=== PATIENT | female | born 1945 | race African-American/Black ===

== ENCOUNTER 2018-10-08 14:31 | Inpatient (IN) | payer MEDICARE, MEDICAID ==
[2018-10-08] VITALS (7 sets, daily range): BP systolic 147–159; BP diastolic 54–64; BMI 22.3
[~2018-10-08] VITALS: Ht 152.4 cm; Wt 52.7 kg
[2018-10-08 18:54] LABS: BASOPHILS 0.1 % (0-2); EOSINOPHILS 0.1 % (0-7); HEMATOCRIT 28.3 % (36.0-48.0); HEMOGLOBIN 9.1 g/dL (12-16); IMMATURE GRANULOCYTES 0.4 % (0-5); LYMPHOCYTES 10.8 % (15-50); MCH 29.3 pg (26.0-34.0); MCHC 32.2 g/dL (31.0-37.0); MEAN PLATELET VOLUME 9.9 fL (7.4-10.4); MONOCYTES 10.7 % (2-11); NEUTROPHILS 77.9 % (40-80); PLATELET COUNT 135 10x3/uL (130-400); RBC 3.11 10x6/uL (4.00-5.40); RDW 17.2 % (11.5-14.5); WBC 11.4 10x3/uL (4.8-10.8)
--- NOTE | 2018-10-08 19:25 | NUR ---
RECEIVED CARE OF PT, ASSESSMENT PER FLOWSHEET. PT ALERT AND ORIENTED X 4, HR SR ON CM, DENIES PAIN OR ANY NEEDS AT THIS TIME. BED LOW, CALL LIGHT IN REACH.
[2018-10-08 19:32] LABS: ALBUMIN 2.3 g/dL (3.4-5.0); ANION GAP 13.1 mmol/L (8-16); BILIRUBIN - TOTAL 0.5 mg/dL (0.2-1.3); CALCIUM 7.9 mg/dL (8.5-10.1); CARBON DIOXIDE 19.2 mmol/L (21.0-32.0); CREATININE - SERUM 3.5 mg/dL (0.6-1.3); POTASSIUM - SERUM 4.3 mmol/L (3.5-5.1); PROTEIN - SERUM 4.8 g/dL (6.4-8.2)
[2018-10-08 20:30] LABS: HEMATOCRIT 27.4 % (36.0-48.0); HEMOGLOBIN 9.1 g/dL (12-16)
--- NOTE | 2018-10-08 20:30 | NUR ---
DR YBARRA NOTIFIED OF CONSULT, UPDATE GIVEN, NO ORDERS RECEIVED AT THIS TIME.
[2018-10-08 20:33] LABS: APTT 26.9 SECONDS (22.8-39.4); INR 1.24 (0.85-1.17); PROTIME 15.1 SECONDS (11.6-15.0)
[2018-10-08 20:42] LABS: % SATURATION 9 % (15-55); IRON 24 ug/dl (35-150); TOTAL IRON BIND CAPACITY 244 ug/dl (260-445); UNSAT IRON BIND CAPACITY 220 ug/dl (150-375)
[2018-10-09] VITALS (10 sets, daily range): BP systolic 129–158; BP diastolic 49–70
[2018-10-09 04:06] LABS: BASOPHILS 0.2 % (0-2); EOSINOPHILS 0.2 % (0-7); HEMATOCRIT 25.7 % (36.0-48.0); HEMOGLOBIN 8.5 g/dL (12-16); IMMATURE GRANULOCYTES 0.5 % (0-5); LYMPHOCYTES 9.8 % (15-50); MCH 29.5 pg (26.0-34.0); MCHC 33.1 g/dL (31.0-37.0); MCV 89.2 fL (80.0-100.0); MEAN PLATELET VOLUME 9.6 fL (7.4-10.4); MONOCYTES 8.4 % (2-11); NEUTROPHILS 80.9 % (40-80); PLATELET COUNT 133 10x3/uL (130-400); RBC 2.88 10x6/uL (4.00-5.40); RDW 17.4 % (11.5-14.5); WBC 11.9 10x3/uL (4.8-10.8)
[2018-10-09 04:19] LABS: ANION GAP 17.2 mmol/L (8-16); CALCIUM 7.9 mg/dL (8.5-10.1); CARBON DIOXIDE 19.5 mmol/L (21.0-32.0); CREATININE - SERUM 3.5 mg/dL (0.6-1.3); POTASSIUM - SERUM 4.7 mmol/L (3.5-5.1)
--- NOTE | 2018-10-09 04:40 | NUR ---
AM LABS REVIEWED, NOTHING TO TREAT PER ELECTROLYTE PROTOCOL.
--- NOTE | 2018-10-09 07:00 | NUR ---
REPORT RECIEVED, SHIFT ASSESSMENT COMPLETE, PT IS ALERT AND ORIENTED, ON 2L NC, ALL PPP, VSS, CALL LIGHT IN REACH
--- NOTE | 2018-10-09 07:15 | NUR ---
REPORT RECIEVED, SHIFT ASSESSMENT COMPLETE, PT C/O OF HIP PAIN, ORDERED PAIN MED GIVEN, ALL VSS, CALL LIGHT IN REACH
[2018-10-09 07:50] LABS: HEMATOCRIT 26.2 % (36.0-48.0); HEMOGLOBIN 8.5 g/dL (12-16)
[2018-10-09] MEDS ORDERED: GLUCOTROL 5 MG T5 MG PO (09:17)
[2018-10-09] MEDS ORDERED: PROTONIX40 MG PO (09:17)
[2018-10-09] MEDS ORDERED: FERROUS SULFAT325 MG PO (09:19)
[2018-10-09] MEDS ORDERED: COREG6.25 MG PO (09:19)
[2018-10-09] MEDS ORDERED: BUMEX2 MG PO (09:20)
[2018-10-09] MEDS ORDERED: HYDROCODON-ACE1 EA10 PO (09:20)
[2018-10-09] MEDS ORDERED: HYDRALAZINE HC100 MG PO (09:21)
[2018-10-09] MEDS ORDERED: RANEXA500 MG PO (09:21)
--- NOTE | 2018-10-09 09:25 | NUR ---
FAMILY AT BEDSIDE, UPDATE GIVEN
--- NOTE | 2018-10-09 11:00 | NUR ---
REASSESSMENT COMPLETE, NO CHANGES NOTED, PT RESTING COMFORTABLY, WILL CON'T TO MONITOR
--- NOTE | 2018-10-09 13:24 | NUR ---
FAMILY AT BEDSIDE, UPDATE GIVEN
--- NOTE | 2018-10-09 13:39 | NUR ---
LG DARK BM AT THIS TIME, 200CC OF DARK URINE NOTED
[2018-10-09 14:35] LABS: HEMATOCRIT 28.3 % (36.0-48.0); HEMOGLOBIN 9.1 g/dL (12-16)
--- NOTE | 2018-10-09 15:20 | NUR ---
PT ARRIVED TO UNIT FROM ICU VIA HOSTPIAL STAFF VIA FAMILY MEMBER, ORIENTED TO ROOM, CL IN REACH REQUSTING SOME WATER GAVE TO PT AT THIS TIME, PT IS TO BE NPO AFTER MIDNIGHT TONIGHT FOR PROCEDURE TOMORROW, NO OTHER NEEDS EXPRESSED AT THIS TIME
--- NOTE | 2018-10-09 18:34 | NUR ---
PT AAOX4 RESP EVEN AND NONLABORED, FAMILY AT BEDSIDE NO SIGNS OF DISTRESS NOTED, CL IN REACH
[2018-10-09 20:00] LABS: HEMATOCRIT 29.4 % (36.0-48.0); HEMOGLOBIN 9.5 g/dL (12-16)
--- NOTE | 2018-10-09 21:05 | NUR ---
PT HARD STICK, IV PROTONIX/NS DRIP UNABLE GIVEN AT THIS TIME, CALL MEDICAL DATA ENTRY CLERK ABOUT PT'S CONDITION, MEDICAL DATA ENTRY CLERK STATE: ICU NURSE WILL COME TO START PT'S IV LATER.
--- NOTE | 2018-10-09 21:45 | NUR ---
ASSISTED PT WITH BEDPAN.
--- NOTE | 2018-10-09 23:56 | NUR ---
REST QUIETLY IN BED, CALL LIGHT IN REACH.
--- NOTE | 2018-10-10 00:32 | NUR ---
ASSISTED PT WITH BEDPAN, PT HAS STOOL WITH MIDIUM AMOUNT OF BLOOD. CONTINUE MONITOR CLOSELY.
--- NOTE | 2018-10-10 01:57 | NUR ---
NURSES HAD TRY 4 ATTEMPTS FOR PT'S IV ACCESS AND UNABLE TO GET IV START, SPOKE TO PROGRAM CONTROL ANALYST, PROGRAM CONTROL ANALYST STATE:" VASCULAR NURSE WILL START THE IV SOON POSSIBLE."
--- NOTE | 2018-10-10 02:17 | NUR ---
PATIENT RESTING IN BED WITH EYES CLOSED AND NO S/S OF DISTRESS. BED IN LOWEST POSITION AND CALL LIGHT WITHIN REACH. WILL CONTINUE TO MONITOR.
[2018-10-10 07:26] LABS: BASOPHILS 0.2 % (0-2); EOSINOPHILS 2.2 % (0-7); HEMATOCRIT 27.3 % (36.0-48.0); HEMOGLOBIN 8.8 g/dL (12-16); IMMATURE GRANULOCYTES 0.6 % (0-5); LYMPHOCYTES 5.3 % (15-50); MCH 29.2 pg (26.0-34.0); MCHC 32.2 g/dL (31.0-37.0); MCV 90.7 fL (80.0-100.0); MONOCYTES 7.2 % (2-11); NEUTROPHILS 84.5 % (40-80); PLATELET COUNT 143 10x3/uL (130-400); RBC 3.01 10x6/uL (4.00-5.40); RDW 17.5 % (11.5-14.5); WBC 12.2 10x3/uL (4.8-10.8)
[2018-10-10 07:32] LABS: ANION GAP 15.1 mmol/L (8-16); CALCIUM 7.6 mg/dL (8.5-10.1); CARBON DIOXIDE 19.8 mmol/L (21.0-32.0); CREATININE - SERUM 2.9 mg/dL (0.6-1.3)
[2018-10-10 07:36] LABS: POTASSIUM - SERUM 3.9 mmol/L (3.5-5.1)
--- NOTE | 2018-10-10 08:00 | NUR ---
ABDOMINAL ULTRASOUND DONE AT BEDSIDE. NO VOICED NEEDS AT THIS TIME.
[2018-10-10 08:38] VITALS: BP 156/51
[2018-10-10 11:00] VITALS: Ht 152.4 cm; Wt 52.7 kg
[2018-10-10 12:30] VITALS: BP 164/49
--- NOTE | 2018-10-10 16:39 | MORECARE ---
CASE MANAGEMENT DISCHARGE SUMMARY PATIENT: ERROL FARAH UNIT: [id number] ADM DATE: 10/08/18 AGE: 73 : 45 SEX: F ROOM/BED: D.1210 AUTHOR: AHSAN GARCIA PHYSICIAN: REFERRING PHYSICIAN: VALENTIN SOL MD DATE OF SERVICE: 10/10/18 Discharge Plan Patient Name: ERROL FARAH Facility: [facility]:[place] : 1945 Planned Disposition: Anticipated Discharge Date: Discharge Date: Expected LOS: Initial Reviewer: [email or web address] Initial Review Date: 10/10/2018 Generated: 10/10/18 5:39 pm Patient Name: ERROL FARAH Page [id number] at 1639 All edits/amendments must be made on the electronic document DICTATION DATE: 10/10/18 1638 PARATRANSIT DRIVER: CLEM 10/10/18 1638 RPT#: [id number] DC DATE: STATUS: ADM IN [facility] [address] [place] [address] END OF REPORT
[2018-10-10 17:03] VITALS: BP 149/44
[2018-10-10 18:21] LABS: HEMATOCRIT 30.7 % (36.0-48.0); HEMOGLOBIN 9.8 g/dL (12-16)
--- NOTE | 2018-10-10 20:18 | NUR ---
ASSISTED PT TO BATHROOM, PT HAS MEDIUM AMOUNT OF BLOOD STOOL.
[2018-10-10 22:01] VITALS: BP 155/54
[2018-10-11] VITALS (7 sets, daily range): BP systolic 144–195; BP diastolic 59–86
--- NOTE | 2018-10-11 00:45 | NUR ---
UA COLLECTED AND SENT IT TO THE LAB.
[2018-10-11 01:04] LABS: APPEARANCE CLOUDY (CLEAR); BILIRUBIN NEGATIVE (NEGATIVE); COLOR YELLOW (YELLOW); GLUCOSE 50 mg/dL (NEGATIVE); KETONE NEGATIVE (NEGATIVE); NITRITE NEGATIVE (NEGATIVE); PROTEIN 3+ mg/dL (NEGATIVE); SPECIFIC GRAVITY 1.015 (1.005-1.020); UROBILINOGEN NORMAL (NORMAL)
[2018-10-11 01:19] LABS: BACTERIA MANY /hpf (NONE SEEN); EPITHELIAL CELLS 0-5 /hpf (0-5); RED CELLS - URINE 0-5 /hpf (0-5)
--- NOTE | 2018-10-11 01:50 | NUR ---
LYING IN BED WITH EYES CLOSED. RESP EVEN AND NONLABORED. O2 @ 2L/NC. NO DISTRESS. IV INFUSING WITHOUT DIFF. SR ELEVATED X2. CL IN REACH.
--- NOTE | 2018-10-11 02:08 | NUR ---
REST IN BED, RESP EVEN, NO DISTRESS NOTED, CALL LIGHT IN REACH.
--- NOTE | 2018-10-11 05:56 | NUR ---
ASSISTED PT TO BATHROOM.
[2018-10-11 07:03] LABS: BASOPHILS 0.2 % (0-2); EOSINOPHILS 2.2 % (0-7); HEMATOCRIT 25.9 % (36.0-48.0); HEMOGLOBIN 8.3 g/dL (12-16); IMMATURE GRANULOCYTES 0.4 % (0-5); LYMPHOCYTES 5.4 % (15-50); MCH 29.2 pg (26.0-34.0); MCV 91.2 fL (80.0-100.0); MEAN PLATELET VOLUME 9.8 fL (7.4-10.4); NEUTROPHILS 84.8 % (40-80); PLATELET COUNT 145 10x3/uL (130-400); RBC 2.84 10x6/uL (4.00-5.40); WBC 10.3 10x3/uL (4.8-10.8)
[2018-10-11 07:19] LABS: ANION GAP 16.1 mmol/L (8-16); CALCIUM 7.6 mg/dL (8.5-10.1); CARBON DIOXIDE 18.8 mmol/L (21.0-32.0); CREATININE - SERUM 2.9 mg/dL (0.6-1.3); POTASSIUM - SERUM 3.9 mmol/L (3.5-5.1)
[2018-10-11 12:17] LABS: FOLATE (FOLIC ACID) - SERUM >20.0 ng/mL (>3.0)
--- NOTE | 2018-10-11 19:50 | NUR ---
LYING IN BED. ALERT AND ORIENTED X4. FAMILY MEMBER AT BEDSIDE HAS BEEN ASSISTING PT UP TO BSC. REPORTS MULTIPLE STOOLS WITH BLOOD. DRINKING GOLYTELY. EXPLAINED NPO AFTER MIDNIGHT AND SHE VERBALIZED UNDERSTANDING. RESP EVEN AND NONLABORED. NO WEARING O2. ABD IS DISTENDED AND FIRM WITH HYPERACTIVE BS X4 QUADS. NO EDEMA NOTED. WEAKNESS NOTED. NS @ 50 ML/HR INFUSING IN LT HAND WITHOUT DIFF. SR ELEVATED X2. CL IN REACH. DENIES PAIN.
--- NOTE | 2018-10-11 21:29 | NUR ---
SPOKE WITH KNOCKER OFF TO SEE IF PRBC WAS READY. STATES ORDER WAS PUT IN ROUTINE AND HASNT BEEN DRAWN YET BUT THEY WILL COME DOWN JELANI.
--- NOTE | 2018-10-11 23:03 | NUR ---
SPOKE WITH SENIOR CLINICAL CONSULTANT. PRBCS NOT READY YET.
--- NOTE | 2018-10-11 23:40 | NUR ---
STARTED UNIT OF PRBCS. VERIFIED PER STAFF X2. PT HAS BEEN HAVING BLOODY BMS ALL NIGHT. NO STOOL SEEN NOW, JUST BLOOD TINGED FLUID. WILL MONITOR FOR S/S OF ADVERSE REACTION. FAMILY AT BEDSIDE. CL IN REACH.
--- NOTE | 2018-10-11 23:55 | NUR ---
NO S/S OF ADVERSE REACTION TO PRBC TRANSFUSION. WILL CONT TO MONITOR CLOSELY. CL IN REACH.
[2018-10-12] VITALS (8 sets, daily range): BP systolic 141–185; BP diastolic 40–81
--- NOTE | 2018-10-12 02:00 | NUR ---
PRBCS FINISHED TRANSFUSING. PT ANAIS WELL. STILL HAVING BLOOD TINGED LIQUID BMS BUT NO FECAL MATTER NOTED. FAMILY AT BEDSIDE. NO DISTRESS. CL IN REACH.
[2018-10-12 06:59] LABS: BASOPHILS 0.2 % (0-2); EOSINOPHILS 0.5 % (0-7); HEMATOCRIT 30.5 % (36.0-48.0); IMMATURE GRANULOCYTES 0.4 % (0-5); LYMPHOCYTES 6.7 % (15-50); MCH 29.5 pg (26.0-34.0); MCHC 32.5 g/dL (31.0-37.0); MCV 90.8 fL (80.0-100.0); MEAN PLATELET VOLUME 9.8 fL (7.4-10.4); MONOCYTES 5.7 % (2-11); NEUTROPHILS 86.5 % (40-80); PLATELET COUNT 150 10x3/uL (130-400); RBC 3.36 10x6/uL (4.00-5.40); RDW 16.6 % (11.5-14.5); WBC 9.9 10x3/uL (4.8-10.8)
[2018-10-12 07:05] LABS: ANION GAP 19.1 mmol/L (8-16); CALCIUM 7.5 mg/dL (8.5-10.1); CARBON DIOXIDE 17.2 mmol/L (21.0-32.0); CREATININE - SERUM 2.5 mg/dL (0.6-1.3)
[2018-10-12 07:09] LABS: HEMOGLOBIN 9.9 g/dL (12-16); POTASSIUM - SERUM 3.3 mmol/L (3.5-5.1)
--- NOTE | 2018-10-12 07:37 | NUR ---
CALLED AND SPOKE TO OBI IN THE PHARMACY, REQUESTING 4 K+ RIDERS TO TREAT LOW K+ PER PROTOCOL
--- NOTE | 2018-10-12 13:12 | NUR ---
CALLED AND SPOKE TO DR DYSON, REPORTING THE PATIENTS ELEVATED BLOOD PRESSURE, NEW ORDER TO START METOPORLOL 12.5 MG BID, FIRST DOSE NOW.
--- NOTE | 2018-10-12 13:17 | NUR ---
CALLED AND SPOKE TO PARADISE AT THIS TIME, REQUESTING THE LOPRESSOR TO BE GIVEN NOW.
--- NOTE | 2018-10-12 14:45 | NUR ---
Pt is now on a regular diet. Pt is eating well. Pt reports appetite is good and she is tolerating meals well. Pt reports eating better now than she does at home Encouraged good po intake and assisted pt with menu selection Pt to try supplement-drinks Boost at home RD following
--- NOTE | 2018-10-12 19:28 | NUR ---
PT RESTING IN BED. AROUSES TO NURSE IN ROOM. NAME AND DATE PLACED ON BOARD. PT ON 2L O2 NC, NS INFUSING AT 50 TO LEFT WRIST/HAND IV. FLUSHED IV, PIV IS PATENT,DRSG CDI. DENIES TENDERNESS. PT FAMILY AT BEDSIDE. PT HAS NO S/S OF DISTRESS. REPOSITIONED TO CENTER OF BED WITH MINIMAL ASSIST. PT WILL CALL FOR ASSIST WHEN NEEDED. WILL CPOC
--- NOTE | 2018-10-12 19:54 | NUR ---
PULLED PT UP IN BED AND REPOSISTIONED. O2 IS 99% 2L PT HAS NO S/S OF DISTRESS, FAMILY AT BEDSIDE. NS INFUSING AT 50 TO LEFT WRIST IV. PT WILL CALL FOR ASSIST BEDLOW AND CALL LIGHT IN REACH. WILL CPOC
--- NOTE | 2018-10-13 | NUR ---
PT HAD A SMALL BM, SOFT LOOSE STOOL WITH SCANT AMOUNT OF REDNESS.
[2018-10-13 00:25] VITALS: BP 172/60
--- NOTE | 2018-10-13 03:47 | NUR ---
PT RESTLESS THROUGH OUT NIGHT, CALMER NOW COMPAIRED TO START OF SHIFT. PT HAS 2L O2 NC. LEFT HAND IV FLUSHED AGAIN DUE TO IV PUMP BEEPING. NS INFUSING AT 50. FAMILY AT BEDSIDE ASSISTING WITH CARE. PT DENIES ANY NEEDS. NO S/S OF DISTRESS. BEDLOW AND CALL LIGHT IN REACH. WILL CPOC
[2018-10-13 04:00] VITALS: BP 163/64
--- NOTE | 2018-10-13 06:12 | NUR ---
CHANGED IV TUBING AND FLUSHED IV. IV IS PATENT. DRSG CDI. SINCE CHANGING TUBING IV PUMP SILENCE. PT SNORING ON RIGHT SIDE. FINALLY GETTING SLEEP. AROUSES TO VERBAL STIMULI. PT HAS NO S/S OF DISTRESS. DENIES ANY NEEDS. MORNING MEDS GIVEN. PT FAMILY AT BEDSIDE. WILL CPOC
[2018-10-13 07:05] LABS: BASOPHILS 0.1 % (0-2); EOSINOPHILS 0 % (0-7); HEMOGLOBIN 9.5 g/dL (12-16); IMMATURE GRANULOCYTES 0.4 % (0-5); LYMPHOCYTES 5.1 % (15-50); MCH 29.4 pg (26.0-34.0); MCHC 32.8 g/dL (31.0-37.0); MCV 89.8 fL (80.0-100.0); MEAN PLATELET VOLUME 9.9 fL (7.4-10.4); MONOCYTES 4.6 % (2-11); NEUTROPHILS 89.8 % (40-80); PLATELET COUNT 137 10x3/uL (130-400); RBC 3.23 10x6/uL (4.00-5.40); RDW 16.5 % (11.5-14.5)
[2018-10-13 07:08] LABS: WBC 14.8 10x3/uL (4.8-10.8)
[2018-10-13 07:15] LABS: CALCIUM 7.5 mg/dL (8.5-10.1); CARBON DIOXIDE 14.3 mmol/L (21.0-32.0); CREATININE - SERUM 2.7 mg/dL (0.6-1.3); POTASSIUM - SERUM 4.3 mmol/L (3.5-5.1)
[2018-10-13 08:14] VITALS: BP 136/67
[2018-10-13 11:52] VITALS: BP 129/64
--- NOTE | 2018-10-13 15:18 | MORECARE ---
CASE MANAGEMENT DISCHARGE SUMMARY PATIENT: ERROL TATE UNIT: [id number] ADM DATE: 10/08/18 AGE: 73 : 45 SEX: F ROOM/BED: D.1210 AUTHOR: AHSAN GARCIA PHYSICIAN: REFERRING PHYSICIAN: VALENTIN SOL MD DATE OF SERVICE: 10/13/18 Discharge Plan Patient Name: ERROL TATE Facility: [facility]:[place] : 1945 Planned Disposition: Home Anticipated Discharge Date: 10/13/18 Discharge Date: Expected LOS: 5 Initial Reviewer: [email or web address] Initial Review Date: 10/13/2018 Generated: 10/13/18 4:18 pm DCPIA - Discharge Planning Initial Assessment Updated by [email or web address]: Rafaela Kolb on 10/13/18 3:18 pm * Is the patient Alert and Oriented? Yes * How many steps to enter\exit or inside your home? * PCP [place] * Pharmacy [facility] [place] * Preadmission Environment Home with Family * ADLs Independent * Equipment Cane Glucometer Oxygen Rolling Walker * List name and contact numbers for known caregivers / representatives who currently or will assist patient after discharge: Jarod Tate, Son, Miya Robbins, Sister, * Please name any agencies selected above. [facility], * Additional services required to return to the preadmission environment? No * Can the patient safely return to the preadmission environment? Yes * Has this patient been hospitalized within the prior 30 days at any hospital? No Last DP export: 10/10/18 3:39 pm Patient Name: ERROL TATE Page [id number] at 151 All edits/amendments must be made on the electronic document DICTATION DATE: 10/13/181517 FISH HATCHERY WORKER: CLEM 10/13/18 151 RPT#: [id number] DC DATE: STATUS: ADM IN [facility] [address] [place] [address] END OF REPORT
--- NOTE | 2018-10-13 15:26 | MORECARE ---
CASE MANAGEMENT DISCHARGE SUMMARY PATIENT: ERROL TATE UNIT: [id number] ADM DATE: 10/08/18 AGE: 73 : 45 SEX: F ROOM/BED: D.1210 AUTHOR: AHSAN GARCIA PHYSICIAN: REFERRING PHYSICIAN: VALENTIN SOL MD DATE OF SERVICE: 10/13/18 Discharge Plan Patient Name: ERROL TATE Facility: [facility]:[place] : 1945 Planned Disposition: Home Anticipated Discharge Date: 10/13/18 Discharge Date: Expected LOS: 5 Initial Reviewer: [email or web address] Initial Review Date: 10/13/2018 Generated: 10/13/18 4:26 pm Comments DCP- Discharge Planning Updated by [email or web address]: Rafaela Kolb on 10/13/18 2:[address] Patient Name: ERROL TATE Admission Status: Elective Accout number: [id number] Admission Date: 10-08-2018 : 1945 Admission Diagnosis:GASTROINTESTINAL HEMORRHAGE, UNSPECIFIED Attending: VALENTIN SOL Current LOS: 5 Anticipated DC Date: 10-13-2018 Planned Disposition: Home Primary Insurance: [facility] MEDICARE SOLUTIONS Discharge Planning Comments: After obtaining verbal consent, CM met with patient and sister, Miya Robbins ([phone]) about discharge planning / needs. Patient states her plan is to discharge back to home where she lives with her adult son, Jarod Tate ([phone]). States her home environment is safe. Denies any discharge planning needs at this time. Patient refuses rehab or home health services at this time. CM had patient sign Patient Choice Form stating she is refusing Rehab and Home Health. CM explained and served DC IMM. Patient's sister states they will need to call patient's son to come get them upon hospital DC as they do not have a car here. CM notified patient's nurse, Aracely. CM will continue to follow and assist as needed with discharge planning / needs. Liner Checker: Rafaela Kolb DCPIA - Discharge Planning Initial Assessment Updated by [email or web address]: Rafaela Kolb on 10/13/18 3:19 pm * Is the patient Alert and Oriented? Yes * How many steps to enter\exit or inside your home? * PCP [place] * Pharmacy [facility], [place] * Preadmission Environment Home with Family * ADLs Independent * Equipment Cane Glucometer Oxygen Rolling Walker * List name and contact numbers for known caregivers / representatives who currently or will assist patient after discharge: Jarod Tate, Son, Miya Robbins, Sister, * Verbal permission to speak to the caregivers and representatives has been obtained from the patient. Yes * Please name any agencies selected above. [facility], * Additional services required to return to the preadmission environment? No * Can the patient safely return to the preadmission environment? Yes * Has this patient been hospitalized within the prior 30 days at any hospital? No Last DP export: 10/13/18 2:18 pm Patient Name: ERROL TATE Page 63614 at 1526 All edits/amendments must be made on the electronic document DICTATION DATE: 10/13/18 152 DIALYSIS EQUIPMENT TECHNICIAN: CLEM 10/13/181525 RPT#: [id number] DC DATE: STATUS: ADM IN [facility] [address] [place] [address] END OF REPORT
[2018-10-13 16:07] VITALS: BP 126/74
[2018-10-13] MEDS ORDERED: LOPRESSOR25 MG PO (16:24)
--- NOTE | 2018-10-13 19:50 | NUR ---
DISCHARGE INSTRUCTIONS SIGNED, VERBALIZED UNDERSTANDING, PT AND FAMILY DENIES ANY QUESTIONS OR CONCERNS. FLU SHOT GIVEN IN LEFT DELTOID. LEFT 22G FOREARM/WRIST IV REMOVED WITH CATH INTACT. LOPRESSOR GIVEN, PT VERBALIZED UNDERSTANDING OF MEDICATION, VERBALIZED WHAT PHARMACY MED WAS SENT TO. PT GETTING DRESSED AND WAITING FOR RIDE. WILL CPOC
--- NOTE | 2018-10-13 20:29 | NUR ---
PT RIDE IS HERE. PT DENIES ANY QUESTIONS OR CONCERNS. PT TAKEN TO VEHICLE VIA WHEEL CHAIR.
--- NOTE | 2018-10-14 08:46 | MORECARE ---
CASE MANAGEMENT DISCHARGE SUMMARY PATIENT: ERROL TATE UNIT: [id number] ADM DATE: 10/08/18 AGE: 73 : 45 SEX: F ROOM/BED: D.1210 AUTHOR: AHSAN GARCIA PHYSICIAN: REFERRING PHYSICIAN: VALENTIN SOL MD DATE OF SERVICE: 10/14/18 Discharge Plan Patient Name: ERROL TATE Facility: [facility]:[place] : 1945 Planned Disposition: Home Anticipated Discharge Date: 10/13/18 Discharge Date: 10/13/2018 Expected LOS: 5 Initial Reviewer: [email or web address] Initial Review Date: 10/13/2018 Generated: 10/14/18 9:46 am Comments DCP- Discharge Planning Updated by [email or web address]: Rafaela Kolb on 10/13/18 2:[address] Patient Name: ERROL TATE Admission Status: Elective Accout number: [id number] Admission Date: 10-08-2018 : 1945 Admission Diagnosis:GASTROINTESTINAL HEMORRHAGE, UNSPECIFIED Attending: VALENTIN SOL Current LOS: 5 Anticipated DC Date: 10-13-2018 Planned Disposition: Home Primary Insurance: [facility] MEDICARE SOLUTIONS Discharge Planning Comments: After obtaining verbal consent, CM met with patient and sister, Miya Robbins ([phone]) about discharge planning / needs. Patient states her plan is to discharge back to home where she lives with her adult son, Jarod Tate ([phone]). States her home environment is safe. Denies any discharge planning needs at this time. Patient refuses rehab or home health services at this time. CM had patient sign Patient Choice Form stating she is refusing Rehab and Home Health. CM explained and served DC IMM. Patient's sister states they will need to call patient's son to come get them upon hospital DC as they do not have a car here. CM notified patient's nurse, Aracely. CM will continue to follow and assist as needed with discharge planning / needs. Laboratory Tech: Rafaela Kolb DCPIA - Discharge Planning Initial Assessment Updated by [id number]: Rafaela Kolb on 10/13/18 3:19 pm * Is the patient Alert and Oriented? Yes * How many steps to enter\exit or inside your home? * PCP [place] * [facility] * Preadmission Environment Home with Family * ADLs Independent * Equipment Cane Glucometer Oxygen Rolling Walker * List name and contact numbers for known caregivers / representatives who currently or will assist patient after discharge: Jarod Tate, Son, Miya Robbins, Sister, * Verbal permission to speak to the caregivers and representatives has been obtained from the patient. Yes * Please name any agencies selected above. [facility] [place], * Additional services required to return to the preadmission environment? No * Can the patient safely return to the preadmission environment? Yes * Has this patient been hospitalized within the prior 30 days at any hospital? No Coverage Notice Reviewer: YONATHAN Kolb Notice Issued Date-Time: 10/13/2018 15:02 Notice Type: IM Discharge Notice Notice Delivered To: Patient Relationship to Patient: Self Application Infrastructure Engineer Name: Delivery Method: HAND - Hand Delivered Bridget Days: Prior Verbal Notification: Recipient Understood Notice: Yes Recipient Signature: Yes Med Rec Note Co-signed by Attending: Coverage Notice Comment: Reviewer: YONATHAN Kolb Notice Issued Date-Time: 10/13/2018 15:02 Notice Type: Patient Choice Letter Notice Delivered To: Patient Relationship to Patient: Self Application Infrastructure Engineer Name: Delivery Method: HAND - Hand Delivered Bridget Days: Prior Verbal Notification: Recipient Understood Notice: Yes Recipient Signature: Yes Med Rec Note Co-signed by Attending: Coverage Notice Comment: Refused Rehab and Home Health Last DP export: 10/13/18 2:26 pm Patient Name: ERROL TATE Page 40933 at 0846 All edits/amendments must be made on the electronic document DICTATION DATE: 10/14/1846 BAR MACHINE OPERATOR MULTIPLE SPINDLE: CLEM 10/14/1846 RPT#: [id number] DC DATE:10/13/18 STATUS: DIS IN [place] [id number] [place] [address] END OF REPORT
--- NOTE | 2018-10-17 13:36 | MORECARE ---
CASE MANAGEMENT DISCHARGE SUMMARY PATIENT: ERROL TATE UNIT: [id number] ADM DATE: 10/08/18 AGE: 73 : 45 SEX: F ROOM/BED: D.1210 AUTHOR: AHSAN GARCIA PHYSICIAN: REFERRING PHYSICIAN: VALENTIN SOL MD DATE OF SERVICE: 10/17/18 Discharge Plan Patient Name: ERROL TATE Facility: [facility]:[place] : 1945 Planned Disposition: Home Anticipated Discharge Date: 10/13/18 Discharge Date: 10/13/2018 Expected LOS: 5 Initial Reviewer: [email or web address] Initial Review Date: 10/13/2018 Generated: 10/17/18 2:35 pm Comments DCP- Discharge Planning Updated by [email or web address]: Rafaela Kolb on 10/13/18 2:[address] Patient Name: ERROL TATE Admission Status: Elective Accout number: [id number] Admission Date: 10-08-2018 : 1945 Admission Diagnosis:GASTROINTESTINAL HEMORRHAGE, UNSPECIFIED Attending: VALENTIN SOL Current LOS: 5 Anticipated DC Date: 10-13-2018 Planned Disposition: Home Primary Insurance: [facility] MEDICARE SOLUTIONS Discharge Planning Comments: After obtaining verbal consent, CM met with patient and sister, Miya Robbins ([phone]) about discharge planning / needs. Patient states her plan is to discharge back to home where she lives with her adult son, Jarod Tate ([phone]). States her home environment is safe. Denies any discharge planning needs at this time. Patient refuses rehab or home health services at this time. CM had patient sign Patient Choice Form stating she is refusing Rehab and Home Health. CM explained and served DC IMM. Patient's sister states they will need to call patient's son to come get them upon hospital DC as they do not have a car here. CM notified patient's nurse, Aracely. CM will continue to follow and assist as needed with discharge planning / needs. Asphalt Layer: Rafaela Kolb DCPIA - Discharge Planning Initial Assessment Updated by [email or web address]: Rafaela Kolb on 10/13/18 3:19 pm * Is the patient Alert and Oriented? Yes * How many steps to enter\exit or inside your home? * PCP [place] * [facility] * Preadmission Environment Home with Family * ADLs Independent * Equipment Cane Glucometer Oxygen Rolling Walker * List name and contact numbers for known caregivers / representatives who currently or will assist patient after discharge: Jarod Tate, Son, Miya Robbins, Sister, * Verbal permission to speak to the caregivers and representatives has been obtained from the patient. Yes * Please name any agencies selected above. [facility] [place], * Additional services required to return to the preadmission environment? No * Can the patient safely return to the preadmission environment? Yes * Has this patient been hospitalized within the prior 30 days at any hospital? No External Providers External Provider: OTHER-OTHER Next Contact Date: Service Request Date: Service Type: Resolution: Reviewer: Comments: Coverage Notice Reviewer: YONATHAN Kolb Notice Issued Date-Time: 10/13/2018 15:02 Notice Type: IM Discharge Notice Notice Delivered To: Patient Relationship to Patient: Self Full Stack Web Developer Name: Delivery Method: HAND - Hand Delivered Bridget Days: Prior Verbal Notification: Recipient Understood Notice: Yes Recipient Signature: Yes Med Rec Note Co-signed by Attending: Coverage Notice Comment: Reviewer: YONATHAN Kolb Notice Issued Date-Time: 10/13/2018 15:02 Notice Type: Patient Choice Letter Notice Delivered To: Patient Relationship to Patient: Self Full Stack Web Developer Name: Delivery Method: HAND - Hand Delivered Bridget Days: Prior Verbal Notification: Recipient Understood Notice: Yes Recipient Signature: Yes Med Rec Note Co-signed by Attending: Coverage Notice Comment: Refused Rehab and Home Health Last DP export: 10/14/18 7:46 am Patient Name: ERROL TATE Page 13868 at 133 All edits/amendments must be made on the electronic document DICTATION DATE: 10/17/18 1332 LAUNDRY PRESS OPERATOR: CLEM 10/17/18 1336 RPT#: [id number] DC DATE:10/13/18 STATUS: DIS IN [facility] [address] [place] [address] END OF REPORT
--- NOTE | 2018-10-17 15:49 | MORECARE ---
CASE MANAGEMENT DISCHARGE SUMMARY PATIENT: ERROL TATE UNIT: [id number] ADM DATE: 10/08/18 AGE: 73 : 45 SEX: F ROOM/BED: D.1210 AUTHOR: AHSAN GARCIA PHYSICIAN: REFERRING PHYSICIAN: VALENTIN SOL MD DATE OF SERVICE: 10/17/18 Discharge Plan Patient Name: ERROL TATE Facility: [facility]:[place] : 1945 Planned Disposition: Home Anticipated Discharge Date: 10/13/18 Discharge Date: 10/13/2018 Expected LOS: 5 Initial Reviewer: [email or web address] Initial Review Date: 10/13/2018 Generated: 10/17/18 4:49 pm Comments DCP- Discharge Planning Updated by [email or web address]: Rafaela Kolb on 10/13/18 2:[address] Patient Name: ERROL TATE Admission Status: Elective Accout number: [id number] Admission Date: 10-08-2018 : 1945 Admission Diagnosis:GASTROINTESTINAL HEMORRHAGE, UNSPECIFIED Attending: VALENTIN SOL Current LOS: 5 Anticipated DC Date: 10-13-2018 Planned Disposition: Home Primary Insurance: [facility] MEDICARE SOLUTIONS Discharge Planning Comments: After obtaining verbal consent, CM met with patient and sister, Miya Robbins ([phone]) about discharge planning / needs. Patient states her plan is to discharge back to home where she lives with her adult son, Jarod Tate ([phone]). States her home environment is safe. Denies any discharge planning needs at this time. Patient refuses rehab or home health services at this time. CM had patient sign Patient Choice Form stating she is refusing Rehab and Home Health. CM explained and served DC IMM. Patient's sister states they will need to call patient's son to come get them upon hospital DC as they do not have a car here. CM notified patient's nurse, Aracely. CM will continue to follow and assist as needed with discharge planning / needs. Nurse Discharge Planner: Rafaela Kolb DCPIA - Discharge Planning Initial Assessment Updated by [email or web address]: Rafaela Kolb on 10/13/18 3:19 pm * Is the patient Alert and Oriented? Yes * How many steps to enter\exit or inside your home? * PCP [place] [place] * [facility] * Preadmission Environment Home with Family * ADLs Independent * Equipment Cane Glucometer Oxygen Rolling Walker * List name and contact numbers for known caregivers / representatives who currently or will assist patient after discharge: Jarod Tate, Son, iMya Robbins, Sister, * Verbal permission to speak to the caregivers and representatives has been obtained from the patient. Yes * Please name any agencies selected above. [facility], * Additional services required to return to the preadmission environment? No * Can the patient safely return to the preadmission environment? Yes * Has this patient been hospitalized within the prior 30 days at any hospital? No External Providers External Provider: [facility] Next Contact Date: Service Request Date: Service Type: Resolution: Reviewer: Comments: Coverage Notice Reviewer: [email or web address] Kolb Notice Issued Date-Time: 10/13/2018 15:02 Notice Type: IM Discharge Notice Notice Delivered To: Patient Relationship to Patient: Self Electrogalvanizing Machine Operator Name: Delivery Method: HAND - Hand Delivered Bridget Days: Prior Verbal Notification: Recipient Understood Notice: Yes Recipient Signature: Yes Med Rec Note Co-signed by Attending: Coverage Notice Comment: Reviewer: YONATHAN Kolb Notice Issued Date-Time: 10/13/2018 15:02 Notice Type: Patient Choice Letter Notice Delivered To: Patient Relationship to Patient: Self Electrogalvanizing Machine Operator Name: Delivery Method: HAND - Hand Delivered Bridget Days: Prior Verbal Notification: Recipient Understood Notice: Yes Recipient Signature: Yes Med Rec Note Co-signed by Attending: Coverage Notice Comment: Refused Rehab and Home Health Last DP export: 10/17/18 12:35 p Patient Name: ERROL TATE Page 03428 at 1353 All edits/amendments must be made on the electronic document DICTATION DATE: 10/17/185 LATIN TEACHER: CLEM 10/17/183 RPT#: [id number] DC DATE:10/13/18 STATUS: DIS IN [facility] [address] [place] [address] END OF REPORT
== END 2018-10-13 20:30 | disposition home or self-care (01) | DRG 394 ==
LOC: D.ICU 14:31 → D.M3 17:31
PROVIDERS: Family Medicine; Internal Medicine Gastroenterology; ADMIT Internal Medicine Nephrology
PROC: 0DB68ZX Excision of Stomach, Via Natural or Artificial Opening Endoscopic, Diagnostic (ICD-10-PCS; principal; 2018-10-10 11:45)
PROC: 0D5L8ZZ Destruction of Transverse Colon, Via Natural or Artificial Opening Endoscopic (ICD-10-PCS; 2018-10-12)
DX: K63.81 Dieulafoy lesion of intestine (principal); D62 Acute posthemorrhagic anemia; N17.9 Acute kidney failure, unspecified; E44.0 Moderate protein-calorie malnutrition; I85.00 Esophageal varices without bleeding; K21.0 Gastro-esophageal reflux disease with esophagitis; K44.9 Diaphragmatic hernia without obstruction or gangrene; D17.5 Benign lipomatous neoplasm of intra-abdominal organs; Z68.22 Body mass index [BMI] 22.0-22.9, adult; I25.10 Atherosclerotic heart disease of native coronary artery without angina pectoris

== ENCOUNTER 2018-11-29 17:18 | Inpatient (IN) | payer MEDICARE, MEDICAID ==
[~2018-11-29 17:18] MED LIST: BUMEX2 MG PO; COREG6.25 MG PO; FERROUS SULFAT325 MG PO; GLUCOTROL 5 MG T5 MG PO; HYDRALAZINE HC100 MG PO; HYDROCODON-ACE1 EA10 PO; LOPRESSOR25 MG PO; PROTONIX40 MG PO; RANEXA500 MG PO
--- NOTE | 2018-11-29 18:10 | MORECARE ---
CASE MANAGEMENT DISCHARGE SUMMARY PATIENT: ERROL FARAH UNIT: [id number] ADM DATE: 11/29/18 AGE: 73 : 45 SEX: F ROOM/BED: D.T02 AUTHOR: AHSAN GARCIA PHYSICIAN: REFERRING PHYSICIAN: AVLENTIN SOL MD DATE OF SERVICE: 11/29/18 Discharge Plan Patient Name: ERROL FARAH Facility: [facility]:[place] : 1945 Planned Disposition: Fpc Facility Anticipated Discharge Date: 12/01/18 Discharge Date: Expected LOS: 2 Initial Reviewer: [email or web address] Initial Review Date: 11/29/2018 Generated: 11/29/18 7:10 pm Patient Name: ERROL FARAH Page 20909 at 1810 All edits/amendments must be made on the electronic document DICTATION DATE: 11/29/181809 COOK JELLY: CLEM 11/29/181809 RPT#: [id number] DC DATE: STATUS: ADM IN [facility] [address] [place] [address] END OF REPORT
--- NOTE | 2018-11-29 18:18 | MORECARE ---
CASE MANAGEMENT DISCHARGE SUMMARY PATIENT: ERROL TATE UNIT: [id number] ADM DATE: 11/29/18 AGE: 73 : 45 SEX: F ROOM/BED: D.T02 AUTHOR: JOSEDOC PHYSICIAN: REFERRING PHYSICIAN: VALENTIN SOL MD DATE OF SERVICE: 11/29/18 Discharge Plan Patient Name: ERROL TATE Facility: [facility]:[place] : 1945 Planned Disposition: Usp Facility Anticipated Discharge Date: 12/01/18 Discharge Date: Expected LOS: 2 Initial Reviewer: [email or web address] Initial Review Date: 11/29/2018 Generated: 11/29/18 7:18 pm DCP- Discharge Planning Updated by [email or web address]: Rosa Hull on 11/29/18 5:[address] Patient Name: ERROL TATE Admission Status: ER Accout number: [id number] Admission Date: 11-29-2018 : 1945 Admission Diagnosis: Attending: VALENTIN SOL Current LOS: 1 Anticipated DC Date: 12-01-2018 Planned Disposition: Usp Facility - [facility] Primary Insurance: [facility] MEDICARE SOLUTIONS Discharge Planning Comments: CM met with patient to complete initial dc planning assessment. Patient asleep at this time. CM called her son Jarod Tate, , and educated him on the CM role and verbal consent given by him to complete assessment. Patient is currently in rehab at [facility], . Her son reports she will return there when she is discharged to complete her rehab. He denied further known dc needs at this time. CM will continue to follow and will assist as needed with dc plans/needs. Email Production Specialist: Rosa Hull RN, [facility] DCPIA - Discharge Planning Initial Assessment Updated by [email or web address]: Rosa Hull on 11/29/18 6:11 pm * How many steps to enter\exit or inside your home? None * PCP Dr. Kevin Gold, [place] * Pharmacy [facility] * Preadmission Environment Usp Facility * Facility Name [facility] [phone] * ADLs Partial Dependent * Partial ADLs (Assistance needed) Ambulation Bathing Medication Management Transfers * Equipment Cane Oxygen Rolling Walker Wheelchair * Other Equipment Wears Oxygen qhs * List name and contact numbers for known caregivers / representatives who currently or will assist patient after discharge: Miya Robbins - sister - [phone] Jarod Tate - son - [phone] * Community resources currently utilized Other * Please name any agencies selected above. Rehab * Additional services required to return to the preadmission environment? No * Can the patient safely return to the preadmission environment? Yes * Has this patient been hospitalized within the prior 30 days at any hospital? Yes Last DP export: 11/29/18 5:10 p Patient Name: ERROL TATE Page 60692 at 1818 All edits/amendments must be made on the electronic document DICTATION DATE: 11/29/181816 KILN FURNITURE CASTER: CLEM 11/29/181816 RPT#: [id number] DC DATE: STATUS: ADM IN [facility] [address] [place] [address] END OF REPORT
--- NOTE | 2018-11-29 18:50 | NUR ---
PT ARRIVED TO UNIT VIA STRETCHER ACCOMPANIED BY ER STAFF. CONFUSED AND LETHARGIC. POOR HISTORIAN. ORIENTED TO ROOM, NURSE, AND CALL LIGHT SYSTEM. NO BELONGINGS NOTED. SAFETY MEASURES IN PLACE. CBIR
--- NOTE | 2018-11-29 19:15 | NUR ---
GONE TO IR
[2018-11-29 20:00] VITALS: BP 187/62
[2018-11-29 20:45] VITALS: BP 187/62; BMI 22.1
[2018-11-29 21:00] VITALS: BP 180/58
[2018-11-29 21:13] LABS: BASOPHILS 0.1 % (0-2); EOSINOPHILS 0.1 % (0-7); HEMATOCRIT 25.1 % (36.0-48.0); IMMATURE GRANULOCYTES 0.2 % (0-5); LYMPHOCYTES 10.6 % (15-50); MCH 28.5 pg (26.0-34.0); MCHC 31.9 g/dL (31.0-37.0); MCV 89.3 fL (80.0-100.0); MEAN PLATELET VOLUME 10.3 fL (7.4-10.4); MONOCYTES 8.6 % (2-11); NEUTROPHILS 80.4 % (40-80); PLATELET COUNT 181 10x3/uL (130-400); RBC 2.81 10x6/uL (4.00-5.40); RDW 16.6 % (11.5-14.5); WBC 9.8 10x3/uL (4.8-10.8)
[2018-11-29 21:21] LABS: INR 1.19 (0.85-1.17); PROTIME 14.6 SECONDS (11.6-15.0)
[2018-11-29 21:30] LABS: ANION GAP 11.1 mmol/L (8-16); BILIRUBIN - TOTAL 0.78 mg/dL (0.2-1.3); CALCIUM 8.3 mg/dL (8.5-10.1); CARBON DIOXIDE 33.9 mmol/L (21.0-32.0); CREATININE - SERUM 2.5 mg/dL (0.6-1.3)
--- NOTE | 2018-11-29 21:37 | NUR ---
SPOKE WITH DR. CALDERÓN AND UPDATED HER ON RESULTS OF RBC SCAN, NEW ORDERS RECEIVED.
[2018-11-29 22:00] VITALS: BP 171/59
[2018-11-29 23:00] VITALS: BP 187/59
[2018-11-30] VITALS (23 sets, daily range): BP systolic 161–209; BP diastolic 58–106; BMI 22.0
[2018-11-30 02:39] LABS: ALBUMIN 1.9 g/dL (3.4-5.0); ANION GAP 12.2 mmol/L (8-16); BILIRUBIN - DIRECT 0.38 mg/dL (0.00-0.30); BILIRUBIN - INDIRECT 0.41 mg/dL (0.00-1.00); BILIRUBIN - TOTAL 0.79 mg/dL (0.2-1.3); CALCIUM 7.9 mg/dL (8.5-10.1); CARBON DIOXIDE 30.7 mmol/L (21.0-32.0); CREATININE - SERUM 2.3 mg/dL (0.6-1.3); PROTEIN - SERUM 5.5 g/dL (6.4-8.2)
[2018-11-30] MEDS ORDERED: BUMEX2 MG PO (02:47)
[2018-11-30 02:48] LABS: POTASSIUM - SERUM 2.9 mmol/L (3.5-5.1)
--- NOTE | 2018-11-30 02:53 | NUR ---
ANAND RANDLE FOR DR. SOL NOTIFIED OF PT k+ being 2.9, new orders received.
[2018-11-30] MEDS ORDERED: CYMBALTA30 MG PO (02:55)
--- NOTE | 2018-11-30 03:00 | NUR ---
REASSESSMENT COMPLETE WITH NO CHANGES FROM PREVIOUS ASSESSMENT.
[2018-11-30 03:20] LABS: BASOPHILS 0 % (0-2); EOSINOPHILS 0.1 % (0-7); HEMATOCRIT 27.1 % (36.0-48.0); HEMOGLOBIN 8.7 g/dL (12-16); IMMATURE GRANULOCYTES 0.3 % (0-5); LYMPHOCYTES 9.2 % (15-50); MCH 28.3 pg (26.0-34.0); MCHC 32.1 g/dL (31.0-37.0); MCV 88.3 fL (80.0-100.0); MEAN PLATELET VOLUME 9.8 fL (7.4-10.4); MONOCYTES 8.5 % (2-11); NEUTROPHILS 81.9 % (40-80); PLATELET COUNT 159 10x3/uL (130-400); RBC 3.07 10x6/uL (4.00-5.40); RDW 16.5 % (11.5-14.5); WBC 9.1 10x3/uL (4.8-10.8)
[2018-11-30 03:25] LABS: INR 1.19 (0.85-1.17); PROTIME 14.6 SECONDS (11.6-15.0)
--- NOTE | 2018-11-30 03:55 | NUR ---
SECOND IV STARTED IN R FA WITH 20G CATH X2 STICKS, GOOD BLOOD RETURN NOTED AND FLUSHED EASILY.
--- NOTE | 2018-11-30 04:03 | NUR ---
1ST POTASSIUM RIDER STARTED PER ELECTROLYTE PROTOCOL PER MD ORDER.
--- NOTE | 2018-11-30 04:05 | NUR ---
SECOND IV STARTED IN R FA WITH 20G CATH X 2 STICKS, GOOD BLOOD RETURN NOTED AND FLUSHED EASILY.
[2018-11-30 14:52] LABS: BASOPHILS 0.1 % (0-2); EOSINOPHILS 0 % (0-7); HEMATOCRIT 30.9 % (36.0-48.0); IMMATURE GRANULOCYTES 0.3 % (0-5); LYMPHOCYTES 6.7 % (15-50); MCH 28.2 pg (26.0-34.0); MCHC 32.4 g/dL (31.0-37.0); MCV 87.3 fL (80.0-100.0); MEAN PLATELET VOLUME 10.4 fL (7.4-10.4); NEUTROPHILS 86.9 % (40-80); PLATELET COUNT 159 10x3/uL (130-400); RBC 3.54 10x6/uL (4.00-5.40); WBC 10.6 10x3/uL (4.8-10.8)
--- NOTE | 2018-11-30 15:14 | NUR ---
Pt admitted last night with both lower legs wrapped with kerlix and VERONIQUE. After removing wrapping noted that the left lateral ankle has an open wound measuring 5cm x 4.5cm x 0.1cm. The wound bed is pink and has a small serous drainage without odor. The left medial lower leg has a 2cm x 1cm open wound that appears dry. A healed wound is noted on the right lateral lower leg. Recommendations: -Daily dressing changes to wounds on left leg. (adaptic/4x4s/kerlix) -keep heels bridged to decrease risk of breakdown Wound care will monitor.
--- NOTE | 2018-11-30 19:25 | NUR ---
8 OZ. GOLYTELY GIVEN PER ORDER VIA NGT. PT TOLERATED WELL. ASSESSMENT COMPLETE.CALL LIGHT WITHIN REACH, BED IN LOW POSITION.
[2018-11-30 19:35] LABS: BASOPHILS 0.1 % (0-2); EOSINOPHILS 0 % (0-7); HEMATOCRIT 30.5 % (36.0-48.0); HEMOGLOBIN 9.9 g/dL (12-16); IMMATURE GRANULOCYTES 0.2 % (0-5); MCH 28.4 pg (26.0-34.0); MCHC 32.5 g/dL (31.0-37.0); MCV 87.4 fL (80.0-100.0); MEAN PLATELET VOLUME 9.9 fL (7.4-10.4); MONOCYTES 10.4 % (2-11); NEUTROPHILS 83.3 % (40-80); PLATELET COUNT 162 10x3/uL (130-400); RBC 3.49 10x6/uL (4.00-5.40); RDW 17.8 % (11.5-14.5); WBC 9.4 10x3/uL (4.8-10.8)
[2018-12-01] VITALS (23 sets, daily range): BP systolic 142–198; BP diastolic 49–109
[2018-12-01 02:18] LABS: BASOPHILS 0.1 % (0-2); EOSINOPHILS 0 % (0-7); HEMATOCRIT 31.9 % (36.0-48.0); HEMOGLOBIN 10.3 g/dL (12-16); IMMATURE GRANULOCYTES 0.1 % (0-5); LYMPHOCYTES 5.1 % (15-50); MCH 28.4 pg (26.0-34.0); MCHC 32.3 g/dL (31.0-37.0); MCV 87.9 fL (80.0-100.0); MEAN PLATELET VOLUME 9.6 fL (7.4-10.4); MONOCYTES 9.2 % (2-11); NEUTROPHILS 85.5 % (40-80); PLATELET COUNT 150 10x3/uL (130-400); RBC 3.63 10x6/uL (4.00-5.40); WBC 10.5 10x3/uL (4.8-10.8)
[2018-12-01 08:22] LABS: HEMATOCRIT 31.2 % (36.0-48.0); HEMOGLOBIN 10.2 g/dL (12-16); LYMPHOCYTES 6.3 % (15-50); MCH 29.3 pg (26.0-34.0); MCHC 32.7 g/dL (31.0-37.0); MCV 89.7 fL (80.0-100.0); MEAN PLATELET VOLUME 10.2 fL (7.4-10.4); NEUTROPHILS 85.8 % (40-80); PLATELET COUNT 171 10x3/uL (130-400); RBC 3.48 10x6/uL (4.00-5.40); RDW 19.3 % (11.5-14.5); WBC 9.7 10x3/uL (4.8-10.8)
--- NOTE | 2018-12-01 09:19 | NUR ---
BP 190/90,HR 91. CALLED DR SOL AND REPORTED. REC'D NEW ORDERS.
--- NOTE | 2018-12-01 11:04 | NUR ---
PT RESTING QUIETLY, VSS, NO GIB. CONTINUE NPO FOR COLONOSCOPY TODAY.
--- NOTE | 2018-12-01 13:27 | NUR ---
BP 180/80. NORVASC GIVEN.
[2018-12-01 14:29] LABS: BASOPHILS 0.1 % (0-2); EOSINOPHILS 0.1 % (0-7); HEMATOCRIT 29.1 % (36.0-48.0); HEMOGLOBIN 9.2 g/dL (12-16); IMMATURE GRANULOCYTES 0.3 % (0-5); LYMPHOCYTES 4.1 % (15-50); MCH 28.3 pg (26.0-34.0); MCHC 31.6 g/dL (31.0-37.0); MCV 89.5 fL (80.0-100.0); MEAN PLATELET VOLUME 9.6 fL (7.4-10.4); MONOCYTES 9.2 % (2-11); NEUTROPHILS 86.2 % (40-80); PLATELET COUNT 146 10x3/uL (130-400); RBC 3.25 10x6/uL (4.00-5.40); RDW 18.1 % (11.5-14.5); WBC 10.3 10x3/uL (4.8-10.8)
--- NOTE | 2018-12-01 16:42 | NUR ---
FRANNY [facility] IN ROOM PREPAIRING FOR PROCEDURE. FAMILY AT BS.
--- NOTE | 2018-12-01 18:06 | NUR ---
COLONOSCOPY COMPLETE, PT AWAKENS EASILY. VSS.
[2018-12-01 18:50] LABS: CREATININE - URINE 57.2 mg/dL (30-125)
[2018-12-01 18:51] LABS: PROTEIN - URINE 390.8 mg/dL (0.0-11.9)
[2018-12-01 18:55] LABS: APPEARANCE CLEAR (CLEAR); COLOR YELLOW (YELLOW); SPECIFIC GRAVITY 1.015 (1.005-1.020)
[2018-12-01 18:56] LABS: BILIRUBIN NEGATIVE (NEGATIVE); GLUCOSE 250 mg/dL (NEGATIVE); KETONE NEGATIVE (NEGATIVE); NITRITE NEGATIVE (NEGATIVE); PROTEIN 2+ mg/dL (NEGATIVE); UROBILINOGEN NORMAL (NORMAL)
[2018-12-01 18:57] LABS: BACTERIA MODERATE /hpf (NONE SEEN); RED CELLS - URINE 0-5 /hpf (0-5)
--- NOTE | 2018-12-01 19:00 | NUR ---
REPORT RECEIVED ASSESSMENT COMPLETED. SEE FLOWSHEET FOR FULL DETAILS.
[2018-12-01 20:04] LABS: BASOPHILS 0 % (0-2); EOSINOPHILS 0 % (0-7); HEMATOCRIT 28.5 % (36.0-48.0); HEMOGLOBIN 9.2 g/dL (12-16); IMMATURE GRANULOCYTES 0.5 % (0-5); LYMPHOCYTES 6.7 % (15-50); MCH 28.6 pg (26.0-34.0); MCHC 32.3 g/dL (31.0-37.0); MCV 88.5 fL (80.0-100.0); MEAN PLATELET VOLUME 9.5 fL (7.4-10.4); MONOCYTES 8.5 % (2-11); NEUTROPHILS 84.3 % (40-80); PLATELET COUNT 140 10x3/uL (130-400); RBC 3.22 10x6/uL (4.00-5.40); RDW 18.1 % (11.5-14.5); WBC 8.5 10x3/uL (4.8-10.8)
--- NOTE | 2018-12-01 21:00 | NUR ---
2100 MEDS GIVEN. FULL LINEN CHANGE AT THIS TIME
--- NOTE | 2018-12-01 23:00 | NUR ---
REASSESSMENT COMPLETED. SEE FLOWSHEET FOR FULL DETAILS. VSS
[2018-12-02] VITALS (15 sets, daily range): BP systolic 149–181; BP diastolic 47–75
[2018-12-02 06:47] LABS: BASOPHILS 0 % (0-2); EOSINOPHILS 0.2 % (0-7); HEMATOCRIT 32.1 % (36.0-48.0); HEMOGLOBIN 10.1 g/dL (12-16); IMMATURE GRANULOCYTES 0.2 % (0-5); LYMPHOCYTES 6.5 % (15-50); MCH 28.2 pg (26.0-34.0); MCHC 31.5 g/dL (31.0-37.0); MCV 89.7 fL (80.0-100.0); MONOCYTES 8.1 % (2-11); PLATELET COUNT 148 10x3/uL (130-400); RBC 3.58 10x6/uL (4.00-5.40); RDW 18.2 % (11.5-14.5)
[2018-12-02 07:03] LABS: ANION GAP 12.7 mmol/L (8-16); CALCIUM 8.3 mg/dL (8.5-10.1); CREATININE - SERUM 2.4 mg/dL (0.6-1.3)
[2018-12-02 07:06] LABS: WBC 12.1 10x3/uL (4.8-10.8)
[2018-12-02 07:14] LABS: POTASSIUM - SERUM 2.7 mmol/L (3.5-5.1)
--- NOTE | 2018-12-02 08:32 | NUR ---
BREAKFAST TRAY SERVED AND PT FEEDS SELF WITH MEAL TRAY SET UP.
--- NOTE | 2018-12-02 09:34 | NUR ---
PO MEDS GIVEN. PT TOIL WELL. FAMILY AT BS. REPOSITIONED FOR COMFORT. CALL LIGHT IN REACH.
--- NOTE | 2018-12-02 11:09 | NUR ---
PT C/O DISCOMFORT. STATES GENERALIZED "PAIN ALL OVER." BUPERNIX GIVEN
--- NOTE | 2018-12-02 11:12 | NUR ---
Nutrition Follow up: Diet advanced to full liquid Pt reports tolerating liquid diet this morning Pt is able to feed self Pt reports she will drink Glucerna-added to trays Reviewed labs Pt has NGT RD following
--- NOTE | 2018-12-02 13:30 | NUR ---
LUNCH TRAY SERVED. PT TOLERATED FL DIET. NGT DCD.
--- NOTE | 2018-12-02 14:01 | NUR ---
REPORT CALLED TO NURSING STAFF ON FLOOR. WILL TRANSFER ORDERED.
--- NOTE | 2018-12-02 14:35 | NUR ---
ALERT AND ORIENTED X 3. LUNGS CLEAR BILATERALLY IN ALL BERNABE. HEART SOUNDS HEARD AT S1 AND S2 IN ALL BENRABE. BOWEL SOUNDS HEARD X4. HAS NOT HAD BM SINCE 11/30. SKIN INTACT WITHOUT REDNESS EXCEPT FOR STAGE 1 PRESSURE ULCER TO COCCYX COVERED WITH MEPILEX. WOUND TO LEFT LEG WRAPPED WITH STERILE GAUZE. WOUND DRESSING ORDERS TO BE RECEIVED FROM WOUND CARE NURSE. IV TO RIGHT WRIST PATENT WITHOUT REDNESS. LEI DRAINING MIGUEL URINE. WILL CONTINUE TO MONITOR.
--- NOTE | 2018-12-02 15:57 | NUR ---
PATIENT STATED DOESN'T FEEL LIKE SHE CAN BREATHE WELL. OXYGEN TURNED UP TO 3L PER REQUEST. STATES FEELS BETTER. WILL CONTINUE TO MONITOR.
--- NOTE | 2018-12-02 17:38 | NUR ---
DINNER AT BEDSIDE.
--- NOTE | 2018-12-02 18:48 | NUR ---
RESTING IN BED. DENIES PAIN. DENIES NEEDS AT THIS TIME. WILL CONTINUE TO MONITOR.
--- NOTE | 2018-12-02 22:18 | NUR ---
PT ALERT & ORIENTED. GAVE SCHEDULED MEDS. COMPLETE ASSESSMENT PER FLOW-SHEET. NO NEEDS AT THIS TIME. WILL CONTINUE TO MONITOR.
[2018-12-03] VITALS: BP 158/69
[2018-12-03 03:00] VITALS: BP 141/66
[2018-12-03 08:03] VITALS: BP 173/50
--- NOTE | 2018-12-03 09:20 | NUR ---
ALERT AND ORIENTED X3. IVF INFUSING AT PRESCRIBED RATE. ABDOMENN SOFT WITH BS NOTED. NO BLOOD NOTED IN STOOL AT THIS TIME. ABDOMEN NON TENDER ON PALPATION. FAMILY RPESENT WITH NO COMPLAINT AT THIS TIME. ENCOURAGED TO USE CALL LIGHT FOR ASSIST.
[2018-12-03 14:59] LABS: BASOPHILS 0.1 % (0-2); EOSINOPHILS 1.7 % (0-7); HEMOGLOBIN 9.4 g/dL (12-16); IMMATURE GRANULOCYTES 0.2 % (0-5); LYMPHOCYTES 5.8 % (15-50); MCH 28.5 pg (26.0-34.0); MCHC 31.3 g/dL (31.0-37.0); MCV 90.9 fL (80.0-100.0); MEAN PLATELET VOLUME 9.8 fL (7.4-10.4); MONOCYTES 8.1 % (2-11); NEUTROPHILS 84.1 % (40-80); PLATELET COUNT 137 10x3/uL (130-400); RDW 17.7 % (11.5-14.5)
[2018-12-03 15:05] LABS: WBC 8.8 10x3/uL (4.8-10.8)
[2018-12-03 15:12] LABS: ANION GAP 9.9 mmol/L (8-16); CALCIUM 7.8 mg/dL (8.5-10.1); CARBON DIOXIDE 29.8 mmol/L (21.0-32.0); CREATININE - SERUM 2.6 mg/dL (0.6-1.3); POTASSIUM - SERUM 3.7 mmol/L (3.5-5.1)
--- NOTE | 2018-12-03 16:00 | NUR ---
IV INFILTRATED AND RESITED TO RT. ARM. WITH 22GAUGE.WITH IVF INFUSING AT PRESRIBED RATE.
[2018-12-03 16:23] VITALS: BP 138/52
--- NOTE | 2018-12-03 19:40 | NUR ---
PT ALERT & ORIENTED. ASSESSMENT COMPLETE PER FLOW-SHEET. PULLED PT UP IN BED. GAVE SCHEDULED MEDS. NO OTHER NEEDS. WILL CONTINUE TO MONITOR.
[2018-12-03 20:00] VITALS: BP 154/57
[2018-12-04] VITALS: BP 149/56; BP 153/55
[2018-12-04 03:00] VITALS: BP 154/44
[2018-12-04 05:41] LABS: ANION GAP 16.4 mmol/L (8-16); CALCIUM 7.6 mg/dL (8.5-10.1); CREATININE - SERUM 2.5 mg/dL (0.6-1.3)
[2018-12-04 05:43] LABS: CARBON DIOXIDE 21.6 mmol/L (21.0-32.0)
[2018-12-04 05:56] LABS: BASOPHILS 0.1 % (0-2); EOSINOPHILS 2.8 % (0-7); HEMATOCRIT 34.7 % (36.0-48.0); HEMOGLOBIN 10.8 g/dL (12-16); IMMATURE GRANULOCYTES 0.4 % (0-5); LYMPHOCYTES 7.8 % (15-50); MCHC 31.1 g/dL (31.0-37.0); MCV 93.3 fL (80.0-100.0); MEAN PLATELET VOLUME 10.1 fL (7.4-10.4); MONOCYTES 8.2 % (2-11); NEUTROPHILS 80.7 % (40-80); PLATELET COUNT 127 10x3/uL (130-400); RBC 3.72 10x6/uL (4.00-5.40); RDW 17.8 % (11.5-14.5); WBC 8.2 10x3/uL (4.8-10.8)
--- NOTE | 2018-12-04 07:48 | NUR ---
PT DISORIENTED TO PLACE AND TIME. IV TO RIGHT FOREARM, PATENT, DRESSING CLEAN DRY AND INTACT. DRESSING TO LEFT ANKLE AREA CLEAN DRY AND INTACT. REPORTING NO PAIN AT THIS TIME. FAMILY AT BEDSIDE. BED LOW, CALL LIGHT IN REACH. NO OTHER NEEDS AT THIS TIME.
[2018-12-04 08:35] VITALS: BP 134/93
[2018-12-04 13:21] VITALS: BP 151/51
[2018-12-04 17:30] VITALS: BP 132/45
[2018-12-04 20:00] VITALS: BP 156/47
--- NOTE | 2018-12-04 23:22 | NUR ---
PT ANXIOUS AND MOANING. C/O BEING "HOT" AND NAUSEOUS. SET UP BOX FAN FOR PT'S ROOM AND GAVE ZOFRAN. PT STATES SHE IS FEELING A LITTLE BETTER. NO OTHER NEEDS. WILL CONTINUE TO MONITOR.
[2018-12-05 03:00] VITALS: BP 158/69
[2018-12-05 05:10] LABS: BASOPHILS 0.1 % (0-2); EOSINOPHILS 1.2 % (0-7); HEMATOCRIT 31.7 % (36.0-48.0); IMMATURE GRANULOCYTES 0.2 % (0-5); LYMPHOCYTES 5.4 % (15-50); MCH 28.2 pg (26.0-34.0); MCHC 31.5 g/dL (31.0-37.0); MEAN PLATELET VOLUME 10.4 fL (7.4-10.4); MONOCYTES 6.3 % (2-11); NEUTROPHILS 86.8 % (40-80); RBC 3.55 10x6/uL (4.00-5.40); RDW 16.7 % (11.5-14.5); WBC 9.7 10x3/uL (4.8-10.8)
[2018-12-05 05:25] LABS: ANION GAP 11.4 mmol/L (8-16); CALCIUM 7.6 mg/dL (8.5-10.1); CARBON DIOXIDE 25.6 mmol/L (21.0-32.0); CREATININE - SERUM 2.8 mg/dL (0.6-1.3)
[2018-12-05 05:31] LABS: MCV 89.3 fL (80.0-100.0); PLATELET COUNT 190 10x3/uL (130-400)
--- NOTE | 2018-12-05 08:00 | NUR ---
AWAKE AND ALERT. ORIENTED X3. NO C/O AT THIS TIME. LUNGS ARE CLEAR BILATERALLY, NO COUGH NOTED. SKIN IS INTACT WITHOUT REDNESS EXCEPT TO LEFT LEG WHICH HAS 2 STASIS ULCERS WITH DRY INTACT DRESSING IN PLACE. IV TO RIGHT FOREARM IS PATENT WTIHOUT REDNESS AT INSERTIONS SITE. LEI PATENT WITH CLEAR YELLOW URINE. DENIES NEEDS. VISITIOR AT BEDSIDE.
[2018-12-05 08:44] VITALS: BP 149/57
--- NOTE | 2018-12-05 09:38 | NUR ---
ATE MOST OF BREAKFAST. DENIES NEEDS.
--- NOTE | 2018-12-05 11:23 | MORECARE ---
CASE MANAGEMENT DISCHARGE SUMMARY PATIENT: ERROL TATE UNIT: [id number] ADM DATE: 11/29/18 AGE: 73 : 45 SEX: F ROOM/BED: D.2207 AUTHOR: JOSEDOC PHYSICIAN: REFERRING PHYSICIAN: VALENTIN SOL MD DATE OF SERVICE: 12/05/18 Discharge Plan Patient Name: ERROL TATE Facility: [facility]:[place] : 1945 Planned Disposition: Halfway Facility Anticipated Discharge Date: 12/01/18 Discharge Date: Expected LOS: 2 Initial Reviewer: [email or web address] Initial Review Date: 11/29/2018 Generated: 12/05/18 12:23 pm Comments DCP- Discharge Planning Updated by [email or web address]: Dulce Maria Stubbs on 12/05/18 10:[address] SPOKE WITH JAYDA AT [facility] ([facility] IN [place]) SHE STATED THAT THE PATIENT WILL NEED TO BE PREAUTH BEFORE SHE CAN RETURN SENT CLINICALS TO [phone]. I TOLD HER THAT I ANTICIPATE HER TO BE DISCHARGED SOON DCP- Discharge Planning Updated by [email or web address]: Rosa Hull on 11/29/18 5:[address] Patient Name: ERROL TATE Admission Status: ER Accout number: [id number] Admission Date: 11-29-2018 : 1945 Admission Diagnosis: Attending: VALENTIN SOL Current LOS: 1 Anticipated DC Date: 12-01-2018 Planned Disposition: Halfway Facility - [facility] Primary Insurance: [facility] MEDICARE SOLUTIONS Discharge Planning Comments: CM met with patient to complete initial dc planning assessment. Patient asleep at this time. CM called her son Jarod Tate, , and educated him on the CM role and verbal consent given by him to complete assessment. Patient is currently in rehab at [facility], . Her son reports she will return there when she is discharged to complete her rehab. He denied further known dc needs at this time. CM will continue to follow and will assist as needed with dc plans/needs. Info Specialist: Rosa Hull RN, [facility] DCPIA - Discharge Planning Initial Assessment Updated by [email or web address]: Rosa Hull on 11/29/18 6:11 pm * How many steps to enter\exit or inside your home? None * PCP Dr. Kevin Gold, [place] * Pharmacy [facility] * Preadmission Environment Halfway Facility * Facility Name [facility] [phone] * ADLs Partial Dependent * Partial ADLs (Assistance needed) Ambulation Bathing Medication Management Transfers * Equipment Cane Oxygen Rolling Walker Wheelchair * Other Equipment Wears Oxygen qhs * List name and contact numbers for known caregivers / representatives who currently or will assist patient after discharge: Miya [place] - sister - [phone] Jarod Tate - son - [phone] * Community resources currently utilized Other * Please name any agencies selected above. Rehab * Additional services required to return to the preadmission environment? No * Can the patient safely return to the preadmission environment? Yes * Has this patient been hospitalized within the prior 30 days at any hospital? Yes Last DP export: 11/29/18 5:18 p Patient Name: ERROL TATE Page 80447 at 1123 All edits/amendments must be made on the electronic document DICTATION DATE: 12/05/181122 ADAPTIVE PHYSICAL EDUCATION SPECIALIST: CLEM 12/05/181122 RPT#: [id number] DC DATE: STATUS: ADM IN [facility] [address] [place] [address] END OF REPORT
--- NOTE | 2018-12-05 12:30 | NUR ---
SITTING UP IN CHAIR AT BEDSIDE EATING SUPPER. DENIES NEEDS.
[2018-12-05 13:15] VITALS: BP 147/48
--- NOTE | 2018-12-05 15:00 | NUR ---
CONTINUES UP IN CHAIR AT THIS TIME. DENIES NEEDS.
[2018-12-05 16:30] VITALS: BP 134/52
--- NOTE | 2018-12-05 17:52 | NUR ---
UP IN CHAIR AT BEDSIDE EATING SUPPER. DENIES NEEDS.
[2018-12-05 18:34] LABS: CREATININE - URINE 69.1 mg/dL (30-125)
--- NOTE | 2018-12-05 19:03 | NUR ---
ASSISTED BACK TO BED WITH MIN ASSIST OF ONE. NO CHANGES NOTED. DENIES NEEDS.
[2018-12-05 21:35] VITALS: BP 159/50
[2018-12-06 00:39] VITALS: BP 173/53
--- NOTE | 2018-12-06 04:02 | NUR ---
PATIENT C/O HAVING DIFULTY BREATHING B/P 154/50, P 48-54, 20, RLL CRACALES, LLL DIMNISED, CALL TO ANAND PETERSON APRN NEW ORDERS TO HOLD LOPRESSOR 50 MG TONIGHT AND REASESS IN AM . DUONEB QID AND Q 2HR PRN. RESTING WITH NO STATED OR NOTED NEEDS AT THIS TIME.
[2018-12-06 04:44] VITALS: BP 165/49
--- NOTE | 2018-12-06 08:04 | NUR ---
AWAKE AND ALERT. ORIENTED X3. NO C/O AT THIS TIME. LUNGS ARE CLEAR BUT DIMINISHED THROUGHOUT, OCCASSIONAL DRY COUGH NOTED. SKIN IS INTACT WITHOUT REDNESS EXCEPT STASIS ULCERS TO LEFT LE WHICH HAVE A DRY INTACT DRESSING IN PLACE. 1-2 PLUS EDEMA NOTED TO UPPER EXTREMETIES. IV TO RIGHT FOREARM IS PATENT WITHOUT REDNESS AT INSERTION SITE. SL TO SAME PATENT WITHOUT REDNESS. LEI PATENT WITH CLEAR YELLOW URINE. FAMILY AT BEDSIDE. DENIES NEEDS.
[2018-12-06 08:13] LABS: BASOPHILS 0.1 % (0-2); EOSINOPHILS 1.6 % (0-7); HEMATOCRIT 27.6 % (36.0-48.0); HEMOGLOBIN 8.8 g/dL (12-16); IMMATURE GRANULOCYTES 0.2 % (0-5); LYMPHOCYTES 6.9 % (15-50); MCH 27.8 pg (26.0-34.0); MCHC 31.9 g/dL (31.0-37.0); MEAN PLATELET VOLUME 9.5 fL (7.4-10.4); MONOCYTES 8.9 % (2-11); NEUTROPHILS 82.3 % (40-80); PLATELET COUNT 154 10x3/uL (130-400); RBC 3.16 10x6/uL (4.00-5.40); RDW 16.1 % (11.5-14.5); WBC 8.9 10x3/uL (4.8-10.8)
[2018-12-06 08:15] LABS: MCV 87.3 fL (80.0-100.0)
[2018-12-06 08:17] VITALS: BP 156/55
[2018-12-06 08:31] LABS: ANION GAP 9.3 mmol/L (8-16); CALCIUM 7.3 mg/dL (8.5-10.1); CARBON DIOXIDE 24.9 mmol/L (21.0-32.0); POTASSIUM - SERUM 4.2 mmol/L (3.5-5.1)
--- NOTE | 2018-12-06 10:14 | NUR ---
ATE ALL OF BREAKFAST. DENIES NEEDS.
--- NOTE | 2018-12-06 12:35 | NUR ---
NUTRITION F/U PT TOLERATING FULL LIQUID DIET. 100% INTAKE RECENT MEALS. ASKING FOR DIET TO BE ADVANCED. ENCOURAGED PT TO SPEAK WITH MD ~ DIET. RD FOLLOWING
[2018-12-06 12:48] VITALS: BP 146/47
--- NOTE | 2018-12-06 14:20 | NUR ---
DRESSING TO LEFT FOOT CHANGED FOR C/O BEING TO TIGHT. ALSO GIVEN 0.1MG BUPRENEX SLOW IVP FOR C/O PAIN LEVEL 8 TO LEFT FOOT. WILL MONITOR.
[2018-12-06 16:34] VITALS: BP 158/63
--- NOTE | 2018-12-06 17:30 | NUR ---
ASSISTED UP TO CHAIR AT BEDSIDE MOD X 2. DENIES NEEDS. NO CHANGES NOTED.
--- NOTE | 2018-12-06 18:47 | NUR ---
REMAINS UP IN CHIAR AT BEDSIDE. REPORTS FEELS BETTER UP. DENIES NEEDS. FAMILY AT BEDSIDE.
[2018-12-06 21:12] VITALS: BP 198/62
[2018-12-07 05:09] VITALS: BP 184/70
[2018-12-07 06:44] LABS: ANION GAP 13.4 mmol/L (8-16); CALCIUM 7.5 mg/dL (8.5-10.1); CARBON DIOXIDE 23.9 mmol/L (21.0-32.0); POTASSIUM - SERUM 4.3 mmol/L (3.5-5.1)
[2018-12-07 06:46] LABS: BASOPHILS 0.1 % (0-2); EOSINOPHILS 2.5 % (0-7); HEMATOCRIT 27.7 % (36.0-48.0); HEMOGLOBIN 8.9 g/dL (12-16); IMMATURE GRANULOCYTES 0.7 % (0-5); LYMPHOCYTES 6.3 % (15-50); MCH 28.2 pg (26.0-34.0); MCHC 32.1 g/dL (31.0-37.0); MCV 87.7 fL (80.0-100.0); MEAN PLATELET VOLUME 9.3 fL (7.4-10.4); MONOCYTES 10.6 % (2-11); NEUTROPHILS 79.8 % (40-80); PLATELET COUNT 155 10x3/uL (130-400); RBC 3.16 10x6/uL (4.00-5.40); RDW 16.4 % (11.5-14.5); WBC 9.1 10x3/uL (4.8-10.8)
[2018-12-07 09:35] VITALS: BP 164/58
--- NOTE | 2018-12-07 10:50 | NUR ---
PATIENT LLE DRESSING CHANGED. VENOUS STATIS ULCER X 2 NOTED. LEFT ALLEN WITH SMALL OVAL DIME SIZE ULCER, DRY WITH NO DRAINAGE, AND RIGHT SIDE ANKLE WITH WITH PINK WOUND BED, HALF DOLLAR SIZED WITH RED, PINK, AND YELLOW THICK DRAINAGE. BOTH CLEANED WITH WOULD CIRCUIT BREAKER ASSEMBLER BY STUDENT, MAXORB, ADAPTIC, 4X4S AND KERLIX APPLIED ORDERED. PATIENT TOLERATED WITH SMALL AMOUNT OF PAIN. CALL LIGHT WITHIN REACH.
[2018-12-07 13:58] VITALS: BP 185/83
[2018-12-07 18:01] VITALS: BP 177/79
[2018-12-07 21:11] VITALS: BP 186/48
[2018-12-08 01:32] VITALS: BP 174/54
[2018-12-08 05:18] VITALS: BP 168/55
[2018-12-08 06:45] LABS: BASOPHILS 0.2 % (0-2); EOSINOPHILS 1.4 % (0-7); HEMATOCRIT 26.8 % (36.0-48.0); HEMOGLOBIN 8.8 g/dL (12-16); IMMATURE GRANULOCYTES 0.4 % (0-5); LYMPHOCYTES 8.3 % (15-50); MCH 28.2 pg (26.0-34.0); MCHC 32.8 g/dL (31.0-37.0); MCV 85.9 fL (80.0-100.0); MEAN PLATELET VOLUME 8.9 fL (7.4-10.4); MONOCYTES 9.4 % (2-11); NEUTROPHILS 80.3 % (40-80); PLATELET COUNT 184 10x3/uL (130-400); RBC 3.12 10x6/uL (4.00-5.40); RDW 16.6 % (11.5-14.5); WBC 9.1 10x3/uL (4.8-10.8)
[2018-12-08 07:04] LABS: ALBUMIN 1.8 g/dL (3.4-5.0); ANION GAP 11.8 mmol/L (8-16); BILIRUBIN - TOTAL 0.57 mg/dL (0.2-1.3); CARBON DIOXIDE 24.7 mmol/L (21.0-32.0); POTASSIUM - SERUM 4.5 mmol/L (3.5-5.1); PROTEIN - SERUM 5.8 g/dL (6.4-8.2)
--- NOTE | 2018-12-08 08:17 | NUR ---
AWAKE AND ALERT. ORIENTED X3. NO C/O AT THIS TIME. LUNGS HAVE WHEEZES IN UPPER LOBES, NON PRODUCTIVE COUGH NOTED. SKIN IS INTACT WITHOUT REDNESS EXCEPT VENOUS STASIS ULCERS TO LEFT LOWER EXTREMETY WHICH HAVE A DRY INTACT DRESSING IN PLACE. IV TO RIGHT FOREARM IS PATENT WITHOUT REDNESS AT INSERTION SITE. EDEMA NOTED TO BILATERAL UPPER EXTREMETIES. SOB AT THIS TIME. O2 SAT 98% ON 2L. REPOSITIONED IN BED FOR COMFORT. WILL MONITOR. LEI PATENT WITH CLEAR YELLOW URINE. DENIES NEEDS.
[2018-12-08 08:45] VITALS: BP 182/62
--- NOTE | 2018-12-08 10:13 | NUR ---
ATE MOST OF BREAKFAST. DRESSING CHANGED TO LEFT LOWERR EXTREMETY PER NURSING STUDENTS.
--- NOTE | 2018-12-08 16:49 | MORECARE ---
CASE MANAGEMENT DISCHARGE SUMMARY PATIENT: ERROL TATE UNIT: [id number] ADM DATE: 11/29/18 AGE: 73 : 45 SEX: F ROOM/BED: D.2207 AUTHOR: JOSE,DOC PHYSICIAN: REFERRING PHYSICIAN: VALENTIN SOL MD DATE OF SERVICE: 12/08/18 Discharge Plan Patient Name: ERROL TATE Facility: [facility]:[place] : 1945 Planned Disposition: Fdc Facility Anticipated Discharge Date: 12/01/18 Discharge Date: Expected LOS: 2 Initial Reviewer: [email or web address] Initial Review Date: 11/29/2018 Generated: 12/08/18 5:49 pm Comments DCP- Discharge Planning Updated by [email or web address]: Dulce Maria Stubbs on 12/08/18 3:[address] JAYDA WITH AT [facility] STATED THAT THEY HAVE AUTH FOR SKILLED. WILL DC TO SKILLED WHEN SHE IS STABLE FOR DISCHARGE DCP- Discharge Planning Updated by [email or web address]: Dulce Maria Stubbs on 12/05/18 10:[address] SPOKE WITH JAYDA AT [facility] (SKILLED FACILITY IN [place]) SHE STATED THAT THE PATIENT WILL NEED TO BE PREAUTH BEFORE SHE CAN RETURN SENT CLINICALS TO [phone]. I TOLD HER THAT I ANTICIPATE HER TO BE DISCHARGED SOON DCP- Discharge Planning Updated by [email or web address]: Rosa Hull on 11/29/18 5:[address] Patient Name: ERROL TATE Admission Status: ER Accout number: [id number] Admission Date: 11-29-2018 : 1945 Admission Diagnosis: Attending: VALNETIN SOL Current LOS: 1 Anticipated DC Date: 12-01-2018 Planned Disposition: Fdc Facility - [facility] Primary Insurance: [facility] MEDICARE SOLUTIONS Discharge Planning Comments: CM met with patient to complete initial dc planning assessment. Patient asleep at this time. CM called her son Jarod Tate, , and educated him on the CM role and verbal consent given by him to complete assessment. Patient is currently in rehab at [facility], . Her son reports she will return there when she is discharged to complete her rehab. He denied further known dc needs at this time. CM will continue to follow and will assist as needed with dc plans/needs. Lift Supervisor: Rosa Hull RN, [facility] DCPIA - Discharge Planning Initial Assessment Updated by [email or web address]: Rosa Hull on 11/29/18 6:11 pm * How many steps to enter\exit or inside your home? None * PCP Dr. Kevin Gold, [place] * Pharmacy [facility] * Preadmission Environment Fdc Facility * Facility Name [facility] [phone] * ADLs Partial Dependent * Partial ADLs (Assistance needed) Ambulation Bathing Medication Management Transfers * Equipment Cane Oxygen Rolling Walker Wheelchair * Other Equipment Wears Oxygen qhs * List name and contact numbers for known caregivers / representatives who currently or will assist patient after discharge: Miya Robbins - sister - [phone] Jarod Tate - son - [phone] * Community resources currently utilized Other * Please name any agencies selected above. Rehab * Additional services required to return to the preadmission environment? No * Can the patient safely return to the preadmission environment? Yes * Has this patient been hospitalized within the prior 30 days at any hospital? Yes Last DP export: 12/05/18 10:23 am Patient Name: ERROL TATE Page 26908 at 1649 All edits/amendments must be made on the electronic document DICTATION DATE: 12/08/181648 TRANSCRIBING OPERATOR HEAD: CLEM 12/08/181648 RPT#: [id number] DC DATE: STATUS: ADM IN [facility] [address] [place] [address] END OF REPORT
--- NOTE | 2018-12-08 18:26 | NUR ---
ATE ABOUT HALF OF SUPPER TRAY. DENIES NEEDS. NO CHANGES NOTED.
[2018-12-08 18:28] VITALS: BP 136/52
[2018-12-08 21:00] VITALS: BP 169/49
[2018-12-09 04:36] VITALS: BP 190/56
[2018-12-09 06:16] LABS: HEPATITIS C ANTIBODY <0.1 (0.0-0.9)
[2018-12-09 06:19] LABS: BASOPHILS 0.2 % (0-2); EOSINOPHILS 1.5 % (0-7); HEMOGLOBIN 8.5 g/dL (12-16); IMMATURE GRANULOCYTES 0.4 % (0-5); LYMPHOCYTES 8.9 % (15-50); MCH 28.1 pg (26.0-34.0); MCHC 32.7 g/dL (31.0-37.0); MCV 86.1 fL (80.0-100.0); MEAN PLATELET VOLUME 9.1 fL (7.4-10.4); MONOCYTES 9.3 % (2-11); NEUTROPHILS 79.7 % (40-80); PLATELET COUNT 195 10x3/uL (130-400); RBC 3.02 10x6/uL (4.00-5.40); RDW 16.7 % (11.5-14.5); WBC 8.1 10x3/uL (4.8-10.8)
[2018-12-09 06:38] LABS: ALBUMIN 1.9 g/dL (3.4-5.0); BILIRUBIN - TOTAL 0.32 mg/dL (0.2-1.3); CALCIUM 8.3 mg/dL (8.5-10.1); CARBON DIOXIDE 24.8 mmol/L (21.0-32.0); POTASSIUM - SERUM 4.8 mmol/L (3.5-5.1); PROTEIN - SERUM 5.8 g/dL (6.4-8.2)
[2018-12-09 09:15] VITALS: BP 168/51
--- NOTE | 2018-12-09 09:43 | NUR ---
ALERT AND ORIENTED WITH FAMILY PRESENT. SLIGHT SOB NOTED W/O EXERTION. DIMINISHED BREATH SOUNDS TO BLQ ANTERIOR. cAP REFILL <3 SEC. EDEMA 2+NOTED TO BLE AND TO FLANK AREA. EVF INFUSING AT PRESCRIBED RATED. BS NOTED WITH SLIGHT DISTENTION. DENIES ANY PAIN OR DISCOMFORT AT THIS TIME AND ENCOURAGED TO USE CALL LIGHT FOR ASSSIT. wILL NOTIFY CARE PROVIDER ON CONDITION.
[2018-12-09 13:11] VITALS: BP 165/52
[2018-12-09 15:14] LABS: ANA REFLEX - ANTICHROMATIN ABS <0.2 AI (0.0-0.9); ANA REFLEX - CENTROMERE B ABS <0.2 AI (0.0-0.9); ANA REFLEX - DBL STRANDED DNA <1 IU/mL (0-9); ANA REFLEX - DIRECT Positive (Negative); ANA REFLEX - JO-1 AB <0.2 AI (0.0-0.9); ANA REFLEX - RNP ANTIBODIES <0.2 AI (0.0-0.9); ANA REFLEX - SCL-70 2.5 AI (0.0-0.9); ANA REFLEX - SJOGRENS AB SSA <0.2 AI (0.0-0.9); ANA REFLEX - SJOGRENS AB SSB 0.3 AI (0.0-0.9); ANA REFLEX - SMITH AB <0.2 AI (0.0-0.9)
[2018-12-09 15:45] VITALS: BP 164/51
[2018-12-09 17:09] LABS: SPE - A/G RATIO 0.8 (0.7-1.7); SPE - ALBUMIN 2.3 g/dL (2.9-4.4); SPE - ALPHA-1 GLOBULIN 0.3 g/dL (0.0-0.4); SPE - ALPHA-2 GLOBULIN 0.7 g/dL (0.4-1.0); SPE - BETA GLOBULIN 0.9 g/dL (0.7-1.3); SPE - M-SPIKE Not Observed g/dL (Not Observed); SPE - TOTAL PROTEIN 5.1 g/dL (6.0-8.5)
--- NOTE | 2018-12-09 19:45 | NUR ---
PT RESTING IN BED. ALERT AND ORIENTED. NO SIGNS OF DISTRESS. BREATHING EVEN AND UNLABORED. PT STATES NO PROBLEMS AT THIS TIME. IV SITE LT FA DRESSING CLEAN DRY AND INTACT. NO SIGNS OF INFECTION. BOWEL SOUNDS ACTIVE. SWELLING PRESENT. IN UPPER AND LOWER EXTRIMITIES. LEI IN PLACE. CLEAN DRY AND ITNACT. WILL CONTINUE PLAN OF CARE. CALL LIGHT IN REACH. BED LOWERED AND LOCKED. BED RAILS UP X3.
[2018-12-09 20:00] VITALS: BP 175/56
--- NOTE | 2018-12-09 20:00 | NUR ---
I NOTICED LOOKING IN PT LABS THAT HGB WAS 8.5 AND HCT WAS 26.0 AT 0500 THIS AM. I ALSO NOTICE DR SOL HAD PUT IN A ORDER 12/02 TO TRANSFUSE AT HCT 27. BUT THE DAYTIME NURSE TOLD ME THERE WAS NO ORDERS IN TO TRANSFUSE SO I CALL THE [facility]WS FACULTY ASSISTANT WHICH WAS DR. NATARAJAN TO VERIFY TO TRANSFUSE PRBC IF IS SHOULD STILL FALLOW THE ORDER THAT WAS PUT IN ON THE BY DR SOL. DR. NATARAJAN STATED TO NOT TRANSFUSE BLOOD AT THIS TIME. FALLOWING DR. MARIE ORDER. WILL FALLOW UP.
--- NOTE | 2018-12-09 21:00 | NUR ---
FSBS 324 8 UNITS OF INSULIN GIVEN PER SS.
[2018-12-10] VITALS: BP 169/48
--- NOTE | 2018-12-10 02:18 | NUR ---
I have reviewed this patient and I concur with the Shift Assessment completed by the Licensed Practical Nurse today this shift.
[2018-12-10 04:00] VITALS: BP 157/54
--- NOTE | 2018-12-10 08:00 | NUR ---
ALERT AND COMPLAINING OF LEG PAIN PEDAL PULSES NOTED AND ABLE TO MOVE DIGITS OF EXTREMITIES. DRESSING INTACT TO LLE WITH MEDICATION GIVEN FOR PAIN. DECREASED EDEMA NOTED TO BLE. EDEMA NOTED TO FLANK AREA AND BUE. LUNGS CTA ON AUSCULTATION WITH ARMS ELEVATED ON PILLOWS. NO S/S OF HYPOGLYCEMIA AT THIS TIME WITH DAUGHTER PRESENT
[2018-12-10 08:14] LABS: BASOPHILS 0.2 % (0-2); EOSINOPHILS 1.8 % (0-7); HEMATOCRIT 26.1 % (36.0-48.0); HEMOGLOBIN 8.5 g/dL (12-16); IMMATURE GRANULOCYTES 0.3 % (0-5); LYMPHOCYTES 11.4 % (15-50); MCH 28.3 pg (26.0-34.0); MCHC 32.6 g/dL (31.0-37.0); MEAN PLATELET VOLUME 8.8 fL (7.4-10.4); MONOCYTES 8.5 % (2-11); NEUTROPHILS 77.8 % (40-80); PLATELET COUNT 185 10x3/uL (130-400); RDW 16.8 % (11.5-14.5)
[2018-12-10 08:29] LABS: WBC 10.5 10x3/uL (4.8-10.8)
[2018-12-10 08:36] LABS: ALBUMIN 1.8 g/dL (3.4-5.0); BILIRUBIN - TOTAL 0.33 mg/dL (0.2-1.3); CALCIUM 8.3 mg/dL (8.5-10.1); CARBON DIOXIDE 25.4 mmol/L (21.0-32.0); CREATININE - SERUM 2.9 mg/dL (0.6-1.3); POTASSIUM - SERUM 4.4 mmol/L (3.5-5.1)
[2018-12-10 09:50] VITALS: BP 184/53
--- NOTE | 2018-12-10 11:00 | NUR ---
HRL PALOMA NOTIFIED OF CONTINUED PAIN AND FLUID RETENTION WITH EDEMA WELL DECREASED BLOOD SUGARS WITH NOEW ORDERS NOTED.
--- NOTE | 2018-12-10 11:02 | NUR ---
PTS WOB HAS INCREASED ASCULATION OF LUNGG SOUNDS WHEEZE AND COARSE CRACKLES PITTING EDEMA HAS NOT IMPROVED. CONTACTED AND ADVISED OF CONCERNS
[2018-12-10 14:16] VITALS: BP 160/60
--- NOTE | 2018-12-10 16:00 | NUR ---
PT GIVEN PAIN MEDICATION WITH MODERTE EFFECTIVENESS. DRESSING CHANGED TO LLE PER ORDER. BS 36 WITH 1/2 AMP D50 GIVEN PER ORDER. WILL OCNTINUE TO MONITOR. ASYMPTOMATIC AT THIS TIME.
--- NOTE | 2018-12-10 17:15 | NUR ---
BS 53 AFTER 1/2 AMP D50 AND 240CC ORANGE JUICE. B. GREG RANDLE NOTIFIED OF CONDITION WITH ORDER FOR 1 AMP D50 AND RE CHECK IN 15 MIN. PT RESTING WITHOUT DISTRESS AT THIS TIME WITH DAUGHTER CARLEEN.
[2018-12-10 17:19] VITALS: BP 143/72
--- NOTE | 2018-12-10 17:36 | NUR ---
BLOOD SUGAR UP TO 153 AND FEELING BETTER. CONTINUED POOR APPETITE AT THIS TIME. ENCOURGED TO USE CALL LIGHT FOR ASSIST
--- NOTE | 2018-12-10 19:32 | NUR ---
RECEIVED REPORT AND WENT TO CHECK ON PATIENT. CHECKED FSBS DUE TO SPORADIC GLUCOSE READINGS. FSBS WAS 67. WAS TOLD IN REPORT THAT IF SUGAR CONTINUALLY DROPS TO CALL DR. HULL TO SEE WHAT CAN BE DONE.
--- NOTE | 2018-12-10 19:35 | NUR ---
DR. KURTIS ROJAS.
--- NOTE | 2018-12-10 20:01 | NUR ---
BERT RANDLE FOR DR. HULL RETURNED THIS NURSES PAGE. RECEIVED ORDERS TO START PT ON D 10 @ 30 ML/HR. HUNG D 10. ADMINISTERED PAIN MEDICINE PER ORDER WELL. PT DAUGHTER SEEMED UPSET THAT THIS NURSE DID NOT PROVIDE PAIN MEDICINE WHEN ASKED AT 1927. EXPLAINED TO PT DAUGHTER THAT THIS NURSE WAS UNSURE OF HOW PT REACTS TO PAIN MEDICINE AND DID NOT WANT TO ADMINISTER UNTIL SPEAKING WITH DR. HULL AND RECEIVING NEW ORDERS PAIN MEDICINE EFFECTS CAN PRESENT THE SAME LOW SUGAR, TIRED, ETC. PT DAUGHTER UNDERSTOOD AND THANKED THIS NURSE. WILL REASSESS SUGAR. PT DRINKING ORANGE JUICE WHEN LEAVING THE ROOM.
[2018-12-10 20:32] VITALS: BP 165/82
--- NOTE | 2018-12-10 21:21 | NUR ---
FSBS 43. PROVIDED INSTAGLUCOSE AND CRACKERS.
--- NOTE | 2018-12-10 21:35 | NUR ---
PROVIDED PATIENT WITH FAVIO CRACKERS. CHOCOLATE PUDDING. ORANGE JUICE.
--- NOTE | 2018-12-10 21:50 | NUR ---
PT FSBS NOW 70. APPLESAUCE, ORANGE JUICE, CRACKERS, ALL IN ROOM. ASKED PT IF SHE PREFERS CERTAIN FOODS. DENIES EVERYTHING THAT THIS NURSE OFFERS. HAD LONG DISCUSSION WITH PATIENT ABOUT EATING. INSTRUCTED PATIENT AND SISTER TO CONTINUE TO EAT CRACKERS AND ORANGE JUICE AND APPLESAUCE OVER NEXT HOUR.
--- NOTE | 2018-12-11 04:06 | NUR ---
I have reviewed this patient and I concur with the Shift Assessment completed by the Licensed Practical Nurse today this shift.
--- NOTE | 2018-12-11 09:00 | NUR ---
ALERT AND ORIENTED AND FEELING BETTER TODAY. NO PERIPHERAL EDEMA WITH TRACE TO LUE AND 1+ TO RUE. CONTINUED EDEMA TO FLANK AREA. LUNGS SLIGHTLY DIMINISHED TO BLQ ANTERIOR. NO PAIN NOTED AT THIS TIME. LEI CATH INTACT WITH IVF INFUSING AT PRESCRIBED RATE.eNCOURAGED TO USE CALL LIGHT FOR ASSIST.
[2018-12-11 10:12] VITALS: BP 165/75
--- NOTE | 2018-12-11 10:45 | NUR ---
FLEETS ENEMA GIVEN WITH PAIN MEDICATION EFFECTIVE FOR BACK PAIN. INSTRUCTED TO USE CALL LIGHT FOR ASSIST.
[2018-12-11 13:03] LABS: BASOPHILS 0.2 % (0-2); EOSINOPHILS 0.6 % (0-7); HEMATOCRIT 26.4 % (36.0-48.0); HEMOGLOBIN 8.5 g/dL (12-16); IMMATURE GRANULOCYTES 0.4 % (0-5); LYMPHOCYTES 6.5 % (15-50); MCH 27.8 pg (26.0-34.0); MCHC 32.2 g/dL (31.0-37.0); MCV 86.3 fL (80.0-100.0); MEAN PLATELET VOLUME 9.1 fL (7.4-10.4); NEUTROPHILS 83.3 % (40-80); PLATELET COUNT 189 10x3/uL (130-400); RBC 3.06 10x6/uL (4.00-5.40); RDW 16.9 % (11.5-14.5); WBC 10.9 10x3/uL (4.8-10.8)
[2018-12-11 13:18] LABS: ALBUMIN 1.9 g/dL (3.4-5.0); ANION GAP 11.2 mmol/L (8-16); BILIRUBIN - TOTAL 0.3 mg/dL (0.2-1.3); CALCIUM 7.9 mg/dL (8.5-10.1); CARBON DIOXIDE 28.3 mmol/L (21.0-32.0); CREATININE - SERUM 2.9 mg/dL (0.6-1.3); POTASSIUM - SERUM 4.5 mmol/L (3.5-5.1); PROTEIN - SERUM 5.9 g/dL (6.4-8.2)
[2018-12-11 14:37] VITALS: BP 200/78
[2018-12-11 18:17] VITALS: BP 106/64
[2018-12-11 20:00] VITALS: BP 143/74
[2018-12-12] VITALS: BP 161/65
--- NOTE | 2018-12-12 | NUR ---
FSBS 107. REPORTS PAIN 10/10 ALL OVER.
--- NOTE | 2018-12-12 03:00 | NUR ---
REPORTS SOB/DYSPNEA. SPO2 95% ON 2L. O2 RAISED TO 3L, SAT PT UP IN BED AND ADJUSTED PILLOWS BEHIND PTs BACK. PT REPORTS RELIEF, DENIES NEED TO RESPIRATORY TREATMENT. WILL CONTINUE TO MONITOR.
--- NOTE | 2018-12-12 03:33 | NUR ---
FSBS 107. REPORTS PAIN ALL OVER 10/10.
--- NOTE | 2018-12-12 03:44 | NUR ---
I have reviewed this patient and I concur with the Shift Assessment completed by the Licensed Practical Nurse today this shift.
[2018-12-12 04:00] VITALS: BP 159/66
--- NOTE | 2018-12-12 04:15 | NUR ---
REPORTS SOB, SPO2 100% ON 3L. REQUESTS BREATHING TX. RT NOTIFIED.
[2018-12-12 08:00] VITALS: BP 163/54
[2018-12-12 08:46] VITALS: BMI 22.0
--- NOTE | 2018-12-12 09:29 | NUR ---
PT SIGNED CONSENT FOR TRIALYSIS PLACEMENT. SIGNED CONSENT PLACED IN PT CAHRT.
--- NOTE | 2018-12-12 13:08 | NUR ---
PIV REMOVED FROM RIGHT FOREARM WITH CATHETER TIP INTACT. IV INSERTION SITE WITH REDNESS AND PAIN. DRESSING APPLIED. AWAITING FOR TRIALYSIS X RAY TO INFUSE ABX. BED IS IN THE LOWEST POSITION. CALL LIGHT AND BEDSIDE TABLE ARE WITHIN REACH. WILL CONT TO MONITOR.
--- NOTE | 2018-12-12 13:27 | NUR ---
NUTRITION F/U PT TOLERATING SOFT BLAND DIET, NOTE PT TO START HD. WILL CONTINUE TO PROVIDE DIET, MONITOR INTAKE. RD FOLLOWING
[2018-12-12 14:00] VITALS: BP 164/57
[2018-12-12 14:46] LABS: BASOPHILS 0.1 % (0-2); EOSINOPHILS 1.1 % (0-7); HEMATOCRIT 23.5 % (36.0-48.0); HEMOGLOBIN 7.7 g/dL (12-16); IMMATURE GRANULOCYTES 0.5 % (0-5); LYMPHOCYTES 5.2 % (15-50); MCH 27.9 pg (26.0-34.0); MCHC 32.8 g/dL (31.0-37.0); MCV 85.1 fL (80.0-100.0); MEAN PLATELET VOLUME 8.7 fL (7.4-10.4); NEUTROPHILS 83.1 % (40-80); PLATELET COUNT 179 10x3/uL (130-400); RBC 2.76 10x6/uL (4.00-5.40); RDW 16.6 % (11.5-14.5); WBC 10.1 10x3/uL (4.8-10.8)
[2018-12-12 15:04] LABS: ALBUMIN 1.6 g/dL (3.4-5.0); ANION GAP 4.6 mmol/L (8-16); BILIRUBIN - TOTAL 0.27 mg/dL (0.2-1.3); CALCIUM 7.8 mg/dL (8.5-10.1); CARBON DIOXIDE 28.4 mmol/L (21.0-32.0); PROTEIN - SERUM 5.7 g/dL (6.4-8.2)
[2018-12-12 19:55] VITALS: BP 175/60
[2018-12-12 23:55] VITALS: BP 143/48
[2018-12-13 03:39] VITALS: BP 147/67
--- NOTE | 2018-12-13 05:50 | NUR ---
CHANGED DRESSING TO LEFT ANKLE. 2 SITES WHERE FAMILY SAYS PT HAD BLISTERS THAT BUSTED OPEN AND BECAME OPEN WOUNDS. APPLIED NONADHERENT DRESSING AND SECURED WITH KERLIX. REPOSITIONED PT TO OPPOSITE SIDE. PROVIDED PAIN PILL AT PT REQUEST. FAMILY X 1 AT BEDSIDE. MONITOR AND CPOC.
[2018-12-13 07:30] LABS: ALBUMIN 1.4 g/dL (3.4-5.0); ANION GAP 8.8 mmol/L (8-16); BILIRUBIN - TOTAL 0.39 mg/dL (0.2-1.3); CALCIUM 7.7 mg/dL (8.5-10.1); CARBON DIOXIDE 30.6 mmol/L (21.0-32.0); POTASSIUM - SERUM 3.4 mmol/L (3.5-5.1); PROTEIN - SERUM 5.7 g/dL (6.4-8.2)
[2018-12-13 07:56] LABS: BASOPHILS 0.2 % (0-2); EOSINOPHILS 1.8 % (0-7); HEMATOCRIT 23.2 % (36.0-48.0); IMMATURE GRANULOCYTES 0.5 % (0-5); LYMPHOCYTES 7.4 % (15-50); MCH 27.8 pg (26.0-34.0); MCHC 32.3 g/dL (31.0-37.0); MCV 85.9 fL (80.0-100.0); MEAN PLATELET VOLUME 8.8 fL (7.4-10.4); MONOCYTES 8.7 % (2-11); NEUTROPHILS 81.4 % (40-80); PLATELET COUNT 187 10x3/uL (130-400); RDW 16.4 % (11.5-14.5); WBC 9.7 10x3/uL (4.8-10.8)
[2018-12-13 08:06] LABS: HEMOGLOBIN 7.5 g/dL (12-16)
[2018-12-13 08:54] VITALS: BP 206/64
--- NOTE | 2018-12-13 10:12 | NUR ---
[facility] CALLED TO Sh[facility] WELCH APN NO ORDERS.
[2018-12-13 11:33] VITALS: BP 155/55
--- NOTE | 2018-12-13 11:41 | NUR ---
NORCO GIVEN FOR ABDOMINAL PAIN 04/15. SISTER IS AT BEDSIDE.
--- NOTE | 2018-12-13 15:12 | NUR ---
DIALYSIS AND DIET EDUCATION IS PRINTED OFF FOR DESIRAE INSTRUCTIONS AND GIVEN TO PATIENT AND SISTER.
[2018-12-13 17:10] LABS: ANCA - ANTIMYELOPEROXIDASE <9.0 U/mL (0.0-9.0); ANCA - ANTIPROTEINASE 3 <3.5 U/mL (0.0-3.5); ANCA - ATYPICAL <1:20 titer (Neg:<1:20); ANCA - CYTOPLASMIC <1:20 titer (Neg:<1:20); ANCA - PERINUCLEAR <1:20 titer (Neg:<1:20)
[2018-12-13 17:16] VITALS: BP 158/50
--- NOTE | 2018-12-13 18:48 | NUR ---
RE-DRAW OF POTASSIUM WITH 4.5
--- NOTE | 2018-12-13 19:30 | NUR ---
RESUMING PATIENT CARE. PATIENT IS ALERT AND ORIENTED. RESTING COMFORTABLY IN BED. RESPIRATIONS ARE EVEN AND UNLABORED. NO S/S OF DISTRESS. NO C/O PAIN. CALL LIGHT WITHIN REACH. WILL CPOC.
[2018-12-13 20:00] VITALS: BP 155/57
[2018-12-13 23:55] VITALS: BP 140/71
[2018-12-14 04:31] VITALS: BP 143/60
[2018-12-14 06:43] LABS: ALBUMIN 1.5 g/dL (3.4-5.0); ANION GAP 8.2 mmol/L (8-16); BILIRUBIN - TOTAL 0.34 mg/dL (0.2-1.3); CALCIUM 8.1 mg/dL (8.5-10.1); CREATININE - SERUM 2.4 mg/dL (0.6-1.3); POTASSIUM - SERUM 4.2 mmol/L (3.5-5.1); PROTEIN - SERUM 5.7 g/dL (6.4-8.2)
[2018-12-14 07:25] LABS: BASOPHILS 0.2 % (0-2); EOSINOPHILS 2.6 % (0-7); HEMATOCRIT 22.9 % (36.0-48.0); IMMATURE GRANULOCYTES 0.6 % (0-5); LYMPHOCYTES 7.2 % (15-50); MCH 27.9 pg (26.0-34.0); MCHC 32.3 g/dL (31.0-37.0); MCV 86.4 fL (80.0-100.0); MEAN PLATELET VOLUME 8.9 fL (7.4-10.4); MONOCYTES 8.4 % (2-11); PLATELET COUNT 190 10x3/uL (130-400); RBC 2.65 10x6/uL (4.00-5.40); RDW 16.8 % (11.5-14.5); WBC 9.7 10x3/uL (4.8-10.8)
[2018-12-14 07:44] LABS: HEMOGLOBIN 7.4 g/dL (12-16)
--- NOTE | 2018-12-14 08:00 | NUR ---
CR. ELIAS CALLED TO [facility]
--- NOTE | 2018-12-14 10:07 | NUR ---
LEAVING FOR DIALYSIS BY BED. WILL CONT. PLAN OF CARE.
--- NOTE | 2018-12-14 10:48 | NUR ---
1 UNIT PRBC TAKEN TO DIALYSIS ORDERED.
--- NOTE | 2018-12-14 14:35 | NUR ---
BACK FROM DIALYSIS. DIET AND MEDS RESUMED.
[2018-12-14 17:26] VITALS: BP 127/58
--- NOTE | 2018-12-14 19:35 | NUR ---
RESUMING PATIENT CARE. PATIENT IS ALERT AND ORIENTED. RESPIRATIONS ARE EVEN AND UNLABORED. DENIES NEED AT THIS TIME. NO S/S OF DISTRESS. NO C/O PAIN. CALL LIGHT WITHIN REACH. WILL CPOC.
[2018-12-14 20:00] VITALS: BP 159/55
--- NOTE | 2018-12-14 22:57 | NUR ---
PATIENT RESTING COMFORTABLY IN BED. PATIENT IS A&O X4 RESPIRATIONS ARE EVEN AND UNLABORED. NO S/S OF DISTRESS. NO C/O PAIN. CALL LIGHT WITHIN REACH. WILL CPOC.
[2018-12-15 00:30] VITALS: BP 163/58
--- NOTE | 2018-12-15 03:33 | NUR ---
PATIENT RESTING COMFORTABLY IN BED. RESPIRATIONS ARE EVEN AND UNLABORED. NO S/S OF DISTRESS. CALL LIGHT WITHIN REACH. WILL CPOC.
[2018-12-15 04:22] LABS: BASOPHILS 0.5 % (0-2); EOSINOPHILS 2.1 % (0-7); LYMPHOCYTES 8.6 % (15-50); MCH 27.4 pg (26.0-34.0); MCHC 32.6 g/dL (31.0-37.0); MEAN PLATELET VOLUME 8.4 fL (7.4-10.4); MONOCYTES 9.4 % (2-11); NEUTROPHILS 78.4 % (40-80); PLATELET COUNT 161 10x3/uL (130-400); RDW 16.6 % (11.5-14.5); WBC 10.3 10x3/uL (4.8-10.8)
[2018-12-15 04:24] LABS: HEMATOCRIT 27.6 % (36.0-48.0); MCV 83.9 fL (80.0-100.0); RBC 3.29 10x6/uL (4.00-5.40)
[2018-12-15 04:35] LABS: ALBUMIN 1.5 g/dL (3.4-5.0); ANION GAP 10.9 mmol/L (8-16); BILIRUBIN - TOTAL 0.28 mg/dL (0.2-1.3); CALCIUM 8.1 mg/dL (8.5-10.1); CARBON DIOXIDE 29.5 mmol/L (21.0-32.0); CREATININE - SERUM 2.1 mg/dL (0.6-1.3); POTASSIUM - SERUM 4.4 mmol/L (3.5-5.1)
[2018-12-15 05:00] VITALS: BP 149/62
--- NOTE | 2018-12-15 07:34 | NUR ---
REPORT RECIEVED AND MORNING ROUNDING COMPLETE. PT LAYING IN BED ASKING FOR SOME WATER. PT HAS FAMILY AT BEDSIDE. PT HAS NO NEEDS AT THIS TIME CALL LIGHT WITHIN REACH. ASSESMENT COMPLETE.
--- NOTE | 2018-12-15 10:06 | NUR ---
Rehab Note- Acute Inpatient Rehab prescreen order received. The patient has [facility] insurance and will require a PreAuth prior to an acute inpatient rehab stay. Need an OT Eval ordered for the PreAuth process. Thank you for this referral! Mony Rivas RN Clinical Liaison, [facility], [place] Rehab
--- NOTE | 2018-12-15 11:42 | MORECARE ---
CASE MANAGEMENT DISCHARGE SUMMARY PATIENT: ERROL TATE UNIT: [id number] ADM DATE: 11/29/18 AGE: 73 : 45 SEX: F ROOM/BED: D.5223 AUTHOR: JOSEDOC PHYSICIAN: REFERRING PHYSICIAN: VALENTIN SOL MD DATE OF SERVICE: 12/15/18 Discharge Plan Patient Name: ERROL TATE Facility: [facility]:[place] : 1945 Planned Disposition: Shelter Facility Anticipated Discharge Date: 12/01/18 Discharge Date: Expected LOS: 2 Initial Reviewer: [id number] Initial Review Date: 11/29/2018 Generated: 12/15/18 12:42 pm DCP- Discharge Planning Updated by [id number]: Dulce Maria Stubbs on 12/08/18 3:[address] JAYDA WITH AT [facility] STATED THAT THEY HAVE AUTH FOR SKILLED. WILL DC TO SKILLED WHEN SHE IS STABLE FOR DISCHARGE DCP- Discharge Planning Updated by [id number]: Dulce Maria Stubbs on 12/05/18 10:[address] SPOKE WITH JAYDA AT [facility] (SKILLED FACILITY IN [place]) SHE STATED THAT THE PATIENT WILL NEED TO BE PREAUTH BEFORE SHE CAN RETURN SENT CLINICALS TO [phone]. I TOLD HER THAT I ANTICIPATE HER TO BE DISCHARGED SOON DCP- Discharge Planning Updated by [id number]: Rosa Hull on 11/29/18 5:[address] Patient Name: ERROL TATE Admission Status: ER Accout number: [id number] Admission Date: 11-29-2018 : 1945 Admission Diagnosis: Attending: VALENTIN SOL Current LOS: 1 Anticipated DC Date: 12-01-2018 Planned Disposition: Shelter Facility - [facility] Primary Insurance: [facility] MEDICARE SOLUTIONS Discharge Planning Comments: CM met with patient to complete initial dc planning assessment. Patient asleep at this time. CM called her son Jarod Tate, , and educated him on the CM role and verbal consent given by him to complete assessment. Patient is currently in rehab at [facility], . Her son reports she will return there when she is discharged to complete her rehab. He denied further known dc needs at this time. CM will continue to follow and will assist as needed with dc plans/needs. Neon Tube Pumper: Rosa Hull RN, [facility] DCPIA - Discharge Planning Initial Assessment Updated by [email or web address]: Rosa Hull on 11/29/18 6:11 pm * How many steps to enter\exit or inside your home? None * PCP Dr. Kevin Gold, [place] * Pharmacy [facility] * Preadmission Environment Shelter Facility * Facility Name [facility] [phone] * ADLs Partial Dependent * Partial ADLs (Assistance needed) Ambulation Bathing Medication Management Transfers * Equipment Cane Oxygen Rolling Walker Wheelchair * Other Equipment Wears Oxygen qhs * List name and contact numbers for known caregivers / representatives who currently or will assist patient after discharge: Miya Robbins - sister - [phone] Jarod Tate - son - [phone] * Community resources currently utilized Other * Please name any agencies selected above. Rehab * Additional services required to return to the preadmission environment? No * Can the patient safely return to the preadmission environment? Yes * Has this patient been hospitalized within the prior 30 days at any hospital? Yes Last DP export: 12/08/18 3:49 pm Patient Name: ERROL TATE Page 30096 at 1142 All edits/amendments must be made on the electronic document DICTATION DATE: 12/15/18 1142 SEED YEAST OPERATOR: CLEM 12/15/18 1142 RPT#: [id number] DC DATE: STATUS: ADM IN [facility] [address] [place] [address] END OF REPORT
--- NOTE | 2018-12-15 15:07 | NUR ---
Nutrition follow-up: Pt has been NPO for hemosplit placement today PO intake of renal diet has been ~75% average of meals Labs reviewed Wt: 143# RDN following.
--- NOTE | 2018-12-15 18:02 | NUR ---
I have reviewed this patient and I concur with the Shift Assessment completed by the Licensed Practical Nurse today this shift.
[2018-12-15 20:00] VITALS: BP 137/90
--- NOTE | 2018-12-15 21:44 | NUR ---
PT LAYING IN BED ALERT AND ORIENTED RR-21. PT SOB. PULLED PT UP IN BED AND ELEVATED HEAD TO 40 DEGREE. INSTRUCTED PT TO TAKE DEEP BREAYHS IN THROUGH NOSE AND OUT OF MOUTH. PT REQUESTED PAIN PILL. PRN GIVEN FOR 9/10 PAIN IN CHEST. PT ON 3L NC O2 SAT RUNNING 100% . BED LOW CALL LIGHT WITHIN REACH. WILL CONTINUE TO MONITOR.
[2018-12-16] VITALS (7 sets, daily range): BP systolic 15–163; BP diastolic 50–69
--- NOTE | 2018-12-16 01:45 | NUR ---
PT RESTING COMFORTABLY IN BED RR EVEN AND UNLABORED. NO S/S OF DISTRESS. BED LOW CALL LIGHT WITHIN REACH. WILL CONTINUE TO MONIOR.
[2018-12-16 04:00] LABS: BASOPHILS 0.2 % (0-2); EOSINOPHILS 3.1 % (0-7); HEMATOCRIT 26.7 % (36.0-48.0); HEMOGLOBIN 8.7 g/dL (12-16); LYMPHOCYTES 9.9 % (15-50); MCH 27.5 pg (26.0-34.0); MCHC 32.6 g/dL (31.0-37.0); MCV 84.5 fL (80.0-100.0); MEAN PLATELET VOLUME 8.5 fL (7.4-10.4); MONOCYTES 7.2 % (2-11); NEUTROPHILS 78.6 % (40-80); PLATELET COUNT 145 10x3/uL (130-400); RBC 3.16 10x6/uL (4.00-5.40); RDW 16.9 % (11.5-14.5); WBC 8.1 10x3/uL (4.8-10.8)
[2018-12-16 04:15] LABS: ALBUMIN 1.5 g/dL (3.4-5.0); ANION GAP 8.4 mmol/L (8-16); BILIRUBIN - TOTAL 0.28 mg/dL (0.2-1.3); CALCIUM 8.3 mg/dL (8.5-10.1); CREATININE - SERUM 2.5 mg/dL (0.6-1.3); POTASSIUM - SERUM 4.4 mmol/L (3.5-5.1); PROTEIN - SERUM 5.8 g/dL (6.4-8.2)
--- NOTE | 2018-12-16 04:40 | NUR ---
I have reviewed this patient and I concur with the Shift Assessment completed by the Licensed Practical Nurse today this shift.
--- NOTE | 2018-12-16 07:30 | NUR ---
PT LYING IN BED, FAMILY AT BEDSIDE. PT ASLEEP, DID NOT WAKE I ENTERED. DI DNOT FURTHER DSITURB AT THIS TIME. CL IN REACH. SRX2.
--- NOTE | 2018-12-16 08:12 | MORECARE ---
CASE MANAGEMENT DISCHARGE SUMMARY PATIENT: ERROL TATE UNIT: [id number] ADM DATE: 11/29/18 AGE: 73 : 45 SEX: F ROOM/BED: D.2133 AUTHOR: JOSE,DOC PHYSICIAN: REFERRING PHYSICIAN: VALENTIN SOL MD DATE OF SERVICE: 12/16/18 Discharge Plan Patient Name: ERROL TATE [facility] [facility] 1945 Planned Disposition: Halfway Facility Anticipated Discharge Date: 12/01/18 Discharge Date: Expected LOS: 2 Initial Reviewer: [email or web address] Initial Review Date: 11/29/2018 Generated: 12/16/18 9:11 am Comments DCP- Discharge Planning Updated by [id number]: Jd Ahuja on 12/16/18 7:[address] Patient Name: ERROL TATE Encounter No: [id number] : 1945 Primary Insurance: [facility] MEDICARE SOLUTIONS Anticipated DC Date: 12-01-2018 Planned Disposition: INPATIENT REHAB External Planned Provider: [facility] INPATIENT REHAB DCP follow-up note: CM SPOKE TO PT IN ROOM, DISCUSSED [facility] NOT ACCEPTING DUE TO NO DIALYSIS UNIT AVAILABLE IN SERVICE AREA. PT WOULD LIKE TO BE CONSIDERED AT [facility] IN [place], [place]. CHOICE SIGNED. CM SPOKE TO MALCOLM OF [facility] WHO INFORMED CM THAT THERE ARE NO OPENINGS FOR OUTPATIENT DIALYSIS AT THE [place] UNIT. CM SPOKE TO PT AND FAMILY IN ROOM, DISCUSSED [facility] IN [place] WHERE THE NEXT CLOSEST OUTPATIENT DIALYSIS UNIT TO PT'S HOME. CM PROVIDED LISTING OF [facility] FACILITIES WITHIN 50 MILES OF PT'S HOME FROM MEDICARE WEBSITE. PT AND FAMILY WOULD LIKE TO BE CONSIDERED FOR INPATIENT REHAB AT [place] WITH PLAN TO RETURN HOME AT DISCHARGE FROM REHAB. PT NOW DOES NOT WANT TO GO TO [facility] FOR REHAB. ORDER FOR INPATIENT REHAB PRESCREEN OBTAINED. [facility] OF INPATIENT REHAB NOTIFIED. CM WAITING ON OCCUPATIONAL THERAPY EVALUATION, INPATIENT REHAB PRESCREEN AND INSURANCE DETERMINATION FOR INPATIENT REHAB SERVICES. Jd Ahuja, CASE MANAGEMENT DCP- Discharge Planning Updated by [email or web address]: Dulce Maria Stubbs on 12/08/18 3:[address] JAYDA WITH AT [facility] STATED THAT THEY HAVE AUTH FOR SKILLED. WILL DC TO SKILLED WHEN SHE IS STABLE FOR DISCHARGE DCP- Discharge Planning Updated by [email or web address]: Dulce Maria Stubbs on 12/05/18 10:[address] SPOKE WITH JAYDA AT [facility] (SKILLED FACILITY IN [place]) SHE STATED THAT THE PATIENT WILL NEED TO BE PREAUTH BEFORE SHE CAN RETURN SENT CLINICALS TO [phone]. I TOLD HER THAT I ANTICIPATE HER TO BE DISCHARGED SOON DCP- Discharge Planning Updated by [id number]: Rosa Hull on 11/29/18 5:[address] Patient Name: ERROL TATE Admission Status: ER Accout number: [id number] Admission Date: 11-29-2018 : 1945 Admission Diagnosis: Attending: VALENTIN SOL Current LOS: 1 Anticipated DC Date: 12-01-2018 Planned Disposition: Halfway Facility - [facility] Primary Insurance: [facility] MEDICARE SOLUTIONS Discharge Planning Comments: CM met with patient to complete initial dc planning assessment. Patient asleep at this time. CM called her son Jarod Tate, , and educated him on the CM role and verbal consent given by him to complete assessment. Patient is currently in rehab at [facility], . Her son reports she will return there when she is discharged to complete her rehab. He denied further known dc needs at this time. CM will continue to follow and will assist as needed with dc plans/needs. Therapist: Rosa Hull RN, [facility] DCPIA - Discharge Planning Initial Assessment Updated by [email or web address]: Rosa Hull on 11/29/18 6:11 pm * How many steps to enter\exit or inside your home? None * PCP Dr. Kevin Gold, [place] * Pharmacy [facility] * Preadmission Environment Halfway Facility * Facility Name [place] [phone] * ADLs Partial Dependent * Partial ADLs (Assistance needed) Ambulation Bathing Medication Management Transfers * Equipment Cane Oxygen Rolling Walker Wheelchair * Other Equipment Wears Oxygen qhs * List name and contact numbers for known caregivers / representatives who currently or will assist patient after discharge: Miya Robbins - sister - [phone] Jarod Tate - son - [phone] * Community resources currently utilized Other * Please name any agencies selected above. Rehab * Additional services required to return to the preadmission environment? No * Can the patient safely return to the preadmission environment? Yes * Has this patient been hospitalized within the prior 30 days at any hospital? Yes Last DP export: 12/15/18 10:42 a Patient Name: ERROL TATE Page 09543 at 0812 All edits/amendments must be made on the electronic document DICTATION DATE: 12/16/18810 CROTCH BREAKER: DM 12/16/18810 RPT#: [id number] DC DATE: STATUS: ADM IN [facility] [address] [place] [address] END OF REPORT
--- NOTE | 2018-12-16 08:18 | MORECARE ---
CASE MANAGEMENT DISCHARGE SUMMARY PATIENT: ERROL TATE UNIT: [id number] ADM DATE: 11/29/18 AGE: 73 : 45 SEX: F ROOM/BED: D.2133 AUTHOR: JOSE,DOC PHYSICIAN: REFERRING PHYSICIAN: VALENTIN SOL MD DATE OF SERVICE: 12/16/18 Discharge Plan Patient Name: ERROL TATE [facility] [facility] 1945 Planned Disposition: [facility] Facility Anticipated Discharge Date: 12/01/18 Discharge Date: Expected LOS: 2 Initial Reviewer: [email or web address] Initial Review Date: 11/29/2018 Generated: 12/16/18 9:18 am Comments DCP- Discharge Planning Updated by [id number]: Jd Ahuja on 12/16/18 7:[address] Patient Name: ERROL TATE Encounter No: [id number] : 1945 Primary Insurance: [facility] MEDICARE SOLUTIONS Anticipated DC Date: 12-01-2018 Planned Disposition: INPATIENT REHAB External Planned Provider: [facility] INPATIENT REHAB DCP follow-up note: CM SPOKE TO PT IN ROOM, DISCUSSED [facility] NOT ACCEPTING DUE TO NO DIALYSIS UNIT AVAILABLE IN SERVICE AREA. PT WOULD LIKE TO BE CONSIDERED AT [facility] IN [place], [place]. CHOICE SIGNED. CM SPOKE TO MALCOLM OF [facility] WHO INFORMED CM THAT THERE ARE NO OPENINGS FOR OUTPATIENT DIALYSIS AT THE [place] UNIT. CM SPOKE TO PT AND FAMILY IN ROOM, DISCUSSED [facility] IN [place] WHERE THE NEXT CLOSEST OUTPATIENT DIALYSIS UNIT TO PT'S HOME. CM PROVIDED LISTING OF [facility] FACILITIES WITHIN 50 MILES OF PT'S HOME FROM MEDICARE WEBSITE. PT AND FAMILY WOULD LIKE TO BE CONSIDERED FOR INPATIENT REHAB AT [place] WITH PLAN TO RETURN HOME AT DISCHARGE FROM REHAB. PT NOW DOES NOT WANT TO GO TO [facility] FOR REHAB. ORDER FOR INPATIENT REHAB PRESCREEN OBTAINED. [facility] OF INPATIENT REHAB NOTIFIED. IMPORTANT MESSAGE FROM MEDICARE PROVIDED AND EXPLAINED. CM WAITING ON OCCUPATIONAL THERAPY EVALUATION, INPATIENT REHAB PRESCREEN AND INSURANCE DETERMINATION FOR INPATIENT REHAB SERVICES. Jd Ahuja, CASE MANAGEMENT DCP- Discharge Planning Updated by [id number]: Dulce Maria Stubbs on 12/08/18 3:[address] JAYDA WITH AT [facility] STATED THAT THEY HAVE AUTH FOR SKILLED. WILL DC TO SKILLED WHEN SHE IS STABLE FOR DISCHARGE DCP- Discharge Planning Updated by [id number]: Dulce Maria Evelyne on 12/05/18 10:[address] SPOKE WITH JAYDA AT [facility] (SKILLED FACILITY IN [place]) SHE STATED THAT THE PATIENT WILL NEED TO BE PREAUTH BEFORE SHE CAN RETURN SENT CLINICALS TO [phone]. I TOLD HER THAT I ANTICIPATE HER TO BE DISCHARGED SOON DCP- Discharge Planning Updated by [id number]: Rosa Hull on 11/29/18 5:[address] Patient Name: ERROL TATE Admission Status: ER Accout number: [id number] Admission Date: 11-29-2018 : 1945 Admission Diagnosis: Attending: VALENTIN SOL Current LOS: 1 Anticipated DC Date: 12-01-2018 Planned Disposition: [facility]sp Facility - [facility] Primary Insurance: [facility] MEDICARE SOLUTIONS Discharge Planning Comments: CM met with patient to complete initial dc planning assessment. Patient asleep at this time. CM called her son Jarod Tate, , and educated him on the CM role and verbal consent given by him to complete assessment. Patient is currently in rehab at [facility], . Her son reports she will return there when she is discharged to complete her rehab. He denied further known dc needs at this time. CM will continue to follow and will assist as needed with dc plans/needs. Patient Transition Specialist: Rosa Hull RN, [facility] DCPIA - Discharge Planning Initial Assessment Updated by [id number]: Rosa Hull on 11/29/18 6:11 pm * How many steps to enter\exit or inside your home? None * PCP Dr. Kevin Godl, [place] * Pharmacy [facility] * Preadmission Environment Usp Facility * Facility Name [facility] [phone] * ADLs Partial Dependent * Partial ADLs (Assistance needed) Ambulation Bathing Medication Management Transfers * Equipment Cane Oxygen Rolling Walker Wheelchair * Other Equipment Wears Oxygen qhs * List name and contact numbers for known caregivers / representatives who currently or will assist patient after discharge: Miya Robbins - [facility] - [phone] Jarod Tate [facility] - [phone] * Community resources currently utilized Other * Please name any agencies selected above. Rehab * Additional services required to return to the preadmission environment? No * Can the patient safely return to the preadmission environment? Yes * Has this patient been hospitalized within the prior 30 days at any hospital? Yes Coverage Notice Reviewer: [email or web address] Rome Ahuja Notice Issued Date-Time: 12/15/2018 9:00 Notice Type: IM Discharge Notice Notice Delivered To: Patient Relationship to Patient: It Communications Manager Name: Delivery Method: HAND - Hand Delivered Bridget Days: Prior Verbal Notification: Recipient Understood Notice: Yes Recipient Signature: Yes Med Rec Note Co-signed by Attending: Coverage Notice Comment: Reviewer: [email or web address] Ahuja Notice Issued Date-Time: 12/16/2018 9:00 Notice Type: Patient Choice Letter Notice Delivered To: Patient Relationship to Patient: It Communications Manager Name: Delivery Method: HAND - Hand Delivered Bridget Days: Prior Verbal Notification: Recipient Understood Notice: Yes Recipient Signature: Yes Med Rec Note Co-signed by Attending: Coverage Notice Comment: [facility] Last DP export: 12/16/18 7:11 a Patient Name: ERROL TATE Page 37387 at 0818 All edits/amendments must be made on the electronic document DICTATION DATE: 12/16/18816 FIXED INCOME DIRECTOR: LCEM 12/16/18816 RPT#: [id number] DC DATE: STATUS: ADM IN [facility] [address] [place] [address] END OF REPORT
--- NOTE | 2018-12-16 12:19 | NUR ---
PT GONE FOR PROCEDURE.
--- NOTE | 2018-12-16 13:18 | NUR ---
Rehab Note- PreAuth has been started and clinicals have susan faxed for review for possible inpatient acute rehab stay. WIll continue to await determination from [facility]. Mony Rivas RN CLinical Liaison, [facility] Rehab
--- NOTE | 2018-12-16 13:26 | NUR ---
Wound care reassessment: Coccyx is discolored but blanchable. Covered with mepilex sacral dressing for additional protection. Left lateral ankle wound has improved and meaures 3cm x 3cm. Left lower leg wound is improved and measures 1.5cm x 1.5cm. Right leg remains clear. Recommend continuing current dressing changes. Egg crate has been placed on bed. Continue bridging heels to decrease risk of breakdown. Continue turning/repositioning q 2 hours. Protect bony prominences. Wound care continues to monitor.
--- NOTE | 2018-12-16 13:41 | NUR ---
PT AMBULATED OUT WITH FRIEND. NO COMPLAINTS/CONCERNS.
--- NOTE | 2018-12-16 14:03 | NUR ---
ASSESSMENT OF RIGHT UPPER CHEST REVEALED ACTIVE BLEEDING FROM HEMOSPLIT INCISION SITE. NOTIFIED DR. UGALDE. DR UGALDE AT BEDSIDE. VERBAL ORDERS RECEIVED FROM DR. UGALDE TO KEEP HOB 45 DEGREES, PLACE SANDBAG ON INCISION SITE X4 HOURS. WILL CONTINUE TO MONITOR.
--- NOTE | 2018-12-16 16:19 | NUR ---
UPON TRANSFER TO FLOOR, RECEIVING NURSE ALBERTO, ELECTRIC BRAIN WAVE EQUIPMENT MECHANIC DISCONTINUED FLUIDS AND IN DOING SO FAILED TO CLOSE CLAMP OF HEMOSPLIT CATHETER BEFORE UNCAPPING IT. THIS RESULTED IN BLOOD LOSS FROM TUBING WHICH SATURATED PATIENT'S GOWN. AT THIS TIME, ALBERTO WENT TO GET HER HOP FARMER, ERIC ROWE WHO INSTRUCTED ME TO PAGE DR. UGALDE AND HAVE HIM COME AND ASSESS PATIENT. I PAGED DR. UGALDE. DR. UGALDE AT BEDSIDE. HE REINFORMED DRESSING AND REPOSITIONED SANDBAG. NO NEW ORDERS WERE RECEIVED FROM DR. UGALDE AT THIS TIME. I OBTAINED VITAL SIGNS ON THIS PATIENT WHICH WERE RECORDED STABLE POST OP STABILITY VITALS. AND SIGNED OFF AND HANDED OFF TO ALBERTO.
--- NOTE | 2018-12-16 16:28 | NUR ---
SINCE LAST NOTE PTS HAS BLED THROUGH GOWN/DRESSING. JAE REYES REDRESSED FOLLOWING STERILE PROCEDURE. MYSELF AND AID FINISHED CHANGING PT AND REDRESSIGN, PLACING PD FLUID BACK ON PT FOR PREASURE. WILL RECHECK OFTEN.
--- NOTE | 2018-12-16 17:00 | NUR ---
PATIENT HAVING EXCESSING BLEEDING FROM HEMOSPLIT SITE, SPOKE WITH [facility] TO HOLD TX TILL TOMORROW. [facility] VENOUS PORT, PLACED NEW BLUE CAP AND SECURED USING ASEPTIC TECHNIQUE.
--- NOTE | 2018-12-16 17:32 | NUR ---
I have reviewed this patient and I concur with the Shift Assessment completed by the Licensed Practical Nurse today this shift.
--- NOTE | 2018-12-16 17:40 | NUR ---
CHECKED PTS BLEEDING AREA, PT HAS BLED THROUGH 2 ABD PADS AND ALL THE GUAZE PREVIOUSLY PLACED. WILL CHANGE AGAIN.
[2018-12-16 17:49] LABS: BASOPHILS 0.2 % (0-2); EOSINOPHILS 1.1 % (0-7); HEMATOCRIT 25.1 % (36.0-48.0); HEMOGLOBIN 8.1 g/dL (12-16); IMMATURE GRANULOCYTES 0.6 % (0-5); LYMPHOCYTES 9.5 % (15-50); MCH 27.3 pg (26.0-34.0); MCHC 32.3 g/dL (31.0-37.0); MCV 84.5 fL (80.0-100.0); MEAN PLATELET VOLUME 8.9 fL (7.4-10.4); NEUTROPHILS 82.6 % (40-80); RBC 2.97 10x6/uL (4.00-5.40); RDW 16.7 % (11.5-14.5); WBC 9.3 10x3/uL (4.8-10.8)
[2018-12-16 17:51] LABS: PLATELET COUNT 181 10x3/uL (130-400)
--- NOTE | 2018-12-16 20:20 | NUR ---
RESUMED CARE OF PT FROM JAE CLIFTON. PT PAD OVER HEMASPLIT SOAKED IN BLOOD THROUGH GOWN. WILL CHANGE DRESSING.
--- NOTE | 2018-12-16 20:59 | NUR ---
CHANGED PT'S BLOOD SATURATED DRESSING AND GOWN OVER HEMASPLIT SITE. APPLIED PD CATH BAG OVER DRESSING FOR PRESSURE. PT VITALS STABLE AT THIS TIME. BED LOW CALL LIGHT WITHIN REACH, FAMILY AT BEDSIDE. WILL CONTINUE TO MONITOR.
--- NOTE | 2018-12-16 22:30 | NUR ---
CALLED DR. NIÑO REGARDING BLEEDING AT HEMASPLIT SITE. BANDAGE REMOVED AND SATURATED IN BLOOD. NEW DRESSING OF 6IN CURLEX APPLIED WITH PRESSURE TAPE TO HEMASPLIT SITE AND NECK PER TELEPHONE ORDERS. PT COMPLAINS OF PAIN AT SITE AND IN BILAT ARMS. BOTH ARMS SWOLLEN WITH PILLOWS ELEVATING. PT SISTER AT BEDSIDE. BED LOW CALL LIGHT WITHIN REACH. WILL CONTINUE TO MONITOR.
[2018-12-17] VITALS (17 sets, daily range): BP systolic 116–158; BP diastolic 45–76
--- NOTE | 2018-12-17 01:28 | NUR ---
PT RESTING WITH EYES CLOSED. RR EVEN AND UNLABORED. VITALS STABLE. PT SISTER AT BEDSIDE. NO S/S OF DISTRESS AT THIS TIME. BED LOW CALL LIGHT WITHIN REACH. WILL CONTINUE TO MONITOR.
--- NOTE | 2018-12-17 03:09 | NUR ---
CHANGED DRESSING TO PT HEMASPLIT SITE. DRESSING SATURATED AND LEAKING FROM TAPE. NEW DRESSING APPLIED WITH PRESSURE TAPE. CHANGED BED AND PT GOWN. ADMISTERED PRN PAIN MEDICATION. VITALS STABLE AT THIS TIME. BED LOW CALL WITHIN REACH. WILL CONTINUE TO MONITOR.
--- NOTE | 2018-12-17 06:18 | NUR ---
CALLED DR. NIÑO. PT HEMASPLIT SITE STILL BLEEDING. DR. NIÑO WANTS PT TO GO TO DIALYSIS TO START GETTING FLUID OFF. RENAY REQUESTED THAT HE BE PAGED WHEN PT IS IN DIALYSIS TO RE-DRESS AND POSSIBLY PUT AN EXTRA SUTURE IN. RENAY GAVE A VERBAL LIST OF SUPPLIES THAT ARE TO BE WITH PT. LIST WILL BE PASSES ON TO NEXT SHIFT PER DIALYSIS CLINICAL MANAGER.
[2018-12-17 06:26] LABS: HEMATOCRIT 15.3 % (36.0-48.0); HEMOGLOBIN 4.9 g/dL (12-16)
--- NOTE | 2018-12-17 06:30 | NUR ---
CRITICAL CALLED [facility] 4.9 AND 15.3.
--- NOTE | 2018-12-17 06:52 | NUR ---
CALLED ICU TO GIVE REPORT. ICU STATED WILL CALL BACK.
--- NOTE | 2018-12-17 07:04 | NUR ---
ORDERS FOR PT TO BE TRANSFERED TO ICU PER DR. NIÑO. LIST OF MATERIALS HAVE BEEN INCLUDED IN NURSING MESSAGE. COMPACT ASSEMBLER NOTIFIED AND CALLED WITH AVAILABLE BED.
--- NOTE | 2018-12-17 07:20 | NUR ---
PT RECIEVED TO UNIT AT THIS TIME VIA BED ACCOMPANIED BY HOSPITAL STAFF. PTS FAMILY AT BEDSIDE AND UPDATED OF PT TRANSFER. PT ALERT AND ORIENTED. RT SUBCLAVIAN HEMOSPLIT SITE AND BED NOTED WITH BRIGHT RED BLOOD, SOURCE IS RT HEMOSPLIT SITE. WHEN PT ARRIVED TO UNIT FIBRULAR PLACED TO BLEEDING SITE WITH 4X4 [address] BAG[address] KURTIS ROJAS, WAITING FOR CALLBACK.
[2018-12-17 07:51] LABS: INR 1.32 (0.85-1.17); PROTIME 15.8 SECONDS (11.6-15.0)
[2018-12-17 07:57] LABS: APTT 164.9 SECONDS (22.8-39.4)
--- NOTE | 2018-12-17 08:00 | NUR ---
PER VIKA PEÑA [facility] FOR [facility] PRODUCTS AND MEDICATIONS.
[2018-12-17 08:13] LABS: HEMATOCRIT 33.7 % (36.0-48.0)
[2018-12-17 08:15] LABS: INR 1.24 (0.85-1.17)
[2018-12-17 08:20] LABS: APTT 35.4 SECONDS (22.8-39.4)
--- NOTE | 2018-12-17 08:20 | NUR ---
DR CALDERÓN ON UNIT, ORDERS RECIEVED.
--- NOTE | 2018-12-17 08:25 | NUR ---
PER DR HULL, GIVE 3 U PRBC NOW, 1 U FFP NOW, AND STAT LABS ORDERED.
--- NOTE | 2018-12-17 09:02 | NUR ---
FAMILY AT BEDSIDE VISITING WITH PT AND PTS FAMILY. ALL QUESTIONS AND CONCERNS ADRESSED. HEMOSPLIT SITE TO RT SUBCLAVIAN STILL NOTED WITH BRIGHT RED BLOOD AND CLOTS. DRESSINGS SATURATED AND LINENS SATURATED. SANDBAG IS IN PLACE TO HELP SUPRESS BLEEDING. ALSO NOTED SOME SEROUS DRAINAGE TO LT AC SITE AROUND STERI STRIPS. RENAL PHYSICIAN NOTIFIED. NO NEW ORDERS RECIEVED. WILL CONTINUE PLAN OF CARE.
[2018-12-17 09:13] LABS: ALBUMIN 1.3 g/dL (3.4-5.0); ANION GAP 13.6 mmol/L (8-16); BILIRUBIN - TOTAL 0.34 mg/dL (0.2-1.3); CALCIUM 7.8 mg/dL (8.5-10.1); CREATININE - SERUM 2.7 mg/dL (0.6-1.3); POTASSIUM - SERUM 5.6 mmol/L (3.5-5.1); PROTEIN - SERUM 4.7 g/dL (6.4-8.2)
--- NOTE | 2018-12-17 11:40 | NUR ---
SLOW BLEEDING STILL NOTED AROUND HEMOSPLIT SITE, SANDBAG STILL IN PLACE. DR UGALDE STATES HE WILL BE BY SHORTLY TO SEE PT AND TRY TO STOP BLEED. PT RESTING WITH EYES CLOSED, RESPIRATIONS STEADY AND UNLABORED. AWAKENS TO VOICE. NO ACUTE DISTRESS NOTED. WILL CONTINUE PLAN OF CARE.
--- NOTE | 2018-12-17 13:42 | NUR ---
SURGEON HAS SEEN PT AND WORKED ON BLEEDING SITE, NO BLEEDING NOTED TO RT HEMOSPLIT SITE AT THIS TIME. FAMILY AT BEDSIDE. UPDATES PROVIDED. NO ACUTE DISTRESS NOTED. WILL CONTINUE PLAN OF CARE.
[2018-12-17 14:26] LABS: BASOPHILS 0.4 % (0-2); EOSINOPHILS 0.7 % (0-7); HEMATOCRIT 27.1 % (36.0-48.0); HEMOGLOBIN 9.2 g/dL (12-16); IMMATURE GRANULOCYTES 0.8 % (0-5); LYMPHOCYTES 10.9 % (15-50); MCH 28.1 pg (26.0-34.0); MCHC 33.9 g/dL (31.0-37.0); MCV 82.9 fL (80.0-100.0); MEAN PLATELET VOLUME 8.8 fL (7.4-10.4); MONOCYTES 9.4 % (2-11); NEUTROPHILS 77.8 % (40-80); PLATELET COUNT 105 10x3/uL (130-400); RBC 3.27 10x6/uL (4.00-5.40); RDW 15.9 % (11.5-14.5); WBC 7.6 10x3/uL (4.8-10.8)
--- NOTE | 2018-12-17 15:22 | NUR ---
NO BLEEDING NOTED TO RT SUBCLAVIAN HEMOSPLIT SITE. PT RECIEVED BED BATH AND TOTAL LINEN CHANGE AT THIS WITH [facility]. NO ACUTE DISTRESS NOTED. NEW DRESSING APPLIED TO HEMOSPLIT SITE USING STERILE PROCEDURE AND CHLORAPREP. AFTER PT CLEANED UP SHE STATED SHE FELT MUCH BETTER. NO ACUTE DISTRESS NOTED. FAMILY AT BEDSIDE. WILL CONTINUE PLAN OF CARE.
--- NOTE | 2018-12-17 17:23 | NUR ---
NO BLEEDING NOTED TO HEMOSPLIT SITE, DRESSING CDI. PT WATCHING TV, SISTER AT BEDSIDE. NO ACUTE DISTRESS NOTED. WILL CONTINUE PLAN OF CARE.
--- NOTE | 2018-12-17 21:35 | NUR ---
PT DAUGHTER AT BEDSIDE, DIALYSIS COMPLETED, NO COMPLICATIONS NOTED AT THIS TIME, VSS, BOTH DENY ANY NEEDS.
[2018-12-17 21:49] LABS: BASOPHILS 0.2 % (0-2); EOSINOPHILS 0.4 % (0-7); HEMATOCRIT 28.7 % (36.0-48.0); HEMOGLOBIN 9.8 g/dL (12-16); IMMATURE GRANULOCYTES 0.9 % (0-5); LYMPHOCYTES 6.7 % (15-50); MCH 28.2 pg (26.0-34.0); MCHC 34.1 g/dL (31.0-37.0); MCV 82.7 fL (80.0-100.0); MEAN PLATELET VOLUME 9.3 fL (7.4-10.4); MONOCYTES 8.5 % (2-11); NEUTROPHILS 83.3 % (40-80); RBC 3.47 10x6/uL (4.00-5.40); RDW 16.2 % (11.5-14.5)
[2018-12-17 21:52] LABS: PLATELET COUNT 134 10x3/uL (130-400); WBC 10.1 10x3/uL (4.8-10.8)
[2018-12-18] VITALS (14 sets, daily range): BP systolic 128–142; BP diastolic 41–74
--- NOTE | 2018-12-18 01:37 | NUR ---
PRN PO NORCO 5/325 MG ADMINISTERED PER PT REQUEST/MD ORDER, WILL MONITOR FOR DESIRED EFFECT.
[2018-12-18 04:58] LABS: BASOPHILS 0.3 % (0-2); EOSINOPHILS 1.7 % (0-7); HEMATOCRIT 24.1 % (36.0-48.0); HEMOGLOBIN 8.1 g/dL (12-16); IMMATURE GRANULOCYTES 1.2 % (0-5); LYMPHOCYTES 10.1 % (15-50); MCH 27.8 pg (26.0-34.0); MCHC 33.6 g/dL (31.0-37.0); MCV 82.8 fL (80.0-100.0); MEAN PLATELET VOLUME 8.8 fL (7.4-10.4); MONOCYTES 9.9 % (2-11); NEUTROPHILS 76.8 % (40-80); PLATELET COUNT 120 10x3/uL (130-400); RBC 2.91 10x6/uL (4.00-5.40); RDW 16.4 % (11.5-14.5); WBC 8.9 10x3/uL (4.8-10.8)
--- NOTE | 2018-12-18 05:02 | NUR ---
PT POSITIONED FOR COMFORT SUPPORTED WITH PILLOWS, VSS, NO VISITORS PRESENT AT THIS TIME.
[2018-12-18 05:13] LABS: ANION GAP 8.7 mmol/L (8-16); CALCIUM 7.7 mg/dL (8.5-10.1); CARBON DIOXIDE 29.4 mmol/L (21.0-32.0); CREATININE - SERUM 2.3 mg/dL (0.6-1.3)
[2018-12-18 05:14] LABS: POTASSIUM - SERUM 4.1 mmol/L (3.5-5.1)
--- NOTE | 2018-12-18 07:27 | NUR ---
PT C/O INCISIONAL PAIN IN LT ARM, PRN PO NORCO ADMINISTERED PER MD ORDER/PT REQUEST.
--- NOTE | 2018-12-18 08:39 | NUR ---
UP IN BED EATING BREAKFAST WITH ASSIST FROM SISTER. PT DENIES ANY NEEDS. NO ACUTE DISTRESS NOTED. WILL CONTINUE PLAN OF CARE.
--- NOTE | 2018-12-18 10:17 | NUR ---
PER VIKA PEÑA TO TRANSFER TO FLOOR.
--- NOTE | 2018-12-18 12:29 | NUR ---
PER DR SOL, TRANSFER PT TO FLOOR. NO ACUTE DISTRESS NOTED. PT LYING IN BED AWAKE, DENIES ANY NEEDS. CALL LIGHT IN REACH. WILL CONTINUE PLAN OF CARE.
--- NOTE | 2018-12-18 14:28 | NUR ---
ATTEMPTED TO CALL REPORT AT THIS TIME. NOTED NURSE TO RECIEVE REPORT IS ON BREAK, BUT WILL CALL WHEN SHES BACK.
--- NOTE | 2018-12-18 15:35 | NUR ---
TRANSFERRED TO 2133 AT THIS TIME VIA BED ACCOMPANIED BY HOSPITAL STAFF WITH ALL PERSONAL ITEMS. PTS SISTERE NOTIFIED OF THIS. NO ACUTE DISTRESS NOTED. NO FURTHER ACTIONS.
--- NOTE | 2018-12-18 15:36 | NUR ---
PT ARRIVED FROM ICU VIA BED, ALERT AND ORIENTED. DENIES NEEDS OR PAIN AT THIS TIME. BED IS IN LOWEST POSITION WITH RAILS UP X2, CALL LIGHT IN REACH, WILL CONTINUE TO MONITOR AND FOLLOW PLAN OF CARE.
--- NOTE | 2018-12-18 17:13 | NUR ---
PT C/O OF PAIN IN SURGICAL AREA ON LEFT UPPER ARM OF A 9 ON PAIN SCALE. SHE HAS NORCO 5/325 ORDERED, I GAVE ONE DOSE AND TOLD HER I WOULD CALL THE DR TO SEE IF WE CAN GET SOMETHING ORDERED VIA IV BECAUSE PT STATES THAT THE NORCO HELPS A LITTLE BUT NOT MUCH. I PAGED RENAL, WILL F/U WITH ANY NEW ORDERS.
--- NOTE | 2018-12-18 17:24 | NUR ---
PER FRANCESCA GUERRA APRN NEW ORDER TO INCREASE NORCO TO 10/325 Q4HP AND BUPERNEX 0.1 MG Q4HP. ORDERS NOTED.
--- NOTE | 2018-12-18 18:48 | NUR ---
SHAHID DRAIN REMOVED FROM LEFT UPPER ARM, GAUZE AND TAPE APPLIED TO SITE. NO BLEEDING NOTED, NO DRAINAGE NOTED IN DRAIN. PT TOLERATED WELL. CALL LIGHT IN REACH.
--- NOTE | 2018-12-18 19:15 | NUR ---
RECEIVED REPORT, WILL ASSUME CARE OF PT, COMPLAINS OF PAIN, GAVE BUPRENEX ORDERED, FAMILY AT BEDSIDE, BED IS LOW, SRX 2, CALL LIGHT IN REACH, WILL CONTINUE PLAN OF CARE
--- NOTE | 2018-12-18 23:56 | NUR ---
ASKING FOR PAIN MEDS, GAVE NORCO ORDER
--- NOTE | 2018-12-19 03:05 | NUR ---
I have reviewed this patient and I concur with the Shift Assessment completed by the Licensed Practical Nurse today this shift.
[2018-12-19 03:58] LABS: BASOPHILS 0.4 % (0-2); EOSINOPHILS 5.4 % (0-7); HEMATOCRIT 24.6 % (36.0-48.0); HEMOGLOBIN 8.2 g/dL (12-16); IMMATURE GRANULOCYTES 1.1 % (0-5); LYMPHOCYTES 10.1 % (15-50); MCH 28.5 pg (26.0-34.0); MCHC 33.3 g/dL (31.0-37.0); MEAN PLATELET VOLUME 8.5 fL (7.4-10.4); MONOCYTES 9.3 % (2-11); NEUTROPHILS 73.7 % (40-80); PLATELET COUNT 114 10x3/uL (130-400); RBC 2.88 10x6/uL (4.00-5.40); RDW 16.8 % (11.5-14.5); WBC 10.7 10x3/uL (4.8-10.8)
[2018-12-19 04:03] LABS: MCV 85.4 fL (80.0-100.0)
[2018-12-19 04:11] LABS: ANION GAP 11.3 mmol/L (8-16); CALCIUM 7.6 mg/dL (8.5-10.1); CARBON DIOXIDE 27.7 mmol/L (21.0-32.0); CREATININE - SERUM 2.7 mg/dL (0.6-1.3)
--- NOTE | 2018-12-19 04:30 | NUR ---
LAB DRAW COMPLETE
[2018-12-19 05:49] VITALS: BP 135/43
--- NOTE | 2018-12-19 06:04 | NUR ---
ASSIST MITERING MACHINE OPERATOR WITH PUTTING EGG CRATE ON BED AND LINEN CHANGE
--- NOTE | 2018-12-19 08:03 | NUR ---
REPORT RECEIVED. WILL CONTINUE WITH POC. PT CURRENTLY LYING SEMI FOWLERS. CALL LIGHT W/I REACH. PT IS AAO ADN BEDFAST. FAMILY AT BEDSIDE. RR EVEN AND UNLABORED ON 2L 02. PROTONIX INFUSING @10ML/HR AND ZOFRAN INFUSING @4.7ML/HR VIA R.CHEST HEMESPLIT. PT DENIES ANY NEEDS AT THIS TIME. NO S/S OF DISTRESS NOTED. WILL CTM.
--- NOTE | 2018-12-19 08:35 | NUR ---
NOTIFIED PHARMACY THAT THE PT NEEDED RETACRIT AND ZOFRAN DRIP. WILL ADMINISTER MEDICATIONS UPON RECEIVING.
[2018-12-19 09:01] VITALS: BP 101/56
--- NOTE | 2018-12-19 11:22 | NUR ---
ASSESSED SARCUM DRESSING. DRESSING IS C/D/I WITH NO APPARENT SIGNS OF PRESSURE WOUND OR FURTHER BREAKDOWN. REDRESSED DRESSING TO THE LEFT HEEL. SITE IS C/D/I WITH NO DRAINAGE. NEW TISSUE GROWTH IS PRESENT. DRESSING SIGNED AND DATED. PT DENIES ANY FURTHER NEEDS. WILL CTM.
--- NOTE | 2018-12-19 11:22 | NUR ---
Rehab Notes- Received voicemail from [place] with [facility] that the patient is denied an inpatient acute rehab stay. The patient's needs can be meet at a lower level of care. A peer to peer can be set up by tomorrow 12/20 @ 1500. Informed Mane & VLAD Landa. Thank you for this referral! Mony Rivas RN CLinical Liaison, [facility] Rehab
[2018-12-19 11:53] VITALS: BP 158/45
--- NOTE | 2018-12-19 14:29 | NUR ---
I have reviewed this patient and I concur with the Shift Assessment completed by the Licensed Practical Nurse today this shift.
--- NOTE | 2018-12-19 20:35 | NUR ---
PT COME BACK FROM DIALYSIS. WARM DINNER FOR PT. AND FAMILY MEMBER ASSISTED WITH PT'S MEAL.
--- NOTE | 2018-12-20 03:10 | NUR ---
I have reviewed this patient and I concur with the Shift Assessment completed by the Licensed Practical Nurse today this shift.
[2018-12-20 05:16] LABS: BASOPHILS 0.4 % (0-2); EOSINOPHILS 3.7 % (0-7); HEMATOCRIT 24.9 % (36.0-48.0); IMMATURE GRANULOCYTES 1.3 % (0-5); LYMPHOCYTES 8.8 % (15-50); MCH 27.8 pg (26.0-34.0); MCHC 32.1 g/dL (31.0-37.0); MCV 86.5 fL (80.0-100.0); MEAN PLATELET VOLUME 9.1 fL (7.4-10.4); MONOCYTES 8.5 % (2-11); NEUTROPHILS 77.3 % (40-80); PLATELET COUNT 123 10x3/uL (130-400); RBC 2.88 10x6/uL (4.00-5.40); WBC 10.7 10x3/uL (4.8-10.8)
[2018-12-20 05:25] LABS: ANION GAP 9.6 mmol/L (8-16); CALCIUM 7.4 mg/dL (8.5-10.1); CARBON DIOXIDE 31.3 mmol/L (21.0-32.0); CREATININE - SERUM 2.3 mg/dL (0.6-1.3); POTASSIUM - SERUM 3.9 mmol/L (3.5-5.1)
[2018-12-20 06:08] VITALS: BP 146/68
[2018-12-20 10:25] VITALS: BP 145/71
--- NOTE | 2018-12-20 10:30 | NUR ---
TAKEN TO DIALYSIS VIA BED. CONTINUE PLAN OF CARE AND SAFETY PRECAUTIONS.
--- NOTE | 2018-12-20 10:57 | MORECARE ---
CASE MANAGEMENT DISCHARGE SUMMARY PATIENT: ERROL TATE UNIT: [id number] ADM DATE: 11/29/18 AGE: 73 : 45 SEX: F ROOM/BED: D.9944 AUTHOR: JOSE,DOC PHYSICIAN: REFERRING PHYSICIAN: VALENTIN SOL MD DATE OF SERVICE: 12/20/18 Discharge Plan Patient Name: ERROL TATE [facility] [facility] 1945 Planned Disposition: Prison Facility Anticipated Discharge Date: 12/01/18 Discharge Date: Expected LOS: 2 Initial Reviewer: [id number] Initial Review Date: 11/29/2018 Generated: 12/20/18 9:17 am DCP- Discharge Planning Updated by [id number]: Jd Ahuja on 12/16/18 7:[address] Patient Name: ERROL TATE Encounter No: [id number] : 1945 Primary Insurance: [facility] [employer] Anticipated DC Date: 12-01-2018 Planned Disposition: INPATIENT REHAB External Planned Provider: [facility] INPATIENT REHAB DCP follow-up note: CM SPOKE TO PT IN ROOM, DISCUSSED [facility] NOT ACCEPTING DUE TO NO DIALYSIS UNIT AVAILABLE IN SERVICE AREA. PT WOULD LIKE TO BE CONSIDERED AT [facility] IN [place], [place]. CHOICE SIGNED. CM SPOKE TO MALCOLM OF [facility]IENT [facility] WHO INFORMED CM THAT THERE ARE NO OPENINGS FOR OUTPATIENT DIALYSIS AT THE SISTERS UNIT. CM SPOKE TO PT AND FAMILY IN ROOM, DISCUSSED [facility] IN [place] WHERE THE NEXT CLOSEST OUTPATIENT DIALYSIS UNIT TO PT'S HOME. CM PROVIDED LISTING OF LONG TERM FACILITIES WITHIN 50 MILES OF PT'S HOME FROM MEDICARE WEBSITE. PT AND FAMILY WOULD LIKE TO BE CONSIDERED FOR INPATIENT REHAB AT [place] WITH PLAN TO RETURN HOME AT DISCHARGE FROM REHAB. PT NOW DOES NOT WANT TO GO TO [facility] TER[facility] FOR REHAB. ORDER FOR INPATIENT REHAB PRESCREEN OBTAINED. [facility] OF INPATIENT REHAB NOTIFIED. IMPORTANT MESSAGE FROM MEDICARE PROVIDED AND EXPLAINED. CM WAITING ON OCCUPATIONAL THERAPY EVALUATION, INPATIENT REHAB PRESCREEN AND INSURANCE DETERMINATION FOR INPATIENT REHAB SERVICES. Jd Ahuja, CASE MANAGEMENT DCP- Discharge Planning Updated by [id number]: Dulce Maria Stubbs on 12/08/18 3:[address] JAYDA WITH AT [facility] STATED THAT THEY HAVE AUTH FOR [facility]. WILL DC TO [facility] WHEN SHE IS STABLE FOR DISCHARGE DCP- Discharge Planning Updated by [id number]: Dulce Maria Stubbs on 12/05/18 10:[address] SPOKE WITH JAYDA AT [facility] (SKILLED FACILITY IN SISTERS) SHE STATED THAT THE PATIENT WILL NEED TO BE PREAUTH BEFORE SHE CAN RETURN SENT CLINICALS TO [phone]. I TOLD HER THAT I ANTICIPATE HER TO BE DISCHARGED SOON DCP- Discharge Planning Updated by [id number]: Rosa Hull on 11/29/18 5:[address] Patient Name: ERROL TATE Admission Status: ER Accout number: [id number] Admission Date: 11-29-2018 : 1945 Admission Diagnosis: Attending: VALENTIN SOL Current LOS: 1 Anticipated DC Date: 12-01-2018 Planned Disposition: Prison Facility - [facility] Primary Insurance: [facility] [employer] Discharge Planning Comments: CM met with patient to complete initial dc planning assessment. Patient asleep at this time. CM called her son Jarod Tate, , and educated him on the CM role and verbal consent given by him to complete assessment. Patient is currently in rehab at [facility], . Her son reports she will return there when she is discharged to complete her rehab. He denied further known dc needs at this time. CM will continue to follow and will assist as needed with dc plans/needs. Illuminating Engineer: Rosa Hull RN, [facility] DCPIA - Discharge Planning Initial Assessment Updated by [id number]: Rosa Hull on 11/29/18 6:11 pm * How many steps to enter\exit or inside your home? None * PCP Dr. Kevin [place], [place] * Pharmacy [facility] * Preadmission Environment Prison Facility * Facility Name [place] [phone] * ADLs Partial Dependent * Partial ADLs (Assistance needed) Ambulation Bathing Medication Management Transfers * Equipment Cane Oxygen Rolling Walker Wheelchair * Other Equipment Wears Oxygen qhs * List name and contact numbers for known caregivers / representatives who currently or will assist patient after discharge: Miya Robbins - [facility] - [phone] Jarod Tate [facility] - [phone] * Community resources currently utilized Other * Please name any agencies selected above. Rehab * Additional services required to return to the preadmission environment? No * Can the patient safely return to the preadmission environment? Yes * Has this patient been hospitalized within the prior 30 days at any hospital? Yes Coverage Notice Reviewer: [id number] Ahuja Notice Issued Date-Time: 12/15/2018 9:00 Notice Type: IM Discharge Notice Notice Delivered To: Patient Relationship to Patient: Field Servicer Name: Delivery Method: HAND - Hand Delivered Bridget Days: Prior Verbal Notification: Recipient Understood Notice: Yes Recipient Signature: Yes Med Rec Note Co-signed by Attending: Coverage Notice Comment: Reviewer: [id number] Ahuja Notice Issued Date-Time: 12/16/2018 9:00 Notice Type: Patient Choice Letter Notice Delivered To: Patient Relationship to Patient: Field Servicer Name: Delivery Method: HAND - Hand Delivered Bridget Days: Prior Verbal Notification: Recipient Understood Notice: Yes Recipient Signature: Yes Med Rec Note Co-signed by Attending: Coverage Notice Comment: [facility] Last DP export: 12/16/18 7:18 a Patient Name: ERROL TATE Page [id number] at 1057 All edits/amendments must be made on the electronic document DICTATION DATE: 12/20/18815 HINGING MACHINE OPERATOR: CLEM 12/20/18815 RPT#: [id number] DC DATE: STATUS: ADM IN [facility] [address] [place] [address] END OF REPORT
--- NOTE | 2018-12-20 13:48 | NUR ---
Nutrition follow-up: Diet: Renal ADA Pt requesting strawberry Nepro with meals PO intake ~63% average of last 9 meals Labs reviewed Wt: 142# PO intake fair at this time. RDN following.
--- NOTE | 2018-12-20 16:46 | MORECARE ---
CASE MANAGEMENT DISCHARGE SUMMARY PATIENT: ERROL TATE UNIT: [id number] ADM DATE: 11/29/18 AGE: 73 : 45 SEX: F ROOM/BED: D.2714 AUTHOR: JOSE,DOC PHYSICIAN: REFERRING PHYSICIAN: VALENTIN SOL MD DATE OF SERVICE: 12/20/18 Discharge Plan Patient Name: ERROL TATE [facility] [facility] 1945 Planned Disposition: [facility] Facility Anticipated Discharge Date: 12/01/18 Discharge Date: Expected LOS: 2 Initial Reviewer: [email or web address] Initial Review Date: 11/29/2018 Generated: 12/20/18 5:46 pm DCP- Discharge Planning Updated by [id number]: Jd Ahuja on 12/16/18 7:[address] Patient Name: ERROL TATE Encounter No: [id number] : 1945 Primary Insurance: [facility] MEDICARE SOLUTIONS Anticipated DC Date: 12-01-2018 Planned Disposition: INPATIENT REHAB External Planned Provider: [facility] INPATIENT REHAB DCP follow-up note: CM SPOKE TO PT IN ROOM, DISCUSSED [facility] NOT ACCEPTING DUE TO NO DIALYSIS UNIT AVAILABLE IN SERVICE AREA. PT WOULD LIKE TO BE CONSIDERED AT [facility] IN [place], [place]. CHOICE SIGNED. CM SPOKE TO MALCOLM OF [facility] WHO INFORMED CM THAT THERE ARE NO OPENINGS FOR OUTPATIENT DIALYSIS AT THE [place] UNIT. CM SPOKE TO PT AND FAMILY IN ROOM, DISCUSSED [facility] IN [place] WHERE THE NEXT CLOSEST OUTPATIENT DIALYSIS UNIT TO PT'S HOME. CM PROVIDED LISTING OF [facility] FACILITIES WITHIN 50 MILES OF PT'S HOME FROM MEDICARE WEBSITE. PT AND FAMILY WOULD LIKE TO BE CONSIDERED FOR INPATIENT REHAB AT [facility] WITH PLAN TO RETURN HOME AT DISCHARGE FROM REHAB. PT NOW DOES NOT WANT TO GO TO [facility] FOR REHAB. ORDER FOR INPATIENT REHAB PRESCREEN OBTAINED. [facility] OF INPATIENT REHAB NOTIFIED. IMPORTANT MESSAGE FROM MEDICARE PROVIDED AND EXPLAINED. CM WAITING ON OCCUPATIONAL THERAPY EVALUATION, INPATIENT REHAB PRESCREEN AND INSURANCE DETERMINATION FOR INPATIENT REHAB SERVICES. Jd Ahuja, CASE MANAGEMENT DCP- Discharge Planning Updated by [id number]: Dulce Maria Stubbs on 12/08/18 3:[address] JAYDA WITH AT [facility] STATED THAT THEY HAVE AUTH FOR [facility]. WILL DC TO [facility] WHEN SHE IS STABLE FOR DISCHARGE DCP- Discharge Planning Updated by [id number]: Dulce Maria Stubbs on 12/05/18 10:[address] SPOKE WITH JAYDA AT [facility] (SKILLED FACILITY IN [place]) SHE STATED THAT THE PATIENT WILL NEED TO BE PREAUTH BEFORE SHE CAN RETURN SENT CLINICALS TO [phone]. I TOLD HER THAT I ANTICIPATE HER TO BE DISCHARGED SOON DCP- Discharge Planning Updated by [id number]: Rosa Hull on 11/29/18 5:[address] Patient Name: ERROL TATE Admission Status: ER Accout number: [id number] Admission Date: 11-29-2018 : 1945 Admission Diagnosis: Attending: VALENTIN SOL Current LOS: 1 Anticipated DC Date: 12-01-2018 Planned Disposition: [facility] Facility [facility] Primary Insurance: [facility] MEDICARE SOLUTIONS Discharge Planning Comments: CM met with patient to complete initial dc planning assessment. Patient asleep at this time. CM called her son Jarod Tate, , and educated him on the CM role and verbal consent given by him to complete assessment. Patient is currently in rehab at [facility], . Her son reports she will return there when she is discharged to complete her rehab. He denied further known dc needs at this time. CM will continue to follow and will assist as needed with dc plans/needs. Voice Professor: Rosa Hull RN, [facility] DCPIA - Discharge Planning Initial Assessment Updated by [id number]: Rosa Hull on 11/29/18 6:11 pm * How many steps to enter\exit or inside your home? None * PCP Dr. Kevin [place], [place] * Pharmacy [facility] * Preadmission Environment [facility] Facility * Facility Name [place] [phone] * ADLs Partial Dependent * Partial ADLs (Assistance needed) Ambulation Bathing Medication Management Transfers * Equipment Cane Oxygen Rolling Walker Wheelchair * Other Equipment Wears Oxygen qhs * List name and contact numbers for known caregivers / representatives who currently or will assist patient after discharge: Miya Robbins - [facility] - [phone] Jarod Tate [facility] - [phone] * Community resources currently utilized Other * Please name any agencies selected above. Rehab * Additional services required to return to the preadmission environment? No * Can the patient safely return to the preadmission environment? Yes * Has this patient been hospitalized within the prior 30 days at any hospital? Yes External Providers External Provider: OTHER-OTHER Next Contact Date: 12/21/2018 Service Request Date: Service Type: Resolution: Reviewer: Comments: Coverage Notice Reviewer: [id number] Ahuja Notice Issued Date-Time: 12/15/2018 9:00 Notice Type: IM Discharge Notice Notice Delivered To: Patient Relationship to Patient: Comfort Station Attendant Name: Delivery Method: HAND - Hand Delivered Bridget Days: Prior Verbal Notification: Recipient Understood Notice: Yes Recipient Signature: Yes Med Rec Note Co-signed by Attending: Coverage Notice Comment: Reviewer: YOLANDA Ahuja Notice Issued Date-Time: 12/16/2018 9:00 Notice Type: Patient Choice Letter Notice Delivered To: Patient Relationship to Patient: Comfort Station Attendant Name: Delivery Method: HAND - Hand Delivered Bridget Days: Prior Verbal Notification: Recipient Understood Notice: Yes Recipient Signature: Yes Med Rec Note Co-signed by Attending: Coverage Notice Comment: [facility] Last DP export: 12/20/18 7:17 a Patient Name: ERROL TATE Page 35218 at 1646 All edits/amendments must be made on the electronic document DICTATION DATE: 12/20/181644 STRATEGIC PLANNING DIRECTOR: CLEM 12/20/181644 RPT#: [id number] [place] DATE: STATUS: ADM IN [facility] [address] [place] [address] END OF REPORT
--- NOTE | 2018-12-20 16:53 | NUR ---
OT NOTE: (115-130) PT COMPLETED BED MOB WITH MAX A. PT IS SOB WITH EXERTION. THANK YOU, AMARIS MEJIA
--- NOTE | 2018-12-20 16:54 | MORECARE ---
CASE MANAGEMENT DISCHARGE SUMMARY PATIENT: ERROL TATE UNIT: [id number] ADM DATE: 11/29/18 AGE: 73 : 45 SEX: F ROOM/BED: D.2964 AUTHOR: JOSE,DOC PHYSICIAN: REFERRING PHYSICIAN: VALENTIN SOL MD DATE OF SERVICE: 12/20/18 Discharge Plan Patient Name: ERROL TATE [facility] [facility] 1945 Planned Disposition: [facility] Facility Anticipated Discharge Date: 12/01/18 Discharge Date: Expected LOS: 2 Initial Reviewer: [id number] Initial Review Date: 11/29/2018 Generated: 12/20/18 5:54 pm DCP- Discharge Planning Updated by [email or web address]: Jd Ahuja on 12/16/18 7:[address] Patient Name: ERROL TATE Encounter No: [id number] : 1945 Primary Insurance: [facility] MEDICARE SOLUTIONS Anticipated DC Date: 12-01-2018 Planned Disposition: INPATIENT REHAB External Planned Provider: [facility] INPATIENT REHAB DCP follow-up note: CM SPOKE TO PT IN ROOM, DISCUSSED [facility] NOT ACCEPTING DUE TO NO DIALYSIS UNIT AVAILABLE IN SERVICE AREA. PT WOULD LIKE TO BE CONSIDERED AT [facility] IN [place], [place]. CHOICE SIGNED. CM SPOKE TO MALCOLM OF [facility] WHO INFORMED CM THAT THERE ARE NO OPENINGS FOR OUTPATIENT DIALYSIS AT THE [place] UNIT. CM SPOKE TO PT AND FAMILY IN ROOM, DISCUSSED [facility] IN [place] WHERE THE NEXT CLOSEST OUTPATIENT DIALYSIS UNIT TO PT'S HOME. CM PROVIDED LISTING OF [facility] FACILITIES WITHIN 50 MILES OF PT'S HOME FROM MEDICARE WEBSITE. PT AND FAMILY WOULD LIKE TO BE CONSIDERED FOR INPATIENT REHAB AT [place] WITH PLAN TO RETURN HOME AT DISCHARGE FROM REHAB. PT NOW DOES NOT WANT TO GO TO [facility] FOR REHAB. ORDER FOR INPATIENT REHAB PRESCREEN OBTAINED. [facility] OF INPATIENT REHAB NOTIFIED. IMPORTANT MESSAGE FROM MEDICARE PROVIDED AND EXPLAINED. CM WAITING ON OCCUPATIONAL THERAPY EVALUATION, INPATIENT REHAB PRESCREEN AND INSURANCE DETERMINATION FOR INPATIENT REHAB SERVICES. Jd Ahuja, CASE MANAGEMENT DCP- Discharge Planning Updated by [id number]: Dulce Maria Stubbs on 12/08/18 3:[address] JAYDA WITH AT [facility] STATED THAT THEY HAVE AUTH FOR [facility]. WILL DC TO [facility] WHEN SHE IS STABLE FOR DISCHARGE DCP- Discharge Planning Updated by [email or web address]: Dulce Maria Stubbs on 12/05/18 10:[address] SPOKE WITH JAYDA AT [facility] (SKILLED FACILITY IN [place]) SHE STATED THAT THE PATIENT WILL NEED TO BE PREAUTH BEFORE SHE CAN RETURN SENT CLINICALS TO [phone]. I TOLD HER THAT I ANTICIPATE HER TO BE DISCHARGED SOON DCP- Discharge Planning Updated by [id number]: Rosa Hull on 11/29/18 5:[address] Patient Name: ERROL TATE Admission Status: ER Accout number: [id number] Admission Date: 11-29-2018 : 1945 Admission Diagnosis: Attending: VALENTIN SOL Current LOS: 1 Anticipated DC Date: 12-01-2018 Planned Disposition: [facility] Facility - [facility] Primary Insurance: [facility] MEDICARE SOLUTIONS Discharge Planning Comments: CM met with patient to complete initial dc planning assessment. Patient asleep at this time. CM called her son Jarod Tate, , and educated him on the CM role and verbal consent given by him to complete assessment. Patient is currently in rehab at [facility], . Her son reports she will return there when she is discharged to complete her rehab. He denied further known dc needs at this time. CM will continue to follow and will assist as needed with dc plans/needs. Sales Route Driver Helper: Rosa Hull RN, [facility] DCPIA - Discharge Planning Initial Assessment Updated by [email or web address]: Rosa Hull on 11/29/18 6:11 pm * How many steps to enter\exit or inside your home? None * PCP Dr. Kevin Gold, [place] * Pharmacy [facility] * Preadmission Environment [facility] Facility * Facility Name [place] [phone] * ADLs Partial Dependent * Partial ADLs (Assistance needed) Ambulation Bathing Medication Management Transfers * Equipment Cane Oxygen Rolling Walker Wheelchair * Other Equipment Wears Oxygen qhs * List name and contact numbers for known caregivers / representatives who currently or will assist patient after discharge: Miya Robbins - [facility] - [phone] Jarod Tate [facility] - [phone] * Community resources currently utilized Other * Please name any agencies selected above. Rehab * Additional services required to return to the preadmission environment? No * Can the patient safely return to the preadmission environment? Yes * Has this patient been hospitalized within the prior 30 days at any hospital? Yes External Providers External Provider: [facility] Next Contact Date: 12/21/2018 Service Request Date: Service Type: Resolution: Reviewer: Comments: Coverage Notice Reviewer: [id number] Ahuja Notice Issued Date-Time: 12/15/2018 9:00 Notice Type: IM Discharge Notice Notice Delivered To: Patient Relationship to Patient: Chute Tapper Name: Delivery Method: HAND - Hand Delivered Bridget Days: Prior Verbal Notification: Recipient Understood Notice: Yes Recipient Signature: Yes Med Rec Note Co-signed by Attending: Coverage Notice Comment: Reviewer: YOLANDA Ahuja Notice Issued Date-Time: 12/16/2018 9:00 Notice Type: Patient Choice Letter Notice Delivered To: Patient Relationship to Patient: Chute Tapper Name: Delivery Method: HAND - Hand Delivered Bridget Days: Prior Verbal Notification: Recipient Understood Notice: Yes Recipient Signature: Yes Med Rec Note Co-signed by Attending: Coverage Notice Comment: [facility] Last DP export: 12/20/18 3:46 p Patient Name: ERROL TATE Page 10390 at 1654 All edits/amendments must be made on the electronic document DICTATION DATE: 12/20/181652 SIZING SPRAYER: CLEM 12/20/181652 RPT#: [id number] DC DATE: STATUS: ADM IN [facility] [address] [place] [address] END OF REPORT
--- NOTE | 2018-12-20 17:02 | MORECARE ---
CASE MANAGEMENT DISCHARGE SUMMARY PATIENT: ERROL TATE UNIT: [id number] ADM DATE: 11/29/18 AGE: 73 : 45 SEX: F ROOM/BED: D.7654 AUTHOR: JOSE,DOC PHYSICIAN: REFERRING PHYSICIAN: VALENTIN SOL MD DATE OF SERVICE: 12/20/18 Discharge Plan Patient Name: ERROL TATE Facility[facility]:[place] : 1945 Planned Disposition: Nursing Home Facility Anticipated Discharge Date: 12/01/18 Discharge Date: Expected LOS: 2 Initial Reviewer: [id number] Initial Review Date: 11/29/2018 Generated: 12/20/18 6:02 pm Comments DCP- Discharge Planning Updated by [email or web address]: Jd Ahuja on 12/20/18 3:[address] Patient Name: ERROL TATE Encounter No: [id number] : 1945 Primary Insurance: [facility] MEDICARE SOLUTIONS Anticipated DC Date: 12-01-2018 Planned Disposition: Nursing Home Facility External Planned Provider: [facility] DCP follow-up note: CM SPOKE TO PT IN ROOM REGARDING INSURANCE DENIAL FOR INPATIENT REHAB AND ASKED ABOUT CHOICES FOR [facility]. PT STATES THAT THEY HAVE NO CHOICE FOR REHAB IN [place], PROVIDER LISTING PREVIOUSLY PROVIDED; PT SIGNED CHOICE FOR ANY [facility] IN [place]. IMPORTANT MESSAGE FROM MEDICARE PROVIDED AND EXPLAINED. CM RECEIVED CALL FROM JAROD MOSCOSO, PT'S SON, , WHO WANTS ONLY REFERRED TO 4 OR 5 [place] FACILITIES. CM FAXED REFERRALS TO [facility] AT [phone] AND [facility] [phone]. CM TO FOLLOW UP WITH [facility] AT [phone] AND [facility] AT [phone]. CM WAITING ADMISSION DETERMINATIONS FROM BOTH FACILITIES. CM NOTIFIED MALCOLM OF [facility] TO REQUEST OUTPATIENT DIALYSIS UNIT IN [place]. Jd Ahuja CASE MANAGEMENT DCP- Discharge Planning Updated by [email or web address]: Jd Ahuja on 12/16/18 7:[address] Patient Name: ERROL TATE Encounter No: [id number] : 1945 Primary Insurance: [facility] MEDICARE SOLUTIONS Anticipated DC Date: 12-01-2018 Planned Disposition: INPATIENT REHAB External Planned Provider: [facility] INPATIENT REHAB DCP follow-up note: CM SPOKE TO PT IN ROOM, DISCUSSED [facility] NOT ACCEPTING DUE TO NO DIALYSIS UNIT AVAILABLE IN SERVICE AREA. PT WOULD LIKE TO BE CONSIDERED AT [facility] IN [place], [place]. CHOICE SIGNED. CM SPOKE TO MALCOLM OF [facility] WHO INFORMED CM THAT THERE ARE NO OPENINGS FOR OUTPATIENT DIALYSIS AT THE [facility]. CM SPOKE TO PT AND FAMILY IN ROOM, DISCUSSED [facility] IN [place] WHERE THE NEXT CLOSEST OUTPATIENT DIALYSIS UNIT TO PT'S HOME. CM PROVIDED LISTING OF [facility] FACILITIES WITHIN 50 MILES OF PT'S HOME FROM MEDICARE WEBSITE. PT AND FAMILY WOULD LIKE TO BE CONSIDERED FOR INPATIENT REHAB AT [place] WITH PLAN TO RETURN HOME AT DISCHARGE FROM REHAB. PT NOW DOES NOT WANT TO GO TO [facility] FOR REHAB. ORDER FOR INPATIENT REHAB PRESCREEN OBTAINED. [facility] OF INPATIENT REHAB NOTIFIED. IMPORTANT MESSAGE FROM MEDICARE PROVIDED AND EXPLAINED. CM WAITING ON OCCUPATIONAL THERAPY EVALUATION, INPATIENT REHAB PRESCREEN AND INSURANCE DETERMINATION FOR INPATIENT REHAB SERVICES. Jd Ahuja, CASE MANAGEMENT DCP- Discharge Planning Updated by [id number]: Dulce Maria Stubbs on 12/08/18 3:[address] JAYDA WITH AT [facility] STATED THAT THEY HAVE AUTH FOR SKILLED. WILL DC TO [facility] WHEN SHE IS STABLE FOR DISCHARGE DCP- Discharge Planning Updated by [id number]: Dulce Maria Stubbs on 12/05/18 10:[address] SPOKE WITH JAYDA AT [facility] (SKILLED FACILITY IN [place]) SHE STATED THAT THE PATIENT WILL NEED TO BE PREAUTH BEFORE SHE CAN RETURN SENT CLINICALS TO [phone]. I TOLD HER THAT I ANTICIPATE HER TO BE DISCHARGED SOON DCP- Discharge Planning Updated by [email or web address]: Rosa Hull on 11/29/18 5:[address] Patient Name: ERROL TATE Admission Status: ER Accout number: [id number] Admission Date: 11-29-2018 : 1945 Admission Diagnosis: Attending: VALENTIN SOL Current LOS: 1 Anticipated DC Date: 12-01-2018 Planned Disposition: Nursing Home Facility - [facility] Primary Insurance: [facility] MEDICARE SOLUTIONS Discharge Planning Comments: CM met with patient to complete initial dc planning assessment. Patient asleep at this time. CM called her son Jarod Tate, , and educated him on the CM role and verbal consent given by him to complete assessment. Patient is currently in rehab at [facility], . Her son reports she will return there when she is discharged to complete her rehab. He denied further known dc needs at this time. CM will continue to follow and will assist as needed with dc plans/needs. Play Writer: Rosa Hull RN, [facility] DCPIA - Discharge Planning Initial Assessment Updated by [id number]: Rosa Hull on 11/29/18 6:11 pm * How many steps to enter\exit or inside your home? None * PCP Dr. Kevin Gold, [place] * Pharmacy [facility] * Preadmission Environment Nursing Home Facility * Facility Name [place] [phone] * ADLs Partial Dependent * Partial ADLs (Assistance needed) Ambulation Bathing Medication Management Transfers * Equipment Cane Oxygen Rolling Walker Wheelchair * Other Equipment Wears Oxygen qhs * List name and contact numbers for known caregivers / representatives who currently or will assist patient after discharge: Miya Robbins - sister - [phone] Jarod Tate - son - [phone] * Community resources currently utilized Other * Please name any agencies selected above. Rehab * Additional services required to return to the preadmission environment? No * Can the patient safely return to the preadmission environment? Yes * Has this patient been hospitalized within the prior 30 days at any hospital? Yes Coverage Notice Reviewer: [id number] Rome Ahuja Notice Issued Date-Time: 12/15/2018 9:00 Notice Type: IM Discharge Notice Notice Delivered To: Patient Relationship to Patient: Oral Communication Instructor Name: Delivery Method: HAND - Hand Delivered Bridget Days: Prior Verbal Notification: Recipient Understood Notice: Yes Recipient Signature: Yes Med Rec Note Co-signed by Attending: Coverage Notice Comment: Reviewer: [id number] Ahuja Notice Issued Date-Time: 12/16/2018 9:00 Notice Type: Patient Choice Letter Notice Delivered To: Patient Relationship to Patient: Oral Communication Instructor Name: Delivery Method: HAND - Hand Delivered Bridget Days: Prior Verbal Notification: Recipient Understood Notice: Yes Recipient Signature: Yes Med Rec Note Co-signed by Attending: Coverage Notice Comment: [facility] Reviewer: [id number] Ahuja Notice Issued Date-Time: 12/20/2018 9:05 Notice Type: Patient Choice Letter Notice Delivered To: Patient Relationship to Patient: Oral Communication Instructor Name: Delivery Method: HAND - Hand Delivered Bridget Days: Prior Verbal Notification: Recipient Understood Notice: Yes Recipient Signature: Yes Med Rec Note Co-signed by Attending: Coverage Notice Comment: ANY SNF IN [place] Reviewer: [id number] Ahuja Notice Issued Date-Time: 12/20/2018 9:05 Notice Type: IM Discharge Notice Notice Delivered To: Patient Relationship to Patient: Oral Communication Instructor Name: Delivery Method: HAND - Hand Delivered Bridget Days: Prior Verbal Notification: Recipient Understood Notice: Yes Recipient Signature: Yes Med Rec Note Co-signed by Attending: Coverage Notice Comment: Last DP export: 12/20/18 3:54 p Patient Name: ERROL TATE Page 38931 at 1702 All edits/amendments must be made on the electronic document DICTATION DATE: 12/20/181700 MATERIAL REPROCESSING ASSOCIATE: CLEM 12/20/181700 RPT#: [id number] DC DATE: STATUS: ADM IN [facility] [address] [place] [address] END OF REPORT
--- NOTE | 2018-12-20 17:39 | NUR ---
OT NOTE: INITIAL ATTEMPT PT WAS IN DIALYSIS. SECOND ATTEMPT PT WAS EATING LUNCH AND ABLE TO FEED SELF SANDWHICH WHILE SITTING IN BED. 3RD ATTEMPT PT WAS VERY AGREEABLE TO ATTEMPT THERAPY. ASSISTED PT TO EDGE OF BED WITH MOD/MAX ASSIST, HOWEVER, UPON GETTING TO EOB, PT BEGAN STATING THAT SHE HAD TO LIE BACK SHE COULDNT BREATH. REPOSITIONED BACK IN BED. PT VERY APPOLOGETIC. 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 LARRY RODRIGUEZ, OTR/L
--- NOTE | 2018-12-20 19:12 | NUR ---
ASSISTED UP IN BED AND BROUGHT SOME WATER PT WANTING PAIN MEDICINE AT THIS TIME CO LEFT ARM PAIN BED IS LOCKED SR X2 AND CALL LIGHT IS IN REACH
--- NOTE | 2018-12-20 19:25 | NUR ---
NARCO GIVEN FOR PAIN AND ASSISTED TO SURPORT ARM WITH PILLOWS
[2018-12-20 20:55] VITALS: BP 144/58
[2018-12-21 00:46] VITALS: BP 141/43
[2018-12-21 05:43] VITALS: BP 122/43
[2018-12-21 05:46] LABS: ANION GAP 8.2 mmol/L (8-16); CALCIUM 7.6 mg/dL (8.5-10.1); CARBON DIOXIDE 30.4 mmol/L (21.0-32.0); CREATININE - SERUM 2.1 mg/dL (0.6-1.3); PHOSPHOROUS 2.7 mg/dL (2.5-4.9); POTASSIUM - SERUM 3.6 mmol/L (3.5-5.1)
[2018-12-21 06:19] LABS: BASOPHILS 0.4 % (0-2); EOSINOPHILS 3.5 % (0-7); HEMATOCRIT 24.2 % (36.0-48.0); HEMOGLOBIN 7.7 g/dL (12-16); IMMATURE GRANULOCYTES 0.9 % (0-5); LYMPHOCYTES 10.7 % (15-50); MCH 28.1 pg (26.0-34.0); MCHC 31.8 g/dL (31.0-37.0); MCV 88.3 fL (80.0-100.0); MEAN PLATELET VOLUME 9.3 fL (7.4-10.4); MONOCYTES 8.8 % (2-11); NEUTROPHILS 75.7 % (40-80); PLATELET COUNT 138 10x3/uL (130-400); RBC 2.74 10x6/uL (4.00-5.40); RDW 17.6 % (11.5-14.5); WBC 10.8 10x3/uL (4.8-10.8)
--- NOTE | 2018-12-21 06:38 | NUR ---
GLUCOSE OF 59 ...APPLE JUICE AND A LITTLE SUGAR MIXED GIVEN AT THIS TIME PT IS ALERT AND ORIENTED SKIN DRY
--- NOTE | 2018-12-21 07:50 | NUR ---
PT RESTING IN BED.0725 FSBS-49. CO OF BEING HUNGRY. BROUGHT PEANUT BUTTER FAVIO CRACKERS AND APPLE JUICE. ORDERED STAT BREAKFAST TRAY. FAMILY AT BEDSIDE. NO S/S OF ACUTE DISTRESS. CL IN PLACE. 0752. PT EATING BREAKFAST.NO S/S OF ACUTE DISTRESS. CL IN PLACE.
--- NOTE | 2018-12-21 09:23 | MORECARE ---
CASE MANAGEMENT DISCHARGE SUMMARY PATIENT: ERROL TATE UNIT: [id number] ADM DATE: 11/29/18 AGE: 73 : 45 SEX: F ROOM/BED: D.4054 AUTHOR: JOSE,DOC PHYSICIAN: REFERRING PHYSICIAN: VALENTIN SOL MD DATE OF SERVICE: 12/21/18 Discharge Plan Patient Name: ERROL TATE Facility: [facility]:[place] : 1945 Planned Disposition: Long-Term Facility Anticipated Discharge Date: 12/01/18 Discharge Date: Expected LOS: 2 Initial Reviewer: [id number] Initial Review Date: 11/29/2018 Generated: 12/21/18 10:23 am Comments DCP- Discharge Planning Updated by [id number]: Jd Ahuja on 12/20/18 3:[address] Patient Name: ERROL TATE Encounter No: [id number] : 1945 Primary Insurance: [facility] MEDICARE SOLUTIONS Anticipated DC Date: 12-01-2018 Planned Disposition: Long-Term Facility External Planned Provider: [facility] DCP follow-up note: CM SPOKE TO PT IN ROOM REGARDING INSURANCE DENIAL FOR INPATIENT REHAB AND ASKED ABOUT CHOICES FOR [facility]. PT STATES THAT THEY HAVE NO CHOICE FOR REHAB IN [place], PROVIDER LISTING PREVIOUSLY PROVIDED; PT SIGNED CHOICE FOR ANY FPC IN [place]. IMPORTANT MESSAGE FROM MEDICARE PROVIDED AND EXPLAINED. CM RECEIVED CALL FROM JAROD MOSCOSO, PT'S SON, , WHO WANTS ONLY REFERRED TO 4 OR 5 [place] FACILITIES. CM FAXED REFERRALS TO [facility] AT [phone] AND [facility] [phone]. CM TO FOLLOW UP WITH [facility] AT [phone] AND [facility] AT [phone]. CM WAITING ADMISSION DETERMINATIONS FROM BOTH FACILITIES. CM NOTIFIED MALCOLM OF [facility] TO REQUEST OUTPATIENT DIALYSIS UNIT IN [place]. Jd Ahuja CASE MANAGEMENT DCP- Discharge Planning Updated by [id number]: Jd Ahuja on 12/16/18 7:[address] Patient Name: ERROL TATE Encounter No: [id number] : 1945 Primary Insurance: [facility] MEDICARE SOLUTIONS Anticipated DC Date: 12-01-2018 Planned Disposition: INPATIENT REHAB External Planned Provider: [facility] INPATIENT REHAB DCP follow-up note: CM SPOKE TO PT IN ROOM, DISCUSSED [facility] NOT ACCEPTING DUE TO NO DIALYSIS UNIT AVAILABLE IN SERVICE AREA. PT WOULD LIKE TO BE CONSIDERED AT [facility] IN [place], [place]. CHOICE SIGNED. CM SPOKE TO MALCOLM OF [facility] WHO INFORMED CM THAT THERE ARE NO OPENINGS FOR OUTPATIENT DIALYSIS AT THE [facility]. CM SPOKE TO PT AND FAMILY IN ROOM, DISCUSSED FPC IN [place] WHERE THE NEXT CLOSEST OUTPATIENT DIALYSIS UNIT TO PT'S HOME. CM PROVIDED LISTING OF FPC FACILITIES WITHIN 50 MILES OF PT'S HOME FROM MEDICARE WEBSITE. PT AND FAMILY WOULD LIKE TO BE CONSIDERED FOR INPATIENT REHAB AT [place] WITH PLAN TO RETURN HOME AT DISCHARGE FROM REHAB. PT NOW DOES NOT WANT TO GO TO [facility] FOR REHAB. ORDER FOR INPATIENT REHAB PRESCREEN OBTAINED. [facility] OF INPATIENT REHAB NOTIFIED. IMPORTANT MESSAGE FROM MEDICARE PROVIDED AND EXPLAINED. CM WAITING ON OCCUPATIONAL THERAPY EVALUATION, INPATIENT REHAB PRESCREEN AND INSURANCE DETERMINATION FOR INPATIENT REHAB SERVICES. Jd Ahuja, CASE MANAGEMENT DCP- Discharge Planning Updated by [id number]: Dulce Maria Stubbs on 12/08/18 3:[address] JAYDA WITH AT [facility] STATED THAT THEY HAVE AUTH FOR [facility]. WILL DC TO [facility] WHEN SHE IS STABLE FOR DISCHARGE DCP- Discharge Planning Updated by [id number]: Dulce Maria Stubbs on 12/05/18 10:[address] SPOKE WITH JAYDA AT [facility] (SKILLED FACILITY IN [place]) SHE STATED THAT THE PATIENT WILL NEED TO BE PREAUTH BEFORE SHE CAN RETURN SENT CLINICALS TO [phone]. I TOLD HER THAT I ANTICIPATE HER TO BE DISCHARGED SOON DCP- Discharge Planning Updated by [email or web address]: Rosa Hull on 11/29/18 5:[address] Patient Name: ERROL TATE Admission Status: ER Accout number: [id number] Admission Date: 11-29-2018 : 1945 Admission Diagnosis: Attending: VALENTIN SOL Current LOS: 1 Anticipated DC Date: 12-01-2018 Planned Disposition: Long-Term Facility - [facility] Primary Insurance: [facility] MEDICARE SOLUTIONS Discharge Planning Comments: CM met with patient to complete initial dc planning assessment. Patient asleep at this time. CM called her son Jarod Tate, , and educated him on the CM role and verbal consent given by him to complete assessment. Patient is currently in rehab at [facility], . Her son reports she will return there when she is discharged to complete her rehab. He denied further known dc needs at this time. CM will continue to follow and will assist as needed with dc plans/needs. Warehouse Picker: Rosa Hull RN, [facility] DCPIA - Discharge Planning Initial Assessment Updated by [email or web address]: Rosa Hull on 11/29/18 6:11 pm * How many steps to enter\exit or inside your home? None * PCP Dr. Kevin Gold, [place] * Pharmacy [facility] * Preadmission Environment Long-Term Facility * Facility Name [place] [phone] * ADLs Partial Dependent * Partial ADLs (Assistance needed) Ambulation Bathing Medication Management Transfers * Equipment Cane Oxygen Rolling Walker Wheelchair * Other Equipment Wears Oxygen qhs * List name and contact numbers for known caregivers / representatives who currently or will assist patient after discharge: Miya Robbins - sister - [phone] Jarod Tate - son - [phone] * Community resources currently utilized Other * Please name any agencies selected above. Rehab * Additional services required to return to the preadmission environment? No * Can the patient safely return to the preadmission environment? Yes * Has this patient been hospitalized within the prior 30 days at any hospital? Yes External Providers External Provider: OTHER-OTHER Next Contact Date: 12/21/2018 Service Request Date: Service Type: Resolution: Reviewer: Comments: Coverage Notice Reviewer: [id number] Rome Ahuja Notice Issued Date-Time: 12/15/2018 9:00 Notice Type: IM Discharge Notice Notice Delivered To: Patient Relationship to Patient: Automotive Consultant Name: Delivery Method: HAND - Hand Delivered Bridget Days: Prior Verbal Notification: Recipient Understood Notice: Yes Recipient Signature: Yes Med Rec Note Co-signed by Attending: Coverage Notice Comment: Reviewer: [id number] Ahuja Notice Issued Date-Time: 12/16/2018 9:00 Notice Type: Patient Choice Letter Notice Delivered To: Patient Relationship to Patient: Automotive Consultant Name: Delivery Method: HAND - Hand Delivered Bridget Days: Prior Verbal Notification: Recipient Understood Notice: Yes Recipient Signature: Yes Med Rec Note Co-signed by Attending: Coverage Notice Comment: [facility] Reviewer: [id number] Ahuja Notice Issued Date-Time: 12/20/2018 9:05 Notice Type: Patient Choice Letter Notice Delivered To: Patient Relationship to Patient: Automotive Consultant Name: Delivery Method: HAND - Hand Delivered Bridget Days: Prior Verbal Notification: Recipient Understood Notice: Yes Recipient Signature: Yes Med Rec Note Co-signed by Attending: Coverage Notice Comment: ANY SNF IN [place] Reviewer: [id number] Ahuja Notice Issued Date-Time: 12/20/2018 9:05 Notice Type: IM Discharge Notice Notice Delivered To: Patient Relationship to Patient: Automotive Consultant Name: Delivery Method: HAND - Hand Delivered Bridget Days: Prior Verbal Notification: Recipient Understood Notice: Yes Recipient Signature: Yes Med Rec Note Co-signed by Attending: Coverage Notice Comment: Last DP export: 12/20/18 4:02 p Patient Name: ERROL TATE Page 17329 at 0923 All edits/amendments must be made on the electronic document DICTATION DATE: 12/21/18921 SUCCESSFACTORS CONSULTANT: CLEM 12/21/18921 RPT#: [id number] DC DATE: STATUS: ADM IN [facility] [address] [place] [address] END OF REPORT
--- NOTE | 2018-12-21 10:16 | NUR ---
SPOKE WITH DR ARIAS ABOUT PT HGB 7.7. HCT 24.2. NEW ORDERS TO ADD FERRETIN AND TIBC TO AM LABS.
--- NOTE | 2018-12-21 10:50 | NUR ---
RECHECKED FSBS [id number]. NO S/S OF ACUTE DISTRESS. TURNED PT TO L SIDE. OFFLOADED WITH A PILLOW. CL IN PLACE
[2018-12-21 11:03] LABS: % SATURATION 14 % (15-55); IRON 30 ug/dl (35-150); TOTAL IRON BIND CAPACITY 210 ug/dl (260-445); UNSAT IRON BIND CAPACITY 180 ug/dl (150-375)
--- NOTE | 2018-12-21 12:27 | NUR ---
SPOKE WITH HANH NOEL ABOUT PRBC. DC PRBC FOR TODAY AND NEW ORDER FOR PRBC TO INFUSE DURING DIALYSIS 12/22.
--- NOTE | 2018-12-21 12:41 | MORECARE ---
CASE MANAGEMENT DISCHARGE SUMMARY PATIENT: ERROL TATE UNIT: [id number] ADM DATE: 11/29/18 AGE: 73 : 45 SEX: F ROOM/BED: D.2134 AUTHOR: JOSE,DOC PHYSICIAN: REFERRING PHYSICIAN: VALENTIN SOL MD DATE OF SERVICE: 12/21/18 Discharge Plan Patient Name: ERROL TATE Facility: [facility]:[place] : 1945 Planned Disposition: [facility] Facility Anticipated Discharge Date: 12/01/18 Discharge Date: Expected LOS: 2 Initial Reviewer: [email or web address] Initial Review Date: 11/29/2018 Generated: 12/21/18 1:41 pm Comments DCP- Discharge Planning Updated by [email or web address]: Jd Ahuja on 12/21/18 11:[address] Patient Name: ERROL TATE Encounter No: [id number] : 1945 Primary Insurance: [facility] MEDICARE SOLUTIONS Anticipated DC Date: 12-01-2018 Planned Disposition: [facility] Facility External Planned Provider: [facility], MEDICARE REHAB BED DCP follow-up note: CM RECEIVED CALL FROM BARRY AT [phone] WHO ADVISED NO OPEN REHAB BEDS AND SHE ASKED FOR PERMISSION TO FORWARD REFERRAL TO HER SISTER FACILITY IN [place]. CM ASKED FOR THIS TO BE DONE, LICO AT [place] TO CALL CM TODAY. CM TO FOLLOW UP WITH BILLIE AT [phone]. CM WAITING ADMISSION DETERMINATIONS FROM [facility]. [facility] WORKING ON OUTPATIENT DIALYSIS UNIT IN [place]. Jd Ahuja, CASE SHUBHAM DCP- Discharge Planning Updated by [id number]: Jd Ahuja on 12/20/18 3:[address] Patient Name: ERROL TATE Encounter No: [id number] : 1945 Primary Insurance: [facility] MEDICARE SOLUTIONS Anticipated DC Date: 12-01-2018 Planned Disposition: [facility] Facility External Planned Provider: [facility] MEDICARE REHAB BED DCP follow-up note: CM SPOKE TO PT IN ROOM REGARDING INSURANCE DENIAL FOR INPATIENT REHAB AND ASKED ABOUT CHOICES FOR ALF. PT STATES THAT THEY HAVE NO CHOICE FOR REHAB IN [place], PROVIDER LISTING PREVIOUSLY PROVIDED; PT SIGNED CHOICE FOR ANY ALF IN [place]. IMPORTANT MESSAGE FROM MEDICARE PROVIDED AND EXPLAINED. CM RECEIVED CALL FROM JAROD MOSCOSO, PT'S SON, , WHO WANTS ONLY REFERRED TO 4 OR 5 STAR FACILITIES. [phone] AND [facility] [phone]. CM TO FOLLOW UP WITH ANTWAN AT [phone] AND BILLIE AT [phone]. CM WAITING ADMISSION DETERMINATIONS FROM BOTH FACILITIES. CM NOTIFIED [facility] TO REQUEST OUTPATIENT DIALYSIS UNIT IN [place]. Jd Ahuja, CASE MANAGEMENT DCP- Discharge Planning Updated by [email or web address]: Jd Ahuja on 12/16/18 7:[address] Patient Name: ERROL TAET Encounter No: [id number] : 1945 Primary Insurance: [facility] MEDICARE SOLUTIONS Anticipated DC Date: 12-01-2018 Planned Disposition: INPATIENT REHAB External Planned Provider: [facility] INPATIENT REHAB DCP follow-up note: CM SPOKE TO PT IN ROOM, DISCUSSED [facility] NOT ACCEPTING DUE TO NO DIALYSIS UNIT AVAILABLE IN SERVICE AREA. PT WOULD LIKE TO BE CONSIDERED AT [facility] IN [place], [place]. CHOICE SIGNED. CM SPOKE TO [facility] WHO INFORMED CM THAT THERE ARE NO OPENINGS FOR OUTPATIENT DIALYSIS AT THE [place] UNIT. CM SPOKE TO PT AND FAMILY IN ROOM, DISCUSSED ALF IN [place] WHERE THE NEXT CLOSEST OUTPATIENT DIALYSIS UNIT TO PT'S HOME. CM PROVIDED LISTING OF ALF FACILITIES WITHIN 50 MILES OF PT'S HOME FROM MEDICARE WEBSITE. PT AND FAMILY WOULD LIKE TO BE CONSIDERED FOR INPATIENT REHAB AT [place] WITH PLAN TO RETURN HOME AT DISCHARGE FROM REHAB. PT NOW DOES NOT WANT TO GO TO ALF FOR REHAB. ORDER FOR INPATIENT REHAB PRESCREEN OBTAINED. [facility] OF INPATIENT REHAB NOTIFIED. IMPORTANT MESSAGE FROM MEDICARE PROVIDED AND EXPLAINED. CM WAITING ON OCCUPATIONAL THERAPY EVALUATION, INPATIENT REHAB PRESCREEN AND INSURANCE DETERMINATION FOR INPATIENT REHAB SERVICES. Jd Ahuja, CASE MANAGEMENT DCP- Discharge Planning Updated by [id number]: Dulce Maria Stubbs on 12/08/18 3:[address] JAYDA WITH AT [facility] STATED THAT THEY HAVE AUTH FOR [facility]. WILL DC TO [facility] WHEN SHE IS STABLE FOR DISCHARGE DCP- Discharge Planning Updated by [id number]: Dulce Maria Evelyne on 12/05/18 10:[address] SPOKE WITH JAYDA AT [facility] (SKILLED FACILITY IN [place]) SHE STATED THAT THE PATIENT WILL NEED TO BE PREAUTH BEFORE SHE CAN RETURN SENT CLINICALS TO [phone]. I TOLD HER THAT I ANTICIPATE HER TO BE DISCHARGED SOON DCP- Discharge Planning Updated by [id number]: Rosa Hull on 11/29/18 5:[address] Patient Name: ERROL TATE Admission Status: ER Accout number: [id number] Admission Date: 11-29-2018 : 1945 Admission Diagnosis: Attending: VALENTIN SOL Current LOS: 1 Anticipated DC Date: 12-01-2018 Planned Disposition: [facility] Facility - [facility] Primary Insurance: [facility] MEDICARE SOLUTIONS Discharge Planning Comments: CM met with patient to complete initial dc planning assessment. Patient asleep at this time. CM called her son Jarod Tate, , and educated him on the CM role and verbal consent given by him to complete assessment. Patient is currently in rehab at [facility], . Her son reports she will return there when she is discharged to complete her rehab. He denied further known dc needs at this time. CM will continue to follow and will assist as needed with dc plans/needs. Loin Trimmer: Rosa Hull RN, [facility] DCPIA - Discharge Planning Initial Assessment Updated by [id number]: Rosa Hull on 11/29/18 6:11 pm * How many steps to enter\exit or inside your home? None * PCP Dr. Kevin Gold, [place] * Pharmacy [facility] * Preadmission Environment [facility] Facility * Facility Name [place] [phone] * ADLs Partial Dependent * Partial ADLs (Assistance needed) Ambulation Bathing Medication Management Transfers * Equipment Cane Oxygen Rolling Walker Wheelchair * Other Equipment Wears Oxygen qhs * List name and contact numbers for known caregivers / representatives who currently or will assist patient after discharge: Miya Robbins - sister - [phone] Jarod Tate [facility] - [phone] * Community resources currently utilized Other * Please name any agencies selected above. Rehab * Additional services required to return to the preadmission environment? No * Can the patient safely return to the preadmission environment? Yes * Has this patient been hospitalized within the prior 30 days at any hospital? Yes Coverage Notice Reviewer: YOLANDA Ahuja Notice Issued Date-Time: 12/15/2018 9:00 Notice Type: IM Discharge Notice Notice Delivered To: Patient Relationship to Patient: Corrosion Control Technician Name: Delivery Method: HAND - Hand Delivered Bridget Days: Prior Verbal Notification: Recipient Understood Notice: Yes Recipient Signature: Yes Med Rec Note Co-signed by Attending: Coverage Notice Comment: Reviewer: YOLANDA Ahuja Notice Issued Date-Time: 12/16/2018 9:00 Notice Type: Patient Choice Letter Notice Delivered To: Patient Relationship to Patient: Corrosion Control Technician Name: Delivery Method: HAND - Hand Delivered Bridget Days: Prior Verbal Notification: Recipient Understood Notice: Yes Recipient Signature: Yes Med Rec Note Co-signed by Attending: Coverage Notice Comment: [facility] Reviewer: YOLANDA Ahuja Notice Issued Date-Time: 12/20/2018 9:05 Notice Type: Patient Choice Letter Notice Delivered To: Patient Relationship to Patient: Corrosion Control Technician Name: Delivery Method: HAND - Hand Delivered Bridget Days: Prior Verbal Notification: Recipient Understood Notice: Yes Recipient Signature: Yes Med Rec Note Co-signed by Attending: Coverage Notice Comment: ANY SNF IN [place] Reviewer: YOLANDA Ahuja Notice Issued Date-Time: 12/20/2018 9:05 Notice Type: IM Discharge Notice Notice Delivered To: Patient Relationship to Patient: Corrosion Control Technician Name: Delivery Method: HAND - Hand Delivered Bridget Days: Prior Verbal Notification: Recipient Understood Notice: Yes Recipient Signature: Yes Med Rec Note Co-signed by Attending: Coverage Notice Comment: Last DP export: 12/21/18 8:23 a Patient Name: ERROL TATE Page [id number] Electronically Signed by [facility]inder on 12/21/18 at 1241 All edits/amendments must be made on the electronic document DICTATION DATE: 12/21/18 1241 LAY UP OPERATOR: CLEM 12/21/18 1241 RPT#: [id number] DC DATE: STATUS: ADM IN [facility] [address] [place] [address] END OF REPORT
--- NOTE | 2018-12-21 15:42 | MORECARE ---
CASE MANAGEMENT DISCHARGE SUMMARY PATIENT: ERROL TATE UNIT: [id number] ADM DATE: 11/29/18 AGE: 73 : 45 SEX: F ROOM/BED: D.5794 AUTHOR: JOSE,DOC PHYSICIAN: REFERRING PHYSICIAN: VALENTIN SOL MD DATE OF SERVICE: 12/21/18 Discharge Plan Patient Name: ERROL TATE Facility: [facility]:[place] : 1945 Planned Disposition: [facility] Anticipated Discharge Date: 12/01/18 Discharge Date: Expected LOS: 2 Initial Reviewer: [email or web address] Initial Review Date: 11/29/2018 Generated: 12/21/18 4:42 pm Comments DCP- Discharge Planning Updated by [id number]: Jd Ahuja on 12/21/18 2:[address] Patient Name: ERROL TATE Encounter No: [id number] : 1945 Primary Insurance: [facility] MEDICARE SOLUTIONS Anticipated DC Date: 12-01-2018 Planned Disposition: [facility] Facility External Planned Provider: [facility], MEDICARE REHAB BED DCP follow-up note: CM RECEIVED CALL FROM BARRY AT [phone] WHO ADVISED NO OPEN REHAB BEDS AND SHE ASKED FOR PERMISSION TO FORWARD REFERRAL TO HER SISTER FACILITY IN [place]. CM ASKED FOR THIS TO BE DONE, LICO AT [place] TO CALL CM TODAY. CM TO FOLLOW UP WITH BILLIE AT [phone]. CM WAITING ADMISSION DETERMINATIONS FROM [facility]. [facility] WORKING ON OUTPATIENT DIALYSIS UNIT IN [place]. Jd Ahuja, CASE MANAGEMENT Appended by Jd Ahuja on 12/21/2018 15:37 CDT: CM RECEIVED CALL FROM KIMMY FORBES OF [id number], , WHO REPORTS THAT THEY WILL ACCEPT PT AND WOULD LIKE MWF OUTPATIENT DIALYSIS SCHEDULE IF POSSIBLE BUT WILL WORK WITH ANY AVAILABLE DIALYSIS SCHEDULE. CM RECEIVED CALL FROM FRANCISCO, , WHO INFORMED CM THAT [facility] IS STILL CONSIDERING PT, WAITING ON OUTPATIENT DIALYSIS DAYS; PT WILL NEED TO BE ABLE TO DEMONSTRATE ABILITY TO SIT FOR THREE HOURS FOR TRANSPORT AND OUTPATIENT DIALYSIS. CM NOTIFIED PT AND FAMILY IN ROOM. PT REPORTS ABILITY TO SIT FOR DURATION OF TRANSPORT AND DIALYSIS. CM EXPLAINED THAT THERAPY WILL CONTINUE TO WORK WITH HER TO ENSURE HER ABILITY IS DOCUMENTED. CM WAITING ADMISSION DETERMINATIONS FROM [facility]. [facility] WORKING ON OUTPATIENT DIALYSIS UNIT IN [place]. PT WILL HAVE TO DEMONSTRATE ABILITY TO TRANSFER AND SIT FOR TRANSPORT AND DURATION OF OUTPATIENT DIALYSIS, THREE OR MORE HOURS. BENJA Lockett DCP- Discharge Planning Updated by [id number]: Jd Ahuja on 12/20/18 3:[address] Patient Name: ERROL TATE Encounter No: [id number] : 1945 Primary Insurance: [facility] MEDICARE SOLUTIONS Anticipated DC Date: 12-01-2018 Planned Disposition: [facility] Facility External Planned Provider: [facility] MEDICARE REHAB BED DCP follow-up note: CM SPOKE TO PT IN ROOM REGARDING INSURANCE DENIAL FOR INPATIENT REHAB AND ASKED ABOUT CHOICES FOR ALF. PT STATES THAT THEY HAVE NO CHOICE FOR REHAB IN [place], PROVIDER LISTING PREVIOUSLY PROVIDED; PT SIGNED CHOICE FOR ANY ALF IN [place]. IMPORTANT MESSAGE FROM MEDICARE PROVIDED AND EXPLAINED. CM RECEIVED CALL FROM JAROD MOSCOSO, PT'S SON, , WHO WANTS ONLY REFERRED TO 4 OR 5 [place] FACILITIES. CM FAXED REFERRALS TO [facility] AT [phone] AND [facility] [phone]. CM TO FOLLOW UP WITH ANTWAN AT [phone] AND [facility]ILLIE AT [phone]. CM WAITING ADMISSION DETERMINATIONS FROM BOTH FACILITIES. CM NOTIFIED [facility] TO REQUEST OUTPATIENT DIALYSIS UNIT IN [place]. Jd Ahuja CASE MANAGEMENT DCP- Discharge Planning Updated by [id number]: Jd Ahuja on 12/16/18 7:[address] Patient Name: ERROL TATE Encounter No: [id number] : 1945 Primary Insurance: [facility] MEDICARE SOLUTIONS Anticipated DC Date: 12-01-2018 Planned Disposition: INPATIENT REHAB External Planned Provider: [facility]IENT [facility] DCP follow-up note: CM SPOKE TO PT IN ROOM, DISCUSSED [facility] NOT ACCEPTING DUE TO NO DIALYSIS UNIT AVAILABLE IN SERVICE AREA. PT WOULD LIKE TO BE CONSIDERED AT [facility] IN [place], [place]. CHOICE SIGNED. CM SPOKE TO [facility] WHO INFORMED CM THAT THERE ARE NO OPENINGS FOR OUTPATIENT DIALYSIS AT THE [place] UNIT. CM SPOKE TO PT AND FAMILY IN ROOM, DISCUSSED ALF IN [place] WHERE THE NEXT CLOSEST OUTPATIENT DIALYSIS UNIT TO PT'S HOME. CM PROVIDED LISTING OF ALF FACILITIES WITHIN 50 MILES OF PT'S HOME FROM MEDICARE WEBSITE. PT AND FAMILY WOULD LIKE TO BE CONSIDERED FOR INPATIENT REHAB AT [place] WITH PLAN TO RETURN HOME AT DISCHARGE FROM REHAB. PT NOW DOES NOT WANT TO GO TO ALF FOR REHAB. ORDER FOR INPATIENT REHAB PRESCREEN OBTAINED. [facility] OF INPATIENT REHAB NOTIFIED. IMPORTANT MESSAGE FROM MEDICARE PROVIDED AND EXPLAINED. CM WAITING ON OCCUPATIONAL THERAPY EVALUATION, INPATIENT REHAB PRESCREEN AND INSURANCE DETERMINATION FOR INPATIENT REHAB SERVICES. Jd Ahuja, CASE MANAGEMENT DCP- Discharge Planning Updated by [id number]: Dulce Maria Stubbs on 12/08/18 3:[address] JAYDA WITH AT [facility] STATED THAT THEY HAVE AUTH FOR [facility]. WILL DC TO [facility] WHEN SHE IS STABLE FOR DISCHARGE DCP- Discharge Planning Updated by [id number]: Dulce Maria Stubbs on 12/05/18 10:[address] SPOKE WITH JAYDA AT [facility] (SKILLED FACILITY IN [place]) SHE STATED THAT THE PATIENT WILL NEED TO BE PREAUTH BEFORE SHE CAN RETURN SENT CLINICALS TO [phone]. I TOLD HER THAT I ANTICIPATE HER TO BE DISCHARGED SOON DCP- Discharge Planning Updated by [id number]: Rosa Hull on 11/29/18 5:[address] Patient Name: ERROL TATE Admission Status: ER Accout number: [id number] Admission Date: 11-29-2018 : 1945 Admission Diagnosis: Attending: VALENTIN SOL Current LOS: 1 Anticipated DC Date: 12-01-2018 Planned Disposition: [facility] Facility - [facility] Primary Insurance: [facility] MEDICARE SOLUTIONS Discharge Planning Comments: CM met with patient to complete initial dc planning assessment. Patient asleep at this time. CM called her son Jarod Tate, , and educated him on the CM role and verbal consent given by him to complete assessment. Patient is currently in rehab at [facility] [phone]. Her son reports she will return there when she is discharged to complete her rehab. He denied further known dc needs at this time. CM will continue to follow and will assist as needed with dc plans/needs. Management Lecturer: Rosa Hull RN, [facility] DCPIA - Discharge Planning Initial Assessment Updated by [email or web address]: Rosa Hull on 11/29/18 6:11 pm * How many steps to enter\exit or inside your home? None * PCP Dr. Kevin Gold, [place] * Pharmacy [facility] * Preadmission Environment [facility] * Facility Name [facility] [phone] * ADLs Partial Dependent * Partial ADLs (Assistance needed) Ambulation Bathing Medication Management Transfers * Equipment Cane Oxygen Rolling Walker Wheelchair * Other Equipment Wears Oxygen qhs * List name and contact numbers for known caregivers / representatives who currently or will assist patient after discharge: Miya Robbins - sister - [phone] Jarod Tate - son - [phone] * Community resources currently utilized Other * Please name any agencies selected above. Rehab * Additional services required to return to the preadmission environment? No * Can the patient safely return to the preadmission environment? Yes * Has this patient been hospitalized within the prior 30 days at any hospital? Yes Coverage Notice Reviewer: [id number] Ahuja Notice Issued Date-Time: 12/15/2018 9:00 Notice Type: IM Discharge Notice Notice Delivered To: Patient Relationship to Patient: Nursing Instructor Name: Delivery Method: HAND - Hand Delivered Bridget Days: Prior Verbal Notification: Recipient Understood Notice: Yes Recipient Signature: Yes Med Rec Note Co-signed by Attending: Coverage Notice Comment: Reviewer: [id number] Ahuja Notice Issued Date-Time: 12/16/2018 9:00 Notice Type: Patient Choice Letter Notice Delivered To: Patient Relationship to Patient: Nursing Instructor Name: Delivery Method: HAND - Hand Delivered Bridget Days: Prior Verbal Notification: Recipient Understood Notice: Yes Recipient Signature: Yes Med Rec Note Co-signed by Attending: Coverage Notice Comment: [facility] Reviewer: [id number] Ahuja Notice Issued Date-Time: 12/20/2018 9:05 Notice Type: Patient Choice Letter Notice Delivered To: Patient Relationship to Patient: Nursing Instructor Name: Delivery Method: HAND - Hand Delivered Bridget Days: Prior Verbal Notification: Recipient Understood Notice: Yes Recipient Signature: Yes Med Rec Note Co-signed by Attending: Coverage Notice Comment: ANY SNF IN [place] Reviewer: [id number] Rome Ahuja Notice Issued Date-Time: 12/20/2018 9:05 Notice Type: IM Discharge Notice Notice Delivered To: Patient Relationship to Patient: Nursing Instructor Name: Delivery Method: HAND - Hand Delivered Bridget Days: Prior Verbal Notification: Recipient Understood Notice: Yes Recipient Signature: Yes Med Rec Note Co-signed by Attending: Coverage Notice Comment: Last DP export: 12/21/18 11:41 a Patient Name: ERROL TATE Page [id number] at 1542 All edits/amendments must be made on the electronic document DICTATION DATE: 12/21/18 154 CROCHET MACHINE OPERATOR: CLEM 12/21/18 1542 RPT#: [id number] DC DATE: STATUS: ADM IN [facility] [address] [place] [address] END OF REPORT
--- NOTE | 2018-12-21 16:29 | NUR ---
DC PROTONIX IN ERROR. WRONG PT. PROTONIX DRIP PUT BACK IN ORDERED PREVIOUSLY.
--- NOTE | 2018-12-21 17:41 | NUR ---
DR SOL ASKED IF WE HAD THE OK TO USE HEMOSPLIT FOR IRON INFUSION. I TOLD HIM THE OK WAS GIVEN TO USE FOR MEDS. HE STATED, "IT IS AN INFUSION." PUT A CALL INTO NEPHROLOGY. NO S/S OF ACUTE DISTRESS. CL IN PLACE.
--- NOTE | 2018-12-21 17:50 | NUR ---
PER BERT BERUMEN, "IT IS OK TO USE HEMOSPLIT FOR IRON JUST FLUSHE PER MD ORDER. NO S/S OF ACUTE DISTRESS. CL IN PLACE.
[2018-12-21 18:17] VITALS: BP 140/82
--- NOTE | 2018-12-21 18:27 | NUR ---
PT RESTING IN BED. FAMILY AT BEDSIDE. NO S.S OF ACUTE DISTRESS. CL IN PLACE.
[2018-12-21 21:07] VITALS: BP 143/57
[2018-12-22] VITALS: BP 138/42
--- NOTE | 2018-12-22 00:27 | NUR ---
PATIENT BS 464 WHEN CHECKED AT BEDTIME IN REPORT AND REVIEWING LABS, PATIENT HAS BEEN RUNNING HIGH 300'S BUT IF GIVEN THE FULL AMOUNT BOTTOMS OUT INTO LOW 30-40s. GAVE PATIENT 6 UNITS INSTEAD OF 12. PATIENT DID HAVE LARGE BOWEL MOVEMENT.
--- NOTE | 2018-12-22 04:01 | NUR ---
[facility] LABS FROM [facility], HEP LOCKED PER PROTOCOL.
[2018-12-22 05:02] VITALS: BP 139/49
[2018-12-22 05:17] LABS: BASOPHILS 0.5 % (0-2); EOSINOPHILS 3.1 % (0-7); HEMATOCRIT 23.7 % (36.0-48.0); IMMATURE GRANULOCYTES 1.5 % (0-5); LYMPHOCYTES 8.8 % (15-50); MCH 28.1 pg (26.0-34.0); MCHC 31.6 g/dL (31.0-37.0); MCV 88.8 fL (80.0-100.0); MEAN PLATELET VOLUME 9.5 fL (7.4-10.4); MONOCYTES 8.4 % (2-11); NEUTROPHILS 77.7 % (40-80); PLATELET COUNT 146 10x3/uL (130-400); RBC 2.67 10x6/uL (4.00-5.40); RDW 17.8 % (11.5-14.5); WBC 11.6 10x3/uL (4.8-10.8)
[2018-12-22 05:29] LABS: HEMOGLOBIN 7.5 g/dL (12-16)
[2018-12-22 05:34] LABS: ANION GAP 9.9 mmol/L (8-16); CALCIUM 7.8 mg/dL (8.5-10.1); CARBON DIOXIDE 28.7 mmol/L (21.0-32.0); CREATININE - SERUM 2.1 mg/dL (0.6-1.3); PHOSPHOROUS 2.9 mg/dL (2.5-4.9); POTASSIUM - SERUM 3.6 mmol/L (3.5-5.1)
--- NOTE | 2018-12-22 05:47 | NUR ---
BLOOD SUGAR 156, GAVE 6U OF INSULIN TO COVER 464. NOT TREATING AM SUGAR R/T BOTTOMING OUT PREVIOUS DAY.
--- NOTE | 2018-12-22 08:30 | NUR ---
[place] PAIN. MEDICATED WITH PAIN MEDS AND AM MEDS. WILL CONTINUE TO MONITOR.
[2018-12-22 09:39] VITALS: BP 152/60
--- NOTE | 2018-12-22 11:52 | MORECARE ---
CASE MANAGEMENT DISCHARGE SUMMARY PATIENT: ERROL TATE UNIT: [id number] ADM DATE: 11/29/18 AGE: 73 : 45 SEX: F ROOM/BED: D.5534 AUTHOR: JOSE,DOC PHYSICIAN: REFERRING PHYSICIAN: VALENTIN SOL MD DATE OF SERVICE: 12/22/18 Discharge Plan Patient Name: ERROL TATE Facility: [facility]:[place] : 1945 Planned Disposition: Intermediate Facility Anticipated Discharge Date: 12/01/18 Discharge Date: Expected LOS: 2 Initial Reviewer: [id number] Initial Review Date: 11/29/2018 Generated: 12/22/18 12:52 pm Comments DCP- Discharge Planning Updated by [email or web address]: Cherry Rowell on 12/22/18 10:[address] SPOKE WITH MALCOLM CHESTER, DIALYSIS COORDINATOR, TO SEE WHERE WE WERE WITH THE PATIENTS PLACEMENT. SHE HAS STATED THAT THE UNIT IS REQUESTING MORE RECORDS ON HER. I HAVE FAXED MALCOLM THE REQUESTED RECORDS TO [phone]. I WILL CONTINUE TO FOLLOW UP. DCP- Discharge Planning Updated by [id number]: Jd Ahuja on 12/21/18 2:[address] Patient Name: ERROL TATE Encounter No: [id number] : 1945 Primary Insurance: [facility] MEDICARE SOLUTIONS Anticipated DC Date: 12-01-2018 Planned Disposition: Intermediate Facility External Planned Provider: [facility], MEDICARE REHAB BED DCP follow-up note: CM RECEIVED CALL FROM BARRY AT [phone] WHO ADVISED NO OPEN REHAB BEDS AND SHE ASKED FOR PERMISSION TO FORWARD REFERRAL TO HER SISTER FACILITY IN [place]. CM ASKED FOR THIS TO BE DONE, LICO AT [facility] TO CALL CM TODAY. CM TO FOLLOW UP WITH [facility]ILL[facility] AT [phone]. CM WAITING ADMISSION DETERMINATIONS FROM [facility] AND [facility]. [facility] WORKING ON OUTPATIENT DIALYSIS UNIT IN [place]. Jd Ahuja, CASE MANAGEMENT Appended by Jd Ahuja on 12/21/2018 15:37 CDT: VLAD RECEIVED CALL FROM [facility], , WHO REPORTS THAT THEY WILL ACCEPT PT AND WOULD LIKE MWF OUTPATIENT DIALYSIS SCHEDULE IF POSSIBLE BUT WILL WORK WITH ANY AVAILABLE DIALYSIS SCHEDULE. CM RECEIVED CALL FROM FRANCISCO, , WHO INFORMED CM THAT [facility] IS STILL CONSIDERING PT, WAITING ON OUTPATIENT DIALYSIS DAYS; PT WILL NEED TO BE ABLE TO DEMONSTRATE ABILITY TO SIT FOR THREE HOURS FOR TRANSPORT AND OUTPATIENT DIALYSIS. CM NOTIFIED PT AND FAMILY IN ROOM. PT REPORTS ABILITY TO SIT FOR DURATION OF TRANSPORT AND DIALYSIS. CM EXPLAINED THAT THERAPY WILL CONTINUE TO WORK WITH HER TO ENSURE HER ABILITY IS DOCUMENTED. CM WAITING ADMISSION DETERMINATIONS FROM [facility]. [facility] WORKING ON OUTPATIENT DIALYSIS UNIT IN [place]. PT WILL HAVE TO DEMONSTRATE ABILITY TO TRANSFER AND SIT FOR TRANSPORT AND DURATION OF OUTPATIENT DIALYSIS, THREE OR MORE HOURS. Jd Ahuja, CASE MANAGEMENT DCP- Discharge Planning Updated by [id number]: Jd Ahuja on 12/20/18 3:[address] Patient Name: ERROL TATE Encounter No: [id number] : 1945 Primary Insurance: [facility] MEDICARE SOLUTIONS Anticipated DC Date: 12-01-2018 Planned Disposition: Intermediate Facility External Planned Provider: [facility] MEDICARE REHAB BED DCP follow-up note: CM SPOKE TO PT IN ROOM REGARDING INSURANCE DENIAL FOR INPATIENT REHAB AND ASKED ABOUT CHOICES FOR HALFWAY. PT STATES THAT THEY HAVE NO CHOICE FOR REHAB IN [place], PROVIDER LISTING PREVIOUSLY PROVIDED; PT SIGNED CHOICE FOR ANY HALFWAY IN [place]. IMPORTANT MESSAGE FROM MEDICARE PROVIDED AND EXPLAINED. CM RECEIVED CALL FROM JAROD MOSCOSO, PT'S SON, , WHO WANTS ONLY REFERRED TO 4 OR 5 [facility] FACILITIES. CM FAXED REFERRALS TO [facility] AT [phone] AND [facility] [phone]. CM TO FOLLOW UP WITH [facility] AT [phone] AND [facility] AT [phone]. CM WAITING ADMISSION DETERMINATIONS FROM BOTH FACILITIES. CM NOTIFIED [facility] TO REQUEST OUTPATIENT DIALYSIS UNIT IN [place]. Jd Ahuja CASE MANAGEMENT DCP- Discharge Planning Updated by [id number]: Jd Ahuja on 12/16/18 7:[address] Patient Name: ERROL TATE Encounter No: [id number] : 1945 Primary Insurance: [facility] MEDICARE SOLUTIONS Anticipated DC Date: 12-01-2018 Planned Disposition: INPATIENT REHAB External Planned Provider: [facility] INPATIENT REHAB DCP follow-up note: CM SPOKE TO PT IN ROOM, DISCUSSED [facility] NOT ACCEPTING DUE TO NO DIALYSIS UNIT AVAILABLE IN SERVICE AREA. PT WOULD LIKE TO BE CONSIDERED AT [facility] IN [place], [place]. CHOICE SIGNED. CM SPOKE TO MALCOLM [facility] WHO INFORMED CM THAT THERE ARE NO OPENINGS FOR OUTPATIENT DIALYSIS AT THE [facility]. CM SPOKE TO PT AND FAMILY IN ROOM, DISCUSSED HALFWAY IN [place] WHERE THE NEXT CLOSEST OUTPATIENT DIALYSIS UNIT TO PT'S HOME. CM PROVIDED LISTING OF HALFWAY FACILITIES WITHIN 50 MILES OF PT'S HOME FROM MEDICARE WEBSITE. PT AND FAMILY WOULD LIKE TO BE CONSIDERED FOR INPATIENT REHAB AT [place] WITH PLAN TO RETURN HOME AT DISCHARGE FROM REHAB. PT NOW DOES NOT WANT TO GO TO HALFWAY FOR REHAB. ORDER FOR INPATIENT REHAB PRESCREEN OBTAINED. [facility] OF INPATIENT REHAB NOTIFIED. IMPORTANT MESSAGE FROM MEDICARE PROVIDED AND EXPLAINED. CM WAITING ON OCCUPATIONAL THERAPY EVALUATION, INPATIENT REHAB PRESCREEN AND INSURANCE DETERMINATION FOR INPATIENT REHAB SERVICES. Jd Ahuja, CASE MANAGEMENT DCP- Discharge Planning Updated by [id number]: Dulce Maria Stubbs on 12/08/18 3:[address] JAYDA WITH AT [facility] STATED THAT THEY HAVE AUTH FOR [facility]. WILL DC TO [facility] WHEN SHE IS STABLE FOR DISCHARGE DCP- Discharge Planning Updated by [id number]: Dulce Maria Stubbs on 12/05/18 10:[address] SPOKE WITH JAYDA AT [facility] (SKILLED FACILITY IN [place]) SHE STATED THAT THE PATIENT WILL NEED TO BE PREAUTH BEFORE SHE CAN RETURN SENT CLINICALS TO [phone]. I TOLD HER THAT I ANTICIPATE HER TO BE DISCHARGED SOON DCP- Discharge Planning Updated by [id number]: Rosa Hull on 11/29/18 5:[address] Patient Name: ERROL TATE Admission Status: ER Accout number: [id number] Admission Date: 11-29-2018 : 1945 Admission Diagnosis: Attending: VALENTIN SOL Current LOS: 1 Anticipated DC Date: 12-01-2018 Planned Disposition: Intermediate Facility - [facility] Primary Insurance: [facility] MEDICARE SOLUTIONS Discharge Planning Comments: CM met with patient to complete initial dc planning assessment. Patient asleep at this time. CM called her son Jarod Tate, , and educated him on the CM role and verbal consent given by him to complete assessment. Patient is currently in rehab at [facility], . Her son reports she will return there when she is discharged to complete her rehab. He denied further known dc needs at this time. CM will continue to follow and will assist as needed with dc plans/needs. Leather Sprayer: Rosa Hull RN, [facility] DCPIA - Discharge Planning Initial Assessment Updated by [id number]: Rosa Hull on 11/29/18 6:11 pm * How many steps to enter\exit or inside your home? None * PCP Dr. Kevin Gold, [place] * Pharmacy [facility]isted Pharm[facility] * Preadmission Environment Intermediate Facility * Facility Name [id number] * ADLs Partial Dependent * Partial ADLs (Assistance needed) Ambulation Bathing Medication Management Transfers * Equipment Cane Oxygen Rolling Walker Wheelchair * Other Equipment Wears Oxygen qhs * List name and contact numbers for known caregivers / representatives who currently or will assist patient after discharge: Miya Robbins - sister - [phone] Jarod Tate - son - [phone] * Community resources currently utilized Other * Please name any agencies selected above. Rehab * Additional services required to return to the preadmission environment? No * Can the patient safely return to the preadmission environment? Yes * Has this patient been hospitalized within the prior 30 days at any hospital? Yes Coverage Notice Reviewer: [id number] Rome Ahuja Notice Issued Date-Time: 12/15/2018 9:00 Notice Type: IM Discharge Notice Notice Delivered To: Patient Relationship to Patient: Storage Battery Charger Name: Delivery Method: HAND - Hand Delivered Bridget Days: Prior Verbal Notification: Recipient Understood Notice: Yes Recipient Signature: Yes Med Rec Note Co-signed by Attending: Coverage Notice Comment: Reviewer: [email or web address] Rome Ahuja Notice Issued Date-Time: 12/16/2018 9:00 Notice Type: Patient Choice Letter Notice Delivered To: Patient Relationship to Patient: Storage Battery Charger Name: Delivery Method: HAND - Hand Delivered Bridget Days: Prior Verbal Notification: Recipient Understood Notice: Yes Recipient Signature: Yes Med Rec Note Co-signed by Attending: Coverage Notice Comment: [facility] Reviewer: [id number] Ahuja Notice Issued Date-Time: 12/20/2018 9:05 Notice Type: Patient Choice Letter Notice Delivered To: Patient Relationship to Patient: Storage Battery Charger Name: Delivery Method: HAND - Hand Delivered Bridget Days: Prior Verbal Notification: Recipient Understood Notice: Yes Recipient Signature: Yes Med Rec Note Co-signed by Attending: Coverage Notice Comment: ANY SNF IN [place] Reviewer: [email or web address] Ahuja Notice Issued Date-Time: 12/20/2018 9:05 Notice Type: IM Discharge Notice Notice Delivered To: Patient Relationship to Patient: Storage Battery Charger Name: Delivery Method: HAND - Hand Delivered Bridget Days: Prior Verbal Notification: Recipient Understood Notice: Yes Recipient Signature: Yes Med Rec Note Co-signed by Attending: Coverage Notice Comment: Last DP export: 12/21/18 2:42 p Patient Name: ERROL TATE Page [id number] at 1152 All edits/amendments must be made on the electronic document DICTATION DATE: 12/22/18 1151 TABLEAU ARCHITECT: CLEM 12/22/18 1151 RPT#: [id number] DC DATE: STATUS: ADM IN [facility] [address] [place] [address] END OF REPORT
--- NOTE | 2018-12-22 16:42 | OP ---
PATIENT NAME: ERROL FARAH MEDICAL RECORD: [id number] :[birth year] LOCATION:D.M2 D.2134 ADMISSION DATE:11/29/18 SURGEON: TRISTIAN UGALDE MD DATE OF OPERATION: 12/16/2018 PREOPERATIVE DIAGNOSIS: End-stage renal disease without chronic access for hemodialysis. POSTOPERATIVE DIAGNOSES: End-stage renal disease without chronic access for hemodialysis. PROCEDURES: 1. Left arm 6-mm Acuseal PTFE AV graft fistula for hemodialysis access. 2. Placement of right internal jugular 19-cm HemoSplit catheter under fluoroscopic guidance. 3. Immediate surgeon interpretation of the fluoroscopic images. SURGEON: Tristian Ugalde MD APPLICATION PACKAGER: None. BLOOD LOSS: 100 cc. ANESTHESIA: General. DRAINS: Times 1 (10-Tristanian round closed suction drainage system). No radiologist was present for this procedure. Static fluoroscopic images were obtained and are placed in the PACS system. The surgeon interpretation of the radiographic images is dictated within the body of this operative note. OPERATIVE COURSE: The patient was conveyed to the operating room electively on 12/16/2018. General anesthesia was induced by the anesthesia staff. The left upper extremity was abducted at 90 degrees to the patient's trunk. The left upper extremity was sterilely prepped and draped. I interrogated the left upper extremity with the hand-held ultrasound. A transverse incision was accomplished in the left cubital fossa. The cephalic vein was sclerotic and not suitable for arteriovenous fistula. A counterincision was accomplished in the medial aspect of the left arm, near the axilla. I dissected down to the brachial artery at the distal incision. I dissected down to the brachial vein at the proximal incision. Both these vessels were encircled with vessel loops. I then tunneled a 6-mm Acuseal graft from the distal incision to the proximal incision through 2 counterincisions on the lateral aspect of the left arm. There was no kinking or twisting of the graft during the tunneling process. I shortened the graft. A longitudinal arteriotomy was accomplished on the brachial artery at the distal incision. I punched out some ovals in the artery with an aortic punch. A side-to-end arterial to graft anastomosis was then fashioned with a running 6-0 Prolene. I then flushed out through the graft. The flow was brisk. I then placed a Prolene suture around the graft a few centimeters from the anastomosis and tightened down essentially making this a 4-mm opening to prevent a steal syndrome. Through the proximal incision, I beveled the graft. A longitudinal venotomy was accomplished on the brachial vein. An end-to-side graft to venous anastomosis OPERATIVE REPORT [id number] ERROL FARAH was then fashioned with a running 7-0 Prolene suture. Proximal and distal control was released on the vessels. There was an excellent thrill within the outflow vein. I could feel a radial artery pulse at the wrist. A 10-Tristanian drain was brought out through a stab incision on the superior skin flap of the proximal incision. The drain was sutured to skin with a 2-0 nylon. The counter incisions were closed with multiple interrupted intracuticular 3-0 Vicryls. The two longer incisions were closed with interrupted intracuticular 3-0 Vicryls for the dermis, then a running intracuticular 4-0 Vicryl for the skin. Sterile dressings were applied. Attention was then turned to placement of a HemoSplit catheter. There was already a Trialysis catheter in place. Through the distal lumen of the Trialysis catheter, I advanced a guidewire. I then removed the Trialysis catheter. I then incised some of the skin and subcutaneous tissue overlying the wire. A counterincision was accomplished in the right anterior superior infraclavicular chest. Through this incision, I tunneled a 19-cm HemoSplit catheter. Over the wire, under fluoroscopic guidance, I advanced a dilator sheath. The dilator and wire were removed. Through the sheath, the tips of the HemoSplit catheter were advanced and then the Peel-Away sheath was then removed. I then pulled back on the flange of the HemoSplit catheter in order to seat the cuff in the subcutaneous tissues. An image over the mediastinum revealed the tip of the HemoSplit catheter likely within the superior vena cava. Another image was obtained over the right lung apex and there was no apparent radiographic evidence of complication. No kinking or twisting of the HemoSplit catheter. The neck incision was closed with multiple interrupted intracuticular 3-0 Vicryls as well as a single horizontal mattress 3-0 Vicryl. The flange of the HemoSplit catheter was sutured to the underlying skin with 2-0 nylons. Both lumens flushed easily and aspirated dark, nonpulsatile blood. I then flushed both lumens of the HemoSplit catheter out with the appropriate amount of concentrated heparin. Sterile dressings were then applied. The patient was then extubated and conveyed to the post-anesthesia care unit where she was in stable condition. TRANSINT:[id number] Voice Confirmation ID: [id number] DOCUMENT ID: [id number] TRISTIAN UGALDE MD at 1642 CC: [id number] DICTATION DATE: 12/16/18 1254 MANAGER AVIATION: 12/16/18 1339 ADM IN [facility] [address] [place] [address]
[2018-12-22 16:53] VITALS: BP 143/44; BP 153/94
--- NOTE | 2018-12-22 17:08 | MORECARE ---
CASE MANAGEMENT DISCHARGE SUMMARY PATIENT: ERROL TATE UNIT: [id number] ADM DATE: 11/29/18 AGE: 73 : 45 SEX: F ROOM/BED: D.7254 AUTHOR: JOSE,DOC PHYSICIAN: REFERRING PHYSICIAN: VALENTIN SOL MD DATE OF SERVICE: 12/22/18 Discharge Plan Patient Name: ERROL TATE Facility: [facility]:[place] : 1945 Planned Disposition: Residential Facility Anticipated Discharge Date: 12/01/18 Discharge Date: Expected LOS: 2 Initial Reviewer: [id number] Initial Review Date: 11/29/2018 Generated: 12/22/18 6:08 pm Comments DCP- Discharge Planning Updated by [id number]: Cherry Rowell on 12/22/18 10:[address] SPOKE WITH MALCOLM CHESTER, DIALYSIS COORDINATOR, TO SEE WHERE WE WERE WITH THE PATIENTS PLACEMENT. SHE HAS STATED THAT THE UNIT IS REQUESTING MORE RECORDS ON HER. I HAVE FAXED MALCOLM THE REQUESTED RECORDS TO [phone]. I WILL CONTINUE TO FOLLOW UP. DCP- Discharge Planning Updated by [id number]: Jd Ahuja on 12/21/18 2:[address] Patient Name: ERROL TATE Encounter No: [id number] : 1945 Primary Insurance: [employer] Anticipated DC Date: 12-01-2018 Planned Disposition: Residential Facility External Planned Provider: [facility], MEDICARE REHAB BED DCP follow-up note: CM RECEIVED CALL FROM BARRY AT [phone] WHO ADVISED NO OPEN REHAB BEDS AND SHE ASKED FOR PERMISSION TO FORWARD REFERRAL TO HER SISTER FACILITY IN [place]. CM ASKED FOR THIS TO BE DONE, LICO AT [facility] TO CALL CM TODAY. CM TO FOLLOW UP WITH BILLIE AT [phone]. CM WAITING ADMISSION DETERMINATIONS FROM [facility] AND [facility]. [facility] WORKING ON OUTPATIENT DIALYSIS UNIT IN [place]. Jd Ahuja, CASE MANAGEMENT Appended by Jd Ahuja on 12/21/2018 15:37 CDT: VLAD RECEIVED CALL FROM [facility], , WHO REPORTS THAT THEY WILL ACCEPT PT AND WOULD LIKE MWF OUTPATIENT DIALYSIS SCHEDULE IF POSSIBLE BUT WILL WORK WITH ANY AVAILABLE DIALYSIS SCHEDULE. CM RECEIVED CALL FROM FRANC[facility], , WHO INFORMED CM THAT [facility] IS STILL CONSIDERING PT, WAITING ON OUTPATIENT DIALYSIS DAYS; PT WILL NEED TO BE ABLE TO DEMONSTRATE ABILITY TO SIT FOR THREE HOURS FOR TRANSPORT AND OUTPATIENT DIALYSIS. CM NOTIFIED PT AND FAMILY IN ROOM. PT REPORTS ABILITY TO SIT FOR DURATION OF TRANSPORT AND DIALYSIS. CM EXPLAINED THAT THERAPY WILL CONTINUE TO WORK WITH HER TO ENSURE HER ABILITY IS DOCUMENTED. CM WAITING ADMISSION DETERMINATIONS FROM [facility]. [facility] WORKING ON OUTPATIENT DIALYSIS UNIT IN [place]. PT WILL HAVE TO DEMONSTRATE ABILITY TO TRANSFER AND SIT FOR TRANSPORT AND DURATION OF OUTPATIENT DIALYSIS, THREE OR MORE HOURS. Jd Ahuja, CASE MANAGEMENT DCP- Discharge Planning Updated by [id number]: Jd Ahuja on 12/20/18 3:[address] Patient Name: ERROL TATE Encounter No: [id number] : 1945 Primary Insurance: [employer] Anticipated DC Date: 12-01-2018 Planned Disposition: Residential Facility External Planned Provider: [facility] MEDICARE REHAB BED DCP follow-up note: CM SPOKE TO PT IN ROOM REGARDING INSURANCE DENIAL FOR INPATIENT REHAB AND ASKED ABOUT CHOICES FOR LONG TERM. PT STATES THAT THEY HAVE NO CHOICE FOR REHAB IN [place], PROVIDER LISTING PREVIOUSLY PROVIDED; PT SIGNED CHOICE FOR ANY LONG TERM IN [place]. IMPORTANT MESSAGE FROM MEDICARE PROVIDED AND EXPLAINED. CM RECEIVED CALL FROM JAROD MOSCOSO, PT'S SON, , WHO WANTS ONLY REFERRED TO 4 OR 5 [place] FACILITIES. CM FAXED REFERRALS TO [facility] AT [phone] AND [facility] [phone]. CM TO FOLLOW UP WITH ANTWAN AT [phone] AND [facility] AT [phone]. CM WAITING ADMISSION DETERMINATIONS FROM BOTH FACILITIES. CM NOTIFIED [facility] TO REQUEST OUTPATIENT DIALYSIS UNIT IN [place]. Jd Ahuja CASE MANAGEMENT DCP- Discharge Planning Updated by [id number]: Jd Ahuja on 12/16/18 7:[address] Patient Name: ERROL TATE Encounter No: [id number] : 1945 Primary Insurance: [employer] Anticipated DC Date: 12-01-2018 Planned Disposition: INPATIENT REHAB External Planned Provider: [facility] INPATIENT REHAB DCP follow-up note: CM SPOKE TO PT IN ROOM, DISCUSSED [facility] NOT ACCEPTING DUE TO NO DIALYSIS UNIT AVAILABLE IN SERVICE AREA. PT WOULD LIKE TO BE CONSIDERED AT [facility] IN [place], [place]. CHOICE SIGNED. CM SPOKE TO [facility]COLM [facility] WHO INFORMED CM THAT THERE ARE NO OPENINGS FOR OUTPATIENT DIALYSIS AT [facility]. CM SPOKE TO PT AND FAMILY IN ROOM, DISCUSSED LONG TERM IN [place] WHERE THE NEXT CLOSEST OUTPATIENT DIALYSIS UNIT TO PT'S HOME. CM PROVIDED LISTING OF LONG TERM FACILITIES WITHIN 50 MILES OF PT'S HOME FROM MEDICARE WEBSITE. PT AND FAMILY WOULD LIKE TO BE CONSIDERED FOR INPATIENT REHAB AT [facility] WITH PLAN TO RETURN HOME AT DISCHARGE FROM REHAB. PT NOW DOES NOT WANT TO GO TO LONG TERM FOR REHAB. ORDER FOR INPATIENT REHAB PRESCREEN OBTAINED. [facility] OF INPATIENT REHAB NOTIFIED. IMPORTANT MESSAGE FROM MEDICARE PROVIDED AND EXPLAINED. CM WAITING ON OCCUPATIONAL THERAPY EVALUATION, INPATIENT REHAB PRESCREEN AND INSURANCE DETERMINATION FOR INPATIENT REHAB SERVICES. Jd Ahuja, CASE MANAGEMENT DCP- Discharge Planning Updated by [id number]: Dulce Maria Stubbs on 12/08/18 3:[address] JAYDA WITH AT [facility] STATED THAT THEY HAVE AUTH FOR SKILLED. WILL DC TO [facility]ILLED WHEN SHE IS STABLE FOR DISCHARGE DCP- Discharge Planning Updated by [id number]: Dulce Maria Stubbs on 12/05/18 10:[address] SPOKE WITH JAYDA AT [facility] (SKILLED FACILITY IN [place]) SHE STATED THAT THE PATIENT WILL NEED TO BE PREAUTH BEFORE SHE CAN RETURN SENT CLINICALS TO [phone]. I TOLD HER THAT I ANTICIPATE HER TO BE DISCHARGED SOON DCP- Discharge Planning Updated by [id number]: Rosa Hull on 11/29/18 5:[address] Patient Name: ERROL TATE Admission Status: ER Accout number: [id number] Admission Date: 11-29-2018 : 1945 Admission Diagnosis: Attending: VALENTIN SOL Current LOS: 1 Anticipated DC Date: 12-01-2018 Planned Disposition: Residential Facility - [facility] Primary Insurance: [employer] Discharge Planning Comments: CM met with patient to complete initial dc planning assessment. Patient asleep at this time. CM called her son Jarod Tate, , and educated him on the CM role and verbal consent given by him to complete assessment. Patient is currently in rehab at [facility], . Her son reports she will return there when she is discharged to complete her rehab. He denied further known dc needs at this time. CM will continue to follow and will assist as needed with dc plans/needs. Branch Logistics Supervisor: Rosa Hull RN, [facility] DCPIA - Discharge Planning Initial Assessment Updated by [id number]: Rosa Hull on 11/29/18 6:11 pm * How many steps to enter\exit or inside your home? None * PCP Dr. Kevin Gold, [place] * Pharmacy [facility] * Preadmission Environment Residential Facility * Facility Name [phone] * ADLs Partial Dependent * Partial ADLs (Assistance needed) Ambulation Bathing Medication Management Transfers * Equipment Cane Oxygen Rolling Walker Wheelchair * Other Equipment Wears Oxygen qhs * List name and contact numbers for known caregivers / representatives who currently or will assist patient after discharge: Miya Robbins - sister - [phone] Jarod Tate - son - [phone] * Community resources currently utilized Other * Please name any agencies selected above. Rehab * Additional services required to return to the preadmission environment? No * Can the patient safely return to the preadmission environment? Yes * Has this patient been hospitalized within the prior 30 days at any hospital? Yes External Providers External Provider[facility] Next Contact Date: 12/22/2018 Service Request Date: Service Type: Resolution: Reviewer: Comments: Coverage Notice Reviewer: [id number] Ahuja Notice Issued Date-Time: 12/15/2018 9:00 Notice Type: IM Discharge Notice Notice Delivered To: Patient Relationship to Patient: Reel Hooker Name: Delivery Method: HAND - Hand Delivered Bridget Days: Prior Verbal Notification: Recipient Understood Notice: Yes Recipient Signature: Yes Med Rec Note Co-signed by Attending: Coverage Notice Comment: Reviewer: YOLANDA Ahuja Notice Issued Date-Time: 12/16/2018 9:00 Notice Type: Patient Choice Letter Notice Delivered To: Patient Relationship to Patient: Reel Hooker Name: Delivery Method: HAND - Hand Delivered Bridget Days: Prior Verbal Notification: Recipient Understood Notice: Yes Recipient Signature: Yes Med Rec Note Co-signed by Attending: Coverage Notice Comment: [facility] Reviewer: YOLANDA Ahuja Notice Issued Date-Time: 12/20/2018 9:05 Notice Type: Patient Choice Letter Notice Delivered To: Patient Relationship to Patient: Reel Hooker Name: Delivery Method: HAND - Hand Delivered Bridget Days: Prior Verbal Notification: Recipient Understood Notice: Yes Recipient Signature: Yes Med Rec Note Co-signed by Attending: Coverage Notice Comment: ANY SNF IN [place] Reviewer: YOLANDA Ahuja Notice Issued Date-Time: 12/20/2018 9:05 Notice Type: IM Discharge Notice Notice Delivered To: Patient Relationship to Patient: Reel Hooker Name: Delivery Method: HAND - Hand Delivered Bridget Days: Prior Verbal Notification: Recipient Understood Notice: Yes Recipient Signature: Yes Med Rec Note Co-signed by Attending: Coverage Notice Comment: Last DP export: 12/22/18 10:52 a Patient Name: ERROL TATE Page 88494 at 1708 All edits/amendments must be made on the electronic document DICTATION DATE: 12/22/181707 RELAY TECHNICIAN: CLEM 12/22/181707 RPT#: [id number] ME DATE: STATUS: ADM IN [facility] [address] [place] [address] END OF REPORT
--- NOTE | 2018-12-22 17:17 | MORECARE ---
CASE MANAGEMENT DISCHARGE SUMMARY PATIENT: ERROL TATE UNIT: [id number] ADM DATE: 11/29/18 AGE: 73 : 45 SEX: F ROOM/BED: D.4349 AUTHOR: JOSE,DOC PHYSICIAN: REFERRING PHYSICIAN: VALENTIN SOL MD DATE OF SERVICE: 12/22/18 Discharge Plan Patient Name: ERROL TATE Facility: [facility]:[place] : 1945 Planned Disposition: Jail Facility Anticipated Discharge Date: 12/01/18 Discharge Date: Expected LOS: 2 Initial Reviewer: [id number] Initial Review Date: 11/29/2018 Generated: 12/22/18 6:17 pm Comments DCP- Discharge Planning Updated by [id number]: Jd Ahuja on 12/22/18 4:[address] Patient Name: ERROL TATE Encounter No: [id number] : 1945 Primary Insurance: [facility] MEDICARE SOLUTIONS Anticipated DC Date: 12-01-2018 Planned Disposition: Jail Facility External Planned Provider: [facility], MEDICARE REHAB BED DCP follow-up note: VLAD RECEIVED CALL FROM [facility] , , WHO REQUESTED UPDATE. VLAD EXPLAINED THAT THE DIALYSIS UNIT STILL HAS NOT ACCEPTED PT. [facility] WILL ACCEPT WHEN DIALYSIS UNIT IS ARRANGED. CM FAXED UPDATE TO [facility] AT [phone]. [facility] WORKING ON OUTPATIENT DIALYSIS UNIT IN [place], PT'S H&H TRENDING DOWN, WBC TRENDING UP. THE DIALYSIS CLINIC IS GOING TO WANT STABLE LABS TO ACCEPT. PT WILL NEED TO DEMONSTRATE DOCUMENTED ABILITY TO SIT GREATER THAN THREE HOURS TO TRANSFER AND SIT FOR OUTPATIENT DIALYSIS UNIT TO ACCEPT. Jd Ahuja, CASE MANAGEMENT DCP- Discharge Planning Updated by [id number]: Cherry Rowell on 12/22/18 10:[address] SPOKE WITH MALCOLM CHESTER, DIALYSIS COORDINATOR, TO SEE WHERE WE WERE WITH THE PATIENTS PLACEMENT. SHE HAS STATED THAT THE UNIT IS REQUESTING MORE RECORDS ON HER. I HAVE FAXED MALCOLM THE REQUESTED RECORDS TO [phone]. I WILL CONTINUE TO FOLLOW UP. DCP- Discharge Planning Updated by [id number]: Jd Ahuja on 12/21/18 2:[address] Patient Name: ERROL TATE Encounter No: [id number] : 1945 Primary Insurance: [facility] MEDICARE SOLUTIONS Anticipated DC Date: 12-01-2018 Planned Disposition: Jail Facility External Planned Provider: [facility], MEDICARE REHAB BED DCP follow-up note: CM RECEIVED CALL FROM BARRY AT [phone] WHO ADVISED NO OPEN REHAB BEDS AND SHE ASKED FOR PERMISSION TO FORWARD REFERRAL TO HER SISTER FACILITY IN [place]. CM ASKED FOR THIS TO BE DONE, LICO AT [facility] TO CALL CM TODAY. CM TO FOLLOW UP WITH BILLIE AT [phone]. VLAD WAITING ADMISSION DETERMINATIONS FROM [facility] AND [facility]. [facility] WORKING ON OUTPATIENT DIALYSIS UNIT IN [place]. Jd Ahuja, CASE MANAGEMENT Appended by Jd Ahuja on 12/21/2018 15:37 CDT: CM RECEIVED CALL FROM [facility] OF [facility], , WHO REPORTS THAT THEY WILL ACCEPT PT AND WOULD LIKE MWF OUTPATIENT DIALYSIS SCHEDULE IF POSSIBLE BUT WILL WORK WITH ANY AVAILABLE DIALYSIS SCHEDULE. CM RECEIVED CALL FROM [facility], , WHO INFORMED CM THAT [facility] IS STILL CONSIDERING PT, WAITING ON OUTPATIENT DIALYSIS DAYS; PT WILL NEED TO BE ABLE TO DEMONSTRATE ABILITY TO SIT FOR THREE HOURS FOR TRANSPORT AND OUTPATIENT DIALYSIS. CM NOTIFIED PT AND FAMILY IN ROOM. PT REPORTS ABILITY TO SIT FOR DURATION OF TRANSPORT AND DIALYSIS. CM EXPLAINED THAT THERAPY WILL CONTINUE TO WORK WITH HER TO ENSURE HER ABILITY IS DOCUMENTED. VLAD WAITING ADMISSION DETERMINATIONS FROM [facility]. [facility] WORKING ON OUTPATIENT DIALYSIS UNIT IN [place]. PT WILL HAVE TO DEMONSTRATE ABILITY TO TRANSFER AND SIT FOR TRANSPORT AND DURATION OF OUTPATIENT DIALYSIS, THREE OR MORE HOURS. Jd Ahuja, CASE MANAGEMENT DCP- Discharge Planning Updated by [id number]: Jd Ahuja on 12/20/18 3:[address] Patient Name: ERROL TATE Encounter No: [id number] : 1945 Primary Insurance: [facility] MEDICARE SOLUTIONS Anticipated DC Date: 12-01-2018 Planned Disposition: Jail Facility External Planned Provider: [facility] MEDICARE REHAB BED DCP follow-up note: CM SPOKE TO PT IN ROOM REGARDING INSURANCE DENIAL FOR INPATIENT REHAB AND ASKED ABOUT CHOICES FOR [facility]. PT STATES THAT THEY HAVE NO CHOICE FOR REHAB IN [place], PROVIDER LISTING PREVIOUSLY PROVIDED; PT SIGNED CHOICE FOR ANY [facility] IN [place]. IMPORTANT MESSAGE FROM MEDICARE PROVIDED AND EXPLAINED. CM RECEIVED CALL FROM JAROD MOSCOSO, PT'S SON, , WHO WANTS ONLY REFERRED TO 4 OR 5 [place] FACILITIES. CM FAXED REFERRALS TO [facility] AT [phone] AND [facility] [phone]. CM TO FOLLOW UP WITH ANTWAN AT [phone] AND [facility] AT [phone]. CM WAITING ADMISSION DETERMINATIONS FROM BOTH FACILITIES. CM NOTIFIED [facility] TO REQUEST OUTPATIENT DIALYSIS UNIT IN [place]. BENJA Lockett DCP- Discharge Planning Updated by [id number]: Jd Ahuja on 12/16/18 7:[address] Patient Name: ERROL TATE Encounter No: [id number] : 1945 Primary Insurance: [facility] MEDICARE SOLUTIONS Anticipated DC Date: 12-01-2018 Planned Disposition: INPATIENT REHAB External Planned Provider: [facility] INPATIENT REHAB DCP follow-up note: CM SPOKE TO PT IN ROOM, DISCUSSED [facility] NOT ACCEPTING DUE TO NO DIALYSIS UNIT AVAILABLE IN SERVICE AREA. PT WOULD LIKE TO BE CONSIDERED AT [facility] IN [place], [place]. CHOICE SIGNED. CM SPOKE TO MALCOLM OF [facility] WHO INFORMED CM THAT THERE ARE NO OPENINGS FOR OUTPATIENT DIALYSIS AT THE [place] UNIT. CM SPOKE TO PT AND FAMILY IN ROOM, DISCUSSED [facility]P IN [place] WHERE THE NEXT CLOSEST OUTPATIENT DIALYSIS UNIT TO PT'S HOME. CM PROVIDED LISTING OF [facility] FACILITIES WITHIN 50 MILES OF PT'S HOME FROM MEDICARE WEBSITE. PT AND FAMILY WOULD LIKE TO BE CONSIDERED FOR INPATIENT REHAB AT [facility] WITH PLAN TO RETURN HOME AT DISCHARGE FROM REHAB. PT NOW DOES NOT WANT TO GO TO [facility] FOR REHAB. ORDER FOR INPATIENT REHAB PRESCREEN OBTAINED. [facility] OF INPATIENT REHAB NOTIFIED. IMPORTANT MESSAGE FROM MEDICARE PROVIDED AND EXPLAINED. CM WAITING ON OCCUPATIONAL THERAPY EVALUATION, INPATIENT REHAB PRESCREEN AND INSURANCE DETERMINATION FOR INPATIENT REHAB SERVICES. Jd Ashdown, CASE MANAGEMENT DCP- Discharge Planning Updated by [id number]: Dulce Maria Stubbs on 12/08/18 3:[address] JAYDA WITH AT [facility] STATED THAT THEY HAVE AUTH FOR [facility]. WILL DC TO [facility] WHEN SHE IS STABLE FOR DISCHARGE DCP- Discharge Planning Updated by [id number]: Dulce Maria Stubbs on 12/05/18 10:[address] SPOKE WITH JAYDA AT [facility] (SKILLED FACILITY IN [place]) SHE STATED THAT THE PATIENT WILL NEED TO BE PREAUTH BEFORE SHE CAN RETURN SENT CLINICALS TO [phone]. I TOLD HER THAT I ANTICIPATE HER TO BE DISCHARGED SOON DCP- Discharge Planning Updated by [id number]: Rosa Hull on 11/29/18 5:[address] Patient Name: ERROL TATE Admission Status: ER Accout number: [id number] Admission Date: 11-29-2018 : 1945 Admission Diagnosis: Attending: VALENTIN SOL Current LOS: 1 Anticipated DC Date: 12-01-2018 Planned Disposition: Jail Facility - [facility] Primary Insurance: [facility] MEDICARE SOLUTIONS Discharge Planning Comments: CM met with patient to complete initial dc planning assessment. Patient asleep at this time. CM called her son Jarod Tate, , and educated him on the CM role and verbal consent given by him to complete assessment. Patient is currently in rehab at [facility], . Her son reports she will return there when she is discharged to complete her rehab. He denied further known dc needs at this time. CM will continue to follow and will assist as needed with dc plans/needs. Log Scaler: Rosa Hull RN, [facility] DCPIA - Discharge Planning Initial Assessment Updated by [id number]: Rosa Hull on 11/29/18 6:11 pm * How many steps to enter\exit or inside your home? None * PCP Dr. Kevin Gold, [place] * Pharmacy [facility] * Preadmission Environment Jail Facility * Facility Name [facility] [phone] * ADLs Partial Dependent * Partial ADLs (Assistance needed) Ambulation Bathing Medication Management Transfers * Equipment Cane Oxygen Rolling Walker Wheelchair * Other Equipment Wears Oxygen qhs * List name and contact numbers for known caregivers / representatives who currently or will assist patient after discharge: Miya Robbins - sister - [phone] Jarod Tate - son - [phone] * Community resources currently utilized Other * Please name any agencies selected above. Rehab * Additional services required to return to the preadmission environment? No * Can the patient safely return to the preadmission environment? Yes * Has this patient been hospitalized within the prior 30 days at any hospital? Yes Coverage Notice Reviewer: YOLANDA Ahuja Notice Issued Date-Time: 12/20/2018 9:05 Notice Type: Patient Choice Letter Notice Delivered To: Patient Relationship to Patient: Team Coordinator Name: Delivery Method: HAND - Hand Delivered Bridget Days: Prior Verbal Notification: Recipient Understood Notice: Yes Recipient Signature: Yes Med Rec Note Co-signed by Attending: Coverage Notice Comment: ANY SNF IN [place] Reviewer: YOLANDA Ahuja Notice Issued Date-Time: 12/16/2018 9:00 Notice Type: Patient Choice Letter Notice Delivered To: Patient Relationship to Patient: Team Coordinator Name: Delivery Method: HAND - Hand Delivered Bridget Days: Prior Verbal Notification: Recipient Understood Notice: Yes Recipient Signature: Yes Med Rec Note Co-signed by Attending: Coverage Notice Comment: [facility] Reviewer: YOLANDA Ahuja Notice Issued Date-Time: 12/20/2018 9:05 Notice Type: IM Discharge Notice Notice Delivered To: Patient Relationship to Patient: Team Coordinator Name: Delivery Method: HAND - Hand Delivered Bridget Days: Prior Verbal Notification: Recipient Understood Notice: Yes Recipient Signature: Yes Med Rec Note Co-signed by Attending: Coverage Notice Comment: Reviewer: YOLANDA Ahuja Notice Issued Date-Time: 12/15/2018 9:00 Notice Type: IM Discharge Notice Notice Delivered To: Patient Relationship to Patient: Team Coordinator Name: Delivery Method: HAND - Hand Delivered Bridget Days: Prior Verbal Notification: Recipient Understood Notice: Yes Recipient Signature: Yes Med Rec Note Co-signed by Attending: Coverage Notice Comment: Last DP export: 12/22/18 4:08 p Patient Name: ERROL TATE Page 50262 at 1717 All edits/amendments must be made on the electronic document DICTATION DATE: 12/22/181715 [place] BLANKET MAKER: CLEM 12/22/181715 RPT#: [id number] DC DATE: STATUS: ADM IN [facility] [address] [place] [address] END OF REPORT
--- NOTE | 2018-12-22 18:45 | NUR ---
DIALYSIS COORDINATOR: REFERRAL PENDING FOR [facility]. ADDITIONAL RECORDS WERE FORWARDED REQUESTED THIS AFTERNOON. POSSIBLE BARRIERS TO DC TO THIS CLINIC: LACK OF PT INVOLVEMENT/DOCUMENTATION SHOWING UP TO CHAIR/ABLE TO SIT 3+ HOURS DOWNWARD TREND IN H&H - NEED DOCUMENTATION EXPLAINING DROP & GI BLEED RESOLVED MALCOLM CHESTER-PATIENT [phone].
--- NOTE | 2018-12-22 20:20 | NUR ---
PATIENT LAYING IN BED. EYES CLOSED, CHEST RISING AND FALLING. NO DISTRESS NOTED.
[2018-12-22 21:14] VITALS: BP 134/45
[2018-12-23 03:53] VITALS: BP 156/49
[2018-12-23 08:00] VITALS: BP 185/48
--- NOTE | 2018-12-23 08:25 | NUR ---
PATIENT IS ABLE TO TRANSFER TO CHAIR AND BACK TO BED WITH MIN/MOD A VIA STAND PIVOT TRANSFER. PATIENT SAT UP YESTERDAY (12/23/18) FOR 1.5 HOURS BUT STATED SHE WAS COMFORTABLE AND COULD SIT LONGER. SHE DID NOT SIT UP LONGER DUE TO THERAPY STAFF TIME CONSTRAINTS. IN MY PROFESSIONAL OPINION, SHE IS MORE THAN CAPABLE OF SITTING FOR 3+ HOURS FOR OUTPATIENT DIALYSIS. THERAPY TO CONTINUE TO PROGRESS TRANSFERS WITH THIS PATIENT. JESSIKA MARSH, PT, DPT
--- NOTE | 2018-12-23 08:55 | NUR ---
THE PATIENT IS AWAKE AND ALERT, HER DAUGHTER IS AT HER BEDSIDE, SHE IS PLEASANT, SHE DOES HAVE AN EDEMATOUS LEFT HAND AND ARM, SHE SAYS SHE HAS PAIN IN THE ARM. HER BILATERAL FEET ARE EDEMATOUS AND HER DRESSING IS INTACT TO HER LEFT LEG, WILL CHANGE THE DRESSING.
--- NOTE | 2018-12-23 10:23 | NUR ---
THE PATIENT C/O PAIN IN HER LEFT ARM, IT IS STILL EDEMATOUS. DID PROVIDE NORCO NOW BEFORE THE DRESSING CHANGE TO HER LEFT LEG. SHE HAS TWO SPOTS, ONE IS A [id number] ON THE TOP OF HER LEG THE OTHER IS A [id number] ON THE BACK OF HER LEG. CLEANSED AREAS AND REDRESSED. APPLIED KERLEX.
--- NOTE | 2018-12-23 11:08 | NUR ---
THE PATIENT SAYS SHE IS STILL IN PAIN IN HER ARM, BUT SAYS IT IS BETTER.
--- NOTE | 2018-12-23 11:26 | NUR ---
FSBS 241, RECEIVED 2 UNITS REGULAR INSULIN.
--- NOTE | 2018-12-23 11:47 | NUR ---
OT NOTE: PT SITTING UP IN BED. AGREEABLE TO ATTEMPT TO SIT UP IN CHAIR. BED MOB WITH MAX. SIITTING BALANCE ON EOB WITH SPV; ABLE TO STAND WITH WALKER AND MOD ASSIST..TOOK STEPS FROM BED TO CHAIR ( APPROX 5 FT) TRANSFERED TO CHAIR WITH MIN ASSIST. PT TOLERATED BEING UP IN CHAIR GOR 2+ HRS. ONLY MILD SOB NOTED. 930/950 LARRY RODRIGUEZ, OTR/L
[2018-12-23 11:52] VITALS: BP 143/53
--- NOTE | 2018-12-23 13:24 | NUR ---
Nutrition Follow Up: Chart reviewed Diet: Renal ADA; Nepro with meals PO Intake: 78% meal avg BM: 12/22/18 Labs reviewed - Glucose elevated Meds noted Rec continue current diet, supplement regimen. RD following.
--- NOTE | 2018-12-23 14:14 | NUR ---
THE PATIENT CONTINUES TO SIT IN HER CHAIR AND HER DAUGHTER IS IN THE ROOM WITH HER. SHE DENIES ANY NEEDS.
--- NOTE | 2018-12-23 14:20 | NUR ---
THE PATIENT C/O PAIN RATES IT 06/15, SAYS "IT'S REALLY A 12." CHECKED BP BY THE MACHINE IT IS 133/39, RECHECKED MANUALLY, IT IS 140/50. WILL HOLD HYDRALAZINE, BUT WILL GIVE NORCO, SEE MAR.
[2018-12-23 15:05] VITALS: BP 132/39
--- NOTE | 2018-12-23 15:31 | NUR ---
ANAND PETERSON APN ASKED WHAT THE REASON THE PATIENT DID NOT HAVE HER LAB DRAWN THIS AM, LET HER KNOW SHE WAS SUPPOSED TO GO TO DIALYSIS, BUT NOW SHE IS NOT. DID CALL LAB TO LET THEM KNOW SHE NEEDS HER LAB DRAWN NOW.
--- NOTE | 2018-12-23 15:52 | NUR ---
THE PATIENT IS SITTING IN BED AND RESTING, SHE HAS HER EYES CLOSED, HER DAUGHTER IS AT HER ROOM, NO NEEDS AT THIS TIME.
--- NOTE | 2018-12-23 16:13 | NUR ---
FSBS 255, RECEIVED 5 UNITS REGULAR INSULIN.
--- NOTE | 2018-12-23 16:30 | NUR ---
CALLED DR. GUTIERREZ TO LET HIM KNOW ABOUT THE PODIATRY CONSULT. HE DID SAY DR. BLAKE JUST SPOKE TO HIM ABOUT IT AND HE WILL SEE HER SHORTLY, HE SAID HE APPRECIATED THE PHONE CALL.
--- NOTE | 2018-12-23 17:47 | NUR ---
LAB HERE TO DRAW BLOOD, EXPLAINED TO THEM THAT I WAS TOLD NOT TO USE HER HEMISPLIT FOR ANYTHING EXCEPT MEDICATION. THE ALTERATIONS MANAGER DID HAVE TO DO A FINGER STICK. DR. COOPER IS HERE ADDRESSING HER TOENAILS AND HER WOUNDS TO HER LEGS. CLEANSED AND REWRAPPED. IV IRON IS INFUSING AT THIS TIME.
[2018-12-23 18:21] LABS: BASOPHILS 0.4 % (0-2); EOSINOPHILS 1.6 % (0-7); HEMATOCRIT 24.4 % (36.0-48.0); HEMOGLOBIN 7.8 g/dL (12-16); IMMATURE GRANULOCYTES 1.6 % (0-5); LYMPHOCYTES 7.5 % (15-50); MCH 28.5 pg (26.0-34.0); MCV 89.1 fL (80.0-100.0); MEAN PLATELET VOLUME 9.8 fL (7.4-10.4); MONOCYTES 7.6 % (2-11); NEUTROPHILS 81.3 % (40-80); PLATELET COUNT 160 10x3/uL (130-400); RBC 2.74 10x6/uL (4.00-5.40); WBC 13.4 10x3/uL (4.8-10.8)
[2018-12-23 18:31] LABS: ALBUMIN 1.6 g/dL (3.4-5.0); BILIRUBIN - TOTAL 0.35 mg/dL (0.2-1.3); CALCIUM 7.6 mg/dL (8.5-10.1); CARBON DIOXIDE 24.9 mmol/L (21.0-32.0); POTASSIUM - SERUM 3.9 mmol/L (3.5-5.1); PROTEIN - SERUM 5.8 g/dL (6.4-8.2)
[2018-12-23 18:42] LABS: CREATININE - SERUM 2.9 mg/dL (0.6-1.3)
--- NOTE | 2018-12-23 19:20 | NUR ---
RECEIVED REPORT, WILL ASSUME CARE OF PT, PT IS RESTING, BED IS LOW, SRX2, CALL LIGHT IN REACH, DAUGHTER AT BEDSIDE, WILL CONTINUE PLAN OF CARE
[2018-12-23 20:32] VITALS: BP 138/43
--- NOTE | 2018-12-23 21:07 | NUR ---
PT ASK FOR PAIN MEDS, GAVE NORCO ORDER
--- NOTE | 2018-12-23 21:49 | NUR ---
OT NOTE: PT COMPLETED SITTING BALANCE WITH SBA. PT COMPLETED POSITIONING WITH MOD A, PT COMPLETED UE AROM AXS. THANK YOU, AMARIS MEJIA
[2018-12-24 00:47] VITALS: BP 130/39
--- NOTE | 2018-12-24 02:56 | NUR ---
I have reviewed this patient and I concur with the Shift Assessment completed by the Licensed Practical Nurse today this shift.
[2018-12-24 05:24] VITALS: BP 147/38
[2018-12-24 06:10] LABS: BASOPHILS 0.5 % (0-2); EOSINOPHILS 4.2 % (0-7); HEMOGLOBIN 7.7 g/dL (12-16); IMMATURE GRANULOCYTES 1.6 % (0-5); LYMPHOCYTES 7.6 % (15-50); MCH 29.1 pg (26.0-34.0); MCHC 32.1 g/dL (31.0-37.0); MCV 90.6 fL (80.0-100.0); MEAN PLATELET VOLUME 9.3 fL (7.4-10.4); MONOCYTES 9.8 % (2-11); NEUTROPHILS 76.3 % (40-80); PLATELET COUNT 171 10x3/uL (130-400); RBC 2.65 10x6/uL (4.00-5.40); RDW 18.3 % (11.5-14.5); WBC 12.6 10x3/uL (4.8-10.8)
[2018-12-24 06:26] LABS: ALBUMIN 1.7 g/dL (3.4-5.0); ANION GAP 11.9 mmol/L (8-16); BILIRUBIN - TOTAL 0.41 mg/dL (0.2-1.3); CALCIUM 8.1 mg/dL (8.5-10.1); CARBON DIOXIDE 26.7 mmol/L (21.0-32.0); CREATININE - SERUM 3.1 mg/dL (0.6-1.3); POTASSIUM - SERUM 3.6 mmol/L (3.5-5.1); PROTEIN - SERUM 5.9 g/dL (6.4-8.2)
[2018-12-24 08:10] VITALS: BP 127/49
--- NOTE | 2018-12-24 09:37 | NUR ---
MORNING ASSESSMENT COMPLETE. SEE ASSESSMENT FLOWSHEET FOR FURTHER DETIALS. PT LYING IN BED AAO X4 TO PERSON, PLACE, TIME, AND SIUTATION. DENIES NEEDS AT THIS TIME. FAMILY MEMBER AT BEDISIDE. CL IN REACH. SIDE RAILS UP X3 FOR PT SAEFTY. BED IN LOWEST POSITION.
[2018-12-24 16:01] VITALS: BP 138/62
[2018-12-24 16:06] VITALS: BP 138/42
--- NOTE | 2018-12-24 19:47 | NUR ---
RECEIVED REPORT, WILL ASSUME CARE OF PT, PT IS SLEEPING, FAMILY IN ROOM, BED IS LOW, SRX3, CALL LIGHT IN REACH, WILL CONTINUE PLAN OF CARE
[2018-12-24 20:00] VITALS: BP 142/43
--- NOTE | 2018-12-24 22:21 | NUR ---
COMPLAINS OF PAIN, GAVE NORCO ORDER
[2018-12-25] VITALS: BP 153/43
--- NOTE | 2018-12-25 03:37 | NUR ---
I have reviewed this patient and I concur with the Shift Assessment completed by the Licensed Practical Nurse today this shift.
[2018-12-25 04:00] VITALS: BP 141/51
--- NOTE | 2018-12-25 05:05 | NUR ---
PT ASKING FOR PAIN PILL, GAVE NORCO ORDER
[2018-12-25 06:41] LABS: ALBUMIN 1.6 g/dL (3.4-5.0); ANION GAP 12.4 mmol/L (8-16); BILIRUBIN - TOTAL 0.39 mg/dL (0.2-1.3); CALCIUM 8.2 mg/dL (8.5-10.1); CREATININE - SERUM 2.9 mg/dL (0.6-1.3); POTASSIUM - SERUM 3.4 mmol/L (3.5-5.1); PROTEIN - SERUM 5.8 g/dL (6.4-8.2)
[2018-12-25 06:50] LABS: HEMATOCRIT 23.7 % (36.0-48.0); MCH 28.7 pg (26.0-34.0); MCHC 31.2 g/dL (31.0-37.0); MCV 91.9 fL (80.0-100.0); PLATELET COUNT 167 10x3/uL (130-400); RBC 2.58 10x6/uL (4.00-5.40); RDW 19.2 % (11.5-14.5); WBC 12.5 10x3/uL (4.8-10.8)
[2018-12-25 06:52] LABS: HEMOGLOBIN 7.4 g/dL (12-16)
--- NOTE | 2018-12-25 07:30 | NUR ---
RECEIVED PT IN BED EYES CLOSED RESP UNLABORED NAD NOTED
[2018-12-25 08:14] VITALS: BP 133/58
[2018-12-25 08:15] LABS: ANISOCYTOSIS 4+; BASOPHILS 1 % (0-2); EOSINOPHILS 5 % (0-7); HYPOCHROMASIA 2+; LYMPHOCYTES 5 % (15-50); MONOCYTES 10 % (2-11); NEUTROPHILS 73 % (40-80); PLATELET ESTIMATE NORMAL; POLYCHROMASIA 3+
[2018-12-25 08:16] LABS: POIKILOCYTOSIS 2+
--- NOTE | 2018-12-25 11:55 | NUR ---
FSBS 234 REGULAR INSULIN 4 UNITS GIVEN SQ ABDOMEN
[2018-12-25 12:08] VITALS: BP 136/44
[2018-12-25 15:49] VITALS: BP 133/46
--- NOTE | 2018-12-25 20:19 | NUR ---
RECEIVED REPORT, WILL ASSUME CARE OF PT, ASKING FOR PAIN PILL GAVE ORDER, PT HAD BM- CLEANED HER UP AND REPOSTION HER, BED IS LOW, SRX3, CALL LIGHT IN REACK WILL CONTINUE PLAN OF CARE
[2018-12-25 20:33] VITALS: BP 133/49
--- NOTE | 2018-12-25 23:31 | NUR ---
COMPLAINS OF PAIN, GAVE NORCO ORDER
[2018-12-26 00:33] VITALS: BP 142/57
--- NOTE | 2018-12-26 02:48 | NUR ---
STOOL COLLECTED, TAKE TO LAB
--- NOTE | 2018-12-26 03:44 | NUR ---
COMPLAINS OF ARM PAIN, GAVE NORCO ORDER
--- NOTE | 2018-12-26 04:27 | NUR ---
I have reviewed this patient and I concur with the Shift Assessment completed by the Licensed Practical Nurse today this shift.
[2018-12-26 05:08] VITALS: BP 135/52
[2018-12-26 06:38] LABS: ALBUMIN 1.7 g/dL (3.4-5.0); BILIRUBIN - TOTAL 0.56 mg/dL (0.2-1.3); CALCIUM 8.2 mg/dL (8.5-10.1); CARBON DIOXIDE 25.8 mmol/L (21.0-32.0); PROTEIN - SERUM 6.2 g/dL (6.4-8.2)
[2018-12-26 06:45] LABS: CREATININE - SERUM 3.9 mg/dL (0.6-1.3)
[2018-12-26 06:46] LABS: ANION GAP 13.8 mmol/L (8-16); POTASSIUM - SERUM 4.6 mmol/L (3.5-5.1)
--- NOTE | 2018-12-26 07:30 | NUR ---
A/A/OX4. DENIES ANY NEED FOR PAIN MEDS AT THIS TIME. LEFT ARM IS SWOLLEN AND PAINFUL TO HER. NO REQUESTS AT PRESENT TIME. FAMILY MEMBER AT BEDSIDE. ASSESSMENT COMPLETED AND WILL CONTIUE POC.
[2018-12-26 07:34] LABS: BASOPHILS 0.5 % (0-2); EOSINOPHILS 4.7 % (0-7); IMMATURE GRANULOCYTES 2.1 % (0-5); LYMPHOCYTES 8.5 % (15-50); MCH 29.2 pg (26.0-34.0); MCHC 32.2 g/dL (31.0-37.0); MCV 90.8 fL (80.0-100.0); MEAN PLATELET VOLUME 9.8 fL (7.4-10.4); MONOCYTES 11.6 % (2-11); NEUTROPHILS 72.6 % (40-80); PLATELET COUNT 163 10x3/uL (130-400); RDW 18.8 % (11.5-14.5); WBC 12.9 10x3/uL (4.8-10.8)
[2018-12-26 07:47] LABS: RBC 3.15 10x6/uL (4.00-5.40)
[2018-12-26 07:48] LABS: HEMATOCRIT 28.6 % (36.0-48.0); HEMOGLOBIN 9.2 g/dL (12-16)
[2018-12-26 08:00] VITALS: BP 130/50
--- NOTE | 2018-12-26 11:49 | MORECARE ---
CASE MANAGEMENT DISCHARGE SUMMARY PATIENT: ERROL TATE UNIT: [id number] ADM DATE: 11/29/18 AGE: 73 : 45 SEX: F ROOM/BED: D.0234 AUTHOR: JOSE,DOC PHYSICIAN: REFERRING PHYSICIAN: VALENTIN SOL MD DATE OF SERVICE: 12/26/18 Discharge Plan Patient Name: ERROL TATE Facility: [facility]:[place] : 1945 Planned Disposition: Detention Facility Anticipated Discharge Date: 12/01/18 Discharge Date: Expected LOS: 2 Initial Reviewer: [id number] Initial Review Date: 11/29/2018 Generated: 12/26/18 12:49 pm Comments DCP- Discharge Planning Updated by [id number]: Bhumika Dodge on 12/26/18 10:[address] Patient Name: ERROL TATE Admission Status: ER Accout number: [id number] Admission Date: 11-29-2018 : 1945 Admission Diagnosis:GASTROINTESTINAL HEMORRHAGE, UNSPECIFIED Attending: VALENTIN SOL Current LOS: 27 Anticipated DC Date: 12-01-2018 Planned Disposition: Detention Facility Primary Insurance: [facility] [employer] [employer] Discharge Planning Comments: UPDATED DOCUMENTS SENT TO [facility] WHOM IS SETTING UP PATIENT'S DIALYSIS. WAITING FOR CALL BACK. CM TO FOLLOW AND ASSIST NEEDED WITH DC PLANNING/NEEDS. Legislative Correspondent: Bhumika Dodge DCP- Discharge Planning Updated by [id number]: Jd Ahuja on 12/22/18 4:[address] Patient Name: ERROL TATE Encounter No: [id number] : 1945 Primary Insurance: [facility] [employer] [employer]UT[employer] Anticipated DC Date: 12-01-2018 Planned Disposition: Detention Facility External Planned Provider: [facility], MEDICARE REHAB BED DCP follow-up note: VLAD RECEIVED CALL FROM [facility] AT [facility] , , WHO REQUESTED UPDATE. VLAD EXPLAINED THAT THE DIALYSIS UNIT STILL HAS NOT ACCEPTED PT. [facility] WILL ACCEPT WHEN DIALYSIS UNIT IS ARRANGED. VLAD FAXED UPDATE TO [facility] AT [phone]. [facility] WORKING ON OUTPATIENT DIALYSIS UNIT IN [place], PT'S H&H TRENDING DOWN, WBC TRENDING UP. THE DIALYSIS CLINIC IS GOING TO WANT STABLE LABS TO ACCEPT. PT WILL NEED TO DEMONSTRATE DOCUMENTED ABILITY TO SIT GREATER THAN THREE HOURS TO TRANSFER AND SIT FOR OUTPATIENT DIALYSIS UNIT TO ACCEPT. Jd Ahuja, CASE MANAGEMENT DCP- Discharge Planning Updated by [id number]: Cherry Rowell on 12/22/18 10:[address] SPOKE WITH MALCOL[facility] CHESTER, DIALYSIS COORDINATOR, TO SEE WHERE WE WERE WITH THE PATIENTS PLACEMENT. SHE HAS STATED THAT THE UNIT IS REQUESTING MORE RECORDS ON HER. I HAVE FAXED [facility] THE REQUESTED RECORDS TO [phone]. I WILL CONTINUE TO FOLLOW UP. DCP- Discharge Planning Updated by [id number]: Jd Ahuja on 12/21/18 2:[address] Patient Name: ERROL TATE Encounter No: [id number] : 1945 Primary Insurance: [facility] [employer] [employer]UT[employer] Anticipated DC Date: 12-01-2018 Planned Disposition: Detention Facility External Planned Provider: [facility], MEDICARE REHAB BED DCP follow-up note: CM RECEIVED CALL FROM BARRY AT [phone] WHO ADVISED NO OPEN REHAB BEDS AND SHE ASKED FOR PERMISSION TO FORWARD REFERRAL TO HER SISTER FACILITY IN [place]. CM ASKED FOR THIS TO BE DONE, [facility] AT [facility] TO CALL CM TODAY. CM TO FOLLOW UP WITH [facility] AT [phone]. CM WAITING ADMISSION DETERMINATIONS FROM [facility] AND [facility]. [facility] WORKING ON OUTPATIENT DIALYSIS UNIT IN [place]. Jd Ahuja, CASE MANAGEMENT Appended by Jd Ahuja on 12/21/2018 15:37 CDT: CM RECEIVED CALL FROM KIMMY FORBES OF [facility], , WHO REPORTS THAT THEY WILL ACCEPT PT AND WOULD LIKE MWF OUTPATIENT DIALYSIS SCHEDULE IF POSSIBLE BUT WILL WORK WITH ANY AVAILABLE DIALYSIS SCHEDULE. CM RECEIVED CALL FROM [facility], , WHO INFORMED CM THAT [facility] IS STILL CONSIDERING PT, WAITING ON OUTPATIENT DIALYSIS DAYS; PT WILL NEED TO BE ABLE TO DEMONSTRATE ABILITY TO SIT FOR THREE HOURS FOR TRANSPORT AND OUTPATIENT DIALYSIS. CM NOTIFIED PT AND FAMILY IN ROOM. PT REPORTS ABILITY TO SIT FOR DURATION OF TRANSPORT AND DIALYSIS. CM EXPLAINED THAT THERAPY WILL CONTINUE TO WORK WITH HER TO ENSURE HER ABILITY IS DOCUMENTED. CM WAITING ADMISSION DETERMINATIONS FROM [facility]. [facility] WORKING ON OUTPATIENT DIALYSIS UNIT IN [place]. PT WILL HAVE TO DEMONSTRATE ABILITY TO TRANSFER AND SIT FOR TRANSPORT AND DURATION OF OUTPATIENT DIALYSIS, THREE OR MORE HOURS. BENJA Lockett MANAGEMENT DCP- Discharge Planning Updated by [id number]: Jd Ahuja on 12/20/18 3:[address] Patient Name: ERROL TATE Encounter No: [id number] : 1945 Primary Insurance: [facility] [employer] Anticipated DC Date: 12-01-2018 Planned Disposition: Detention Facility External Planned Provider: [facility] MEDICARE [facility]HAB [facility]ED DCP follow-up note: CM SPOKE TO PT IN ROOM REGARDING INSURANCE DENIAL FOR INPATIENT REHAB AND ASKED ABOUT CHOICES FOR [facility]. PT STATES THAT THEY HAVE NO CHOICE FOR REHAB IN [place], PROVIDER LISTING PREVIOUSLY PROVIDED; PT SIGNED CHOICE FOR ANY SHELTER IN [place]. IMPORTANT MESSAGE FROM MEDICARE PROVIDED AND EXPLAINED. CM RECEIVED CALL FROM JAROD MOSCOSO, PT'S SON, , WHO WANTS ONLY REFERRED TO 4 OR 5 [facility] F[facility]. CM FAXED REFERRALS TO [facility] AT [phone] AND [facility] [phone]. CM TO FOLLOW UP WITH [facility] AT [phone] AND [facility] AT [phone]. CM WAITING ADMISSION DETERMINATIONS FROM BOTH FACILITIES. CM NOTIFIED [facility] TO REQUEST OUTPATIENT DIALYSIS UNIT IN [place]. BENJA Lockett DCP- Discharge Planning Updated by [id number]: Jd Ahuja on 12/16/18 7:[address] Patient Name: ERROL TATE Encounter No: [id number] : 1945 Primary Insurance: [facility] [employer] Anticipated DC Date: 12-01-2018 Planned Disposition: INPATIENT REHAB External Planned Provider: [facility] INPATIENT REHAB DCP follow-up note: CM SPOKE TO PT IN ROOM, DISCUSSED [facility] NOT ACCEPTING DUE TO NO DIALYSIS UNIT AVAILABLE IN SERVICE AREA. PT WOULD LIKE TO BE CONSIDERED AT [facility] [place]. CHOICE SIGNED. CM SPOKE TO [facility] WHO INFORMED CM THAT THERE ARE NO OPENINGS FOR OUTPATIENT DIALYSIS AT THE [employer] [facility]. CM SPOKE TO PT AND FAMILY IN ROOM, DISCUSSED SHE[facility]TER IN [place] WHERE THE NEXT CLOSEST OUTPATIENT DIALYSIS UNIT TO PT'S HOME. CM PROVIDED LISTING OF SHELTER FACILITIES WITHIN 50 MILES OF PT'S HOME FROM MEDICARE WEBSITE. PT AND FAMILY WOULD LIKE TO BE CONSIDERED FOR INPATIENT REHAB AT [place] WITH PLAN TO RETURN HOME AT DISCHARGE FROM REHAB. PT NOW DOES NOT WANT TO GO TO [facility] FOR REHAB. ORDER FOR INPATIENT REHAB PRESCREEN OBTAINED. [facility]PATIENT REHAB NOTIFIED. IMPORTANT MESSAGE FROM MEDICARE PROVIDED AND EXPLAINED. CM WAITING ON OCCUPATIONAL THERAPY EVALUATION, INPATIENT REHAB PRESCREEN AND INSURANCE DETERMINATION FOR INPATIENT REHAB SERVICES. Jd Ahuja, CASE MANAGEMENT DCP- Discharge Planning Updated by [id number]: Dulce Maria Stubbs on 12/08/18 3:[address] JAYDA WITH AT [facility] STATED THAT THEY HAVE AUTH FOR [facility]. WILL DC TO [facility] WHEN SHE IS STABLE FOR DISCHARGE DCP- Discharge Planning Updated by [id number]: Dulce Maria Stubbs on 12/05/18 10:[address] SPOKE WITH JAYDA AT [facility] (SKILLED FACILITY IN [employer]) SHE STATED THAT THE PATIENT WILL NEED TO BE PREAUTH BEFORE SHE CAN RETURN SENT CLINICALS TO [phone]. I TOLD HER THAT I ANTICIPATE HER TO BE DISCHARGED SOON DCP- Discharge Planning Updated by [id number]: Rosa Hull on 11/29/18 5:[address] Patient Name: ERROL TATE Admission Status: ER Accout number: [id number] Admission Date: 11-29-2018 : 1945 Admission Diagnosis: Attending: VALENTIN SOL Current LOS: 1 Anticipated DC Date: 12-01-2018 Planned Disposition: Detention Facility - [facility] Primary Insurance: [facility] [employer] [employer]IONS Discharge Planning Comments: CM met with patient to complete initial dc planning assessment. Patient asleep at this time. CM called her son Jarod Tate, , and educated him on the CM role and verbal consent given by him to complete assessment. Patient is currently in rehab at [facility], . Her son reports she will return there when she is discharged to complete her rehab. He denied further known dc needs at this time. CM will continue to follow and will assist as needed with dc plans/needs. Legislative Correspondent: Rosa Hull RN, [facility] DCPIA - Discharge Planning Initial Assessment Updated by [email or web address]: Rosa Hull on 11/29/18 6:11 pm * How many steps to enter\exit or inside your home? None * PCP Dr. Kevin Gold, [place] * Pharmacy [facility] * Preadmission Environment Detention Facility * Facility Name [facility] [phone] * ADLs Partial Dependent * Partial ADLs (Assistance needed) Ambulation Bathing Medication Management Transfers * Equipment Cane Oxygen Rolling Walker Wheelchair * Other Equipment Wears Oxygen qhs * List name and contact numbers for known caregivers / representatives who currently or will assist patient after discharge: Miya Robbins - - [phone] Jarod steele - [phone] * Community resources currently utilized Other * Please name any agencies selected above. Rehab * Additional services required to return to the preadmission environment? No * Can the patient safely return to the preadmission environment? Yes * Has this patient been hospitalized within the prior 30 days at any hospital? Yes External Providers External Provider: OTHER-OTHER Next Contact Date: Service Request Date: Service Type: Resolution: Reviewer: Comments: Coverage Notice Reviewer: [id number] Ahuja Notice Issued Date-Time: 12/15/2018 9:00 Notice Type: IM Discharge Notice Notice Delivered To: Patient Relationship to Patient: Resort Keeper Name: Delivery Method: HAND - Hand Delivered Bridget Days: Prior Verbal Notification: Recipient Understood Notice: Yes Recipient Signature: Yes Med Rec Note Co-signed by Attending: Coverage Notice Comment: Reviewer: [email or web address] Ahuja Notice Issued Date-Time: 12/16/2018 9:00 Notice Type: Patient Choice Letter Notice Delivered To: Patient Relationship to Patient: Resort Keeper Name: Delivery Method: HAND - Hand Delivered Bridget Days: Prior Verbal Notification: Recipient Understood Notice: Yes Recipient Signature: Yes Med Rec Note Co-signed by Attending: Coverage Notice Comment: [facility] Reviewer: [id number] Ahuja Notice Issued Date-Time: 12/20/2018 9:05 Notice Type: Patient Choice Letter Notice Delivered To: Patient Relationship to Patient: Resort Keeper Name: Delivery Method: HAND - Hand Delivered Bridget Days: Prior Verbal Notification: Recipient Understood Notice: Yes Recipient Signature: Yes Med Rec Note Co-signed by Attending: Coverage Notice Comment: ANY SNF IN [place] Reviewer: [id number] - Jd Ahuja Notice Issued Date-Time: 12/20/2018 9:05 Notice Type: IM Discharge Notice Notice Delivered To: Patient Relationship to Patient: Resort Keeper Name: Delivery Method: HAND - Hand Delivered Bridget Days: Prior Verbal Notification: Recipient Understood Notice: Yes Recipient Signature: Yes Med Rec Note Co-signed by Attending: Coverage Notice Comment: Last DP export: 12/22/18 4:17 p Patient Name: ERROL TATE Page [id number] at 1149 All edits/amendments must be made on the electronic document DICTATION DATE: 12/26/18 1149 TAPE CONTROL SKIN OR SPAR MILL OPERATOR: CLEM 12/26/18 1149 RPT#: [id number] DC DATE: STATUS: ADM IN [facility] [address] [place] [address] END OF REPORT
[2018-12-26 12:00] VITALS: BP 142/46
[2018-12-26 16:20] VITALS: BP 137/47
--- NOTE | 2018-12-26 16:50 | NUR ---
OT NOTE: PT COMPLETED BED MOB TASKS WITH MAX A. PT COMPLETED LUE POSITIONING WITH MOD A . PT COMPLETED FACE WASHING WITH MIN A USING RUE. [id number] THANK YOU, AMARIS MEJIA
[2018-12-26 20:00] VITALS: BP 137/59
--- NOTE | 2018-12-26 20:45 | NUR ---
PT REST IN BED, FAMILY MEMBER AT BEDSIDE. CALL LIGHT IN REACH.
[2018-12-27] VITALS: BP 148/52
--- NOTE | 2018-12-27 03:49 | NUR ---
I have reviewed this patient and I concur with the Shift Assessment completed by the Licensed Practical Nurse today this shift.
[2018-12-27 04:00] VITALS: BP 142/56
[2018-12-27 07:07] LABS: BASOPHILS 0.3 % (0-2); EOSINOPHILS 3.7 % (0-7); HEMATOCRIT 28.5 % (36.0-48.0); HEMOGLOBIN 9.3 g/dL (12-16); IMMATURE GRANULOCYTES 1.4 % (0-5); LYMPHOCYTES 7.1 % (15-50); MCH 29.6 pg (26.0-34.0); MCHC 32.6 g/dL (31.0-37.0); MCV 90.8 fL (80.0-100.0); MEAN PLATELET VOLUME 9.8 fL (7.4-10.4); MONOCYTES 11.5 % (2-11); PLATELET COUNT 138 10x3/uL (130-400); RBC 3.14 10x6/uL (4.00-5.40); RDW 19.3 % (11.5-14.5); WBC 11.5 10x3/uL (4.8-10.8)
--- NOTE | 2018-12-27 07:25 | NUR ---
AM ROUNDS- PT RESTING COMFORTABLY WITH EYES CLOSED. EASILY AROUSES TO VOICE. PT A/O X4, RESP EVEN AND NONLABORED ON 2L. RT CHEST HEMOSLIT CDI BIOPATCH IN PLACE. LT ARM FISTULA NOTED WITH THRILL AND BRUIT. LT ARM SWOLLEN WITH 2+ EDEMA TO HAND. PT DENIES ANY NEEDS AT THSI TIME. CALL LIGHT IN REACH, DAUGHTER AT BEDSIDE, NAD NOTED,W ILL CONITNUE PLAN OF CARE.
[2018-12-27 07:39] LABS: ALBUMIN 1.7 g/dL (3.4-5.0); ANION GAP 17.6 mmol/L (8-16); BILIRUBIN - TOTAL 0.51 mg/dL (0.2-1.3); CALCIUM 8.3 mg/dL (8.5-10.1); CARBON DIOXIDE 23.5 mmol/L (21.0-32.0); CREATININE - SERUM 4.3 mg/dL (0.6-1.3); POTASSIUM - SERUM 5.1 mmol/L (3.5-5.1); PROTEIN - SERUM 5.6 g/dL (6.4-8.2)
[2018-12-27 08:57] VITALS: BP 137/50
--- NOTE | 2018-12-27 09:10 | NUR ---
AM MEDS GIVEN AT THIS TIME. PT REFUSED MIRALAX AND APRESOLINE. ALSO GAVE NORCO FOR PAIN LEVEL OF 10/10. PT EATING BREAKFAST, DENIES ANY OTHER NEEDS AT THIS TIME. CALL LIGHT IN REACH, FAMILY AT BEDSIDE, NAD NOTED,W ILL CONTINUE TO MONITOR.
--- NOTE | 2018-12-27 10:15 | NUR ---
PT TO DIALYSIS VIA BED AT THIS TIME.
--- NOTE | 2018-12-27 13:25 | NUR ---
PT BACK TO ROOM FROM DIALYSIS.C/O PAIN, GAVE NORCO FOR PAIN LEVEL OF 10/10. PT FIXING TO EAT LUNCH, DENIES ANY OTHER NEEDS AT THIS TIME. CALL LIGHT IN REACH, NAD NOTED, WILL CONTINUE TO MONITOR.
--- NOTE | 2018-12-27 14:14 | NUR ---
Nutrition Follow Up: Renal ADA diet Nepro ordered Pt is eating 89% on average Weight 151lb Spoke with pt about nutrition and pt reports no nutritional requests at this time RD following
--- NOTE | 2018-12-27 14:37 | NUR ---
PROVIDED DRESSING CHANGE TO LT LOWER LEG/FOOT. CLEANED WITH WOUND COAGULATING DRYING SUPERVISOR AND APPLIED ADAPTIC DRESSING AND COVERED WITH 4X4 AND KERLEX.
[2018-12-27 16:11] VITALS: BP 138/50
[2018-12-27 20:00] VITALS: BP 134/48
--- NOTE | 2018-12-27 22:18 | NUR ---
PT C/O PAIN IN BACK, AT A LEVEL OF 8, NORCO 10 GIVEN ORDERED.
[2018-12-28 00:30] VITALS: BP 144/45
--- NOTE | 2018-12-28 02:56 | NUR ---
REST QUIELTY IN BED, CALL LIGHT IN REACH, FAMILY MEMBER AT BEDSIDE.
--- NOTE | 2018-12-28 04:11 | NUR ---
I have reviewed this patient and I concur with the Shift Assessment completed by the Licensed Practical Nurse today this shift.
[2018-12-28 05:00] VITALS: BP 152/55
--- NOTE | 2018-12-28 07:21 | NUR ---
AM ROUNDS- PT RECEIVING AN UPDRAFT AT THIS TIME. DENIES ANY NEEDS, FAMILY AT BEDSIDE, CALL LIGHT IN REACH, NAD NOTED, WILL CONTINUE PLAN OF CARE.
[2018-12-28 08:39] VITALS: BP 142/53
[2018-12-28 11:51] VITALS: BP 136/58
--- NOTE | 2018-12-28 12:38 | NUR ---
BLOOD SUGAR OF 197, 2UNIT OF HUMULIN GIVEN PER S/S. PT UP TO CHAIR, DENIES ANY NEEDS AT THIS TIME. CALL LIGHT IN REACH, FAMILY AT BEDSIDE, NAD NOTED, WILL CONTINUE TO MONITOR.
--- NOTE | 2018-12-28 13:32 | NUR ---
OT NOTE: PT PERFORMED BETTER TODAY. BED MOB WITH MOD ASSIST; SITTING ON EOB WITH SPV AND GOOD SITTING BALANCE. ABLE TO AMB WITH ASSIST OF OT AND PT WITH MIN ASSIST, GAIT BELT, 02, AND MAX ENCOURAGEMENT..PT ABLE TO AMB APPROX 10-12 FT WHICH IS THE FURTHEST SHE HAS AMB IN EXTENDED TIME. POSITIONED PT IN CHAIR WITH FEET ELEVATED. ([phone]) LARRY RODRIGUEZ, OTR/L
--- NOTE | 2018-12-28 13:55 | NUR ---
GAVE NORCO FOR PAIN LEVEL OF 10/10. PT STILL UP TO CHAIR, DENIES ANY NEEDS AT THIS TIME. CALL LIGHT IN REACH, NAD NOTED, WILL CONTINUE TO MONITOR.
--- NOTE | 2018-12-28 14:15 | MORECARE ---
CASE MANAGEMENT DISCHARGE SUMMARY PATIENT: ERROL TATE UNIT: [id number] ADM DATE: 11/29/18 AGE: 73 : 45 SEX: F ROOM/BED: D.4024 AUTHOR: JOSE,DOC PHYSICIAN: REFERRING PHYSICIAN: VALENTIN SOL MD DATE OF SERVICE: 12/28/18 Discharge Plan Patient Name: ERROL TATE Facility: [facility]:[place] : 1945 Planned Disposition: [facility] Facility Anticipated Discharge Date: 12/29/18 Discharge Date: Expected LOS: 30 Initial Reviewer: [email or web address] Initial Review Date: 11/29/2018 Generated: 12/28/18 3:14 pm DCP- Discharge Planning Updated by [id number]: Bhumika Dodge on 12/26/18 10:[address] Patient Name: ERROL TATE Admission Status: ER Accout number: [id number] Admission Date: 11-29-2018 : 1945 Admission Diagnosis:GASTROINTESTINAL HEMORRHAGE, UNSPECIFIED Attending: VALENTIN SOL Current LOS: 27 Anticipated DC Date: 12-01-2018 Planned Disposition: [facility] Facility Primary Insurance: [facility] MEDICARE SOLUTIONS Discharge Planning Comments: UPDATED DOCUMENTS SENT TO [facility] WHOM IS SETTING UP PATIENT'S DIALYSIS. WAITING FOR CALL BACK. CM TO FOLLOW AND ASSIST NEEDED WITH DC PLANNING/NEEDS. Medical And Scientific Illustrator: Bhumika Dodge DCP- Discharge Planning Updated by [id number]: Jd Ahuja on 12/22/18 4:[address] Patient Name: ERROL TATE Encounter No: [id number] : 1945 Primary Insurance: [facility] MEDICARE SOLUTIONS Anticipated DC Date: 12-01-2018 Planned Disposition: [facility] Facility External Planned Provider: [facility], MEDICARE REHAB BED DCP follow-up note: VLAD RECEIVED CALL FROM CRYS AT [facility] , , WHO REQUESTED UPDATE. VLAD EXPLAINED THAT THE DIALYSIS UNIT STILL HAS NOT ACCEPTED PT. [facility] WILL ACCEPT WHEN DIALYSIS UNIT IS ARRANGED. VLAD FAXED UPDATE TO [facility] AT [phone]. [facility] WORKING ON OUTPATIENT DIALYSIS UNIT IN [place], PT'S H&H TRENDING DOWN, WBC TRENDING UP. THE DIALYSIS CLINIC IS GOING TO WANT STABLE LABS TO ACCEPT. PT WILL NEED TO DEMONSTRATE DOCUMENTED ABILITY TO SIT GREATER THAN THREE HOURS TO TRANSFER AND SIT FOR OUTPATIENT DIALYSIS UNIT TO ACCEPT. Jd Ahuja, CASE MANAGEMENT DCP- Discharge Planning Updated by [id number]: Cherry Rowell on 12/22/18 10:[address] SPOKE WITH [facility] CHE[facility], DIALYSIS COORDINATOR, TO SEE WHERE WE WERE WITH THE PATIENTS PLACEMENT. SHE HAS STATED THAT THE UNIT IS REQUESTING MORE RECORDS ON HER. I HAVE FAXED [facility] THE REQUESTED RECORDS TO [phone]. I WILL CONTINUE TO FOLLOW UP. DCP- Discharge Planning Updated by [id number]: Jd Ahuja on 12/21/18 2:[address] Patient Name: ERROL TATE Encounter No: [id number] : 1945 Primary Insurance: [facility] MEDICARE SOLUTIONS Anticipated DC Date: 12-01-2018 Planned Disposition: [facility] Facility External Planned Provider: [facility], MEDICARE REHAB BED DCP follow-up note: CM RECEIVED CALL FROM BARRY AT [phone] WHO ADVISED NO OPEN REHAB BEDS AND SHE ASKED FOR PERMISSION TO FORWARD REFERRAL TO HER SISTER FACILITY IN [place]. CM ASKED FOR THIS TO BE DONE, LICO AT [facility] TO CALL CM TODAY. CM TO FOLLOW UP WITH [facility] AT [phone]. CM WAITING ADMISSION DETERMINATIONS FROM [facility] AND [facility]. [facility] WORKING ON OUTPATIENT DIALYSIS UNIT IN [place]. Jd Ahuja, CASE MANAGEMENT Appended by Jd Ahuja on 12/21/2018 15:37 CDT: CM RECEIVED CALL FROM KIMMY FORBES OF [facility], , WHO REPORTS THAT THEY WILL ACCEPT PT AND WOULD LIKE MWF OUTPATIENT DIALYSIS SCHEDULE IF POSSIBLE BUT WILL WORK WITH ANY AVAILABLE DIALYSIS SCHEDULE. CM RECEIVED CALL FROM FRANCISCO, , WHO INFORMED CM THAT [facility] IS STILL CONSIDERING PT, WAITING ON OUTPATIENT DIALYSIS DAYS; PT WILL NEED TO BE ABLE TO DEMONSTRATE ABILITY TO SIT FOR THREE HOURS FOR TRANSPORT AND OUTPATIENT DIALYSIS. CM NOTIFIED PT AND FAMILY IN ROOM. PT REPORTS ABILITY TO SIT FOR DURATION OF TRANSPORT AND DIALYSIS. CM EXPLAINED THAT THERAPY WILL CONTINUE TO WORK WITH HER TO ENSURE HER ABILITY IS DOCUMENTED. CM WAITING ADMISSION DETERMINATIONS FROM [facility]. [facility] WORKING ON OUTPATIENT DIALYSIS UNIT IN [place]. PT WILL HAVE TO DEMONSTRATE ABILITY TO TRANSFER AND SIT FOR TRANSPORT AND DURATION OF OUTPATIENT DIALYSIS, THREE OR MORE HOURS. Jd Ahuja CASE MANAGEMENT DCP- Discharge Planning Updated by [id number]: Jd Ahuja on 12/20/18 3:[address] Patient Name: ERROL TATE Encounter No: [id number] : 1945 Primary Insurance: [facility] MEDICARE SOLUTIONS Anticipated DC Date: 12-01-2018 Planned Disposition: [facility] Facility External Planned Provider: [facility] MEDICARE REHAB BED DCP follow-up note: CM SPOKE TO PT IN ROOM REGARDING INSURANCE DENIAL FOR INPATIENT REHAB AND ASKED ABOUT CHOICES FOR CUSTODIAL. PT STATES THAT THEY HAVE NO CHOICE FOR REHAB IN [place], PROVIDER LISTING PREVIOUSLY PROVIDED; PT SIGNED CHOICE FOR ANY CUSTODIAL IN [place]. IMPORTANT MESSAGE FROM MEDICARE PROVIDED AND EXPLAINED. CM RECEIVED CALL FROM JAROD MOSCOSO, PT'S SON, , WHO WANTS ONLY REFERRED TO 4 OR 5 [place] FACILITIES. CM FAXED REFERRALS TO [facility] AT [phone] AND [facility] [phone]. CM TO FOLLOW UP WITH [facility] AT [phone] AND [facility] AT [phone]. CM WAITING ADMISSION DETERMINATIONS FROM BOTH FACILITIES. CM NOTIFIED [facility] TO REQUEST OUTPATIENT DIALYSIS UNIT IN [place]. BENJA Lockett MANAGEMENT DCP- Discharge Planning Updated by [id number]: Jd Ahuja on 12/16/18 7:[address] Patient Name: ERRLO TATE Encounter No: [id number] : 1945 Primary Insurance: [facility] MEDICARE SOLUTIONS Anticipated DC Date: 12-01-2018 Planned Disposition: INPATIENT REHAB External Planned Provider: [facility] INPATIENT REHAB DCP follow-up note: CM SPOKE TO PT IN ROOM, DISCUSSED [facility] NOT ACCEPTING DUE TO NO DIALYSIS UNIT AVAILABLE IN SERVICE AREA. PT WOULD LIKE TO BE CONSIDERED AT [facility] [place]. CHOICE SIGNED. CM SPOKE TO [facility] WHO INFORMED CM THAT THERE ARE NO OPENINGS FOR OUTPATIENT DIALYSIS AT THE [place] UNIT. CM SPOKE TO PT AND FAMILY IN ROOM, DISCUSSED CUSTODIAL IN [place] WHERE THE NEXT CLOSEST OUTPATIENT DIALYSIS UNIT TO PT'S HOME. CM PROVIDED LISTING OF CUSTODIAL FACILITIES WITHIN 50 MILES OF PT'S HOME FROM MEDICARE WEBSITE. PT AND FAMILY WOULD LIKE TO BE CONSIDERED FOR INPATIENT REHAB AT [place] WITH PLAN TO RETURN HOME AT DISCHARGE FROM REHAB. PT NOW DOES NOT WANT TO GO TO CUSTODIAL FOR REHAB. ORDER FOR INPATIENT REHAB PRESCREEN OBTAINED. [facility] OF INPATIENT REHAB NOTIFIED. IMPORTANT MESSAGE FROM MEDICARE PROVIDED AND EXPLAINED. CM WAITING ON OCCUPATIONAL THERAPY EVALUATION, INPATIENT REHAB PRESCREEN AND INSURANCE DETERMINATION FOR INPATIENT REHAB SERVICES. Jd Ahuja, CASE MANAGEMENT DCP- Discharge Planning Updated by [id number]: Dulce Maria Stubbs on 12/08/18 3:[address] JAYDA WITH AT [facility] STATED THAT THEY HAVE AUTH FOR [facility]. WILL DC TO [facility] WHEN SHE IS STABLE FOR DISCHARGE DCP- Discharge Planning Updated by [id number]: Dulce Maria Stubbs on 12/05/18 10:[address] SPOKE WITH JAYDA AT [facility] (SKILLED FACILITY IN [place]) SHE STATED THAT THE PATIENT WILL NEED TO BE PREAUTH BEFORE SHE CAN RETURN SENT CLINICALS TO [phone]. I TOLD HER THAT I ANTICIPATE HER TO BE DISCHARGED SOON DCP- Discharge Planning Updated by [id number]: Rosa Hull on 11/29/18 5:[address] Patient Name: ERROL TATE Admission Status: ER Accout number: [id number] Admission Date: 11-29-2018 : 1945 Admission Diagnosis: Attending: VALENTIN SOL Current LOS: 1 Anticipated DC Date: 12-01-2018 Planned Disposition: [facility] Facility - [facility] Primary Insurance: [facility] MEDICARE SOLUTIONS Discharge Planning Comments: CM met with patient to complete initial dc planning assessment. Patient asleep at this time. CM called her son Jarod Tate, , and educated him on the CM role and verbal consent given by him to complete assessment. Patient is currently in rehab at [facility], . Her son reports she will return there when she is discharged to complete her rehab. He denied further known dc needs at this time. CM will continue to follow and will assist as needed with dc plans/needs. Medical And Scientific Illustrator: Rosa Hull RN, [facility] DCPIA - Discharge Planning Initial Assessment Updated by [id number]: Rosa Hull on 11/29/18 6:11 pm * How many steps to enter\exit or inside your home? None * PCP Dr. Kevin Gold, [place] * Pharmacy [facility] * Preadmission Environment [facility] Facility * Facility Name [facility] [phone] * ADLs Partial Dependent * Partial ADLs (Assistance needed) Ambulation Bathing Medication Management Transfers * Equipment Cane Oxygen Rolling Walker Wheelchair * Other Equipment Wears Oxygen qhs * List name and contact numbers for known caregivers / representatives who currently or will assist patient after discharge: Miya Robbins - sister - [phone] Jarod steele - [phone] * Community resources currently utilized Other * Please name any agencies selected above. Rehab * Additional services required to return to the preadmission environment? No * Can the patient safely return to the preadmission environment? Yes * Has this patient been hospitalized within the prior 30 days at any hospital? Yes Coverage Notice Reviewer: [id number] Ahuja Notice Issued Date-Time: 12/15/2018 9:00 Notice Type: IM Discharge Notice Notice Delivered To: Patient Relationship to Patient: Apprentice Machinist Outside Name: Delivery Method: HAND - Hand Delivered Bridget Days: Prior Verbal Notification: Recipient Understood Notice: Yes Recipient Signature: Yes Med Rec Note Co-signed by Attending: Coverage Notice Comment: Reviewer: [id number] Ahuja Notice Issued Date-Time: 12/16/2018 9:00 Notice Type: Patient Choice Letter Notice Delivered To: Patient Relationship to Patient: Apprentice Machinist Outside Name: Delivery Method: HAND - Hand Delivered Bridget Days: Prior Verbal Notification: Recipient Understood Notice: Yes Recipient Signature: Yes Med Rec Note Co-signed by Attending: Coverage Notice Comment: [facility] Reviewer: [id number] Ahuja Notice Issued Date-Time: 12/20/2018 9:05 Notice Type: Patient Choice Letter Notice Delivered To: Patient Relationship to Patient: Apprentice Machinist Outside Name: Delivery Method: HAND - Hand Delivered Bridget Days: Prior Verbal Notification: Recipient Understood Notice: Yes Recipient Signature: Yes Med Rec Note Co-signed by Attending: Coverage Notice Comment: ANY SNF IN [place] Reviewer: [id number] - Jd Ahuja Notice Issued Date-Time: 12/20/2018 9:05 Notice Type: IM Discharge Notice Notice Delivered To: Patient Relationship to Patient: Apprentice Machinist Outside Name: Delivery Method: HAND - Hand Delivered Bridget Days: Prior Verbal Notification: Recipient Understood Notice: Yes Recipient Signature: Yes Med Rec Note Co-signed by Attending: Coverage Notice Comment: Last DP export: 12/26/18 10:49 a Patient Name: ERROL TATE Page 84209 at 1415 All edits/amendments must be made on the electronic document DICTATION DATE: 12/28/181413 MANNEQUIN MOUNTER: CLEM 12/28/181413 RPT#: [id number] DC DATE: STATUS: ADM IN [facility] [address] [place] [address] END OF REPORT
--- NOTE | 2018-12-28 14:22 | MORECARE ---
CASE MANAGEMENT DISCHARGE SUMMARY PATIENT: ERROL TATE UNIT: [id number] ADM DATE: 11/29/18 AGE: 73 : 45 SEX: F ROOM/BED: D.2134 AUTHOR: AHSAN GARCIA PHYSICIAN: REFERRING PHYSICIAN: VALENTIN SOL MD DATE OF SERVICE: 12/28/18 Discharge Plan Patient Name: ERROL TATE Facility: [facility]:[place] : 1945 Planned Disposition: [facility] Anticipated Discharge Date: 12/29/18 Discharge Date: Expected LOS: 30 Initial Reviewer: [id number] Initial Review Date: 11/29/2018 Generated: 12/28/18 3:22 pm Comments DCP- Discharge Planning Updated by [id number]: Jd Ahuja on 12/28/18 1:[address] Patient Name: ERROL TATE Encounter No: [id number] : 1945 Primary Insurance: [facility] MEDICARE SOLUTIONS Anticipated DC Date: 12-29-2018 Planned Disposition: [facility] Facility External Planned Provider: [facility], MEDICARE REHAB BED DCP follow-up note: CM RECEIVED CALL FROM DCP- Discharge Planning Updated by [id number]: Bhumika Bautista on 12/26/18 10:[address] Patient Name: ERROL TATE Admission Status: ER Accout number: [id number] Admission Date: 11-29-2018 : 1945 Admission Diagnosis:GASTROINTESTINAL HEMORRHAGE, UNSPECIFIED Attending: VALENTIN SOL Current LOS: 27 Anticipated DC Date: 12-01-2018 Planned Disposition: [facility] Primary Insurance: [facility] MEDICARE SOLUTIONS Discharge Planning Comments: UPDATED DOCUMENTS SENT TO [facility] WHOM IS SETTING UP PATIENT'S DIALYSIS. WAITING FOR CALL BACK. CM TO FOLLOW AND ASSIST NEEDED WITH DC PLANNING/NEEDS. Poly Area Supervisor: Bhumika Bautista DCP- Discharge Planning Updated by [id number]: Jd Ahuja on 12/22/18 4:[address] Patient Name: ERROL TATE Encounter No: [id number] : 1945 Primary Insurance: [facility] MEDICARE SOLUTIONS Anticipated DC Date: 12-01-2018 Planned Disposition: [facility] Facility External Planned Provider: [facility], MEDICARE REHAB BED DCP follow-up note: VLAD RECEIVED CALL FROM CRYS AT [facility] , , WHO REQUESTED UPDATE. VLAD EXPLAINED THAT THE DIALYSIS UNIT STILL HAS NOT ACCEPTED PT. [facility] WILL ACCEPT WHEN DIALYSIS UNIT IS ARRANGED. VLAD FAXED UPDATE TO [facility] AT [phone]. [facility] WORKING ON OUTPATIENT DIALYSIS UNIT IN [place], PT'S H&H TRENDING DOWN, WBC TRENDING UP. THE DIALYSIS CLINIC IS GOING TO WANT STABLE LABS TO ACCEPT. PT WILL NEED TO DEMONSTRATE DOCUMENTED ABILITY TO SIT GREATER THAN THREE HOURS TO TRANSFER AND SIT FOR OUTPATIENT DIALYSIS UNIT TO ACCEPT. Jd Ahuja, CASE MANAGEMENT DCP- Discharge Planning Updated by [id number]: Cherry Rowell on 12/22/18 10:[address] SPOKE WITH MALCOLM CHESTER, DIALYSIS COORDINATOR, TO SEE WHERE WE WERE WITH THE PATIENTS PLACEMENT. SHE HAS STATED THAT THE UNIT IS REQUESTING MORE RECORDS ON HER. I HAVE FAXED [facility] THE REQUESTED RECORDS TO [phone]. I WILL CONTINUE TO FOLLOW UP. DCP- Discharge Planning Updated by [id number]: Jd Ahuja on 12/21/18 2:[address] Patient Name: ERROL TATE Encounter No: [id number] : 1945 Primary Insurance: [facility] MEDICARE SOLUTIONS Anticipated DC Date: 12-01-2018 Planned Disposition: [facility] Facility External Planned Provider: [facility] MEDICARE REHAB BED DCP follow-up note: VLAD RECEIVED CALL FROM BARRY AT [phone] WHO ADVISED NO OPEN REHAB BEDS AND SHE ASKED FOR PERMISSION TO FORWARD REFERRAL TO HER SISTER FACILITY IN [place]. CM ASKED FOR THIS TO BE DONE, LICO AT [facility] TO CALL CM TODAY. CM TO FOLLOW UP WITH [facility]ILL[facility] AT [phone]. CM WAITING ADMISSION DETERMINATIONS FROM [facility] AND [facility]. [facility] WORKING ON OUTPATIENT DIALYSIS UNIT IN [place]. Jd Ahuja, CASE MANAGEMENT Appended by Jd Ahuja on 12/21/2018 15:37 CDT: CM RECEIVED CALL FROM KIMMY FORBES OF [facility], , WHO REPORTS THAT THEY WILL ACCEPT PT AND WOULD LIKE MWF OUTPATIENT DIALYSIS SCHEDULE IF POSSIBLE BUT WILL WORK WITH ANY AVAILABLE DIALYSIS SCHEDULE. CM RECEIVED CALL FROM [facility]ANC[facility], , WHO INFORMED CM THAT [facility] IS STILL CONSIDERING PT, WAITING ON OUTPATIENT DIALYSIS DAYS; PT WILL NEED TO BE ABLE TO DEMONSTRATE ABILITY TO SIT FOR THREE HOURS FOR TRANSPORT AND OUTPATIENT DIALYSIS. CM NOTIFIED PT AND FAMILY IN ROOM. PT REPORTS ABILITY TO SIT FOR DURATION OF TRANSPORT AND DIALYSIS. CM EXPLAINED THAT THERAPY WILL CONTINUE TO WORK WITH HER TO ENSURE HER ABILITY IS DOCUMENTED. CM WAITING ADMISSION DETERMINATIONS FROM [facility]. [facility] WORKING ON OUTPATIENT DIALYSIS UNIT IN [place]. PT WILL HAVE TO DEMONSTRATE ABILITY TO TRANSFER AND SIT FOR TRANSPORT AND DURATION OF OUTPATIENT DIALYSIS, THREE OR MORE HOURS. Jd Ahuja CASE MANAGEMENT DCP- Discharge Planning Updated by [id number]: Jd Ahuja on 12/20/18 3:[address] Patient Name: ERROL TATE Encounter No: [id number] : 1945 Primary Insurance: [facility] MEDICARE SOLUTIONS Anticipated DC Date: 12-01-2018 Planned Disposition: [facility] Facility External Planned Provider: [facility], MEDICARE REHAB BED DCP follow-up note: CM SPOKE TO PT IN ROOM REGARDING INSURANCE DENIAL FOR INPATIENT REHAB AND ASKED ABOUT CHOICES FOR FPC. PT STATES THAT THEY HAVE NO CHOICE FOR REHAB IN [place], PROVIDER LISTING PREVIOUSLY PROVIDED; PT SIGNED CHOICE FOR ANY FPC IN [place]. IMPORTANT MESSAGE FROM MEDICARE PROVIDED AND EXPLAINED. CM RECEIVED CALL FROM JAROD MOSCOSO, PT'S SON, , WHO WANTS ONLY REFERRED TO 4 OR 5 [place] FACILITIES. CM FAXED REFERRALS TO [facility] AT [phone] AND [facility] [phone]. CM TO FOLLOW UP WITH ANTWAN AT [phone] AND [facility] AT [phone]. CM WAITING ADMISSION DETERMINATIONS FROM BOTH FACILITIES. CM NOTIFIED [facility] TO REQUEST OUTPATIENT DIALYSIS UNIT IN [place]. Jd Ahuja, CASE MANAGEMENT DCP- Discharge Planning Updated by [id number]: Jd Ahuja on 12/16/18 7:[address] Patient Name: ERROL TATE Encounter No: [id number] : 1945 Primary Insurance: [facility] MEDICARE [employer] Anticipated DC Date: 12-01-2018 Planned Disposition: INPATIENT REHAB External Planned Provider: [facility] INPATIENT REHAB DCP follow-up note: CM SPOKE TO PT IN ROOM, DISCUSSED [facility] NOT ACCEPTING DUE TO NO DIALYSIS UNIT AVAILABLE IN SERVICE AREA. PT WOULD LIKE TO BE CONSIDERED AT [facility] [place]. CHOICE SIGNED. CM SPOKE TO [facility] WHO INFORMED CM THAT THERE ARE NO OPENINGS FOR OUTPATIENT DIALYSIS AT [facility]. CM SPOKE TO PT AND FAMILY IN ROOM, DISCUSSED FPC IN [place] WHERE THE NEXT CLOSEST OUTPATIENT DIALYSIS UNIT TO PT'S HOME. CM PROVIDED LISTING OF FPC FACILITIES WITHIN 50 MILES OF PT'S HOME FROM MEDICARE WEBSITE. PT AND FAMILY WOULD LIKE TO BE CONSIDERED FOR INPATIENT REHAB AT [place] WITH PLAN TO RETURN HOME AT DISCHARGE FROM REHAB. PT NOW DOES NOT WANT TO GO TO FPC FOR REHAB. ORDER FOR INPATIENT REHAB PRESCREEN OBTAINED. [facility] OF INPATIENT REHAB NOTIFIED. IMPORTANT MESSAGE FROM MEDICARE PROVIDED AND EXPLAINED. CM WAITING ON OCCUPATIONAL THERAPY EVALUATION, INPATIENT REHAB PRESCREEN AND INSURANCE DETERMINATION FOR INPATIENT REHAB SERVICES. Jd Ahuja, CASE MANAGEMENT DCP- Discharge Planning Updated by [id number]: Dulce Maria Stubbs on 12/08/18 3:[address] JAYDA WITH AT [facility] STATED THAT THEY HAVE AUTH FOR [facility]. WILL DC TO [facility] WHEN SHE IS STABLE FOR DISCHARGE DCP- Discharge Planning Updated by [id number]: Dulce Maria Stubbs on 12/05/18 10:[address] SPOKE WITH JAYDA AT [facility] (SKILLED FACILITY IN [place]) SHE STATED THAT THE PATIENT WILL NEED TO BE PREAUTH BEFORE SHE CAN RETURN SENT CLINICALS TO [phone]. I TOLD HER THAT I ANTICIPATE HER TO BE DISCHARGED SOON DCP- Discharge Planning Updated by [id number]: Rosa Hull on 11/29/18 5:[address] Patient Name: ERROL TATE Admission Status: ER Accout number: [id number] Admission Date: 11-29-2018 : 1945 Admission Diagnosis: Attending: VALENTIN SOL Current LOS: 1 Anticipated DC Date: 12-01-2018 Planned Disposition: [facility] Facility - [facility] Primary Insurance: [facility] MEDICARE SOLUTIONS Discharge Planning Comments: CM met with patient to complete initial dc planning assessment. Patient asleep at this time. CM called her son Jarod Tate, , and educated him on the CM role and verbal consent given by him to complete assessment. Patient is currently in rehab at [facility], . Her son reports she will return there when she is discharged to complete her rehab. He denied further known dc needs at this time. CM will continue to follow and will assist as needed with dc plans/needs. Poly Area Supervisor: Rosa Hull RN, [facility] DCPIA - Discharge Planning Initial Assessment Updated by [id number]: Rosa Hull on 11/29/18 6:11 pm * How many steps to enter\exit or inside your home? None * PCP Dr. Kevin Gold, [place] * Pharmacy [facility] * Preadmission Environment [facility] * Facility Name [place] [phone] * ADLs Partial Dependent * Partial ADLs (Assistance needed) Ambulation Bathing Medication Management Transfers * Equipment Cane Oxygen Rolling Walker Wheelchair * Other Equipment Wears Oxygen qhs * List name and contact numbers for known caregivers / representatives who currently or will assist patient after discharge: Miya Robbins - sister - [phone] Jarod Tate - son - [phone] * Community resources currently utilized Other * Please name any agencies selected above. Rehab * Additional services required to return to the preadmission environment? No * Can the patient safely return to the preadmission environment? Yes * Has this patient been hospitalized within the prior 30 days at any hospital? Yes Coverage Notice Reviewer: [id number] Ahuja Notice Issued Date-Time: 12/20/2018 9:05 Notice Type: Patient Choice Letter Notice Delivered To: Patient Relationship to Patient: Print Inspector Name: Delivery Method: HAND - Hand Delivered Bridget Days: Prior Verbal Notification: Recipient Understood Notice: Yes Recipient Signature: Yes Med Rec Note Co-signed by Attending: Coverage Notice Comment: ANY SNF IN [place] Reviewer: [id number] Ahuja Notice Issued Date-Time: 12/16/2018 9:00 Notice Type: Patient Choice Letter Notice Delivered To: Patient Relationship to Patient: Print Inspector Name: Delivery Method: HAND - Hand Delivered Bridget Days: Prior Verbal Notification: Recipient Understood Notice: Yes Recipient Signature: Yes Med Rec Note Co-signed by Attending: Coverage Notice Comment: [facility] Reviewer: [id number] Rome Ahuja Notice Issued Date-Time: 12/20/2018 9:05 Notice Type: IM Discharge Notice Notice Delivered To: Patient Relationship to Patient: Print Inspector Name: Delivery Method: HAND - Hand Delivered Bridget Days: Prior Verbal Notification: Recipient Understood Notice: Yes Recipient Signature: Yes Med Rec Note Co-signed by Attending: Coverage Notice Comment: Reviewer: [id number] Ahuja Notice Issued Date-Time: 12/15/2018 9:00 Notice Type: IM Discharge Notice Notice Delivered To: Patient Relationship to Patient: Print Inspector Name: Delivery Method: HAND - Hand Delivered Bridget Days: Prior Verbal Notification: Recipient Understood Notice: Yes Recipient Signature: Yes Med Rec Note Co-signed by Attending: Coverage Notice Comment: Last DP export: 12/28/18 1:15 p Patient Name: ERROL TATE Page 82810 at 1422 All edits/amendments must be made on the electronic document DICTATION DATE: 12/28/181421 EMERGENCY DEPT TECH: CLEM 12/28/18 142 RPT#: [id number] [place] DATE: STATUS: ADM IN [facility] [address] [place] [address] END OF REPORT
--- NOTE | 2018-12-28 14:30 | MORECARE ---
CASE MANAGEMENT DISCHARGE SUMMARY PATIENT: ERROL TATE UNIT: [id number] ADM DATE: 11/29/18 AGE: 73 : [birth year] SEX: F ROOM/BED: D.8705 AUTHOR: JOSE,DOC PHYSICIAN: REFERRING PHYSICIAN: VALENTIN SOL MD DATE OF SERVICE: 12/28/18 Discharge Plan Patient Name: ERROL TATE Facility: [facility]:[place] : 1945 Planned Disposition: Long-Term Facility Anticipated Discharge Date: 12/29/18 Discharge Date: Expected LOS: 30 Initial Reviewer: [id number] Initial Review Date: 11/29/2018 Generated: 12/28/18 3:30 pm Comments DCP- Discharge Planning Updated by [id number]: Jd Ahuja on 12/28/18 1:[address] Patient Name: ERROL TATE Encounter No: [id number] : 1945 Primary Insurance: [facility] MEDICARE SOLUTIONS Anticipated DC Date: 12-29-2018 Planned Disposition: Long-Term Facility External Planned Provider: [facility], MEDICARE REHAB BED DCP follow-up note: CM RECEIVED MESSAGE FROM [facility] THAT PT'S OUTPATIENT DIALYSIS IS ARRANGED, PT ACCEPTED AT [facility] IN [place]. CM RECEIVED CALL FROM CRYS AT [facility] , , WHO REQUESTED UPDATE. JOHN INFORMED CM THAT PT HAS OUTPATIENT DIALYSIS UNIT HAS ACCEPTED IN [place] FOR MWF, 1115 AM, CAN ADMIT FOR DIALYSIS ON 12-30-18. [facility] WILL ACCEPT BUT IS NOT ABLE TO PROVIDE TRANSPORT TO FACILITY AT HOSPITAL DISCHARGE. CM FAXED UPDATE TO [facility] AT [phone]. CM NOTIFIED PT AND SISTER IN ROOM. PT'S FAMILY WILL TRANSPORT BUT DOES NOT HAVE PORTABLE OXYGEN IN ROOM AND REMAIN CONCERNED ABOUT PT'S BLOOD IN STOOL. VLAD CALLED [facility] IN [place], , WAS INFORMED BY CECILIO THAT PT HAS QUALIFIED FOR PORTABLE OXYGEN, IT IS TOO FAR TO BRING TO HOSPITAL; CECILIO INFORMED CM THAT FAMILY CAN COUNTER CASER ETANK OF OXYGEN AT HIS LOCATION IN [place], IN [facility]. VLAD NOTIFIED PT'S FAMILY IN ROOM WHO WILL CALL PT'S BROTHER IN [place] WHO WILL COUNTER CASER OXYGEN E TANK AND DELIVER TO HOSPITAL FOR DISCHARGE TO REHAB IN [place]. OUTPATIENT DIALYSIS UNIT HAS ACCEPTED IN [place] FOR MWF, 1115 AM, CAN ADMIT FOR DIALYSIS ON 12-30-18. [facility] IN [place] ACCEPTING PT FOR REHAB AT DISCHARGE. FOR DISCHARGE, FAX DISCHARGE INFORMATION TO [facility], . NURSE REPORT TO BE CALLED TO [facility] AT [phone]. FAMILY TO COUNTER CASER OXYGEN AND PROVIDE TRANSPORTATION FROM HOSPITAL TO REHAB IN [place]. Jd Ahuja, CASE MANAGEMENT DCP- Discharge Planning Updated by [id number]: Bhumika Dodge on 12/26/18 10:[address] Patient Name: ERROL TATE Admission Status: ER Accout number: [id number] Admission Date: 11-29-2018 : 1945 Admission Diagnosis:GASTROINTESTINAL HEMORRHAGE, UNSPECIFIED Attending: VALENTIN SOL Current LOS: 27 Anticipated DC Date: 12-01-2018 Planned Disposition: Long-Term Facility Primary Insurance: [facility] MEDICARE SOLUTIONS Discharge Planning Comments: UPDATED DOCUMENTS SENT TO [facility] WHOM IS SETTING UP PATIENT'S DIALYSIS. WAITING FOR CALL BACK. CM TO FOLLOW AND ASSIST NEEDED WITH DC PLANNING/NEEDS. Music Publicist: Bhumika Dodge DCP- Discharge Planning Updated by [id number]: dJ Ahuja on 12/22/18 4:[address] Patient Name: ERROL TATE Encounter No: [id number] : 1945 Primary Insurance: [facility] MEDICARE SOLUTIONS Anticipated DC Date: 12-01-2018 Planned Disposition: Long-Term Facility External Planned Provider: [facility], MEDICARE REHAB BED DCP follow-up note: VLAD RECEIVED CALL FROM CRYS AT [facility] , , WHO REQUESTED UPDATE. VLAD EXPLAINED THAT THE DIALYSIS UNIT STILL HAS NOT ACCEPTED PT. [facility] WILL ACCEPT WHEN DIALYSIS UNIT IS ARRANGED. CM FAXED UPDATE TO [facility] AT [phone]. [facility] WORKING ON OUTPATIENT DIALYSIS UNIT IN [place], PT'S H&H TRENDING DOWN, WBC TRENDING UP. THE DIALYSIS CLINIC IS GOING TO WANT STABLE LABS TO ACCEPT. PT WILL NEED TO DEMONSTRATE DOCUMENTED ABILITY TO SIT GREATER THAN THREE HOURS TO TRANSFER AND SIT FOR OUTPATIENT DIALYSIS UNIT TO ACCEPT. Jd Ahuja, CASE MANAGEMENT DCP- Discharge Planning Updated by [id number]: Cherry Rowell on 12/22/18 10:[address] SPOKE WITH MALCOLM CHESTER, DIALYSIS COORDINATOR, TO SEE WHERE WE WERE WITH THE PATIENTS PLACEMENT. SHE HAS STATED THAT THE UNIT IS REQUESTING MORE RECORDS ON HER. I HAVE FAXED MALCOL[facility] THE REQUESTED RECORDS TO [phone]. I WILL CONTINUE TO FOLLOW UP. DCP- Discharge Planning Updated by [id number]: Jd Ahuja on 12/21/18 2:[address] Patient Name: ERROL TATE Encounter No: [id number] : 1945 Primary Insurance: [facility] MEDICARE SOLUTIONS Anticipated DC Date: 12-01-2018 Planned Disposition: Long-Term Facility External Planned Provider: [facility], MEDICARE REHAB BED DCP follow-up note: CM RECEIVED CALL FROM BARRY AT [phone] WHO ADVISED NO OPEN REHAB BEDS AND SHE ASKED FOR PERMISSION TO FORWARD REFERRAL TO HER SISTER FACILITY IN [place]. CM ASKED FOR THIS TO BE DONE, LICO AT [facility] TO CALL CM TODAY. CM TO FOLLOW UP WITH [facility] AT [phone]. CM WAITING ADMISSION DETERMINATIONS FROM [facility] AND [facility]. [facility] WORKING ON OUTPATIENT DIALYSIS UNIT IN [place]. Jd Ahuja, CASE MANAGEMENT Appended by Jd Ahuja on 12/21/2018 15:37 CDT: CM RECEIVED CALL FROM KIMMY FORB[facility] OF [facility], , WHO REPORTS THAT THEY WILL ACCEPT PT AND WOULD LIKE MWF OUTPATIENT DIALYSIS SCHEDULE IF POSSIBLE BUT WILL WORK WITH ANY AVAILABLE DIALYSIS SCHEDULE. CM RECEIVED CALL FROM FRANC[facility], , WHO INFORMED CM THAT [facility] IS STILL CONSIDERING PT, WAITING ON OUTPATIENT DIALYSIS DAYS; PT WILL NEED TO BE ABLE TO DEMONSTRATE ABILITY TO SIT FOR THREE HOURS FOR TRANSPORT AND OUTPATIENT DIALYSIS. CM NOTIFIED PT AND FAMILY IN ROOM. PT REPORTS ABILITY TO SIT FOR DURATION OF TRANSPORT AND DIALYSIS. CM EXPLAINED THAT THERAPY WILL CONTINUE TO WORK WITH HER TO ENSURE HER ABILITY IS DOCUMENTED. VLAD WAITING ADMISSION DETERMINATIONS FROM [facility]. [facility] WORKING ON OUTPATIENT DIALYSIS UNIT IN [place]. PT WILL HAVE TO DEMONSTRATE ABILITY TO TRANSFER AND SIT FOR TRANSPORT AND DURATION OF OUTPATIENT DIALYSIS, THREE OR MORE HOURS. Jd Ahuja CASE MANAGEMENT DCP- Discharge Planning Updated by [id number]: Jd Ahuja on 12/20/18 3:[address] Patient Name: ERROL TATE Encounter No: [id number] : 1945 Primary Insurance: [facility] MEDICARE SOLUTIONS Anticipated DC Date: 12-01-2018 Planned Disposition: Long-Term Facility External Planned Provider: [facility] DCP follow-up note: CM SPOKE TO PT IN ROOM REGARDING INSURANCE DENIAL FOR INPATIENT REHAB AND ASKED ABOUT CHOICES FOR SNF. PT STATES THAT THEY HAVE NO CHOICE FOR REHAB IN [place], PROVIDER LISTING PREVIOUSLY PROVIDED; PT SIGNED CHOICE FOR ANY SNF IN [place]. IMPORTANT MESSAGE FROM MEDICARE PROVIDED AND EXPLAINED. CM RECEIVED CALL FROM JAROD MOSCOSO, PT'S SON, , WHO WANTS ONLY REFERRED TO 4 OR 5 [place] FACILITIES. CM FAXED REFERRALS TO [facility] AT [phone] AND [facility] [phone]. CM TO FOLLOW UP WITH [facility] AT [phone] AND [facility] AT [phone]. CM WAITING ADMISSION DETERMINATIONS FROM BOTH FACILITIES. CM NOTIFIED [facility] TO REQUEST OUTPATIENT DIALYSIS UNIT IN [place]. BENJA Lockett DCP- Discharge Planning Updated by [id number]: Jd Ahuja on 12/16/18 7:[address] Patient Name: ERROL TATE Encounter No: [id number] : 1945 Primary Insurance: [facility] MEDICARE SOLUTIONS Anticipated DC Date: 12-01-2018 Planned Disposition: INPATIENT REHAB External Planned Provider: [facility] DCP follow-up note: CM SPOKE TO PT IN ROOM, DISCUSSED [facility] NOT ACCEPTING DUE TO NO DIALYSIS UNIT AVAILABLE IN SERVICE AREA. PT WOULD LIKE TO BE CONSIDERED AT [facility] [place]. CHOICE SIGNED. CM SPOKE TO [facility] WHO INFORMED CM THAT THERE ARE NO OPENINGS FOR OUTPATIENT DIALYSIS AT THE [place] UNIT. CM SPOKE TO PT AND FAMILY IN ROOM, DISCUSSED SNF IN [place] WHERE THE NEXT CLOSEST OUTPATIENT DIALYSIS UNIT TO PT'S HOME. CM PROVIDED LISTING OF SNF FACILITIES WITHIN 50 [address]ES OF PT'S HOME FROM MEDICARE WEBSITE. PT AND FAMILY WOULD LIKE TO BE CONSIDERED FOR INPATIENT REHAB AT [facility] WITH PLAN TO RETURN HOME AT DISCHARGE FROM REHAB. PT NOW DOES NOT WANT TO GO TO SNF FOR REHAB. ORDER FOR INPATIENT REHAB PRESCREEN OBTAINED. [facility] OF INPATIENT REHAB NOTIFIED. IMPORTANT MESSAGE FROM MEDICARE PROVIDED AND EXPLAINED. CM WAITING ON OCCUPATIONAL THERAPY EVALUATION, INPATIENT REHAB PRESCREEN AND INSURANCE DETERMINATION FOR INPATIENT REHAB SERVICES. Jd Ahuja, CASE MANAGEMENT DCP- Discharge Planning Updated by [id number]: Dulce Maria Stubbs on 12/08/18 3:[address] JAYDA WITH AT [facility] STATED THAT THEY HAVE AUTH FOR [facility]. WILL DC TO [facility] WHEN SHE IS STABLE FOR DISCHARGE DCP- Discharge Planning Updated by [id number]: Dulce Maria Stubbs on 12/05/18 10:[address] SPOKE WITH JAYDA AT [facility] (SKILLED FACILITY IN [place]) SHE STATED THAT THE PATIENT WILL NEED TO BE PREAUTH BEFORE SHE CAN RETURN SENT CLINICALS TO [phone]. I TOLD HER THAT I ANTICIPATE HER TO BE DISCHARGED SOON DCP- Discharge Planning Updated by [id number]: Rosa Hull on 11/29/18 5:[address] Patient Name: ERROL TATE Admission Status: ER Accout number: [id number] Admission Date: 11-29-2018 : 1945 Admission Diagnosis: Attending: VALENTIN SOL Current LOS: 1 Anticipated DC Date: 12-01-2018 Planned Disposition: Long-Term Facility - [facility] Primary Insurance: [facility] MEDICARE SOLUTIONS Discharge Planning Comments: CM met with patient to complete initial dc planning assessment. Patient asleep at this time. CM called her son Jarod Tate, , and educated him on the CM role and verbal consent given by him to complete assessment. Patient is currently in rehab at [facility], . Her son reports she will return there when she is discharged to complete her rehab. He denied further known dc needs at this time. CM will continue to follow and will assist as needed with dc plans/needs. Music Publicist: Rosa Hull RN, [facility] DCPIA - Discharge Planning Initial Assessment Updated by [id number]: Rosa Hull on 11/29/18 6:11 pm * How many steps to enter\exit or inside your home? None * PCP Dr. Kevin Gold, [place] * Pharmacy [facility] * Preadmission Environment Long-Term Facility * Facility Name [facility] [phone] * ADLs Partial Dependent * Partial ADLs (Assistance needed) Ambulation Bathing Medication Management Transfers * Equipment Cane Oxygen Rolling Walker Wheelchair * Other Equipment Wears Oxygen qhs * List name and contact numbers for known caregivers / representatives who currently or will assist patient after discharge: Miya Robbins - sister - [phone] Jarod steele - [phone] * Community resources currently utilized Other * Please name any agencies selected above. Rehab * Additional services required to return to the preadmission environment? No * Can the patient safely return to the preadmission environment? Yes * Has this patient been hospitalized within the prior 30 days at any hospital? Yes Coverage Notice Reviewer: YOLANDA Ahuja Notice Issued Date-Time: 12/20/2018 9:05 Notice Type: Patient Choice Letter Notice Delivered To: Patient Relationship to Patient: Supply Chain Systems Manager Name: Delivery Method: HAND - Hand Delivered Bridget Days: Prior Verbal Notification: Recipient Understood Notice: Yes Recipient Signature: Yes Med Rec Note Co-signed by Attending: Coverage Notice Comment: ANY SNF IN [place] Reviewer: YOLANDA Ahuja Notice Issued Date-Time: 12/16/2018 9:00 Notice Type: Patient Choice Letter Notice Delivered To: Patient Relationship to Patient: Supply Chain Systems Manager Name: Delivery Method: HAND - Hand Delivered Bridget Days: Prior Verbal Notification: Recipient Understood Notice: Yes Recipient Signature: Yes Med Rec Note Co-signed by Attending: Coverage Notice Comment: [facility] Reviewer: YOLANDA Ahuja Notice Issued Date-Time: 12/20/2018 9:05 Notice Type: IM Discharge Notice Notice Delivered To: Patient Relationship to Patient: Supply Chain Systems Manager Name: Delivery Method: HAND - Hand Delivered Bridget Days: Prior Verbal Notification: Recipient Understood Notice: Yes Recipient Signature: Yes Med Rec Note Co-signed by Attending: Coverage Notice Comment: Reviewer: YOLANDA Ahuja Notice Issued Date-Time: 12/15/2018 9:00 Notice Type: IM Discharge Notice Notice Delivered To: Patient Relationship to Patient: Supply Chain Systems Manager Name: Delivery Method: HAND - Hand Delivered Bridget Days: Prior Verbal Notification: Recipient Understood Notice: Yes Recipient Signature: Yes Med Rec Note Co-signed by Attending: Coverage Notice Comment: Last DP export: 12/28/18 1:22 p Patient Name: ERROL TATE Page [id number] at 1430 All edits/amendments must be made on the electronic document DICTATION DATE: 12/28/18 1430 BOTTOM PRESSER: CLEM 12/28/18 1430 RPT#: [id number] DC DATE: STATUS: ADM IN [facility] [address] [place] [address] END OF REPORT
--- NOTE | 2018-12-28 14:53 | NUR ---
GOT PT OFF BEDPAN, PT HAD LARGE BM AND SMALL ABOUT OF DARK URINE. PT DENIES ANY NEEDS AT THIS TIME. CALL LIGHT IN REACH, NAD NOTED, WILL CONTINUE TO MONITOR.
--- NOTE | 2018-12-28 15:43 | NUR ---
DIALYSIS COORDINATOR: [facility] ARRIVE @ 11:00 FOR AN 11:15 CHAIR. FIRST APPOINTMENT @ 10:45 FOR PAPERWORK. BMBalwinder DC
[2018-12-28 15:50] VITALS: BP 136/45
--- NOTE | 2018-12-28 16:56 | NUR ---
BLOOD SUGAR OF 197, 4UNIT GIVEN OF HUMULIN GIVEN PER S/S. IV IRON HUNG AT THIS TIME VIA BLUE PORT ON HEMOSLIT. REMOVED 2CC OF HEPARIN AND FLUSHED WITH 20CC OF SALINE BEFORE CONNECTING IRON. AFTER INFUSION IS COMPLETE HEMOSPLIT WILL BE HEPLOCKED. PT DENIES ANY NEEDS A THIS TIME. CALL LIGHT IN REACH, NAD NOTED.
--- NOTE | 2018-12-28 17:20 | NUR ---
PT RESTING IN BED COMFORTABLY RR EVEN AND UNLABORED. NO S/S OF DISTRESS. BED LOW CALL LIGHT WITHIN REACH. WILL CONTINUE TO MONITOR.
--- NOTE | 2018-12-28 17:45 | NUR ---
IV INFUSION COMPLETE. FLUSHED HEMOSPLIT BLUE PORT WITH 20CC OF SALINE AND HEPLOCKED PT WITH 1.9ML OF HEPARIN. ALSO GAVE NORCO FOR PAIN LEVEL OF 10/10. PT DENIES ANY OTHER NEEDS AT THIS TIME. FAMILY AT BEDSIDE, CALL LIGHT IN REACH.
[2018-12-28 20:00] VITALS: BP 141/59
[2018-12-29 00:30] VITALS: BP 145/48; BP 152/46
--- NOTE | 2018-12-29 01:50 | NUR ---
PT RESTING IN BED WITH EYES CLOSED. RR EVEN AND UNLABORED. SISTER AT BEDSIDE. BED LOW CALL LIGHT WITHIN REACH. WILL CONTINUE TO MONITOR.
[2018-12-29 04:30] VITALS: BP 104/46
--- NOTE | 2018-12-29 05:13 | NUR ---
I have reviewed this patient and I concur with the Shift Assessment completed by the Licensed Practical Nurse today this shift.
[2018-12-29 08:33] VITALS: BP 152/45
[2018-12-29 11:48] VITALS: BP 159/52
--- NOTE | 2018-12-29 12:56 | MORECARE ---
CASE MANAGEMENT DISCHARGE SUMMARY PATIENT: ERROL TATE UNIT: [id number] ADM DATE: 11/29/18 AGE: 73 : 45 SEX: F ROOM/BED: D.2657 AUTHOR: JOSE,DOC PHYSICIAN: REFERRING PHYSICIAN: VALENTIN SOL MD DATE OF SERVICE: 12/29/18 Discharge Plan Patient Name: ERROL TATE Facility: [facility]:[place] : 1945 Planned Disposition: Shelter Facility Anticipated Discharge Date: 12/29/18 Discharge Date: Expected LOS: 30 Initial Reviewer: [id number] Initial Review Date: 11/29/2018 Generated: 12/29/18 1:55 pm Comments DCP- Discharge Planning Updated by [id number]: Jd Ahuja on 12/29/18 11:[address] Patient Name: ERROL TATE Encounter No: [id number] : 1945 Primary Insurance: [facility] MEDICARE SOLUTIONS Anticipated DC Date: 12-29-2018 Planned Disposition: Shelter Facility External Planned Provider: [facility], MEDICARE REHAB BED DCP follow-up note: CHART REVIEW COMPLETED BY VLAD. JAE HERRERA NOTIFIED JER WELCH OF PT'S FAMILY CONCERNS OF BLOOD IN STOOL. CM NOTIFIED PT AND SISTER IN ROOM THAT [facility] ARE READY TO DISCHARGE PER NOTES, [facility] HAS ACCEPTED FOR REHAB AND DIALYSIS UNIT HAS ACCEPTED FOR OUTPAIENT DIALYSIS ADMIT ON TOMORROW. PT'S FAMILY HAS NOT PICKED UP OXYGEN YET BUT WILL TRANSPORT TO THE [facility]. PT'S SISTER VERBALIZES CONCERN ABOUT PT'S BLOOD IN STOOL. CM NOTIFIED PT AND FAMILY THAT TURNTABLE ENGINEERKelly WELCH HAD BEEN MADE AWARE OF CONCERN. PT'S SISTER REPORTS SHE WILL CONTACT FAMILY TO CREDIT VERIFIER OXYGEN E TANK FROM [facility] AND DELIVER TO HOSPITAL FOR DISCHARGE TO REHAB IN [place], SISTER REPORTS PLAN TO DRIVE PT THERE AT DISCHARGE. IMPORTANT MESSAGE FROM MEDICARE PROVIDED AND EXPLAINED. VLAD SPOKE TO JAE HERRERA WHO INFORMED VLAD THAT JER WELCH IS RECONSULTING GI. VLAD NOTIFIED [facility] OF DELAY. OUTPATIENT DIALYSIS UNIT HAS ACCEPTED IN [place] FOR MWF, 1115 AM, CAN ADMIT FOR DIALYSIS ON 12-30-18. [facility] IN [place] ACCEPTING PT FOR REHAB AT DISCHARGE. FOR DISCHARGE, FAX DISCHARGE INFORMATION TO [facility], . NURSE REPORT TO BE CALLED TO [facility] AT [phone]. FAMILY TO CREDIT VERIFIER OXYGEN AND PROVIDE TRANSPORTATION FROM HOSPITAL TO REHAB IN [place]. Jd Ahuja, CASE MANAGEMENT DCP- Discharge Planning Updated by [id number]: Jd Ahuja on 12/28/18 1:[address] Patient Name: ERROL TATE Encounter No: [id number] : 1945 Primary Insurance: [facility] MEDICARE SOLUTIONS Anticipated DC Date: 12-29-2018 Planned Disposition: Shelter Facility External Planned Provider: [facility], MEDICARE REHAB BED DCP follow-up note: CM RECEIVED MESSAGE FROM [facility] THAT PT'S OUTPATIENT DIALYSIS IS ARRANGED, PT ACCEPTED AT [facility] IN [place]. CM RECEIVED CALL FROM CRYS AT [facility] , , WHO REQUESTED UPDATE. JOHN INFORMED CM THAT PT HAS OUTPATIENT DIALYSIS UNIT HAS ACCEPTED IN [place] FOR MWF, 1115 AM, CAN ADMIT FOR DIALYSIS ON 12-30-18. [facility] WILL ACCEPT BUT IS NOT ABLE TO PROVIDE TRANSPORT TO FACILITY AT HOSPITAL DISCHARGE. CM FAXED UPDATE TO [facility] AT [phone]. CM NOTIFIED PT AND SISTER IN ROOM. PT'S FAMILY WILL TRANSPORT BUT DOES NOT HAVE PORTABLE OXYGEN IN ROOM AND REMAIN CONCERNED ABOUT PT'S BLOOD IN STOOL. CM CALLED [facility] IN [place], , WAS INFORMED BY CECILIO THAT PT HAS QUALIFIED FOR PORTABLE OXYGEN, IT IS TOO FAR TO BRING TO HOSPITAL; CECILIO INFORMED CM THAT FAMILY CAN CREDIT VERIFIER ETANK OF OXYGEN AT HIS LOCATION IN [place], IN [place] OR [place]. VLAD NOTIFIED PT'S FAMILY IN ROOM WHO WILL CALL PT'S BROTHER IN [place] WHO WILL CREDIT VERIFIER OXYGEN E TANK AND DELIVER TO HOSPITAL FOR DISCHARGE TO REHAB IN [place]. OUTPATIENT DIALYSIS UNIT HAS ACCEPTED IN [place] FOR MWF, 1115 AM, CAN ADMIT FOR DIALYSIS ON 12-30-18. [facility] IN [place] ACCEPTING PT FOR REHAB AT DISCHARGE. FOR DISCHARGE, FAX DISCHARGE INFORMATION TO [facility], . NURSE REPORT TO BE CALLED TO [facility] AT [phone]. FAMILY TO CREDIT VERIFIER OXYGEN AND PROVIDE TRANSPORTATION FROM HOSPITAL TO REHAB IN [place]. Jd Ahuja, CASE MANAGEMENT DCP- Discharge Planning Updated by [id number]: Bhumika Bautista on 12/26/18 10:[address] Patient Name: ERROL TATE Admission Status: ER Accout number: [id number] Admission Date: 11-29-2018 : 1945 Admission Diagnosis:GASTROINTESTINAL HEMORRHAGE, UNSPECIFIED Attending: VALENTIN SOL Current LOS: 27 Anticipated DC Date: 12-01-2018 Planned Disposition: Shelter Facility Primary Insurance: [facility] MEDICARE SOLUTIONS Discharge Planning Comments: UPDATED DOCUMENTS SENT TO [facility] WHOM IS SETTING UP PATIENT'S DIALYSIS. WAITING FOR CALL BACK. CM TO FOLLOW AND ASSIST NEEDED WITH DC PLANNING/NEEDS. Digital Campaign Specialist: Bhumika Bautista DCP- Discharge Planning Updated by [id number]: Jd Ahuja on 12/22/18 4:[address] Patient Name: ERROL TATE Encounter No: [id number] : 1945 Primary Insurance: [facility] MEDICARE SOLUTIONS Anticipated DC Date: 12-01-2018 Planned Disposition: Shelter Facility External Planned Provider: [facility], MEDICARE REHAB BED DCP follow-up note: CM RECEIVED CALL FROM CRYS AT [facility] , , WHO REQUESTED UPDATE. CM EXPLAINED THAT THE DIALYSIS UNIT STILL HAS NOT ACCEPTED PT. [facility] WILL ACCEPT WHEN DIALYSIS UNIT IS ARRANGED. CM FAXED UPDATE TO [facility] AT [phone]. [facility] WORKING ON OUTPATIENT DIALYSIS UNIT IN [place], PT'S H&H TRENDING DOWN, WBC TRENDING UP. THE DIALYSIS CLINIC IS GOING TO WANT STABLE LABS TO ACCEPT. PT WILL NEED TO DEMONSTRATE DOCUMENTED ABILITY TO SIT GREATER THAN THREE HOURS TO TRANSFER AND SIT FOR OUTPATIENT DIALYSIS UNIT TO ACCEPT. Jd Ahuja, CASE MANAGEMENT DCP- Discharge Planning Updated by [id number]: Cherry Herrera on 12/22/18 10:[address] SPOKE WITH [facility], DIALYSIS COORDINATOR, TO SEE WHERE WE WERE WITH THE PATIENTS PLACEMENT. SHE HAS STATED THAT THE UNIT IS REQUESTING MORE RECORDS ON HER. I HAVE FAXED [facility] THE REQUESTED RECORDS TO [phone]. I WILL CONTINUE TO FOLLOW UP. DCP- Discharge Planning Updated by [id number]: Jd Ahuja on 12/21/18 2:[address] Patient Name: ERROL TATE Encounter No: [id number] : 1945 Primary Insurance: [facility] MEDICARE SOLUTIONS Anticipated DC Date: 12-01-2018 Planned Disposition: Shelter Facility External Planned Provider: [facility] B[facility] DCP follow-up note: CM RECEIVED CALL FROM [facility] AT [phone] WHO ADVISED NO OPEN REHAB BEDS AND SHE ASKED FOR PERMISSION TO FORWARD REFERRAL TO HER SISTER FACILITY IN [place]. CM ASKED FOR THIS TO BE DONE, LICO AT [facility] TO CALL CM TODAY. CM TO FOLLOW UP WITH [facility] AT [phone]. CM WAITING ADMISSION DETERMINATIONS FROM [facility] AND [facility]. [facility] WORKING ON OUTPATIENT DIALYSIS UNIT IN [place]. Jd Ahuja, CASE MANAGEMENT Appended by Jd Ahuja on 12/21/2018 15:37 CDT: CM RECEIVED CALL FROM KIMMY FORBES OF [facility], , WHO REPORTS THAT THEY WILL ACCEPT PT AND WOULD LIKE MWF OUTPATIENT DIALYSIS SCHEDULE IF POSSIBLE BUT WILL WORK WITH ANY AVAILABLE DIALYSIS SCHEDULE. CM RECEIVED CALL FROM [facility], , WHO INFORMED CM THAT [facility] IS STILL CONSIDERING PT, WAITING ON OUTPATIENT DIALYSIS DAYS; PT WILL NEED TO BE ABLE TO DEMONSTRATE ABILITY TO SIT FOR THREE HOURS FOR TRANSPORT AND OUTPATIENT DIALYSIS. CM NOTIFIED PT AND FAMILY IN ROOM. PT REPORTS ABILITY TO SIT FOR DURATION OF TRANSPORT AND DIALYSIS. CM EXPLAINED THAT THERAPY WILL CONTINUE TO WORK WITH HER TO ENSURE HER ABILITY IS DOCUMENTED. VLAD WAITING ADMISSION DETERMINATIONS FROM [facility]. [facility] WORKING ON OUTPATIENT DIALYSIS UNIT IN [place]. PT WILL HAVE TO DEMONSTRATE ABILITY TO TRANSFER AND SIT FOR TRANSPORT AND DURATION OF OUTPATIENT DIALYSIS, THREE OR MORE HOURS. Jd Ahuja, CASE MANAGEMENT DCP- Discharge Planning Updated by [id number]: Jd Ahuja on 12/20/18 3:[address] Patient Name: ERROL TATE Encounter No: [id number] : 1945 Primary Insurance: [facility] MEDICARE SOLUTIONS Anticipated DC Date: 12-01-2018 Planned Disposition: Shelter Facility External Planned Provider: [facility], MEDICARE REHAB BED DCP follow-up note: CM SPOKE TO PT IN ROOM REGARDING INSURANCE DENIAL FOR INPATIENT REHAB AND ASKED ABOUT CHOICES FOR LONG TERM. PT STATES THAT THEY HAVE NO CHOICE FOR REHAB IN [place], PROVIDER LISTING PREVIOUSLY PROVIDED; PT SIGNED CHOICE FOR ANY LONG TERM IN [place]. IMPORTANT MESSAGE FROM MEDICARE PROVIDED AND EXPLAINED. CM RECEIVED CALL FROM JAROD MOSCOSO, PT'S SON, , WHO WANTS ONLY REFERRED TO 4 OR 5 STAR FACILITIES. CM FAXED REFERRALS TO [facility] AT [phone] AND [facility] [phone]. CM TO FOLLOW UP WITH [facility] AT [phone] AND [facility] AT [phone]. CM WAITING ADMISSION DETERMINATIONS FROM BOTH FACILITIES. CM NOTIFIED [facility] TO REQUEST OUTPATIENT DIALYSIS UNIT IN [place]. Jd Ahuja, CASE MANAGEMENT DCP- Discharge Planning Updated by [id number]: Jd Ahuja on 12/16/18 7:[address] Patient Name: ERROL TATE Encounter No: [id number] : 1945 Primary Insurance: [facility] MEDIC[facility] SOLUTIONS Anticipated DC Date: 12-01-2018 Planned Disposition: INPATIENT REHAB External Planned Provider: [facility] INPATIENT REHAB DCP follow-up note: CM SPOKE TO PT IN ROOM, DISCUSSED [facility] NOT ACCEPTING DUE TO NO DIALYSIS UNIT AVAILABLE IN SERVICE AREA. PT WOULD LIKE TO BE CONSIDERED AT [facility] IN [place], [place]. CHOICE SIGNED. CM SPOKE TO [facility] WHO INFORMED CM THAT THERE ARE NO OPENINGS FOR OUTPATIENT DIALYSIS AT THE [place] UNIT. CM SPOKE TO PT AND FAMILY IN ROOM, DISCUSSED LONG TERM IN [place] WHERE THE NEXT CLOSEST OUTPATIENT DIALYSIS UNIT TO PT'S HOME. CM PROVIDED LISTING OF LONG TERM FACILITIES WITHIN 50 MILES OF PT'S HOME FROM MEDICARE WEBSITE. PT AND FAMILY WOULD LIKE TO BE CONSIDERED FOR INPATIENT REHAB AT [place] WITH PLAN TO RETURN HOME AT DISCHARGE FROM REHAB. PT NOW DOES NOT WANT TO GO TO LONG TERM FOR REHAB. ORDER FOR INPATIENT REHAB PRESCREEN OBTAINED. [facility] OF INPATIENT REHAB NOTIFIED. IMPORTANT MESSAGE FROM MEDICARE PROVIDED AND EXPLAINED. CM WAITING ON OCCUPATIONAL THERAPY EVALUATION, INPATIENT REHAB PRESCREEN AND INSURANCE DETERMINATION FOR INPATIENT REHAB SERVICES. Jd Ahuja, CASE MANAGEMENT DCP- Discharge Planning Updated by [id number]: Dulce Maria Evelyne on 12/08/18 3:[address] JAYDA WITH AT [facility] STATED THAT THEY HAVE AUTH FOR [facility]. WILL DC TO [facility] WHEN SHE IS STABLE FOR DISCHARGE DCP- Discharge Planning Updated by [id number]: Dulce Maria Evelyne on 12/05/18 10:[address] SPOKE WITH JAYDA AT [facility] (SKILLED FACILITY IN [place]) SHE STATED THAT THE PATIENT WILL NEED TO BE PREAUTH BEFORE SHE CAN RETURN SENT CLINICALS TO [phone]. I TOLD HER THAT I ANTICIPATE HER TO BE DISCHARGED SOON DCP- Discharge Planning Updated by [id number]: Rosa Hull on 11/29/18 5:[address] Patient Name: ERROL TATE Admission Status: ER Accout number: [id number] Admission Date: 11-29-2018 : 1945 Admission Diagnosis: Attending: VALENTIN SOL Current LOS: 1 Anticipated DC Date: 12-01-2018 Planned Disposition: Shelter Facility - [facility] Primary Insurance: [facility] MEDICARE SOLUTIONS Discharge Planning Comments: CM met with patient to complete initial dc planning assessment. Patient asleep at this time. CM called her son Jarod Tate, , and educated him on the CM role and verbal consent given by him to complete assessment. Patient is currently in rehab at [facility], . Her son reports she will return there when she is discharged to complete her rehab. He denied further known dc needs at this time. CM will continue to follow and will assist as needed with dc plans/needs. Digital Campaign Specialist: Rosa Hull RN, [facility] DCPIA - Discharge Planning Initial Assessment Updated by [id number]: Rosa Hull on 11/29/18 6:11 pm * How many steps to enter\exit or inside your home? None * PCP Dr. Kevin [place], [place] * [facility] * Preadmission Environment Shelter Facility * Facility Name [facility] [phone] * ADLs Partial Dependent * Partial ADLs (Assistance needed) Ambulation Bathing Medication Management Transfers * Equipment Cane Oxygen Rolling Walker Wheelchair * Other Equipment Wears Oxygen qhs * List name and contact numbers for known caregivers / representatives who currently or will assist patient after discharge: Miya Robbins [phone] Jarod steele - [phone] * Community resources currently utilized Other * Please name any agencies selected above. Rehab * Additional services required to return to the preadmission environment? No * Can the patient safely return to the preadmission environment? Yes * Has this patient been hospitalized within the prior 30 days at any hospital? Yes Coverage Notice Reviewer: YOLANDA Ahuja Notice Issued Date-Time: 12/15/2018 9:00 Notice Type: IM Discharge Notice Notice Delivered To: Patient Relationship to Patient: Cfo Controller Name: Delivery Method: HAND - Hand Delivered Bridget Days: Prior Verbal Notification: Recipient Understood Notice: Yes Recipient Signature: Yes Med Rec Note Co-signed by Attending: Coverage Notice Comment: Reviewer: YOLANDA Ahuja Notice Issued Date-Time: 12/16/2018 9:00 Notice Type: Patient Choice Letter Notice Delivered To: Patient Relationship to Patient: Cfo Controller Name: Delivery Method: HAND - Hand Delivered Bridget Days: Prior Verbal Notification: Recipient Understood Notice: Yes Recipient Signature: Yes Med Rec Note Co-signed by Attending: Coverage Notice Comment: [facility] Reviewer: YOLANDA Ahuja Notice Issued Date-Time: 12/20/2018 9:05 Notice Type: Patient Choice Letter Notice Delivered To: Patient Relationship to Patient: Cfo Controller Name: Delivery Method: HAND - Hand Delivered Bridget Days: Prior Verbal Notification: Recipient Understood Notice: Yes Recipient Signature: Yes Med Rec Note Co-signed by Attending: Coverage Notice Comment: ANY SNF IN [place] Reviewer: YOLANDA Ahuja Notice Issued Date-Time: 12/20/2018 9:05 Notice Type: IM Discharge Notice Notice Delivered To: Patient Relationship to Patient: Cfo Controller Name: Delivery Method: HAND - Hand Delivered Bridget Days: Prior Verbal Notification: Recipient Understood Notice: Yes Recipient Signature: Yes Med Rec Note Co-signed by Attending: Coverage Notice Comment: Reviewer: YOLANDA Ahuja Notice Issued Date-Time: 12/29/2018 9:35 Notice Type: IM Discharge Notice Notice Delivered To: Patient Relationship to Patient: Cfo Controller Name: Delivery Method: HAND - Hand Delivered Bridget Days: Prior Verbal Notification: Recipient Understood Notice: Yes Recipient Signature: Yes Med Rec Note Co-signed by Attending: Coverage Notice Comment: Last DP export: 12/28/18 1:30 p Patient Name: ERROL TATE Page [id number] at 1256 All edits/amendments must be made on the electronic document DICTATION DATE: 12/29/18 1255 PULLEY MAINTAINER: CLEM 12/29/18 1255 RPT#: [id number] DC DATE: STATUS: ADM IN [facility] [address] [place] [address] END OF REPORT
--- NOTE | 2018-12-29 15:30 | NUR ---
OT NOTE: PT COMPLETED BED MOB WITH MOD A. PT COMPLETED SIT TO STAND WITH MIN/MOD A. PT COMPLETED SIMPLE HYGIENE TASK WITH MIN A. 454/948 THANK YOU, AMARIS MEJIA
--- NOTE | 2018-12-29 19:42 | NUR ---
PT RESTING IN BED RR EVEN AND UNLABORED. PT COMPLAINS OF 8/10 PAIN IN LEFT ARM AV SITE. PRN PAIN MEDICATION GIVEN AT 1735. PT SISTER AT BEDSIDE. BED LOW CALL LIGHT WITHIN REACH. WILL CONTINUE TO MONITOR.
[2018-12-29 20:00] VITALS: BP 157/76
--- NOTE | 2018-12-30 00:59 | NUR ---
PT COMPLAINS OF 8/10 PAIN IN LEFT ARM. PRN PAIN MEDICATION GIVEN. WILL CONTINUE TO MONITOR.
[2018-12-30 05:00] VITALS: BP 146/45
[2018-12-30 06:16] LABS: ANION GAP 12.1 mmol/L (8-16); CALCIUM 8.4 mg/dL (8.5-10.1); CARBON DIOXIDE 26.6 mmol/L (21.0-32.0); CREATININE - SERUM 3.3 mg/dL (0.6-1.3); POTASSIUM - SERUM 3.7 mmol/L (3.5-5.1)
[2018-12-30 06:17] LABS: HEMATOCRIT 28.5 % (36.0-48.0); HEMOGLOBIN 9.2 g/dL (12-16); LYMPHOCYTES 7.7 % (15-50); MCH 30.6 pg (26.0-34.0); MCHC 32.3 g/dL (31.0-37.0); MCV 94.7 fL (80.0-100.0); MEAN PLATELET VOLUME 9.1 fL (7.4-10.4); NEUTROPHILS 77.5 % (40-80); PLATELET COUNT 143 10x3/uL (130-400); RBC 3.01 10x6/uL (4.00-5.40); WBC 9.9 10x3/uL (4.8-10.8)
[2018-12-30 09:10] VITALS: BP 164/49
--- NOTE | 2018-12-30 10:08 | NUR ---
PT RESTING IN BED, SISTER AT BEDSIDE, SHIFT ASSESSMENT PERFORMED. UPON ASSESSMENT NOTED EXCORIATION TO PT COCCYX. WOUND CLEANSED AND MEPILIX APPLIED. PT REPORTS THAT SHE CAN WALK WITH A WALKER WHEN PT IS WITH HER. PHYSICAL THERAPY GAVE VERBAL OK FOR NURSING TO ASSIST PT TO BEDSIDE COMMODE TO TOILET. PT VERBALIZES UNDERSTANDING. CONT O2 NOTED AT 2L NC. PT LEFT ARM SWOLLEN DUE TO RECENT AVF PLACEMENT. STERI STRIPS NOTED. BRUIT AND THRILL PRESENT. PT HAS A HEMASPLIT IN RIGHT UPPER CHEST, DRESSING C/D/I AND BIOPATCH IN PLACE. DENIES NEEDS AT THIS TIME, CALL LIGHT WITHIN REACH, WILL CONT TO FOLLOW PLAN OF CARE
--- NOTE | 2018-12-30 12:05 | NUR ---
PIV TO PT RIGHT FA INFILTRATED, REMOVED WITH CATHETER TIP INTACT. RESITED 22G PIV TO PT RIGHT FA X1 ATTEMPT. PT TOLERATED WELL. WILL CONT TO FOLLOW PLAN OF CARE
--- NOTE | 2018-12-30 12:07 | NUR ---
PT HAS NO PIV ACCESS AND HAS EGD SCHEDULED TODAY. 20G PIV PLACED IN PT RIGHT HAND X1 ATTEMPT. PT TOLERATED WELL. WILL CONT TO FOLLOW POC
--- NOTE | 2018-12-30 12:34 | NUR ---
OT NOTE: PT REPORTED NOT FEELING WELL TODAY BUT AGREEABLE TO GET UP TO EDGE OF BED. REQUIRED MOD ASSIST FOR SUPINE TO SIT, HOWEVER, PT ABLE TO SCOOT OUT TO EOB WITH VERY MINIMAL ASSIST. EOB SITTING FOR APPROX 5 MIN. TRANSFER WITH MIN ASSIST WITH USE OF WALKER; ABLE TO AMB IN ROOM APPROX 8 FT WITH WALKER AND MIN/MOD ASSIST. FATIGUES QUICKLY AND REQIRES REST BREAK FOLLOWING APPROX 5-6 FT. GROOMING AND FEEDING WITH SET UP. SOB HAS IMPROVE SINCE INITIAL EVAL. PT IMPROVING DAILY.([phone]) LARRY RODRIGUEZ, OTR/L
[2018-12-30 13:24] VITALS: BP 147/40
--- NOTE | 2018-12-30 13:53 | NUR ---
GI LAB CALLED TO PREOP PT, PT PREOP ORDERED
--- NOTE | 2018-12-30 14:00 | NUR ---
PT RETURNED TO THE FLOOR FROM PROCEDURE. VSS AND WNL. WILL CONT TO FOLLOW POC
--- NOTE | 2018-12-30 14:19 | NUR ---
Nutrition follow up: NPO today for EGD Previously eating good on Renal ADA diet Last Weight: 147lb RD following
--- NOTE | 2018-12-30 15:27 | MORECARE ---
CASE MANAGEMENT DISCHARGE SUMMARY PATIENT: ERROL FARAH UNIT: [id number] ADM DATE: 11/29/18 AGE: 73 : 45 SEX: F ROOM/BED: D.2734 AUTHOR: JOSE,DOC PHYSICIAN: REFERRING PHYSICIAN: VALENTIN SOL MD DATE OF SERVICE: 12/30/18 Discharge Plan Patient Name: ERROL FARAH Facility: [facility]:[place] : 1945 Planned Disposition: Half-Way Facility Anticipated Discharge Date: 12/31/18 Discharge Date: Expected LOS: 32 Initial Reviewer: [id number] Initial Review Date: 11/29/2018 Generated: 12/30/18 4:27 pm Comments DCP- Discharge Planning Updated by [id number]: Jd Ahuja on 12/30/18 2:[address] Patient Name: ERROL FARAH Encounter No: [id number] : 1945 Primary Insurance: [facility] MEDICARE SOLUTIONS Anticipated DC Date: 12-31-2018 Planned Disposition: Half-Way Facility External Planned Provider:[facility], MEDICARE REHAB BED DCP follow-up note: CM RECEIVED CALL FROM PT'S SISTER WHO INFORMED CM THAT THE EGD WAS COMPLETED, THEY FOUND NOTHING AND CAN PT DISCHARGE TO [facility] TODAY. CM CALLED [facility], , SPOKE TO CRYS WHO INFORMED CM THAT THEY WILL NOT BE ABLE TO ACCEPT PT TODAY IT WOULD BE AFTER 7PM BEFORE FAMILY COULD GET PT THERE. THEY WILL ACCEPT PT TOMORROW, THE PT HAS TO BE IN FACILITY BY NOON, 12-31-18, FOR ALF ADMIT. CM NOTIFIED PT'S SISTER WHO REPORTS FAMILY HAS THE OXYGEN NOW AT HOME AND WILL BRING IT TOMORROW FOR DISCHARGE AT 0800AM AND FAMILY WILL TRANSPORT PT TO THE [facility]. VLAD NOTIFIED JER WELCH. CM FA[facility]ED UPDATE TO [facility] AT [phone]. OUTPATIENT DIALYSIS UNIT HAS ACCEPTED IN [place] FOR MWF, 1115 AM. [facility] IN [place] ACCEPTING PT FOR REHAB AT DISCHARGE 12-31-18. FOR DISCHARGE, FAX DISCHARGE INFORMATION TO [facility], . NURSE REPORT TO BE CALLED TO [facility] AT [phone]. FAMILY HAS PORTABLE OXYGEN AND PROVIDE TRANSPORTATION FROM HOSPITAL TO REHAB IN [place]. Jd Ahuja CASE MANAGEMENT DCP- Discharge Planning Updated by [id number]: Jd Ahuja on 12/29/18 11:[address] Patient Name: ERROL FARAH Encounter No: [id number] : 1945 Primary Insurance: [facility] MEDICARE SOLUTIONS Anticipated DC Date: 12-29-2018 Planned Disposition: Half-Way Facility External Planned Provider: [facility], MEDICARE REHAB BED DCP follow-up note: CHART REVIEW COMPLETED BY VLAD. RN VLAD HERRERA NOTIFIED JER WELCH OF PT'S FAMILY CONCERNS OF BLOOD IN STOOL. CM NOTIFIED PT AND SISTER IN ROOM THAT [facility] ARE READY TO DISCHARGE PER NOTES, [facility]AB AND DIALYSIS UNIT HAS ACCEPTED FOR OUTPAIENT DIALYSIS ADMIT ON TOMORROW. PT'S FAMILY HAS NOT PICKED UP OXYGEN YET BUT WILL TRANSPORT TO THE [facility]. PT'S SISTER VERBALIZES CONCERN ABOUT PT'S BLOOD IN STOOL. CM NOTIFIED PT AND FAMILY THAT JER WELCH HAD BEEN MADE AWARE OF CONCERN. PT'S SISTER REPORTS SHE WILL CONTACT FAMILY TO CUSTOM MILLER OXYGEN E TANK FROM [facility] AND DELIVER TO HOSPITAL FOR DISCHARGE TO REHAB IN [place], SISTER REPORTS PLAN TO DRIVE PT THERE AT DISCHARGE. IMPORTANT MESSAGE FROM MEDICARE PROVIDED AND EXPLAINED. VLAD SPOKE TO RN VLAD HERRERA WHO INFORMED VLAD THAT JER LOMELILER IS RECONSULTING GI. VLAD NOTIFIED CRYS OF [facility] OF DELAY. OUTPATIENT DIALYSIS UNIT HAS ACCEPTED IN [place] FOR MWF, 1115 AM, CAN ADMIT FOR DIALYSIS ON 12-30-18. [facility] IN [place] ACCEPTING PT FOR REHAB AT DISCHARGE. FOR DISCHARGE, FAX DISCHARGE INFORMATION TO [facility], . NURSE REPORT TO BE CALLED TO [facility] AT [phone]. FAMILY TO CUSTOM MILLER OXYGEN AND PROVIDE TRANSPORTATION FROM HOSPITAL TO REHAB IN [place]. BENJA Lockett MANAGEMENT DCP- Discharge Planning Updated by [id number]: Jd Ahuja on 12/28/18 1:[address] Patient Name: ERROL FARAH Encounter No: [id number] : 1945 Primary Insurance: [facility] MEDICARE SOLUTIONS Anticipated DC Date: 12-29-2018 Planned Disposition: Half-Way Facility External Planned Provider: [facility], MEDICARE REHAB BED DCP follow-up note: CM RECEIVED MESSAGE FROM [facility] THAT PT'S OUTPATIENT DIALYSIS IS ARRANGED, PT ACCEPTED AT [facility] IN [place]. CM RECEIVED CALL FROM CRYS AT [facility] , , WHO REQUESTED UPDATE. JOHN INFORMED CM THAT PT HAS OUTPATIENT DIALYSIS UNIT HAS ACCEPTED IN [place] FOR MWF, 1115 AM, CAN ADMIT FOR DIALYSIS ON 12-30-18. [facility] WILL ACCEPT BUT IS NOT ABLE TO PROVIDE TRANSPORT TO FACILITY AT HOSPITAL DISCHARGE. CM FAXED UPDATE TO [facility] AT [phone]. CM NOTIFIED PT AND SISTER IN ROOM. PT'S FAMILY WILL TRANSPORT BUT DOES NOT HAVE PORTABLE OXYGEN IN ROOM AND REMAIN CONCERNED ABOUT PT'S BLOOD IN STOOL. CM CALLED [facility] IN [place], , WAS INFORMED BY CECILIO THAT PT HAS QUALIFIED FOR PORTABLE OXYGEN, IT IS TOO FAR TO BRING TO HOSPITAL; CECILIO INFORMED CM THAT FAMILY CAN CUSTOM MILLER ETANK OF OXYGEN AT HIS LOCATION IN [place], IN [facility]. CM NOTIFIED PT'S FAMILY IN ROOM WHO WILL CALL PT'S BROTHER IN [place] WHO WILL CUSTOM MILLER OXYGEN E TANK AND DELIVER TO HOSPITAL FOR DISCHARGE TO REHAB IN [place]. OUTPATIENT DIALYSIS UNIT HAS ACCEPTED IN [place] FOR MWF, 1115 AM, CAN ADMIT FOR DIALYSIS ON 12-30-18. [facility] IN [place] ACCEPTING PT FOR REHAB AT DISCHARGE. FOR DISCHARGE, FAX DISCHARGE INFORMATION TO [facility], . NURSE REPORT TO BE CALLED TO [facility] AT [phone]. FAMILY TO CUSTOM MILLER OXYGEN AND PROVIDE TRANSPORTATION FROM HOSPITAL TO REHAB IN [place]. Jd Ahuja, CASE MANAGEMENT DCP- Discharge Planning Updated by [id number]: Bhumika Bautista on 12/26/18 10:[address] Patient Name: ERROL FARAH Admission Status: ER Accout number: [id number] Admission Date: 11-29-2018 : 1945 Admission Diagnosis:GASTROINTESTINAL HEMORRHAGE, UNSPECIFIED Attending: VALENTIN SOL Current LOS: 27 Anticipated DC Date: 12-01-2018 Planned Disposition: Half-Way Facility Primary Insurance: [facility] MEDICARE SOLUTIONS Discharge Planning Comments: UPDATED DOCUMENTS SENT TO MALCOLM [facility] WHOM IS SETTING UP PATIENT'S DIALYSIS. WAITING FOR CALL BACK. CM TO FOLLOW AND ASSIST NEEDED WITH DC PLANNING/NEEDS. Air Pollution Auditor: Bhumika Bautista DCP- Discharge Planning Updated by [id number]: dJ Ahuja on 12/22/18 4:[address] Patient Name: ERROL FARAH Encounter No: [id number] : 1945 Primary Insurance: [facility] MEDICARE SOLUTIONS Anticipated DC Date: 12-01-2018 Planned Disposition: Half-Way Facility External Planned Provider: [facility], MEDICARE REHAB BED DCP follow-up note: CM RECEIVED CALL FROM CRYS AT [facility] , , WHO REQUESTED UPDATE. CM EXPLAINED THAT THE DIALYSIS UNIT STILL HAS NOT ACCEPTED PT. [facility] WILL ACCEPT WHEN DIALYSIS UNIT IS ARRANGED. CM FAXED UPDATE TO [facility] AT [phone]. [facility] OF [facility] WORKING ON OUTPATIENT DIALYSIS UNIT IN [place], PT'S H&H TRENDING DOWN, WBC TRENDING UP. THE DIALYSIS CLINIC IS GOING TO WANT STABLE LABS TO ACCEPT. PT WILL NEED TO DEMONSTRATE DOCUMENTED ABILITY TO SIT GREATER THAN THREE HOURS TO TRANSFER AND SIT FOR OUTPATIENT DIALYSIS UNIT TO ACCEPT. Jd Ahuja, CASE MANAGEMENT DCP- Discharge Planning Updated by [id number]: Cherry Herrera on 12/22/18 10:[address] SPOKE WITH MALCOLM CHESTER, DIALYSIS COORDINATOR, TO SEE WHERE WE WERE WITH THE PATIENTS PLACEMENT. SHE HAS STATED THAT THE UNIT IS REQUESTING MORE RECORDS ON HER. I HAVE FAXED MALCOLM THE REQUESTED RECORDS TO [phone]. I WILL CONTINUE TO FOLLOW UP. DCP- Discharge Planning Updated by [id number]: Jd Ahuja on 12/21/18 2:[address] Patient Name: ERROL FARAH Encounter No: [id number] : 1945 Primary Insurance: [facility] MEDICARE SOLUTIONS Anticipated DC Date: 12-01-2018 Planned Disposition: Half-Way Facility External Planned Provider: [facility], MEDICARE REHAB BED DCP follow-up note: CM RECEIVED CALL FROM BARRY AT [phone] WHO ADVISED NO OPEN REHAB BEDS AND SHE ASKED FOR PERMISSION TO FORWARD REFERRAL TO HER SISTER FACILITY IN [place]. CM ASKED FOR THIS TO BE DONE, LICO AT [facility] TO CALL CM TODAY. CM TO FOLLOW UP WITH [facility] AT [phone]. CM WAITING ADMISSION DETERMINATIONS FROM [facility] AND [facility]. [facility] WORKING ON OUTPATIENT DIALYSIS UNIT IN [place]. Jd Ahuja, CASE MANAGEMENT Appended by Jd Ahuja on 12/21/2018 15:37 CDT: CM RECEIVED CALL FROM KIMMY FORBES OF [facility], , WHO REPORTS THAT THEY WILL ACCEPT PT AND WOULD LIKE MWF OUTPATIENT DIALYSIS SCHEDULE IF POSSIBLE BUT WILL WORK WITH ANY AVAILABLE DIALYSIS SCHEDULE. CM RECEIVED CALL FROM ALLISON OF [facility], , WHO INFORMED CM THAT [facility] IS STILL CONSIDERING PT, WAITING ON OUTPATIENT DIALYSIS DAYS; PT WILL NEED TO BE ABLE TO DEMONSTRATE ABILITY TO SIT FOR THREE HOURS FOR TRANSPORT AND OUTPATIENT DIALYSIS. CM NOTIFIED PT AND FAMILY IN ROOM. PT REPORTS ABILITY TO SIT FOR DURATION OF TRANSPORT AND DIALYSIS. CM EXPLAINED THAT THERAPY WILL CONTINUE TO WORK WITH HER TO ENSURE HER ABILITY IS DOCUMENTED. VLAD WAITING ADMISSION DETERMINATIONS FROM [facility]. [facility] WORKING ON OUTPATIENT DIALYSIS UNIT IN [place]. PT WILL HAVE TO DEMONSTRATE ABILITY TO TRANSFER AND SIT FOR TRANSPORT AND DURATION OF OUTPATIENT DIALYSIS, THREE OR MORE HOURS. Jd Ahuja, CASE MANAGEMENT DCP- Discharge Planning Updated by [id number]: Jd Ahuja on 12/20/18 3:[address] Patient Name: ERROL FARAH Encounter No: [id number] : 1945 Primary Insurance: [facility] MEDICARE SOLUTIONS Anticipated DC Date: 12-01-2018 Planned Disposition: Half-Way Facility External Planned Provider: [facility], MEDICARE REHAB BED DCP follow-up note: CM SPOKE TO PT IN ROOM REGARDING INSURANCE DENIAL FOR INPATIENT REHAB AND ASKED ABOUT CHOICES FOR ALF. PT STATES THAT THEY HAVE NO CHOICE FOR REHAB IN [place], PROVIDER LISTING PREVIOUSLY PROVIDED; PT SIGNED CHOICE FOR ANY ALF IN [place]. IMPORTANT MESSAGE FROM MEDICARE PROVIDED AND EXPLAINED. CM RECEIVED CALL FROM JAROD DON, PT'S SON, , WHO WANTS ONLY REFERRED TO 4 OR 5 [facility] FACILITIES. CM FAXED REFERRALS TO [facility] AT [phone] AND [facility] [phone]. CM TO FOLLOW UP WITH [facility] AT [phone] AND [facility] AT [phone]. CM WAITING ADMISSION DETERMINATIONS FROM BOTH FACILITIES. CM NOTIFIED [facility] TO REQUEST OUTPATIENT DIALYSIS UNIT IN [place]. Jd Ahuja, CASE MANAGEMENT DCP- Discharge Planning Updated by [id number]: Jd Ahuja on 12/16/18 7:[address] Patient Name: ERROL FARAH Encounter No: [id number] : 1945 Primary Insurance: [facility] MEDICARE SOLUTIONS Anticipated DC Date: 12-01-2018 Planned Disposition: INPATIENT REHAB External Planned Provider: [facility] INPATIENT REHAB DCP follow-up note: CM SPOKE TO PT IN ROOM, DISCUSSED [facility] NOT ACCEPTING DUE TO NO DIALYSIS UNIT AVAILABLE IN SERVICE AREA. PT WOULD LIKE TO BE CONSIDERED AT [facility] IN [place], [place]. CHOICE SIGNED. CM SPOKE TO MALCOLM OF [facility] WHO INFORMED CM THAT THERE ARE NO OPENINGS FOR OUTPATIENT DIALYSIS AT THE [place] UNIT. CM SPOKE TO PT AND FAMILY IN ROOM, DISCUSSED ALF IN [place] WHERE THE NEXT CLOSEST OUTPATIENT DIALYSIS UNIT TO PT'S HOME. CM PROVIDED LISTING OF ALF FACILITIES WITHIN 50 MILES OF PT'S HOME FROM MEDICARE WEBSITE. PT AND FAMILY WOULD LIKE TO BE CONSIDERED FOR INPATIENT REHAB AT [facility] WITH PLAN TO RETURN HOME AT DISCHARGE FROM REHAB. PT NOW DOES NOT WANT TO GO TO ALF FOR REHAB. ORDER FOR INPATIENT REHAB PRESCREEN OBTAINED. [facility] OF INPATIENT REHAB NOTIFIED. IMPORTANT MESSAGE FROM MEDICARE PROVIDED AND EXPLAINED. CM WAITING ON OCCUPATIONAL THERAPY EVALUATION, INPATIENT REHAB PRESCREEN AND INSURANCE DETERMINATION FOR INPATIENT REHAB SERVICES. Jd Ahuja, CASE MANAGEMENT DCP- Discharge Planning Updated by [id number]: Dulce Maria Stubbs on 12/08/18 3:[address] JAYDA WITH AT [facility] STATED THAT THEY HAVE AUTH FOR [facility]. WILL DC TO [facility] WHEN SHE IS STABLE FOR DISCHARGE DCP- Discharge Planning Updated by [id number]: Dulce Maria Stubbs on 12/05/18 10:[address] SPOKE WITH JAYDA AT [facility] (SKILLED FACILITY IN [place]) SHE STATED THAT THE PATIENT WILL NEED TO BE PREAUTH BEFORE SHE CAN RETURN SENT CLINICALS TO [phone]. I TOLD HER THAT I ANTICIPATE HER TO BE DISCHARGED SOON DCP- Discharge Planning Updated by [id number]: Rosa Hull on 11/29/18 5:[address] Patient Name: ERROL FARAH Admission Status: ER Accout number: [id number] Admission Date: 11-29-2018 : 1945 Admission Diagnosis: Attending: VALENTIN SOL Current LOS: 1 Anticipated DC Date: 12-01-2018 Planned Disposition: Half-Way Facility - [facility] Primary Insurance: [facility] MEDICARE SOLUTIONS Discharge Planning Comments: CM met with patient to complete initial dc planning assessment. Patient asleep at this time. CM called her son Jarod Farah, , and educated him on the CM role and verbal consent given by him to complete assessment. Patient is currently in rehab at [facility], . Her son reports she will return there when she is discharged to complete her rehab. He denied further known dc needs at this time. CM will continue to follow and will assist as needed with dc plans/needs. Air Pollution Auditor: Rosa Hull RN, [facility] DCPIA - Discharge Planning Initial Assessment Updated by [id number]: Rosa Hull on 11/29/18 6:11 pm * How many steps to enter\exit or inside your home? None * PCP Dr. Kevin Gold, [place] * Pharmacy [facility] * Preadmission Environment Half-Way Facility * Facility Name [id number] * ADLs Partial Dependent * Partial ADLs (Assistance needed) Ambulation Bathing Medication Management Transfers * Equipment Cane Oxygen Rolling Walker Wheelchair * Other Equipment Wears Oxygen qhs * List name and contact numbers for known caregivers / representatives who currently or will assist patient after discharge: Miya Robbins - sister - [phone] Jarod Farah - son - [phone] * Community resources currently utilized Other * Please name any agencies selected above. Rehab * Additional services required to return to the preadmission environment? No * Can the patient safely return to the preadmission environment? Yes * Has this patient been hospitalized within the prior 30 days at any hospital? Yes Coverage Notice Reviewer: YOLANDA Ahuja Notice Issued Date-Time: 12/15/2018 9:00 Notice Type: IM Discharge Notice Notice Delivered To: Patient Relationship to Patient: Employment Educational Coord Name: Delivery Method: HAND - Hand Delivered Bridget Days: Prior Verbal Notification: Recipient Understood Notice: Yes Recipient Signature: Yes Med Rec Note Co-signed by Attending: Coverage Notice Comment: Reviewer: YOLANDA Ahuja Notice Issued Date-Time: 12/16/2018 9:00 Notice Type: Patient Choice Letter Notice Delivered To: Patient Relationship to Patient: Employment Educational Coord Name: Delivery Method: HAND - Hand Delivered Bridget Days: Prior Verbal Notification: Recipient Understood Notice: Yes Recipient Signature: Yes Med Rec Note Co-signed by Attending: Coverage Notice Comment: [facility] Reviewer: YOLANDA Ahuja Notice Issued Date-Time: 12/20/2018 9:05 Notice Type: Patient Choice Letter Notice Delivered To: Patient Relationship to Patient: Employment Educational Coord Name: Delivery Method: HAND - Hand Delivered Bridget Days: Prior Verbal Notification: Recipient Understood Notice: Yes Recipient Signature: Yes Med Rec Note Co-signed by Attending: Coverage Notice Comment: ANY SNF IN [place] Reviewer: YOLANDA Ahuja Notice Issued Date-Time: 12/20/2018 9:05 Notice Type: IM Discharge Notice Notice Delivered To: Patient Relationship to Patient: Employment Educational Coord Name: Delivery Method: HAND - Hand Delivered Bridget Days: Prior Verbal Notification: Recipient Understood Notice: Yes Recipient Signature: Yes Med Rec Note Co-signed by Attending: Coverage Notice Comment: Reviewer: YOLANDA Ahuja Notice Issued Date-Time: 12/29/2018 9:35 Notice Type: IM Discharge Notice Notice Delivered To: Patient Relationship to Patient: Employment Educational Coord Name: Delivery Method: HAND - Hand Delivered Bridget Days: Prior Verbal Notification: Recipient Understood Notice: Yes Recipient Signature: Yes Med Rec Note Co-signed by Attending: Coverage Notice Comment: Last DP export: 12/29/18 11:56 a Patient Name: ERROL FARAH Page [id number] at 1527 All edits/amendments must be made on the electronic document DICTATION DATE: 12/30/181526 ENTRY ENGINEER: CLEM 12/30/181526 RPT#: [id number] DC DATE: STATUS: ADM IN [facility] [address] [facility] [place] [address] END OF REPORT
--- NOTE | 2018-12-30 15:36 | MORECARE ---
CASE MANAGEMENT DISCHARGE SUMMARY PATIENT: ERROL FARAH UNIT: [id number] ADM DATE: 11/29/18 AGE: 73 : 45 SEX: F ROOM/BED: D.9411 AUTHOR: JOSE,DOC PHYSICIAN: REFERRING PHYSICIAN: VALENTIN SOL MD DATE OF SERVICE: 12/30/18 Discharge Plan Patient Name: ERROL FARAH Facility: [facility]:[place] : 1945 Planned Disposition: Residential Facility Anticipated Discharge Date: 12/31/18 Discharge Date: Expected LOS: 32 Initial Reviewer: [id number] Initial Review Date: 11/29/2018 Generated: 12/30/18 4:35 pm Comments DCP- Discharge Planning Updated by [id number]: Jd Ahuja on 12/30/18 2:[address] Patient Name: ERROL FARAH Encounter No: [id number] : 1945 Primary Insurance: [facility] MEDICARE SOLUTIONS Anticipated DC Date: 12-31-2018 Planned Disposition: Residential Facility External Planned Provider:[facility], MEDICARE REHAB BED DCP follow-up note: CM RECEIVED CALL FROM PT'S SISTER WHO INFORMED CM THAT THE EGD WAS COMPLETED, THEY FOUND NOTHING AND CAN PT DISCHARGE TO [facility] TODAY. CM CALLED [facility], , SPOKE TO CRYS WHO INFORMED CM THAT THEY WILL NOT BE ABLE TO ACCEPT PT TODAY IT WOULD BE AFTER 7PM BEFORE FAMILY COULD GET PT THERE. THEY WILL ACCEPT PT TOMORROW, THE PT HAS TO BE IN FACILITY BY NOON, 12-31-18, FOR [facility] ADMIT. CM NOTIFIED PT'S SISTER WHO REPORTS FAMILY HAS THE OXYGEN NOW AT HOME AND WILL BRING IT TOMORROW FOR DISCHARGE AT 0800AM AND FAMILY WILL TRANSPORT PT TO THE [facility]. VLAD NOTIFIED JER WELCH. CM FAXED UPDATE TO [facility] AT [phone]. OUTPATIENT DIALYSIS UNIT HAS ACCEPTED IN [place] FOR MWF, 1115 AM. [facility] IN [place] ACCEPTING PT FOR REHAB AT DISCHARGE 12-31-18. FOR DISCHARGE, FAX DISCHARGE INFORMATION TO [facility], . NURSE REPORT TO BE CALLED TO [facility] AT [phone]. FAMILY HAS PORTABLE OXYGEN AND PROVIDE TRANSPORTATION FROM HOSPITAL TO REHAB IN [place]. Jd Ahuja CASE MANAGEMENT DCP- Discharge Planning Updated by [id number]: Jd Ahuja on 12/29/18 11:[address] Patient Name: ERROL FARAH Encounter No: [id number] : 1945 Primary Insurance: [facility] MEDICARE SOLUTIONS Anticipated DC Date: 12-29-2018 Planned Disposition: Residential Facility External Planned Provider: [facility], MEDICARE REHAB BED DCP follow-up note: CHART REVIEW COMPLETED BY VLAD. RN VLAD HERRERA NOTIFIED JER WELCH OF PT'S FAMILY CONCERNS OF BLOOD IN STOOL. CM NOTIFIED PT AND SISTER IN ROOM THAT [facility] ARE READY TO DISCHARGE PER NOTES, [facility] HAS ACC[facility] FOR REHAB AND DIALYSIS UNIT HAS ACCEPTED FOR OUTPAIENT DIALYSIS ADMIT ON TOMORROW. PT'S FAMILY HAS NOT PICKED UP OXYGEN YET BUT WILL TRANSPORT TO THE [facility]. PT'S SISTER VERBALIZES CONCERN ABOUT PT'S BLOOD IN STOOL. CM NOTIFIED PT AND FAMILY THAT JER WELCH HAD BEEN MADE AWARE OF CONCERN. PT'S SISTER REPORTS SHE WILL CONTACT FAMILY TO JUNIOR COPYWRITER OXYGEN E TANK FROM [facility] AND DELIVER TO HOSPITAL FOR DISCHARGE TO REHAB IN [place], SISTER REPORTS PLAN TO DRIVE PT THERE AT DISCHARGE. IMPORTANT MESSAGE FROM MEDICARE PROVIDED AND EXPLAINED. VLAD SPOKE TO RN VLAD HERRERA WHO INFORMED VLAD THAT JER LOMELILER IS RECONSULTING GI. VLAD NOTIFIED CRYS OF [facility] OF DELAY. OUTPATIENT DIALYSIS UNIT HAS ACCEPTED IN [place] FOR MWF, 1115 AM, CAN ADMIT FOR DIALYSIS ON 12-30-18. [facility] IN [place] ACCEPTING PT FOR REHAB AT DISCHARGE. FOR DISCHARGE, FAX DISCHARGE INFORMATION TO [facility], . NURSE REPORT TO BE CALLED TO [facility] AT [phone]. FAMILY TO JUNIOR COPY[employer] OXYGEN AND PROVIDE TRANSPORTATION FROM HOSPITAL TO REHAB IN [place]. BENJA Lockett MANAGEMENT DCP- Discharge Planning Updated by [id number]: Jd Ahuja on 12/28/18 1:[address] Patient Name: ERROL FARAH Encounter No: [id number] : 1945 Primary Insurance: [facility] MEDICARE SOLUTIONS Anticipated DC Date: 12-29-2018 Planned Disposition: Residential Facility External Planned Provider: [facility], MEDICARE REHAB BED DCP follow-up note: CM RECEIVED MESSAGE FROM [facility] THAT PT'S OUTPATIENT DIALYSIS IS ARRANGED, PT ACCEPTED AT [facility] IN [place]. CM RECEIVED CALL FROM CRYS AT [facility] , , WHO REQUESTED UPDATE. JOHN INFORMED CM THAT PT HAS OUTPATIENT DIALYSIS UNIT HAS ACCEPTED IN [place] FOR MWF, 1115 AM, CAN ADMIT FOR DIALYSIS ON 12-30-18. [facility] WILL ACCEPT BUT IS NOT ABLE TO PROVIDE TRANSPORT TO FACILITY AT HOSPITAL DISCHARGE. CM FAXED UPDATE TO [facility] AT [phone]. CM NOTIFIED PT AND SISTER IN ROOM. PT'S FAMILY WILL TRANSPORT BUT DOES NOT HAVE PORTABLE OXYGEN IN ROOM AND REMAIN CONCERNED ABOUT PT'S BLOOD IN STOOL. CM CALLED [facility] IN [place], , WAS INFORMED BY CECILIO THAT PT HAS QUALIFIED FOR PORTABLE OXYGEN, IT IS TOO FAR TO BRING TO HOSPITAL; CECILIO INFORMED CM THAT FAMILY CAN JUNIOR COPYWRITER ETANK OF OXYGEN AT HIS LOCATION IN [place], IN [facility]. CM NOTIFIED PT'S FAMILY IN ROOM WHO WILL CALL PT'S BROTHER IN [place] WHO WILL JUNIOR COPYWRITER OXYGEN E TANK AND DELIVER TO HOSPITAL FOR DISCHARGE TO REHAB IN [place]. OUTPATIENT DIALYSIS UNIT HAS ACCEPTED IN [place] FOR MWF, 1115 AM, CAN ADMIT FOR DIALYSIS ON 12-30-18. [facility] IN [place] ACCEPTING PT FOR REHAB AT DISCHARGE. FOR DISCHARGE, FAX DISCHARGE INFORMATION TO [facility], . NURSE REPORT TO BE CALLED TO [facility] AT [phone]. FAMILY TO JUNIOR COPYWRITER OXYGEN AND PROVIDE TRANSPORTATION FROM HOSPITAL TO REHAB IN [place]. Jd Ahuja, CASE MANAGEMENT DCP- Discharge Planning Updated by [id number]: Bhumika Bautista on 12/26/18 10:[address] Patient Name: ERROL FARAH Admission Status: ER Accout number: [id number] Admission Date: 11-29-2018 : 1945 Admission Diagnosis:GASTROINTESTINAL HEMORRHAGE, UNSPECIFIED Attending: VALENTIN SOL Current LOS: 27 Anticipated DC Date: 12-01-2018 Planned Disposition: Residential Facility Primary Insurance: [facility] MEDICARE SOLUTIONS Discharge Planning Comments: UPDATED DOCUMENTS SENT TO [facility] WHOM IS SETTING UP PATIENT'S DIALYSIS. WAITING FOR CALL BACK. CM TO FOLLOW AND ASSIST NEEDED WITH DC PLANNING/NEEDS. Harness Installer: Bhumika Bautista DCP- Discharge Planning Updated by [id number]: Jd Ahuja on 12/22/18 4:[address] Patient Name: ERROL FARAH Encounter No: [id number] : 1945 Primary Insurance: [facility] MEDICARE SOLUTIONS Anticipated DC Date: 12-01-2018 Planned Disposition: Residential Facility External Planned Provider: [facility], MEDICARE REHAB BED DCP follow-up note: CM RECEIVED CALL FROM CRYS AT [facility] , , WHO REQUESTED UPDATE. CM EXPLAINED THAT THE DIALYSIS UNIT STILL HAS NOT ACCEPTED PT. [facility] WILL ACCEPT WHEN DIALYSIS UNIT IS ARRANGED. CM FAXED UPDATE TO [facility] AT [phone]. [facility] WORKING ON OUTPATIENT DIALYSIS UNIT IN [place], PT'S H&H TRENDING DOWN, WBC TRENDING UP. THE DIALYSIS CLINIC IS GOING TO WANT STABLE LABS TO ACCEPT. PT WILL NEED TO DEMONSTRATE DOCUMENTED ABILITY TO SIT GREATER THAN THREE HOURS TO TRANSFER AND SIT FOR OUTPATIENT DIALYSIS UNIT TO ACCEPT. Jd Ahuja, CASE MANAGEMENT DCP- Discharge Planning Updated by [id number]: Cherry Herrera on 12/22/18 10:[address] SPOKE WITH [facility], DIALYSIS COORDINATOR, TO SEE WHERE WE WERE WITH THE PATIENTS PLACEMENT. SHE HAS STATED THAT THE UNIT IS REQUESTING MORE RECORDS ON HER. I HAVE FAXED [facility] THE REQUESTED RECORDS TO [phone]. I WILL CONTINUE TO FOLLOW UP. DCP- Discharge Planning Updated by [id number]: Jd Ahuja on 12/21/18 2:[address] Patient Name: ERROL FARAH Encounter No: [id number] : 1945 Primary Insurance: [facility] MEDICARE SOLUTIONS Anticipated DC Date: 12-01-2018 Planned Disposition: Residential Facility External Planned Provider: [facility], MEDICARE REHAB BED DCP follow-up note: CM RECEIVED CALL FROM BARRY AT [phone] WHO ADVISED NO OPEN REHAB BEDS AND SHE ASKED FOR PERMISSION TO FORWARD REFERRAL TO HER SISTER FACILITY IN [place]. CM ASKED FOR THIS TO BE DONE, LICO AT [facility] TO CALL CM TODAY. CM TO FOLLOW UP WITH [facility] AT [phone]. CM WAITING ADMISSION DETERMINATIONS FROM [facility] AND [facility]. [facility] WORKING ON OUTPATIENT DIALYSIS UNIT IN [place]. Jd Ahuja, CASE MANAGEMENT Appended by Jd Ahuja on 12/21/2018 15:37 CDT: CM RECEIVED CALL FROM KIMMY FORBES OF [facility], , WHO REPORTS THAT THEY WILL ACCEPT PT AND WOULD LIKE MWF OUTPATIENT DIALYSIS SCHEDULE IF POSSIBLE BUT WILL WORK WITH ANY AVAILABLE DIALYSIS SCHEDULE. CM RECEIVED CALL FROM ALLISON OF [facility], , WHO INFORMED CM THAT [facility] IS STILL CONSIDERING PT, WAITING ON OUTPATIENT DIALYSIS DAYS; PT WILL NEED TO BE ABLE TO DEMONSTRATE ABILITY TO SIT FOR THREE HOURS FOR TRANSPORT AND OUTPATIENT DIALYSIS. CM NOTIFIED PT AND FAMILY IN ROOM. PT REPORTS ABILITY TO SIT FOR DURATION OF TRANSPORT AND DIALYSIS. CM EXPLAINED THAT THERAPY WILL CONTINUE TO WORK WITH HER TO ENSURE HER ABILITY IS DOCUMENTED. VLAD WAITING ADMISSION DETERMINATIONS FROM [facility]. [facility] WORKING ON OUTPATIENT DIALYSIS UNIT IN [place]. PT WILL HAVE TO DEMONSTRATE ABILITY TO TRANSFER AND SIT FOR TRANSPORT AND DURATION OF OUTPATIENT DIALYSIS, THREE OR MORE HOURS. Jd Ahuja, CASE MANAGEMENT DCP- Discharge Planning Updated by [id number]: Jd Ahuja on 12/20/18 3:[address] Patient Name: ERROL FARAH Encounter No: [id number] : 1945 Primary Insurance: [facility] MEDICARE SOLUTIONS Anticipated DC Date: 12-01-2018 Planned Disposition: Residential Facility External Planned Provider: [facility], MEDICARE REHAB BED DCP follow-up note: CM SPOKE TO PT IN ROOM REGARDING INSURANCE DENIAL FOR INPATIENT REHAB AND ASKED ABOUT CHOICES FOR [facility]. PT STATES THAT THEY HAVE NO CHOICE FOR REHAB IN [place], PROVIDER LISTING PREVIOUSLY PROVIDED; PT SIGNED CHOICE FOR ANY [facility] IN [place]. IMPORTANT MESSAGE FROM MEDICARE PROVIDED AND EXPLAINED. CM RECEIVED CALL FROM JAROD DON, PT'S SON, , WHO WANTS ONLY REFERRED TO 4 OR 5 [place]. CM FAXED REFERRALS TO [facility] AT [phone] AND [facility] [phone]. CM TO FOLLOW UP WITH [facility] AT [phone] AND [facility] AT [phone]. CM WAITING ADMISSION DETERMINATIONS FROM BOTH FACILITIES. CM NOTIFIED [facility] TO REQUEST OUTPATIENT DIALYSIS UNIT IN [place]. Jd Ahuja, CASE MANAGEMENT DCP- Discharge Planning Updated by [id number]: Jd Ahuja on 12/16/18 7:[address] Patient Name: ERROL FARAH Encounter No: [id number] : 1945 Primary Insurance: [facility] MEDICARE SOLUTIONS Anticipated DC Date: 12-01-2018 Planned Disposition: INPATIENT REHAB External Planned Provider: [facility] IN[facility]IENT REHAB DCP follow-up note: CM SPOKE TO PT IN ROOM, DISCUSSED [facility] NOT ACCEPTING DUE TO NO DIALYSIS UNIT AVAILABLE IN SERVICE AREA. PT WOULD LIKE TO BE CONSIDERED AT [facility] IN [place], [place]. CHOICE SIGNED. CM SPOKE TO [facility] WHO INFORMED CM THAT THERE ARE NO OPENINGS FOR OUTPATIENT DIALYSIS AT THE [place] UNIT. CM SPOKE TO PT AND FAMILY IN ROOM, DISCUSSED [facility] IN [place] WHERE THE NEXT CLOSEST OUTPATIENT DIALYSIS UNIT TO PT'S HOME. CM PROVIDED LISTING OF [facility] FACILITIES WITHIN 50 MILES OF PT'S HOME FROM MEDICARE WEBSITE. PT AND FAMILY WOULD LIKE TO BE CONSIDERED FOR INPATIENT REHAB AT [place] WITH PLAN TO RETURN HOME AT DISCHARGE FROM REHAB. PT NOW DOES NOT WANT TO GO TO [facility] FOR REHAB. ORDER FOR INPATIENT REHAB PRESCREEN OBTAINED. [facility] OF INPATIENT REHAB NOTIFIED. IMPORTANT MESSAGE FROM MEDICARE PROVIDED AND EXPLAINED. CM WAITING ON OCCUPATIONAL THERAPY EVALUATION, INPATIENT REHAB PRESCREEN AND INSURANCE DETERMINATION FOR INPATIENT REHAB SERVICES. Jd Ahuja, CASE MANAGEMENT DCP- Discharge Planning Updated by [id number]: Dulce Maria Stubbs on 12/08/18 3:[address] JAYDA WITH AT [facility] STATED THAT THEY HAVE AUTH FOR [facility]. WILL DC TO [facility] WHEN SHE IS STABLE FOR DISCHARGE DCP- Discharge Planning Updated by [id number]: Dulce Maria Stubbs on 12/05/18 10:[address] SPOKE WITH JAYDA AT [facility] (SKILLED FACILITY IN [place]) SHE STATED THAT THE PATIENT WILL NEED TO BE PREAUTH BEFORE SHE CAN RETURN SENT CLINICALS TO [phone]. I TOLD HER THAT I ANTICIPATE HER TO BE DISCHARGED SOON DCP- Discharge Planning Updated by [id number]: Rosa Hull on 11/29/18 5:[address] Patient Name: ERROL FARAH Admission Status: ER Accout number: [id number] Admission Date: 11-29-2018 : 1945 Admission Diagnosis: Attending: VALENTIN SOL Current LOS: 1 Anticipated DC Date: 12-01-2018 Planned Disposition: Residential Facility - [facility] Primary Insurance: [facility] MEDICARE SOLUTIONS Discharge Planning Comments: CM met with patient to complete initial dc planning assessment. Patient asleep at this time. CM called her son Jarod Farah, , and educated him on the CM role and verbal consent given by him to complete assessment. Patient is currently in rehab at [facility], . Her son reports she will return there when she is discharged to complete her rehab. He denied further known dc needs at this time. CM will continue to follow and will assist as needed with dc plans/needs. Harness Installer: Rosa Hull RN, [facility] DCPIA - Discharge Planning Initial Assessment Updated by [id number]: Rosa Hull on 11/29/18 6:11 pm * How many steps to enter\exit or inside your home? None * PCP Dr. Kevin Gold, [place] * Pharmacy [facility] * Preadmission Environment Residential Facility * Facility Name [id number] * ADLs Partial Dependent * Partial ADLs (Assistance needed) Ambulation Bathing Medication Management Transfers * Equipment Cane Oxygen Rolling Walker Wheelchair * Other Equipment Wears Oxygen qhs * List name and contact numbers for known caregivers / representatives who currently or will assist patient after discharge: Miya Robbins - sister - [phone] Jarod Farah - son - [phone] * Community resources currently utilized Other * Please name any agencies selected above. Rehab * Additional services required to return to the preadmission environment? No * Can the patient safely return to the preadmission environment? Yes * Has this patient been hospitalized within the prior 30 days at any hospital? Yes Coverage Notice Reviewer: YOLANDA Ahuja Notice Issued Date-Time: 12/29/2018 9:35 Notice Type: IM Discharge Notice Notice Delivered To: Patient Relationship to Patient: Base Cloth Inspector Name: Delivery Method: HAND - Hand Delivered Bridget Days: Prior Verbal Notification: Recipient Understood Notice: Yes Recipient Signature: Yes Med Rec Note Co-signed by Attending: Coverage Notice Comment: Reviewer: YOLANDA Ahuja Notice Issued Date-Time: 12/20/2018 9:05 Notice Type: IM Discharge Notice Notice Delivered To: Patient Relationship to Patient: Base Cloth Inspector Name: Delivery Method: HAND - Hand Delivered Bridget Days: Prior Verbal Notification: Recipient Understood Notice: Yes Recipient Signature: Yes Med Rec Note Co-signed by Attending: Coverage Notice Comment: Reviewer: YOLANDA Ahuja Notice Issued Date-Time: 12/15/2018 9:00 Notice Type: IM Discharge Notice Notice Delivered To: Patient Relationship to Patient: Base Cloth Inspector Name: Delivery Method: HAND - Hand Delivered Bridget Days: Prior Verbal Notification: Recipient Understood Notice: Yes Recipient Signature: Yes Med Rec Note Co-signed by Attending: Coverage Notice Comment: Reviewer: YOLANDA Ahuja Notice Issued Date-Time: 12/20/2018 9:05 Notice Type: Patient Choice Letter Notice Delivered To: Patient Relationship to Patient: Base Cloth Inspector Name: Delivery Method: HAND - Hand Delivered Bridget Days: Prior Verbal Notification: Recipient Understood Notice: Yes Recipient Signature: Yes Med Rec Note Co-signed by Attending: Coverage Notice Comment: ANY SNF IN [place] Reviewer: YOLANDA Ahuja Notice Issued Date-Time: 12/16/2018 9:00 Notice Type: Patient Choice Letter Notice Delivered To: Patient Relationship to Patient: Base Cloth Inspector Name: Delivery Method: HAND - Hand Delivered Bridget Days: Prior Verbal Notification: Recipient Understood Notice: Yes Recipient Signature: Yes Med Rec Note Co-signed by Attending: Coverage Notice Comment: [facility] Last DP export: 12/30/18 2:27 p Patient Name: ERROL FARAH Page [id number] at 1536 All edits/amendments must be made on the electronic document DICTATION DATE: 12/30/181534 SHIPS OR BARGES LOADER: CLEM 12/30/181534 RPT#: [id number] DC DATE: STATUS: ADM IN [facility] [address] [facility] [place] [address] END OF REPORT
--- NOTE | 2018-12-30 15:53 | MORECARE ---
CASE MANAGEMENT DISCHARGE SUMMARY PATIENT: ERROL FARAH UNIT: [id number] ADM DATE: 11/29/18 AGE: 73 : 45 SEX: F ROOM/BED: D.9377 AUTHOR: JOSE,DOC PHYSICIAN: REFERRING PHYSICIAN: VALENTIN SOL MD DATE OF SERVICE: 12/30/18 Discharge Plan Patient Name: ERROL FARAH Facility: [facility]:[place] : 1945 Planned Disposition: [facility] Facility Anticipated Discharge Date: 12/31/18 Discharge Date: Expected LOS: 32 Initial Reviewer: [id number] Initial Review Date: 11/29/2018 Generated: 12/30/18 4:53 pm Comments DCP- Discharge Planning Updated by [id number]: Jd Ahuja on 12/30/18 2:[address] Patient Name: ERROL FARAH Encounter No: [id number] : 1945 Primary Insurance: [facility] MEDICARE SOLUTIONS Anticipated DC Date: 12-31-2018 Planned Disposition: [facility] Facility External Planned Provider:[facility], MEDICARE REHAB BED DCP follow-up note: CM RECEIVED CALL FROM PT'S SISTER WHO INFORMED CM THAT THE EGD WAS COMPLETED, THEY FOUND NOTHING AND CAN PT DISCHARGE TO GROUP HOME TODAY. CM CALLED [facility], , SPOKE TO CRYS WHO INFORMED CM THAT THEY WILL NOT BE ABLE TO ACCEPT PT TODAY IT WOULD BE AFTER 7PM BEFORE FAMILY COULD GET PT THERE. THEY WILL ACCEPT PT TOMORROW, THE PT HAS TO BE IN FACILITY BY NOON, 12-31-18, FOR SNF ADMIT. CM NOTIFIED PT'S SISTER WHO REPORTS FAMILY HAS THE OXYGEN NOW AT HOME AND WILL BRING IT TOMORROW FOR DISCHARGE AT 0800AM AND FAMILY WILL TRANSPORT PT TO THE GROUP HOME. VLAD NOTIFIED JER WELCH. CM FAXED UPDATE TO [facility] AT [phone]. OUTPATIENT DIALYSIS UNIT HAS ACCEPTED IN [place] FOR MWF, 1115 AM. [facility] IN [place] ACCEPTING PT FOR REHAB AT DISCHARGE 12-31-18. FOR DISCHARGE, FAX DISCHARGE INFORMATION TO [facility], . NURSE REPORT TO BE CALLED TO [facility] AT [phone]. FAMILY HAS PORTABLE OXYGEN AND PROVIDE TRANSPORTATION FROM HOSPITAL TO REHAB IN [place]. Jd Ahuja, CASE MANAGEMENT Appended by Jd Ahuja on 12/30/2018 15:47 CDT: OUTPATIENT DIALYSIS UNIT HAS ACCEPTED IN [place] FOR MWF, 1115 AM; CM VERIFIED ARRANGEMENT WITH PATIENT PATHWAYS COORDINATOR MALCOLM CHESTER. [facility] IN [place] ACCEPTING PT FOR REHAB AT DISCHARGE 12-31-18. FOR DISCHARGE, FAX DISCHARGE INFORMATION TO [facility], . NURSE REPORT TO BE CALLED TO [facility] AT [phone]. FAMILY HAS PORTABLE OXYGEN AND PROVIDE TRANSPORTATION FROM HOSPITAL TO REHAB IN [place]. Jd Ahuja, CASE MANAGEMENT DCP- Discharge Planning Updated by [id number]: Jd Ahuja on 12/29/18 11:[address] Patient Name: ERROL FARAH Encounter No: [id number] : 1945 Primary Insurance: [facility] MEDICARE SOLUTIONS Anticipated DC Date: 12-29-2018 Planned Disposition: [facility] Facility External Planned Provider: [facility], MEDICARE REHAB BED DCP follow-up note: CHART REVIEW COMPLETED BY VLAD. RN VLAD HERRERA NOTIFIED JER WELCH OF PT'S FAMILY CONCERNS OF BLOOD IN STOOL. CM NOTIFIED PT AND SISTER IN ROOM THAT [facility] ARE READY TO DISCHARGE PER NOTES, GROUP HOME HAS ACCEPTED FOR REHAB AND DIALYSIS UNIT HAS ACCEPTED FOR OUTPAIENT DIALYSIS ADMIT ON TOMORROW. PT'S FAMILY HAS NOT PICKED UP OXYGEN YET BUT WILL TRANSPORT TO THE GROUP HOME. PT'S SISTER VERBALIZES CONCERN ABOUT PT'S BLOOD IN STOOL. CM NOTIFIED PT AND FAMILY THAT JER WELCH HAD BEEN MADE AWARE OF CONCERN. PT'S SISTER REPORTS SHE WILL CONTACT FAMILY TO FIELD ATTENDANT OXYGEN E TANK FROM [facility] AND DELIVER TO HOSPITAL FOR DISCHARGE TO REHAB IN [place], SISTER REPORTS PLAN TO DRIVE PT THERE AT DISCHARGE. IMPORTANT MESSAGE FROM MEDICARE PROVIDED AND EXPLAINED. VLAD SPOKE TO JAE HERRERA WHO INFORMED VLAD THAT JER WELCH IS RECONSULTING GI. VLAD NOTIFIED CRYS OLMOS POTEAUPRATIMA OF DELAY. OUTPATIENT DIALYSIS UNIT HAS ACCEPTED IN [place] FOR MWF, 1115 AM, CAN ADMIT FOR DIALYSIS ON 12-30-18. [facility] IN [place] ACCEPTING PT FOR REHAB AT DISCHARGE. FOR DISCHARGE, FAX DISCHARGE INFORMATION TO [facility], . NURSE REPORT TO BE CALLED TO [facility] AT [phone]. FAMILY TO FIELD ATTENDANT OXYGEN AND PROVIDE TRANSPORTATION FROM HOSPITAL TO REHAB IN [place]. Jd Ahuja, CASE MANAGEMENT DCP- Discharge Planning Updated by [id number]: Jd Ahuja on 12/28/18 1:[address] Patient Name: ERROL FARAH Encounter No: [id number] : 1945 Primary Insurance: [facility] MEDICARE SOLUTIONS Anticipated DC Date: 12-29-2018 Planned Disposition: [facility] Facility External Planned Provider: [facility], MEDICARE REHAB BED DCP follow-up note: CM RECEIVED MESSAGE FROM MALCOLM THAT PT'S OUTPATIENT DIALYSIS IS ARRANGED, PT ACCEPTED AT [facility] IN [place]. CM RECEIVED CALL FROM CRYS AT [facility] , , WHO REQUESTED UPDATE. JOHN INFORMED CM THAT PT HAS OUTPATIENT DIALYSIS UNIT HAS ACCEPTED IN [place] FOR MWF, 1115 AM, CAN ADMIT FOR DIALYSIS ON 12-30-18. [facility] WILL ACCEPT BUT IS NOT ABLE TO PROVIDE TRANSPORT TO FACILITY AT HOSPITAL DISCHARGE. CM FAXED UPDATE TO [facility] AT [phone]. CM NOTIFIED PT AND SISTER IN ROOM. PT'S FAMILY WILL TRANSPORT BUT DOES NOT HAVE PORTABLE OXYGEN IN ROOM AND REMAIN CONCERNED ABOUT PT'S BLOOD IN STOOL. VLAD CALLED [facility] IN [place], , WAS INFORMED BY CECILIO THAT PT HAS QUALIFIED FOR PORTABLE OXYGEN, IT IS TOO FAR TO BRING TO HOSPITAL; CECILIO INFORMED CM THAT FAMILY CAN FIELD ATTENDANT ETANK OF OXYGEN AT HIS LOCATION IN [place], IN [place] OR [place]. VLAD NOTIFIED PT'S FAMILY IN ROOM WHO WILL CALL PT'S BROTHER IN [place] WHO WILL FIELD ATTENDANT OXYGEN E TANK AND DELIVER TO HOSPITAL FOR DISCHARGE TO REHAB IN [place]. OUTPATIENT DIALYSIS UNIT HAS ACCEPTED IN [place] FOR MWF, 1115 AM, CAN ADMIT FOR DIALYSIS ON 12-30-18. [facility] IN [place] ACCEPTING PT FOR REHAB AT DISCHARGE. FOR DISCHARGE, FAX DISCHARGE INFORMATION TO [facility], . NURSE REPORT TO BE CALLED TO [facility] AT [phone]. FAMILY TO FIELD ATTENDANT OXYGEN AND PROVIDE TRANSPORTATION FROM HOSPITAL TO REHAB IN [place]. Jd Ahuja, CASE MANAGEMENT DCP- Discharge Planning Updated by [id number]: Bhumika Bautista on 12/26/18 10:[address] Patient Name: ERROL FARAH Admission Status: ER Accout number: [id number] Admission Date: 11-29-2018 : 1945 Admission Diagnosis:GASTROINTESTINAL HEMORRHAGE, UNSPECIFIED Attending: VALENTIN SOL Current LOS: 27 Anticipated DC Date: 12-01-2018 Planned Disposition: [facility] Facility Primary Insurance: [facility] MEDICARE SOLUTIONS Discharge Planning Comments: UPDATED DOCUMENTS SENT TO MALCOLM CHESTER WHOM IS SETTING UP PATIENT'S DIALYSIS. WAITING FOR CALL BACK. CM TO FOLLOW AND ASSIST NEEDED WITH DC PLANNING/NEEDS. Motor Assembler: Bhumika Bautista DCP- Discharge Planning Updated by [id number]: Jd Ahuja on 12/22/18 4:[address] Patient Name: ERROL FARAH Encounter No: [id number] : 1945 Primary Insurance: [facility] MEDICARE SOLUTIONS Anticipated DC Date: 12-01-2018 Planned Disposition: [facility] Facility External Planned Provider: [facility], MEDICARE REHAB BED DCP follow-up note: CM RECEIVED CALL FROM CRYS AT [facility] , , WHO REQUESTED UPDATE. CM EXPLAINED THAT THE DIALYSIS UNIT STILL HAS NOT ACCEPTED PT. [facility] WILL ACCEPT WHEN DIALYSIS UNIT IS ARRANGED. CM FAXED UPDATE TO [facility] AT [phone]. MALCOLM OF [facility]WAYS WORKING ON OUTPATIENT DIALYSIS UNIT IN [place], PT'S H&H TRENDING DOWN, WBC TRENDING UP. THE DIALYSIS CLINIC IS GOING TO WANT STABLE LABS TO ACCEPT. PT WILL NEED TO DEMONSTRATE DOCUMENTED ABILITY TO SIT GREATER THAN THREE HOURS TO TRANSFER AND SIT FOR OUTPATIENT DIALYSIS UNIT TO ACCEPT. Jd Ahuja, CASE MANAGEMENT DCP- Discharge Planning Updated by [id number]: Cherry Herrera on 12/22/18 10:[address] SPOKE WITH MALCOLM CHESTER, DIALYSIS COORDINATOR, TO SEE WHERE WE WERE WITH THE PATIENTS PLACEMENT. SHE HAS STATED THAT THE UNIT IS REQUESTING MORE RECORDS ON HER. I HAVE FAXED MALCOLM THE REQUESTED RECORDS TO [phone]. I WILL CONTINUE TO FOLLOW UP. DCP- Discharge Planning Updated by [id number]: Jd Ahuja on 12/21/18 2:[address] Patient Name: ERROL FARAH Encounter No: [id number] : 1945 Primary Insurance: [facility] MEDICARE SOLUTIONS Anticipated DC Date: 12-01-2018 Planned Disposition: [facility] Facility External Planned Provider: [facility], MEDICARE REHAB BED DCP follow-up note: CM RECEIVED CALL FROM BARRY AT [phone] WHO ADVISED NO OPEN REHAB BEDS AND SHE ASKED FOR PERMISSION TO FORWARD REFERRAL TO HER SISTER FACILITY IN [place]. CM ASKED FOR THIS TO BE DONE, LICO AT [facility] TO CALL CM TODAY. CM TO FOLLOW UP WITH [facility] AT [phone]. VLAD WAITING ADMISSION DETERMINATIONS FROM [facility] AND [facility]. MALCOL[facility] OF [facility] WORKING ON OUTPATIENT DIALYSIS UNIT IN [place]. Jd Ahuja, CASE MANAGEMENT Appended by Jd Ahuja on 12/21/2018 15:37 CDT: CM RECEIVED CALL FROM KIMMY FORBES OF [facility], , WHO REPORTS THAT THEY WILL ACCEPT PT AND WOULD LIKE MWF OUTPATIENT DIALYSIS SCHEDULE IF POSSIBLE BUT WILL WORK WITH ANY AVAILABLE DIALYSIS SCHEDULE. CM RECEIVED CALL FROM [facility], , WHO INFORMED VLAD THAT [facility] IS STILL CONSIDERING PT, WAITING ON OUTPATIENT DIALYSIS DAYS; PT WILL NEED TO BE ABLE TO DEMONSTRATE ABILITY TO SIT FOR THREE HOURS FOR TRANSPORT AND OUTPATIENT DIALYSIS. CM NOTIFIED PT AND FAMILY IN ROOM. PT REPORTS ABILITY TO SIT FOR DURATION OF TRANSPORT AND DIALYSIS. CM EXPLAINED THAT THERAPY WILL CONTINUE TO WORK WITH HER TO ENSURE HER ABILITY IS DOCUMENTED. VLAD WAITING ADMISSION DETERMINATIONS FROM [facility]. MALCOL[facility] OF [facility] WORKING ON OUTPATIENT DIALYSIS UNIT IN [place]. PT WILL HAVE TO DEMONSTRATE ABILITY TO TRANSFER AND SIT FOR TRANSPORT AND DURATION OF OUTPATIENT DIALYSIS, THREE OR MORE HOURS. Jd Ahuja, CASE MANAGEMENT DCP- Discharge Planning Updated by [id number]: Jd Ahuja on 12/20/18 3:[address] Patient Name: ERROL FARAH Encounter No: [id number] : 1945 Primary Insurance: [facility] MEDICARE SOLUTIONS Anticipated DC Date: 12-01-2018 Planned Disposition: [facility] Facility External Planned Provider: [facility], MEDICARE REHAB BED DCP follow-up note: CM SPOKE TO PT IN ROOM REGARDING INSURANCE DENIAL FOR INPATIENT REHAB AND ASKED ABOUT CHOICES FOR SNF. PT STATES THAT THEY HAVE NO CHOICE FOR REHAB IN [place], PROVIDER LISTING PREVIOUSLY PROVIDED; PT SIGNED CHOICE FOR ANY SNF IN [place]. IMPORTANT MESSAGE FROM MEDICARE PROVIDED AND EXPLAINED. CM RECEIVED CALL FROM JAROD MOSCOSO, PT'S SON, , WHO WANTS ONLY REFERRED TO 4 OR 5 [facility] FACILITIES. CM FAXED REFERRALS TO [facility] AT [phone] AND [facility] [phone]. CM TO FOLLOW UP WITH [facility] AT [phone] AND [facility] AT [phone]. CM WAITING ADMISSION DETERMINATIONS FROM BOTH FACILITIES. CM NOTIFIED MALCOLM OF [facility] TO REQUEST OUTPATIENT DIALYSIS UNIT IN [place]. Jd Ahuja, CASE MANAGEMENT DCP- Discharge Planning Updated by [id number]: Jd Ahuja on 12/16/18 7:[address] Patient Name: ERROL FARAH Encounter No: [id number] : 1945 Primary Insurance: [facility] MEDICARE SOLUTIONS Anticipated DC Date: 12-01-2018 Planned Disposition: INPATIENT REHAB External Planned Provider: [facility] INPATIENT REHAB DCP follow-up note: CM SPOKE TO PT IN ROOM, DISCUSSED [facility] NOT ACCEPTING DUE TO NO DIALYSIS UNIT AVAILABLE IN SERVICE AREA. PT WOULD LIKE TO BE CONSIDERED AT [facility] IN [place], [place]. CHOICE SIGNED. CM SPOKE TO MALCOLM OF [facility] WHO INFORMED CM THAT THERE ARE NO OPENINGS FOR OUTPATIENT DIALYSIS AT THE [place]. CM SPOKE TO PT AND FAMILY IN ROOM, DISCUSSED SNF IN [place] WHERE THE NEXT CLOSEST OUTPATIENT DIALYSIS UNIT TO PT'S HOME. CM PROVIDED LISTING OF SNF FACILITIES WITHIN 50 MILES OF PT'S HOME FROM MEDICARE WEBSITE. PT AND FAMILY WOULD LIKE TO BE CONSIDERED FOR INPATIENT REHAB AT [facility] WITH PLAN TO RETURN HOME AT DISCHARGE FROM REHAB. PT NOW DOES NOT WANT TO GO TO SNF FOR REHAB. ORDER FOR INPATIENT REHAB PRESCREEN OBTAINED. [facility] OF INPATIENT REHAB NOTIFIED. IMPORTANT MESSAGE FROM MEDICARE PROVIDED AND EXPLAINED. CM WAITING ON OCCUPATIONAL THERAPY EVALUATION, INPATIENT REHAB PRESCREEN AND INSURANCE DETERMINATION FOR INPATIENT REHAB SERVICES. Jd Ahuja, CASE MANAGEMENT DCP- Discharge Planning Updated by [id number]: Dulce Maria Stubbs on 12/08/18 3:[address] JAYDA WITH AT [facility] STATED THAT THEY HAVE AUTH FOR [facility]. WILL DC TO [facility] WHEN SHE IS STABLE FOR DISCHARGE DCP- Discharge Planning Updated by [id number]: Dulce Maria Evelyne on 12/05/18 10:[address] SPOKE WITH JAYDA AT [facility] (SKILLED FACILITY IN [place]) SHE STATED THAT THE PATIENT WILL NEED TO BE PREAUTH BEFORE SHE CAN RETURN SENT CLINICALS TO [phone]. I TOLD HER THAT I ANTICIPATE HER TO BE DISCHARGED SOON DCP- Discharge Planning Updated by [id number]: Rosa Hull on 11/29/18 5:[address] Patient Name: ERROL FARAH Admission Status: ER Accout number: [id number] Admission Date: 11-29-2018 : 1945 Admission Diagnosis: Attending: VALENTIN SOL Current LOS: 1 Anticipated DC Date: 12-01-2018 Planned Disposition: [facility] Facility - [facility] Primary Insurance: [facility] MEDICARE SOLUTIONS Discharge Planning Comments: CM met with patient to complete initial dc planning assessment. Patient asleep at this time. CM called her son Jarod Farah, , and educated him on the CM role and verbal consent given by him to complete assessment. Patient is currently in rehab at [facility], . Her son reports she will return there when she is discharged to complete her rehab. He denied further known dc needs at this time. CM will continue to follow and will assist as needed with dc plans/needs. Motor Assembler: Rosa Hull RN, [facility] DCPIA - Discharge Planning Initial Assessment Updated by [id number]: Rosa Hull on 11/29/18 6:11 pm * How many steps to enter\exit or inside your home? None * PCP Dr. Kevin Gold, [place] * Pharmacy [facility] * Preadmission Environment [facility] Facility * Facility Name [facility] [phone] * ADLs Partial Dependent * Partial ADLs (Assistance needed) Ambulation Bathing Medication Management Transfers * Equipment Cane Oxygen Rolling Walker Wheelchair * Other Equipment Wears Oxygen qhs * List name and contact numbers for known caregivers / representatives who currently or will assist patient after discharge: Miya Robbins - sister - [phone] Jarod steele - [phone] * Community resources currently utilized Other * Please name any agencies selected above. Rehab * Additional services required to return to the preadmission environment? No * Can the patient safely return to the preadmission environment? Yes * Has this patient been hospitalized within the prior 30 days at any hospital? Yes Coverage Notice Reviewer: YOLANDA Ahuja Notice Issued Date-Time: 12/15/2018 9:00 Notice Type: IM Discharge Notice Notice Delivered To: Patient Relationship to Patient: Electronic Prepress System Operator Name: Delivery Method: HAND - Hand Delivered Bridget Days: Prior Verbal Notification: Recipient Understood Notice: Yes Recipient Signature: Yes Med Rec Note Co-signed by Attending: Coverage Notice Comment: Reviewer: YOLANDA Ahuja Notice Issued Date-Time: 12/16/2018 9:00 Notice Type: Patient Choice Letter Notice Delivered To: Patient Relationship to Patient: Electronic Prepress System Operator Name: Delivery Method: HAND - Hand Delivered Bridget Days: Prior Verbal Notification: Recipient Understood Notice: Yes Recipient Signature: Yes Med Rec Note Co-signed by Attending: Coverage Notice Comment: [facility] Reviewer: YOLANDA Ahuja Notice Issued Date-Time: 12/20/2018 9:05 Notice Type: Patient Choice Letter Notice Delivered To: Patient Relationship to Patient: Electronic Prepress System Operator Name: Delivery Method: HAND - Hand Delivered Bridget Days: Prior Verbal Notification: Recipient Understood Notice: Yes Recipient Signature: Yes Med Rec Note Co-signed by Attending: Coverage Notice Comment: ANY SNF IN [place] Reviewer: YOLANDA Ahuja Notice Issued Date-Time: 12/20/2018 9:05 Notice Type: IM Discharge Notice Notice Delivered To: Patient Relationship to Patient: Electronic Prepress System Operator Name: Delivery Method: HAND - Hand Delivered Bridget Days: Prior Verbal Notification: Recipient Understood Notice: Yes Recipient Signature: Yes Med Rec Note Co-signed by Attending: Coverage Notice Comment: Reviewer: YOLANDA Ahuja Notice Issued Date-Time: 12/29/2018 9:35 Notice Type: IM Discharge Notice Notice Delivered To: Patient Relationship to Patient: Electronic Prepress System Operator Name: Delivery Method: HAND - Hand Delivered Bridget Days: Prior Verbal Notification: Recipient Understood Notice: Yes Recipient Signature: Yes Med Rec Note Co-signed by Attending: Coverage Notice Comment: Last DP export: 12/30/18 2:35 p Patient Name: ERROL FARAH Page [id number] at 1553 All edits/amendments must be made on the electronic document DICTATION DATE: 12/30/181551 LEVEL GLASS FORMING MACHINE OPERATOR: CLEM 12/30/181551 RPT#: [id number] DC DATE: STATUS: ADM IN [facility] [address] [place] [address] END OF REPORT
[2018-12-30 17:05] VITALS: BP 154/58
--- NOTE | 2018-12-30 19:28 | NUR ---
RECEIVED REPORT, WILL ASSUME CARE OF PT, PT IS SLEEPING, FAMILY IN ROOM, BED IS LOW, SRX2, CALL LIGHT IN REACH, WILL CONTINUE PLAN OF CARE
[2018-12-30 20:00] VITALS: BP 148/44
--- NOTE | 2018-12-30 23:38 | NUR ---
COMPLAINS OF PAIN, GAVE NORCO ORDER, ASSISTED PORTABLE CANTEEN OPERATOR TO PLACE PT ON BEDPAN/ REPOSTION PT
[2018-12-31] VITALS: BP 133/54
--- NOTE | 2018-12-31 05:17 | NUR ---
REFUSING AM LAB, STATES SHE IS BEING DISCHARGED AT 0800
[2018-12-31 06:22] VITALS: BP 111/45
[2018-12-31] MEDS ORDERED: METOPROLOL TART50 MG PO (07:16)
[2018-12-31] MEDS ORDERED: HYDRALAZINE HCL50 MG PO (07:16)
[2018-12-31] MEDS ORDERED: NORVASC10 MG PO (07:17)
[2018-12-31] MEDS ORDERED: MIRALAX17 GM PO (07:17)
--- NOTE | 2018-12-31 08:11 | NUR ---
REPORT CALLED TO [facility].
--- NOTE | 2018-12-31 08:25 | NUR ---
RIGHT HAND IV SL DC'D WITH CATH INTACT. DISCHARGE INSTRUCTIONS GIVEN TO PT AND PT'S FAMILY. THEY VERBALZIED UNDERSTANDING. PT SIGNED CHART COPY.
--- NOTE | 2018-12-31 09:12 | NUR ---
PT TAKEN DOWN VIA WC BY HAULING CONTRACTOR ACCOMPANIED BY FAMILY.
--- NOTE | 2019-01-02 09:09 | MORECARE ---
CASE MANAGEMENT DISCHARGE SUMMARY PATIENT: ERROL FARAH UNIT: [id number] ADM DATE: 11/29/18 AGE: 73 : 45 SEX: F ROOM/BED: D.8104 AUTHOR: JOSE,DOC PHYSICIAN: REFERRING PHYSICIAN: VALENTIN SOL MD DATE OF SERVICE: 01/02/19 Discharge Plan Patient Name: ERROL FARAH Facility: [facility]:[place] : 1945 Planned Disposition: Long Term Facility Anticipated Discharge Date: 12/31/18 Discharge Date: 12/31/2018 Expected LOS: 32 Initial Reviewer: [id number] Initial Review Date: 11/29/2018 Generated: 01/02/19 10:08 am Comments DCP- Discharge Planning Updated by [id number]: Jd Ahuja on 12/30/18 2:[address] Patient Name: ERROL FARAH Encounter No: [id number] : 1945 Primary Insurance: [facility] MEDICARE SOLUTIONS Anticipated DC Date: 12-31-2018 Planned Disposition: Long Term Facility External Planned Provider:[facility], MEDICARE REHAB BED DCP follow-up note: CM RECEIVED CALL FROM PT'S SISTER WHO INFORMED CM THAT THE EGD WAS COMPLETED, THEY FOUND NOTHING AND CAN PT DISCHARGE TO PRISON TODAY. CM CALLED [facility], , SPOKE TO CRYS WHO INFORMED CM THAT THEY WILL NOT BE ABLE TO ACCEPT PT TODAY IT WOULD BE AFTER 7PM BEFORE FAMILY COULD GET PT THERE. THEY WILL ACCEPT PT TOMORROW, THE PT HAS TO BE IN FACILITY BY NOON, 12-31-18, FOR LONG-TERM ADMIT. CM NOTIFIED PT'S SISTER WHO REPORTS FAMILY HAS THE OXYGEN NOW AT HOME AND WILL BRING IT TOMORROW FOR DISCHARGE AT 0800AM AND FAMILY WILL TRANSPORT PT TO THE PRISON. CM NOTIFIED JER WELCH. CM FA[facility]ED UPDATE TO [facility] AT [phone]. OUTPATIENT DIALYSIS UNIT HAS ACCEPTED IN [place] FOR MWF, 1115 AM. [facility] IN [place] ACCEPTING PT FOR REHAB AT DISCHARGE 12-31-18. FOR DISCHARGE, FAX DISCHARGE INFORMATION TO [facility], . NURSE REPORT TO BE CALLED TO [facility] AT [phone]. FAMILY HAS PORTABLE OXYGEN AND PROVIDE TRANSPORTATION FROM HOSPITAL TO REHAB IN [place]. Jd Ahuja, CASE MANAGEMENT Appended by Jd Ahuja on 12/30/2018 15:47 CDT: OUTPATIENT DIALYSIS UNIT HAS ACCEPTED IN [place] FOR MWF, 1115 AM; CM VERIFIED ARRANGEMENT WITH [facility] COORDINATOR MALCOLM CHESTER. [facility] IN [place] ACCEPTING PT FOR REHAB AT DISCHARGE 12-31-18. FOR DISCHARGE, FAX DISCHARGE INFORMATION TO [facility], . NURSE REPORT TO BE CALLED TO [facility] AT [phone]. FAMILY HAS PORTABLE OXYGEN AND PROVIDE TRANSPORTATION FROM HOSPITAL TO REHAB IN [place]. Jd Ahuja, CASE MANAGEMENT DCP- Discharge Planning Updated by [id number]: Jd Ahuja on 12/29/18 11:[address] Patient Name: ERROL FARAH Encounter No: [id number] : 1945 Primary Insurance: [facility] MEDICARE SOLUTIONS Anticipated DC Date: 12-29-2018 Planned Disposition: Long Term Facility External Planned Provider: [facility], MEDICARE REHAB BED DCP follow-up note: CHART REVIEW COMPLETED BY VLAD. RN VLAD HERRERA NOTIFIED JER WELCH OF PT'S FAMILY CONCERNS OF BLOOD IN STOOL. CM NOTIFIED PT AND SISTER IN ROOM THAT [facility] ARE READY TO DISCHARGE PER NOTES, PRISON HAS ACCEPTED FOR REHAB AND DIALYSIS UNIT HAS ACCEPTED FOR OUTPAIENT DIALYSIS ADMIT ON TOMORROW. PT'S FAMILY HAS NOT PICKED UP OXYGEN YET BUT WILL TRANSPORT TO THE PRISON. PT'S SISTER VERBALIZES CONCERN ABOUT PT'S BLOOD IN STOOL. CM NOTIFIED PT AND FAMILY THAT JER YURI HAD BEEN MADE AWARE OF CONCERN. PT'S SISTER REPORTS SHE WILL CONTACT FAMILY TO ANIMAL NURSE OXYGEN E TANK FROM [facility] AND DELIVER TO HOSPITAL FOR DISCHARGE TO REHAB IN [place], SISTER REPORTS PLAN TO DRIVE PT THERE AT DISCHARGE. IMPORTANT MESSAGE FROM MEDICARE PROVIDED AND EXPLAINED. VLAD SPOKE TO RN VLAD HERRERA WHO INFORMED VLAD THAT JER WELCH IS RECONSULTING GI. VLAD NOTIFIED [facility] OF DELAY. OUTPATIENT DIALYSIS UNIT HAS ACCEPTED IN [place] FOR MWF, 1115 AM, CAN ADMIT FOR DIALYSIS ON 12-30-18. [facility] IN [place] ACCEPTING PT FOR REHAB AT DISCHARGE. FOR DISCHARGE, FAX DISCHARGE INFORMATION TO [facility], . NURSE REPORT TO BE CALLED TO [facility] AT [phone]. FAMILY TO ANIMAL NURSE OXYGEN AND PROVIDE TRANSPORTATION FROM HOSPITAL TO REHAB IN [place]. Jd Ahuja, CASE MANAGEMENT DCP- Discharge Planning Updated by [id number]: Jd Ahuja on 12/28/18 1:[address] Patient Name: ERROL FARAH Encounter No: [id number] : 1945 Primary Insurance: [facility] MEDICARE SOLUTIONS Anticipated DC Date: 12-29-2018 Planned Disposition: Long Term Facility External Planned Provider: [facility], MEDICARE REHAB BED DCP follow-up note: CM RECEIVED MESSAGE FROM MALCOLM THAT PT'S OUTPATIENT DIALYSIS IS ARRANGED, PT ACCEPTED AT [facility] IN [place]. CM RECEIVED CALL FROM CRYS AT [facility] , , WHO REQUESTED UPDATE. JOHN INFORMED CM THAT PT HAS OUTPATIENT DIALYSIS UNIT HAS ACCEPTED IN [place] FOR MWF, 1115 AM, CAN ADMIT FOR DIALYSIS ON 12-30-18. PRISON WILL ACCEPT BUT IS NOT ABLE TO PROVIDE TRANSPORT TO FACILITY AT HOSPITAL DISCHARGE. CM FAXED UPDATE TO [facility] AT [phone]. CM NOTIFIED PT AND SISTER IN ROOM. PT'S FAMILY WILL TRANSPORT BUT DOES NOT HAVE PORTABLE OXYGEN IN ROOM AND REMAIN CONCERNED ABOUT PT'S BLOOD IN STOOL. VLAD CALLED [facility] IN [place], , WAS INFORMED BY CECILIO THAT PT HAS QUALIFIED FOR PORTABLE OXYGEN, IT IS TOO FAR TO BRING TO HOSPITAL; CECILIO INFORMED CM THAT FAMILY CAN ANIMAL NURSE ETANK OF OXYGEN AT HIS LOCATION IN [place], IN [place] OR [place]. VLAD NOTIFIED PT'S FAMILY IN ROOM WHO WILL CALL PT'S BROTHER IN [place] WHO WILL ANIMAL NURSE OXYGEN E TANK AND DELIVER TO HOSPITAL FOR DISCHARGE TO REHAB IN [place]. OUTPATIENT DIALYSIS UNIT HAS ACCEPTED IN [place] FOR MWF, 1115 AM, CAN ADMIT FOR DIALYSIS ON 12-30-18. [facility] IN [place] ACCEPTING PT FOR REHAB AT DISCHARGE. FOR DISCHARGE, FAX DISCHARGE INFORMATION TO [facility], . NURSE REPORT TO BE CALLED TO [facility] AT [phone]. FAMILY TO ANIMAL NURSE OXYGEN AND PROVIDE TRANSPORTATION FROM HOSPITAL TO REHAB IN [place]. Jd Ahuja, CASE MANAGEMENT DCP- Discharge Planning Updated by [id number]: Bhumika Bautista on 12/26/18 10:[address] Patient Name: ERROL FARAH Admission Status: ER Accout number: [id number] Admission Date: 11-29-2018 : 1945 Admission Diagnosis:GASTROINTESTINAL HEMORRHAGE, UNSPECIFIED Attending: VALENTIN SOL Current LOS: 27 Anticipated DC Date: 12-01-2018 Planned Disposition: Long Term Facility Primary Insurance: [facility] MEDICARE SOLUTIONS Discharge Planning Comments: UPDATED DOCUMENTS SENT TO MALCOLM CHESTER WHOM IS SETTING UP PATIENT'S DIALYSIS. WAITING FOR CALL BACK. CM TO FOLLOW AND ASSIST NEEDED WITH DC PLANNING/NEEDS. Route Sales Specialist: Bhumika Bautista DCP- Discharge Planning Updated by [id number]: Jd Ahuja on 12/22/18 4:[address] Patient Name: ERROL FARAH Encounter No: [id number] : 1945 Primary Insurance: [facility] MEDICARE SOLUTIONS Anticipated DC Date: 12-01-2018 Planned Disposition: Long Term Facility External Planned Provider: [facility]ICARE [facility]HAB BED DCP follow-up note: CM RECEIVED CALL FROM CRYS AT [facility] , , WHO REQUESTED UPDATE. CM EXPLAINED THAT THE DIALYSIS UNIT STILL HAS NOT ACCEPTED PT. [facility] WILL ACCEPT WHEN DIALYSIS UNIT IS ARRANGED. CM FAXED UPDATE TO [facility] AT [phone]. MALCOLM OF [facility]IENT [facility] WORKING ON OUTPATIENT DIALYSIS UNIT IN [place], PT'S H&H TRENDING DOWN, WBC TRENDING UP. THE DIALYSIS CLINIC IS GOING TO WANT STABLE LABS TO ACCEPT. PT WILL NEED TO DEMONSTRATE DOCUMENTED ABILITY TO SIT GREATER THAN THREE HOURS TO TRANSFER AND SIT FOR OUTPATIENT DIALYSIS UNIT TO ACCEPT. Jd Ahuja, CASE MANAGEMENT DCP- Discharge Planning Updated by [id number]: Cherry Herrera on 12/22/18 10:[address] SPOKE WITH MALCOLM CHESTER, DIALYSIS COORDINATOR, TO SEE WHERE WE WERE WITH THE PATIENTS PLACEMENT. SHE HAS STATED THAT THE UNIT IS REQUESTING MORE RECORDS ON HER. I HAVE FAXED MALCOLM THE REQUESTED RECORDS TO [phone]. I WILL CONTINUE TO FOLLOW UP. DCP- Discharge Planning Updated by [id number]: Jd Ahuja on 12/21/18 2:[address] Patient Name: ERROL FARAH Encounter No: [id number] : 1945 Primary Insurance: [facility] MEDICARE SOLUTIONS Anticipated DC Date: 12-01-2018 Planned Disposition: Long Term Facility External Planned Provider: [facility] DCP follow-up note: CM RECEIVED CALL FROM [facility] AT [phone] WHO ADVISED NO OPEN REHAB BEDS AND SHE ASKED FOR PERMISSION TO FORWARD REFERRAL TO HER SISTER FACILITY IN [place]. CM ASKED FOR THIS TO BE DONE, LICO AT [facility] TO CALL CM TODAY. CM TO FOLLOW UP WITH [facility] AT [phone]. VLAD WAITING ADMISSION DETERMINATIONS FROM [facility] AND [facility]. [facility] OF [facility] WORKING ON OUTPATIENT DIALYSIS UNIT IN [place]. Jd Ahuja, CASE MANAGEMENT Appended by Jd Ahuja on 12/21/2018 15:37 CDT: CM RECEIVED CALL FROM KIMMY FORBES OF [facility], , WHO REPORTS THAT THEY WILL ACCEPT PT AND WOULD LIKE MWF OUTPATIENT DIALYSIS SCHEDULE IF POSSIBLE BUT WILL WORK WITH ANY AVAILABLE DIALYSIS SCHEDULE. CM RECEIVED CALL FROM [facility], , WHO INFORMED CM THAT [facility] IS STILL CONSIDERING PT, WAITING ON OUTPATIENT DIALYSIS DAYS; PT WILL NEED TO BE ABLE TO DEMONSTRATE ABILITY TO SIT FOR THREE HOURS FOR TRANSPORT AND OUTPATIENT DIALYSIS. CM NOTIFIED PT AND FAMILY IN ROOM. PT REPORTS ABILITY TO SIT FOR DURATION OF TRANSPORT AND DIALYSIS. CM EXPLAINED THAT THERAPY WILL CONTINUE TO WORK WITH HER TO ENSURE HER ABILITY IS DOCUMENTED. VLAD WAITING ADMISSION DETERMINATIONS FROM [facility]. MALCOL[facility] OF [facility] WORKING ON OUTPATIENT DIALYSIS UNIT IN [place]. PT WILL HAVE TO DEMONSTRATE ABILITY TO TRANSFER AND SIT FOR TRANSPORT AND DURATION OF OUTPATIENT DIALYSIS, THREE OR MORE HOURS. Jd Ahuja, CASE MANAGEMENT DCP- Discharge Planning Updated by [id number]: Jd Ahuja on 12/20/18 3:[address] Patient Name: ERROL FARAH Encounter No: [id number] : 1945 Primary Insurance: [facility] MEDICARE [employer] Anticipated DC Date: 12-01-2018 Planned Disposition: Long Term Facility External Planned Provider: [facility], MEDICARE REHAB BED DCP follow-up note: CM SPOKE TO PT IN ROOM REGARDING INSURANCE DENIAL FOR INPATIENT REHAB AND ASKED ABOUT CHOICES FOR LONG-TERM. PT STATES THAT THEY HAVE NO CHOICE FOR REHAB IN [place], PROVIDER LISTING PREVIOUSLY PROVIDED; PT SIGNED CHOICE FOR ANY LONG-TERM IN [place]. IMPORTANT MESSAGE FROM MEDICARE PROVIDED AND EXPLAINED. CM RECEIVED CALL FROM JAROD MOSCOSO, PT'S SON, , WHO WANTS ONLY REFERRED TO 4 OR 5 [place] FACILITIES. CM FAXED REFERRALS TO [facility] AT [phone] AND [facility] [phone]. CM TO FOLLOW UP WITH [facility] AT [phone] AND [facility] AT [phone]. CM WAITING ADMISSION DETERMINATIONS FROM BOTH FACILITIES. CM NOTIFIED MALCOLM OF [facility] TO REQUEST OUTPATIENT DIALYSIS UNIT IN [place]. Jd Ahuja, CASE MANAGEMENT DCP- Discharge Planning Updated by [id number]: Jd Ahuja on 12/16/18 7:[address] Patient Name: ERROL FARAH Encounter No: [id number] : 1945 Primary Insurance: [facility] MEDICARE SOLUTIONS Anticipated DC Date: 12-01-2018 Planned Disposition: INPATIENT REHAB External Planned Provider: [facility] DCP follow-up note: CM SPOKE TO PT IN ROOM, DISCUSSED [facility] NOT ACCEPTING DUE TO NO DIALYSIS UNIT AVAILABLE IN SERVICE AREA. PT WOULD LIKE TO BE CONSIDERED AT [facility] IN [place], [place]. CHOICE SIGNED. CM SPOKE TO MALCOLM OF [facility] WHO INFORMED CM THAT THERE ARE NO OPENINGS FOR OUTPATIENT DIALYSIS AT THE [place] UNIT. CM SPOKE TO PT AND FAMILY IN ROOM, DISCUSSED LONG-TERM IN [place] WHERE THE NEXT CLOSEST OUTPATIENT DIALYSIS UNIT TO PT'S HOME. CM PROVIDED LISTING OF LONG-TERM FACILITIES WITHIN 50 MILES OF PT'S HOME FROM MEDICARE WEBSITE. PT AND FAMILY WOULD LIKE TO BE CONSIDERED FOR INPATIENT REHAB AT [place] WITH PLAN TO RETURN HOME AT DISCHARGE FROM REHAB. PT NOW DOES NOT WANT TO GO TO LONG-TERM FOR REHAB. ORDER FOR INPATIENT REHAB PRESCREEN OBTAINED. [facility] OF INPATIENT REHAB NOTIFIED. IMPORTANT MESSAGE FROM MEDICARE PROVIDED AND EXPLAINED. CM WAITING ON OCCUPATIONAL THERAPY EVALUATION, INPATIENT REHAB PRESCREEN AND INSURANCE DETERMINATION FOR INPATIENT REHAB SERVICES. Jd Ahuja, CASE MANAGEMENT DCP- Discharge Planning Updated by [id number]: Dulce Maria Stubbs on 12/08/18 3:[address] JAYDA WITH AT [facility] STATED THAT THEY HAVE AUTH FOR [facility]. WILL DC TO [facility] WHEN SHE IS STABLE FOR DISCHARGE DCP- Discharge Planning Updated by [id number]: Dulce Maria Evelyne on 12/05/18 10:[address] SPOKE WITH JAYDA AT [facility] (SKILLED FACILITY IN [place]) SHE STATED THAT THE PATIENT WILL NEED TO BE PREAUTH BEFORE SHE CAN RETURN SENT CLINICALS TO [phone]. I TOLD HER THAT I ANTICIPATE HER TO BE DISCHARGED SOON DCP- Discharge Planning Updated by [id number]: Rosa Hull on 11/29/18 5:[address] Patient Name: ERROL FARAH Admission Status: ER Accout number: [id number] Admission Date: 11-29-2018 : 1945 Admission Diagnosis: Attending: VALENTIN SOL Current LOS: 1 Anticipated DC Date: 12-01-2018 Planned Disposition: Long Term Facility - [facility] Primary Insurance: [facility] MEDICARE SOLUTIONS Discharge Planning Comments: CM met with patient to complete initial dc planning assessment. Patient asleep at this time. CM called her son Jarod Farah, , and educated him on the CM role and verbal consent given by him to complete assessment. Patient is currently in rehab at [facility], . Her son reports she will return there when she is discharged to complete her rehab. He denied further known dc needs at this time. CM will continue to follow and will assist as needed with dc plans/needs. Route Sales Specialist: Rosa Hull RN, [facility] DCPIA - Discharge Planning Initial Assessment Updated by [id number]: Rosa Hull on 11/29/18 6:11 pm * How many steps to enter\exit or inside your home? None * PCP Dr. Kevin Gold, [place] * Pharmacy [facility] * Preadmission Environment Long Term Facility * Facility Name [facility] [phone] * ADLs Partial Dependent * Partial ADLs (Assistance needed) Ambulation Bathing Medication Management Transfers * Equipment Cane Oxygen Rolling Walker Wheelchair * Other Equipment Wears Oxygen qhs * List name and contact numbers for known caregivers / representatives who currently or will assist patient after discharge: Miya Robbins - - [phone] Jarod steele - [phone] * Community resources currently utilized Other * Please name any agencies selected above. Rehab * Additional services required to return to the preadmission environment? No * Can the patient safely return to the preadmission environment? Yes * Has this patient been hospitalized within the prior 30 days at any hospital? Yes Coverage Notice Reviewer: YOLANDA Ahuja Notice Issued Date-Time: 12/15/2018 9:00 Notice Type: IM Discharge Notice Notice Delivered To: Patient Relationship to Patient: Leathersmith Name: Delivery Method: HAND - Hand Delivered Bridget Days: Prior Verbal Notification: Recipient Understood Notice: Yes Recipient Signature: Yes Med Rec Note Co-signed by Attending: Coverage Notice Comment: Reviewer: YOLNADA Ahuja Notice Issued Date-Time: 12/16/2018 9:00 Notice Type: Patient Choice Letter Notice Delivered To: Patient Relationship to Patient: Leathersmith Name: Delivery Method: HAND - Hand Delivered Bridget Days: Prior Verbal Notification: Recipient Understood Notice: Yes Recipient Signature: Yes Med Rec Note Co-signed by Attending: Coverage Notice Comment: [facility] Reviewer: YOLANDA Ahuja Notice Issued Date-Time: 12/20/2018 9:05 Notice Type: Patient Choice Letter Notice Delivered To: Patient Relationship to Patient: Leathersmith Name: Delivery Method: HAND - Hand Delivered Bridget Days: Prior Verbal Notification: Recipient Understood Notice: Yes Recipient Signature: Yes Med Rec Note Co-signed by Attending: Coverage Notice Comment: ANY SNF IN [place] Reviewer: YOLANDA Ahuja Notice Issued Date-Time: 12/20/2018 9:05 Notice Type: IM Discharge Notice Notice Delivered To: Patient Relationship to Patient: Leathersmith Name: Delivery Method: HAND - Hand Delivered Bridget Days: Prior Verbal Notification: Recipient Understood Notice: Yes Recipient Signature: Yes Med Rec Note Co-signed by Attending: Coverage Notice Comment: Reviewer: YOLANDA Peter Jd Ahuja Notice Issued Date-Time: 12/29/2018 9:35 Notice Type: IM Discharge Notice Notice Delivered To: Patient Relationship to Patient: Leathersmith Name: Delivery Method: HAND - Hand Delivered Bridget Days: Prior Verbal Notification: Recipient Understood Notice: Yes Recipient Signature: Yes Med Rec Note Co-signed by Attending: Coverage Notice Comment: Last DP export: 12/30/18 2:53 p Patient Name: ERROL FARAH Page [id number] at 0909 All edits/amendments must be made on the electronic document DICTATION DATE: 01/02/19907 DIRECTOR OF INCOME TAX: CLEM 01/02/19907 RPT#: [id number] DC DATE:12/31/18 STATUS: DIS IN [facility] [address] [place] [address] END OF REPORT
== END 2018-12-31 09:13 | DRG 981 ==
LOC: D.ER 17:18 → D.EDHOLD 17:52 → D.M2 17:52 → D.ICU 17:52 → D.MS 17:52 → D.EDHOLD 18:04 → D.ICU 18:37 → D.MS 12-02 14:28 → D.M2 12-12 17:30 → D.ICU 12-17 07:20 → D.M2 12-18 15:34
PROVIDERS: Family Medicine; Internal Medicine Gastroenterology; Internal Medicine Nephrology; Surgery; ADMIT Internal Medicine Nephrology; ATTEND Internal Medicine Nephrology
PROC: 0W3P8ZZ Control Bleeding in Gastrointestinal Tract, Via Natural or Artificial Opening Endoscopic (ICD-10-PCS; principal; 2018-12-01 17:40)
PROC: 02HV33Z Insertion of Infusion Device into Superior Vena Cava, Percutaneous Approach (ICD-10-PCS; 2018-12-12)
PROC: B548ZZA Ultrasonography of Superior Vena Cava, Guidance (ICD-10-PCS; 2018-12-12)
PROC: 5A1D70Z Performance of Urinary Filtration, Intermittent, Less than 6 Hours Per Day (ICD-10-PCS; 2018-12-12)
PROC: 0JH63XZ Insertion of Tunneled Vascular Access Device into Chest Subcutaneous Tissue and Fascia, Percutaneous Approach (ICD-10-PCS; 2018-12-16)
PROC: B5181ZA Fluoroscopy of Superior Vena Cava using Low Osmolar Contrast, Guidance (ICD-10-PCS; 2018-12-16)
PROC: 02HV33Z Insertion of Infusion Device into Superior Vena Cava, Percutaneous Approach (ICD-10-PCS; 2018-12-16)
PROC: 03180JD Bypass Left Brachial Artery to Upper Arm Vein with Synthetic Substitute, Open Approach (ICD-10-PCS; 2018-12-16 09:45)
DX: K55.21 Angiodysplasia of colon with hemorrhage (principal); E43 Unspecified severe protein-calorie malnutrition; G92 Toxic encephalopathy; N18.6 End stage renal disease; D62 Acute posthemorrhagic anemia; I50.22 Chronic systolic (congestive) heart failure; Z68.1 Body mass index [BMI] 19.9 or less, adult; N17.9 Acute kidney failure, unspecified; E87.1 Hypo-osmolality and hyponatremia; N39.0 Urinary tract infection, site not specified; I13.2 Hypertensive heart and chronic kidney disease with heart failure and with stage 5 chronic kidney disease, or end stage renal disease; I25.10 Atherosclerotic heart disease of native coronary artery without angina pectoris; I08.0 Rheumatic disorders of both mitral and aortic valves; Z86.73 Personal history of transient ischemic attack (TIA), and cerebral infarction without residual deficits; B96.20 Unspecified Escherichia coli [E. coli] as the cause of diseases classified elsewhere